=== PATIENT | male | born 1935 | race Caucasian/White ===

== ENCOUNTER 2017-04-15 12:46 | Inpatient (IN) | payer MEDICARE ==
--- NOTE | 2017-04-15 13:19 | RAD ---
CHEST ONE VIEW: History: Sepsis alert. Comparison: 04-15-17 FINDINGS: Portable upright chest demonstrates atherosclerosis of the aortic knob. Heart is enlarged. Pulmonary vessels and hilum are normal. Costophrenic angles are clear. No mass. No consolidation. No pneumothor ax or osseous abnormality. IMPRESSION: No acute cardiopulmonary process. POS: [facility]
[2017-04-15 13:28] LABS: #Lymphocytes 0.8 thou/uL (1.20-3.40); #Monocytes 0.4 thou/uL (0.11-0.59); #Neutrophils 8.8 thou/uL (1.40-6.50); %Basophils 0.1 % (0.0-1.0); %Eosinophils 0.1 % (0.0-10.0); %Lymphocytes 8.2 % (21.0-51.0); %Monocytes 3.5 % (0.0-10.0); %Neutrophils 88.1 % (42.0-75.0); Hemoglobin 9.3 g/dL (14.0-18.0); Mean Corpuscular HGB CONC 33.7 g/dL (32.0-36.0); Mean Corpuscular Hemoglobin 32.3 pg (27.0-31.0); Mean Corpuscular Volume 95.7 fl (80.0-94.0); Mean Platelet Volume 6.8 fL (7.4-10.4); Platelet Count 403 thou/uL (130-400); Red Blood Cell (RBC) Count 2.87 mill/uL (4.70-6.10); White Blood Cell (WBC) Count 9.9 thou/uL (4.8-10.8)
[2017-04-15 13:53] LABS: ALT (SGPT) 10 U/L (8-55); AST (SGOT) 20 U/L (5-34); Albumin 2.9 g/dL (3.4-4.8); Alkaline Phosphatase 105 U/L (40-150); Anion Gap 20 mmol/L (10-20); BUN (Urea Nitrogen) 67 mg/dL (8.4-25.7); Bilirubin, Total 0.3 mg/dL (0.2-1.2); Calc. Creatinine Clearance 0 mL/min (70-130); Calcium 9.1 mg/dL (7.8-10.44); Carbon Dioxide 19 mmol/L (23-31); Chloride 101 mmol/L (98-107); Estimated GFR-MDRD 6; Globulin 3.4 g/dL (2.4-3.5); Glucose 151 mg/dL (83-110); Potassium 4.2 mmol/L (3.5-5.1); Protein, Total 6.3 g/dL (5.8-8.1); Sodium 136 mmol/L (136-145)
[2017-04-15] MEDS ORDERED: Piperacillin/Tazobactam 4.5 GM in Sodium Chloride 0.9% 100 ML IVPB SCH (14:15)
[2017-04-15 14:41] LABS: Bilirubin Negative (Negative); Blood, Urine Large (Negative); Clarity CLOUDY (Clear); Glucose, Urine (Dipstick) Negative (Negative); Leukocyte Negative (Negative); Nitrite Negative (Negative); Protein, Urine (Dipstick) 300 mg/dL (Neg-Trace); Specific Gravity, Urine 1.016 (1.002-1.036); Urobilinogen 0.2 mg/dL (0.2-1.0); pH, Urine 6.5 (5.0-9.0)
[2017-04-15 14:44] LABS: Bacteria/HPF None Seen HPF (None Seen); Hyaline Casts/LPF 0-3 HYALINE CAST LPF (0-3 Hyaline); Pathc Cast-AUWi Flag 0.13 (0-2.49); RBC/HPF GREATER THAN 50-TNTC HPF (0-3); Squamous Epithelial 0-3 HPF (0-3)
[2017-04-15] MEDS ORDERED: Azithromycin 500 MG in Sodium Chloride 0.9% 250 ML 250 ML IVPB SCH (14:45)
[2017-04-15] MEDS ORDERED: cefTRIAXone\\ROCEPHIN 2 GM in Sodium Chloride 0.9% 100 ML IVPB SCH (16:00)
[2017-04-15] MEDS ORDERED: Acetaminophen 325 MG TAB PO PRN (17:03)
[2017-04-15] MEDS ORDERED: Ondansetron HCl/PF 4 MG/2 ML Vial IVP PRN (17:03)
[2017-04-15] MEDS ORDERED: Ondansetron ODT 4 MG TAB SL PRN (17:03)
[2017-04-15] MEDS ORDERED: Sodium Chloride 0.9% 1,000 ML IV SCH (17:03)
[2017-04-15 17:38] LABS: Lactic Acid 1.4 mmol/L (0.5-2.2)
[2017-04-15] MEDS: Sodium Chloride 0.9% 1,000 ML IV SCH (18:14)
--- NOTE | 2017-04-15 20:04 | HP ---
DATE: 04/15/2017, 05:44 p.m. HISTORY OF PRESENT ILLNESS: This is an 81-year-old white male with a long tobacco history, who prese nts with weakness. Patient has a 50-year tobacco history. He has done well throughout his life. 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 He w as doing well until approximately 3 weeks ago when he developed cough and congestion. This has becom e progressively worse daily. It got to the point to where he was having no energy and no appetite. He was having chills at home and was turning the heat up in the house, but could still not stay warm. He was having nausea and dry heaves. He then presented to Dr. Burt on 04/14/2016 and was given Le vaquin and prednisone, and albuterol for bronchitis. He was also diagnosed with fatigue. Labs were obtained and his creatinine was noted to be 9. Dr. Burt today called him at home and instructed him to go straight to the emergency room. Patient has continued to work outside. He complains of persi stent cough and congestion, having difficulty catching his breath. He was seen in the emergency room and is presently admitted for further workup. 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 PAST SURGICAL HISTORY: None. FAMILY HISTORY: Parents are . Mother had a history of hypertension and arthritis. SOCIAL HISTORY: He is a former/rancher. He has been twice. He has 5, four living. He pre sently lives alone. He does have a 50-year tobacco history, smoking approximately half a pack per da y. MEDICATIONS: Aspirin 81 mg daily, lisinopril 20, albuterol p.r.n., Flomax 0.4 mg daily. ALLERGIES: None. REVIEW OF SYSTEMS: As above. PHYSICAL EXAMINATION: VITAL SIGNS: Temperature 98.4, pulse 84, respirations 18, pulse ox 96, blood pressure 154/89. GENERAL: The patient appears mild to moderately ill; however, conversing without difficulty. HEENT: Clear. Mucous membranes dry. NECK: Supple. HEART: Regular rate and rhythm. LUNGS: With bilateral expiratory rhonchi, otherwise relatively clear. He is presently receiving joan athing treatments. ABDOMEN: Soft with diffuse tenderness. EXTREMITIES: With no edema. LABORATORY AND X-RAY FINDINGS: White count 9.9, H&H 9.3 and 27.4, platelets 403. Electrolytes davis l. Creatinine 9.15, BUN 67, potassium 4.2, glucose 151, lactic acid 2.4. Urine specific gravity 1.0 13 with large blood, TNTC RBCs, but 7-10 WBCs, 0-3 squamous cells, no ketones. Chest x-ray no acute disease. ASSESSMENT: 1. Pneumonia. 2. Chronic obstructive pulmonary disease exacerbation. 3. Acute kidney injury on chronic kidney disease stage 5. 4. Dehydration present x3 weeks. 5. Hematuria secondary to dehydration. 6. Tobacco abuse. 7. Benign prostatic hypertrophy. 8. Status post spider bite hospitalized in 09/2016. It appears that the patient may have had a pneumonia/COPD exacerbation, which has been progressing ov er the past 3 weeks. The patient just simply became progressively dehydrated, leading to prerenal az otemia progressing to azotemia. He has been hydrated in the emergency room. He will need hydration over several days and his creatinine will have to be monitored daily. Hopefully, it will improve sig nificantly. PLAN: 1. IV Zithromax and Rocephin. 2. Protonix 40 daily. 3. Hydrate with normal saline at 100 mL per hour. 4. CBC, comprehensive in a.m. as well as blood culture and urine culture. 5. Chest x-ray PA and lateral in a.m. 6. Solu-Medrol 20 q.8 hours. 7. DuoNebs q.6 hours. 8. Abdominal ultrasound.
[2017-04-15] MEDS: HYDROcodone/Acetaminophen 5/325 mg Tablet PO PRN (21:30)
[2017-04-15] MEDS: Pantoprazole 40 MG VIAL IVP SCH (21:31)
--- NOTE | 2017-04-15 22:07 | ULT ---
RENAL ULTRASOUND 04/15/17 PROVIDED CLINICAL HISTORY: Acute kidney injury and chronic kidney disease. FINDINGS: Right kidney measures about 11.3 x 5.2 x 5.3 cm and demonstrates no evidence for hydronephrosis or so lid mass. Simple appearing cysts are seen involving the right kidney. Left kidney measures about 9.9 x 5.3 x 4.8 cm and demonstrates no evidence for hydronephrosis. The urinary bladder is decompressed by Conrad catheter and not evaluated. IMPRESSION: No evidence for hydronephrosis. POS: [facility]
[2017-04-16] MEDS: Sodium Chloride 0.9% 1,000 ML IV SCH ×3 (01:55→20:50)
[2017-04-16] MEDS: HYDROcodone/Acetaminophen 5/325 mg Tablet PO PRN ×3 (01:55→20:50)
--- NOTE | 2017-04-16 08:14 | PRG ---
DATE OF SERVICE: 04/16/2017 SUBJECTIVE: The patient is feeling much better this morning. He had difficulty sleeping last night. He did not want any sleep medications. However, tonight he might need some. He lives in the [facility] and is very quiet and peaceful. He stated that the hospital is very noisy, making it very difficu lt to sleep. OBJECTIVE: VITAL SIGNS: Temperature 98, pulse 105, respirations 18, pulse ox 97, blood pressure 129/78. HEART: Regular rate and rhythm. LUNGS: Clear. ABDOMEN: Soft. LABORATORY DATA: CBC and comprehensive pending. Renal ultrasound negative. ASSESSMENT: 1. Pneumonia. 2. Chronic obstructive pulmonary disease exacerbation. 3. Acute kidney injury on chronic kidney disease stage 5. 4. Dehydration, present x3 weeks. 5. Hematuria secondary to dehydration. 6. Tobacco abuse. 7. Benign prostatic hypertrophy. 8. Status post spider bite hospitalized in 09/2016. The patient's cough and congestion has improved dramatically. His main issue right now is his kidney s. His labs are pending this morning. Nephrology has been consulted. He did have a brief episode o f atrial fibrillation last night. We will continue to observe. May need to consult Cardiology if it returns. We will need to recheck his electrolytes. Hopefully, his creatinine has improved. PLAN: 1. Continue IV Rocephin, Zithromax, Protonix, and Solu-Medrol. 2. Check CBC, comprehensive. 3. Continue hydration, normal saline at 100 mL per hour. 4. Consult Nephrology. 5. Chest x-ray PA and lateral. 6. Consider Cardiology if atrial fibrillation returns.
[2017-04-16 08:41] LABS: #Lymphocytes 0.5 thou/uL (1.20-3.40); #Monocytes 0.1 thou/uL (0.11-0.59); #Neutrophils 9.6 thou/uL (1.40-6.50); %Eosinophils 0.2 % (0.0-10.0); %Lymphocytes 4.6 % (21.0-51.0); %Monocytes 1.2 % (0.0-10.0); Mean Corpuscular HGB CONC 31.7 g/dL (32.0-36.0); Mean Corpuscular Volume 97.9 fl (80.0-94.0); Platelet Count 366 thou/uL (130-400); RBC Distribution Width 13.1 % (11.5-14.5); Red Blood Cell (RBC) Count 2.58 mill/uL (4.70-6.10); White Blood Cell (WBC) Count 10.2 thou/uL (4.8-10.8)
[2017-04-16 09:09] LABS: ALT (SGPT) 10 U/L (8-55); AST (SGOT) 19 U/L (5-34); Albumin 2.6 g/dL (3.4-4.8); Alkaline Phosphatase 78 U/L (40-150); Anion Gap 13 mmol/L (10-20); BUN (Urea Nitrogen) 65 mg/dL (8.4-25.7); Bilirubin, Total Less than 0.2 mg/dL (0.2-1.2); Calc. Creatinine Clearance 7 mL/min (70-130); Calcium 8.5 mg/dL (7.8-10.44); Carbon Dioxide 22 mmol/L (23-31); Chloride 106 mmol/L (98-107); Estimated GFR-MDRD 6; Globulin 2.8 g/dL (2.4-3.5); Glucose 162 mg/dL (83-110); Protein, Total 5.4 g/dL (5.8-8.1); Sodium 136 mmol/L (136-145)
--- NOTE | 2017-04-16 09:43 | RAD ---
CHEST 2 VIEWS: HISTORY: Pneumonia. COMPARISON: Chest 1 view 04/15/17. FINDINGS: Heart size is enlarged. There are air-fluid loops of small and large bowel in the upper abdomen. There is a left lower lobe airspace opacity. The heart size is mildly enlarged. Dense calcifications transverse aorta. IMPRESSION: Left lower lobe airspace opacity concerning for infection. POS: [facility]
--- NOTE | 2017-04-16 10:53 | CON ---
DATE OF CONSULTATION: 04/16/2017 CONSULTING PHYSICIAN: Dr. Serrano from ER. REASON FOR CONSULTATION: Acute kidney injury. REASON FOR ADMISSION: Weakness. HISTORY OF PRESENT ILLNESS: This is an 81-year-old male with history of stroke and arthritis, who ca me to the hospital with the above complaints and found to have acute kidney injury with a creatinine of around 9. Nephrology is consulted for further evaluation. Patient denies any nausea, vomiting, b ut he has been not eating well and dry heaves. No fever or chills. No chest pain, palpitations. PAST MEDICAL HISTORY: Positive for CVA, arthritis. PAST SURGICAL HISTORY: None. HOME MEDICATIONS: Aspirin, lisinopril, Flomax. ALLERGIES: None. SOCIAL HISTORY: No smoking, alcohol or illicit drug abuse and history of former smoking. FAMILY HISTORY: Positive for hypertension. REVIEW OF SYSTEMS: The following complete review of systems was negative, unless otherwise mentioned in the HPI or below: Constitutional: Weight loss or gain, ability to conduct usual activities. Skin: Rash, itching. Eyes: Double vision, pain. ENT/Mouth: Nose bleeding, neck stiffness, pain, tenderness. Cardiovascular: Palpitations, dyspnea on exertion, orthopnea. Respiratory: Shortness of breath, wheezing, cough, hemoptysis, fever or night sweats. Gastrointestinal: Poor appetite, abdominal pain, heartburn, nausea, vomiting, constipation, or diarr hea. Genitourinary: Urgency, frequency, dysuria, nocturia. Musculoskeletal: Pain, swelling. Neurologic/Psychiatric: Anxiety, depression. Allergy/Immunologic: Skin rash, bleeding tendency. PHYSICAL EXAMINATION: GENERAL: This is a well-built male, in no apparent distress. VITAL SIGNS: Temperature 98.4, pulse 84, respiratory 18, blood pressure 154/89. HEENT: Atraumatic, normocephalic. Oral mucosa is moist. NECK: Supple. CARDIOVASCULAR: S1, S2 heard. Rate and rhythm regular. RESPIRATORY: Clear. GASTROINTESTINAL: Abdomen is soft. MUSCULOSKELETAL: No tenderness. No edema. DERMATOLOGIC: No skin rash. NEUROLOGIC: Alert, awake. PSYCHIATRIC: Mood and affect normal. LABORATORY DATA: Hemoglobin is 9.3, potassium is 4.2, BUN 67, creatinine is 9.1. ASSESSMENT AND PLAN: 1. Acute kidney injury most likely from volume depletion. Check renal ultrasound and continue hydra tion and monitor renal function closely, avoid nephrotoxins. Renally dose all the medications. 2. Hypoalbuminemia. We will check urine protein to creatinine ratio. 3. Pyuria, rule out any infection. 4. Edema, controlled. 5. Hypertension. 6. Anemia, chronic, rule out any bleed. Plan is to check renal ultrasound and will check immunological workup and urine protein to creatinine ratio. We will follow. Thank you for the consultation.
--- NOTE | 2017-04-16 11:50 | PRG ---
DATE OF SERVICE: 04/16/2017 SUBJECTIVE: Patient was seen and examined at bedside and overnight events noted. Patient denies any shortness of breath or chest pain or palpitation. No history of nausea or vomitin g or diarrhea or fever or chills or cramps. OBJECTIVE: GENERAL: This is an elderly male, in no apparent distress. VITAL SIGNS: Temperature 99.0, pulse 105, respiratory rate 18, blood pressure 129/78. HEENT: Atraumatic, normocephalic. Oral mucosa is moist NECK: Supple. CARDIOVASCULAR: S1 and S2 heard. Rate and rhythm regular. RESPIRATORY: Clear to auscultation. GASTROINTESTINAL: Abdomen is soft. MUSCULOSKELETAL: No tenderness. No edema. DERMATOLOGIC: No skin rash. NEUROLOGIC: Alert and awake and oriented X3, No focal neurologic deficits. Moving all the extremitie s. PSYCHIATRIC: Mood and affect normal. LABORATORY DATA: Potassium is 5.0, BUN is 65, creatinine is 8.5. ASSESSMENT AND PLAN: 1. Acute kidney injury, most likely from volume depletion. We will check immunological workup and r enal ultrasound was unremarkable. 2. Hypoalbuminemia. We will check for urine protein to creatinine ratio. 3. Proteinuria. 4. Pyuria. 5. Hypertension. 6. Anemia. We will check ANCA and anti-GBM with SPEP, and we will monitor renal function. Continue hydration as tolerated. Avoid nephrotoxins.
--- NOTE | 2017-04-16 13:57 | PQF ---
CLINICAL DOCUMENTATION IMPROVEMENT CLARIFICATION FORM: ICD-10 Updated PLEASE DO AN ADDENDUM TO THE PROGRESS NOTE WITH ANY DOCUMENTATION UPDATES OR ADDITIONS AND CARRY THROUGH TO DC SUMMARY. THANK YOU. DATE: 04/16, 04/20, 04/23 ATTN: DR. ANDRE WHITTAKER/ DR. SONIA BUNCH Please exercise your independent, professional judgment in responding to the clarification form. Clinical indicators are provided on the bottom of this form for your review Please check appropriate box(s): [ ] Pneumonia secondary to (specify organism / underlying disease) [ ] Simple Pneumonia (community acquired - nosocomial) [ ] Bronchopneumonia [ ] Pneumonia of unknown etiology [ ] Other diagnosis [ ] Unable to determine For continuity of documentation, please document condition throughout progress notes and discharge summary. Thank You. CLINICAL INDICATORS - SIGNS / SYMPTOMS / LABS ER PHYSICIAN DOCUMENTATION FINAL DIAGNOSIS 04/15: PNEUMONIA ATTENDING PHYSICIAN H&P DOCUMENTATION 04/15: ASSESSMENT: 1. PNEUMONIA ATTENDING PHYSICIAN PN 04/16: ASSESSMENT: 1. PNEUMONIA RISK FACTORS PNEUMONIA TOBACCO ABUSE COPD EXACERBATION TREATMENTS: IV ANTIBIOTICS (AZITHROMYCIN & ROCEPHIN 04/15 - PRESENT) IVF (NS 04/15 - PRESENT) THANK YOU! Ceci (This form is maintained as a part of the permanent medical record) 2015 [employer]. All Rights Reserved Ceci Gonzalez RN, BSN [email or web address] Office: [phone] [facility]
[2017-04-16 14:45] LABS: Creatinine, Urine 131.48 mg/dL (63-166)
[2017-04-16] MEDS: Azithromycin 500 MG in Sodium Chloride 0.9% 250 ML 250 ML IVPB SCH (14:57)
[2017-04-16] MEDS ORDERED: cefTRIAXone\\ROCEPHIN 1 GM in Sodium Chloride 0.9% 100 ML IVPB SCH (17:00)
[2017-04-16] MEDS: cloNIDine 0.2mg/24 Hour PATCH TD SCH (17:51)
[2017-04-16] MEDS: Amlodipine 5 MG TAB PO SCH (20:51)
[2017-04-16] MEDS: Pantoprazole 40 MG VIAL IVP SCH (20:51)
[2017-04-16] MEDS: Phenergan/Codeine 10-6.25mg/5ml UDCUP PO PRN (20:52)
[2017-04-16] MEDS: cefTRIAXone\\ROCEPHIN 1 GM in Syringe 10 ML SLOW IVP SCH (20:56)
[2017-04-17] MEDS ORDERED: cloNIDine 0.1 MG TAB PO PRN (00:01)
[2017-04-17] MEDS ORDERED: Metoprolol Tartrate 25 MG TAB PO SCH (00:01)
[2017-04-17] MEDS: Sodium Chloride 0.9% 1,000 ML IV SCH ×2 (05:41→17:07)
[2017-04-17 06:11] LABS: HBSAB Concentration 0.27 mIU/mL; HBSAg Index 0.15 S/CO (0-0.99); Hep B Core Total Ab Non-Reactive (NonReactive); Hep B Core Total Index 0.06 S/CO (0-0.79); Hep B Surf AB Non-Reactive (NonReactive); Hep B Surf Ag Non-Reactive S/CO (NonReactive); Hep C IgG Ab Non-Reactive (NonReactive); Hep C Index 0.27 S/CO (0-0.79)
--- NOTE | 2017-04-17 07:36 | PRG ---
DATE OF SERVICE: 04/17/2017 Mr. Jean seems to be feeling better. He was recently hospitalized due to acute renal failure of unknown etiology. PHYSICAL EXAMINATION: VITAL SIGNS: Temperature is 143/93, temperature 98.5. LUNGS: Reveal bilateral breath sounds. HEART: Reveals no murmur. Urine culture is negative. Blood cultures are negative. IMPRESSION: 1. Acute renal failure of unknown etiology, due to possible sepsis. 2. Possible urinary tract infection. PLAN: We will continue cautious IV fluids. We will check basic metabolic panel in a.m. The patient will probably be hospitalized through the weekend. We will await further Nephrology input.
[2017-04-17] MEDS: Metoprolol Tartrate 25 MG TAB PO SCH ×2 (08:47→22:15)
[2017-04-17] MEDS: Latanoprost 0.005% Ophth Soln 2.5 ml Bottle EA EYE SCH (08:47)
[2017-04-17] MEDS: HYDROcodone/Acetaminophen 5/325 mg Tablet PO PRN ×2 (10:05→19:38)
--- NOTE | 2017-04-17 11:45 | PRG ---
DATE OF SERVICE: 04/17/2017 SUBJECTIVE: Patient was seen and examined at bedside and overnight events noted. Patient denies any shortness of breath or chest pain or palpitation. No history of nausea or vomiting or diarrhea or f ever or chills or cramps. OBJECTIVE: GENERAL: This is a well-built male in no apparent distress. VITAL SIGNS: Temperature 98.1, pulse 83, respiratory 18, blood pressure 133/71. HEENT: Atraumatic, normocephalic. Oral mucosa is moist. NECK: Supple. CARDIOVASCULAR: S1, S2 heard. Rate and rhythm regular. RESPIRATORY: Clear to auscultation. GASTROINTESTINAL: Abdomen is soft. MUSCULOSKELETAL: No tenderness, no edema. DERMATOLOGIC: No skin rash. NEUROLOGIC: Alert and awake and oriented x3. No focal neurologic deficits. Moving all the extremit ies. PSYCHIATRIC: Mood and affect normal. LABORATORY DATA: Potassium is 5.0, BUN 65, creatinine 8.0. ASSESSMENT AND PLAN: 1. Acute kidney injury most likely from volume depletion. Renal function is slowly getting better. We will check labs in the morning. No labs done today. 2. Hypoalbuminemia. 2. Proteinuria. 3. Pyuria. 4. Hypertension. 5. Anemia. 6. Serological workup pending. Hepatitis workup negative. The patient had 3+ urine and almost 3 gr ams of protein in the urine and needs to repeat it as an outpatient. Renal ultrasound was unremarkab le. Follow up with immunological workup and we will continue on intravenous fluids as tolerated. Ur ine culture remains negative. We will follow.
[2017-04-17] MEDS: Azithromycin 500 MG in Sodium Chloride 0.9% 250 ML 250 ML IVPB SCH (14:06)
[2017-04-17] MEDS: cefTRIAXone\\ROCEPHIN 1 GM in Syringe 10 ML SLOW IVP SCH (17:07)
[2017-04-17] MEDS: Amlodipine 5 MG TAB PO SCH (22:16)
[2017-04-18] MEDS: Sodium Chloride 0.9% 1,000 ML IV SCH ×2 (02:59→11:20)
[2017-04-18] MEDS: HYDROcodone/Acetaminophen 5/325 mg Tablet PO PRN ×4 (02:59→17:14)
[2017-04-18 05:31] LABS: #Eosinphils 0.1 thou/uL (0.0-0.7); #Lymphocytes 0.4 thou/uL (1.20-3.40); #Monocytes 0.3 thou/uL (0.11-0.59); #Neutrophils 12.8 thou/uL (1.40-6.50); %Basophils 0.1 % (0.0-1.0); %Eosinophils 0.4 % (0.0-10.0); %Lymphocytes 3.1 % (21.0-51.0); %Monocytes 2.5 % (0.0-10.0); Hemoglobin 7.8 g/dL (14.0-18.0); Mean Corpuscular HGB CONC 32.2 g/dL (32.0-36.0); Mean Corpuscular Hemoglobin 31.9 pg (27.0-31.0); Mean Corpuscular Volume 99.1 fl (80.0-94.0); Mean Platelet Volume 6.9 fL (7.4-10.4); Platelet Count 379 thou/uL (130-400); RBC Distribution Width 13.5 % (11.5-14.5); Red Blood Cell (RBC) Count 2.46 mill/uL (4.70-6.10); White Blood Cell (WBC) Count 13.7 thou/uL (4.8-10.8)
[2017-04-18 05:50] LABS: Anion Gap 14 mmol/L (10-20); BUN (Urea Nitrogen) 72 mg/dL (8.4-25.7); Calc. Creatinine Clearance 8 mL/min (70-130); Calcium 8.2 mg/dL (7.8-10.44); Carbon Dioxide 19 mmol/L (23-31); Chloride 108 mmol/L (98-107); Estimated GFR-MDRD 7; Glucose 133 mg/dL (83-110); Potassium 5.5 mmol/L (3.5-5.1); Sodium 135 mmol/L (136-145)
[2017-04-18] MEDS: Latanoprost 0.005% Ophth Soln 2.5 ml Bottle EA EYE SCH (08:06)
[2017-04-18] MEDS: Metoprolol Tartrate 25 MG TAB PO SCH ×2 (08:07→21:10)
[2017-04-18 11:13] LABS: Antinuclear AB Negative (Negative)
[2017-04-18] MEDS ORDERED: Sodium Bicarbonate 150 MEQ, Admixture Fee 1 EACH in Dextrose 5% in Water 1,000 ML IV SCH ×3 (12:45)
[2017-04-18 13:29] LABS: Bilirubin Negative (Negative); Blood, Urine Large (Negative); Clarity CLOUDY (Clear); Glucose, Urine (Dipstick) Negative (Negative); Leukocyte Small (Negative); Nitrite Negative (Negative); Protein, Urine (Dipstick) 300 mg/dL (Neg-Trace); Specific Gravity, Urine 1.019 (1.002-1.036); Urobilinogen 0.2 mg/dL (0.2-1.0); pH, Urine 5.5 (5.0-9.0)
[2017-04-18 13:31] LABS: Bacteria/HPF None Seen HPF (None Seen); Pathc Cast-AUWi Flag 1.35 (0-2.49); Yeast-AUWi Flag 104.7 (0-25.0)
[2017-04-18 13:39] LABS: RBC/HPF GREATER THAN 50-TNTC HPF (0-3); Transitional Epithelial 0-3 HPF (0-3)
[2017-04-18 13:40] LABS: Hyaline Casts/LPF 0-3 HYALINE CAST LPF (0-3 Hyaline); Yeast-All Forms None Seen HPF (None Seen)
[2017-04-18] MEDS: Azithromycin 500 MG in Sodium Chloride 0.9% 250 ML 250 ML IVPB SCH (14:05)
--- NOTE | 2017-04-18 15:29 | PRG ---
DATE OF SERVICE: 04/18/2017 HISTORY OF PRESENT ILLNESS: The patient states he is in no acute distress, has been doing well with breathing treatments, although he has not been ambulatory with physical therapy at the time of exam, it is not sure how tired or winded he would be. I spoke with son at bedside. He verbalized understa nding about the slow improvement in kidneys and fluid dilution showing anemia. Patient's son denies any reports of blood other than found hematuria on laboratory results. The patient does complain of constipation and overt abdominal pain; however, does feel full in the stomach. PHYSICAL EXAMINATION: VITAL SIGNS: This morning temperature of 98.2, pulse of 79, respiratory rate 16, oxygen saturation 9 6%, and blood pressure 150/71. GENERAL: The patient is alert, in no acute distress. HEENT: Normocephalic, atraumatic. Extraocular movements are intact. Sclerae are clear. Oral mucos a is moist currently. NECK: Supple. HEART: Regular rate and rhythm. LUNGS: With expiratory wheezes bilaterally. ABDOMEN: Distended, but not taut, no pain throughout, positive bowel sounds throughout. EXTREMITIES: With no cyanosis or edema. Left upper extremity with a prior IV site with erythema and some induration, erythema is rather being ecchymoses. NEUROLOGIC: The patient is alert and oriented x2. Speech is normal. LABORATORY DATA: White blood cell count 13.7, hemoglobin 7.8, MCV of 99.1, platelet count of 379, so dium 135, potassium of 5.5, CO2 of 19, BUN of 72, creatinine of 7.9, glucose of 133. GWYN was negativ e. Acute hepatitis panel negative. ASSESSMENT AND PLAN: Pneumonia and urinary tract infection, continued on azithromycin and Rocephin. Acute on chronic renal insufficiency, following up Nephrology's recommendations. Patient on 100 mL per hour IV fluids. Anemia of chronic disease, I have ordered stool guaiac for differential. The pa phil does have some element of hematuria, may simply be a slow loss from renal causes with insuffici ent stimulation of long bone production, may consider retic count on morning labs. Dehydration, much improved. The patient is tolerating oral intake at this point in time. Deconditioning, physical th erapy pending. Depending on if patient is able to ambulate or not without significant shortness of b reath, may consider transfusion; however, at this point, we will continue monitoring blood levels. C hronic obstructive pulmonary disease exacerbation, continued on breathing treatments and steroids. W e will likely deescalate to orals soon. The patient still with full phase wheezes on exam today. Co nstipation, started glycerin suppositories and Senokot S. We will check guaiacs as above.
[2017-04-18] MEDS: cefTRIAXone\\ROCEPHIN 1 GM in Syringe 10 ML SLOW IVP SCH (17:13)
--- NOTE | 2017-04-18 19:52 | PRG ---
DATE OF SERVICE: 04/18/2017 SUBJECTIVE: Patient was seen and examined at bedside and overnight events noted. Patient denies any shortness of breath or chest pain or palpitation. No history of nausea or vomiting or diarrhea or f ever or chills or cramps. OBJECTIVE: GENERAL: This is a well-built male in no apparent distress. VITAL SIGNS: Temperature 97.7, pulse 82, respiratory rate 14 and blood pressure 119/63. HEENT: Atraumatic and normocephalic. Oral mucosa is moist. NECK: Supple. CARDIOVASCULAR: S1 and S2 heard. Rate and rhythm regular. RESPIRATORY: Clear to auscultation. GASTROINTESTINAL: Abdomen is soft. MUSCULOSKELETAL: No tenderness. No edema. DERMATOLOGIC: No skin rash. NEUROLOGIC: Alert, awake and oriented x3. No focal neurologic deficits. Moving all the extremities . PSYCHIATRIC: Mood and affect normal. LABORATORY DATA: Potassium is 5.5, BUN is 72 and creatinine is 7.9. GWYN is negative. Hepatitis B p alejandra negative. Urine protein almost 3 grams. Repeat urine suggests hematuria and coarse granular ca sts suggesting UTI. ASSESSMENT AND PLAN: 1. Acute kidney injury, most likely from acute tubular necrosis, suggested by the repeat urine studi es. End-stage renal disease is also a possibility given the hematuria. An immunological workup is p ending. If renal function is not significantly better, might need a renal biopsy. We would avoid as pirin at this point. Follow up serological workup. 2. Hypoalbuminemia. 3. Proteinuria. Need to repeat after acute tubular necrosis. 4. Pyuria. 5. Hypertension. 6. Anemia. 7. Renal function with slow improvement with IV hydration. Continue IV hydration, supportive care, avoid nephrotoxins and we will follow up the immunological tests. Might need a renal biopsy if no si gnificant improvement. Repeat urinalysis suggests acute tubular necrosis.
[2017-04-18] MEDS: Senokot S 8.6-50 MG TAB PO SCH (21:10)
[2017-04-18] MEDS: Amlodipine 5 MG TAB PO SCH (21:10)
[2017-04-19 05:15] LABS: #Eosinphils 0.1 thou/uL (0.0-0.7); #Lymphocytes 0.5 thou/uL (1.20-3.40); #Monocytes 0.4 thou/uL (0.11-0.59); #Neutrophils 11.5 thou/uL (1.40-6.50); %Basophils 0.1 % (0.0-1.0); %Eosinophils 0.4 % (0.0-10.0); %Lymphocytes 3.6 % (21.0-51.0); %Monocytes 3.2 % (0.0-10.0); %Neutrophils 92.6 % (42.0-75.0); Hemoglobin 7.7 g/dL (14.0-18.0); Mean Corpuscular HGB CONC 32.3 g/dL (32.0-36.0); Mean Corpuscular Hemoglobin 31.4 pg (27.0-31.0); Mean Corpuscular Volume 97.1 fl (80.0-94.0); Mean Platelet Volume 6.6 fL (7.4-10.4); Platelet Count 374 thou/uL (130-400); RBC Distribution Width 12.9 % (11.5-14.5); Red Blood Cell (RBC) Count 2.45 mill/uL (4.70-6.10); White Blood Cell (WBC) Count 12.4 thou/uL (4.8-10.8)
[2017-04-19 05:16] LABS: Reticulocyte Count 1.6 % (0.5-1.5)
[2017-04-19 05:24] LABS: Hemoglobin A1c 4.8 % (4.0-6.0)
[2017-04-19 05:31] LABS: Anion Gap 13 mmol/L (10-20); BUN (Urea Nitrogen) 76 mg/dL (8.4-25.7); Calc. Creatinine Clearance 9 mL/min (70-130); Calcium 8.2 mg/dL (7.8-10.44); Carbon Dioxide 21 mmol/L (23-31); Chloride 103 mmol/L (98-107); Estimated GFR-MDRD 7; Glucose 156 mg/dL (83-110); Potassium 5.1 mmol/L (3.5-5.1); Sodium 132 mmol/L (136-145)
[2017-04-19] MEDS: Latanoprost 0.005% Ophth Soln 2.5 ml Bottle EA EYE SCH (08:52)
[2017-04-19] MEDS: Metoprolol Tartrate 25 MG TAB PO SCH ×2 (08:54→21:45)
[2017-04-19] MEDS: Senokot S 8.6-50 MG TAB PO SCH ×2 (08:54→21:45)
[2017-04-19] MEDS: HYDROcodone/Acetaminophen 5/325 mg Tablet PO PRN ×3 (10:19→21:46)
[2017-04-19] MEDS ORDERED: Magnesium Citrate 300 ML BOT PO SCH (10:45)
[2017-04-19 11:10] LABS: Kappa Lambda Light Chain Ratio 1.15 (0.26-1.65); Kappa Light Chains 85.7 mg/L (3.3-19.4); Lambda Light Chain 74.5 mg/L (5.7-26.3)
--- NOTE | 2017-04-19 12:15 | PRG ---
DATE OF SERVICE: 04/19/2017 HISTORY OF PRESENT ILLNESS: The patient still has not had a bowel movement following glycerin suppos itory and Senokot S tablets x2 doses. He reports positive flatus now, but no abdomen pain, formally does have abdomen bloating. He reports his left blown IV site with much improved edema. No warmth o r exudates reported. The patient still producing phlegm, still receiving breathing treatments regard ing COPD history and pneumonia, walked with physical therapy over 200 feet yesterday, feels he could walk again and requesting a walking program for additional ambulation. Family members reported that he is slightly more agitated. He has been unable to receive consistent sleep during his hospital sta y here, requesting something for sleeping. PHYSICAL EXAMINATION: VITAL SIGNS: Temperature 97.7, pulse of 81, respiratory rate of 18, oxygen saturation 97% on room ai r, and blood pressure 140/84. GENERAL: The patient is alert and oriented, in no acute distress. HEENT: Head is normocephalic, atraumatic. Extraocular movements are intact. Sclerae are clear. Or al mucosa is moist. NECK: Supple. HEART: Regular rate and rhythm at the time of exam. LUNGS: Clear to auscultation bilaterally. No rubs or wheezes. ABDOMEN: Distended, but soft, positive bowel sounds throughout, nontender. EXTREMITIES: Lower extremities without cyanosis or edema. Left brachial to AC fossa with ecchymoses , improved swelling compared to yesterday's exam. NEUROLOGIC: The patient is alert and oriented x3, no focal deficits. Speech is normal. LABORATORY DATA: White blood cell count of 12.4, red blood cell count of 2.45, hemoglobin of 7.7, re ticulocyte count of 1.6. Sodium of 132, potassium of 5.1, BUN of 77, creatinine of 7.2, glucose of 1 56, A1c of 4.8, CO2 of 21. Partial autoimmune panel back normal complement, elevated free kappa and lambda, protein profile. GWYN is negative. ASSESSMENT AND PLAN: 1. Pneumonia and chronic obstructive pulmonary disease exacerbation, much improved. The patient is on room air, transitioning IV steroids to p.o., continuing breathing treatments. 2. Acute on chronic renal insufficiency, following up Nephrology's workup depending on autoimmune pa marivel profile and the patient's recovery speed. They may possibly recommend a renal biopsy. IV fluids , we will default to Nephrology's recommendations for continuation of IV fluids regarding elevated cr eatinine, currently slow trend down. 3. Dehydration, appears resolved. 4. Deconditioning, consulting walking program over the weekend for additional ambulation. The patie nt will need a home health PT upon discharge. 5. Anemia of chronic disease, currently stabilized, still would like to check stool for any blood wi th bowel movements produce constipation, ordering magnesium citrate x1 for additional oral relief. I f not improved, we will consider KUB and Fleet Enema versus soapsuds enema. We will continue Senokot S at this point in time. Deescalated azithromycin to oral. Continuing Rocephin at this point in ti me IV for possible urinary tract infection on admission. We will likely see him back after Dr. Burt in a.m.
[2017-04-19] MEDS ORDERED: Azithromycin 250 MG TAB PO SCH (15:00)
[2017-04-19] MEDS: cefTRIAXone\\ROCEPHIN 1 GM in Syringe 10 ML SLOW IVP SCH (16:26)
--- NOTE | 2017-04-19 17:15 | PRG ---
DATE OF SERVICE: 04/19/2017 SUBJECTIVE: Patient was seen and examined at bedside and overnight events noted. Patient denies any shortness of breath or chest pain or palpitation. No history of nausea or vomitin g or diarrhea or fever or chills or cramps. OBJECTIVE: GENERAL: This is an elderly male in no acute distress. VITAL SIGNS: Temperature 97.5, pulse 78, respiratory rate 18, blood pressure 119/58. HEENT: Atraumatic, normocephalic, Oral mucosa is moist. NECK: Supple. CARDIOVASCULAR: S1, S2 heard. Rate and rhythm regular. RESPIRATORY: Clear to auscultation. GASTROINTESTINAL: Abdomen is soft. MUSCULOSKELETAL: No tenderness, no edema. DERMATOLOGIC: No skin rash. NEUROLOGIC: Alert, awake, and oriented x3. No focal neurologic deficits. Moving all the extremitie s. PSYCHIATRIC: Mood and affect normal. LABORATORY DATA: Potassium is 5.1, BUN 76, creatinine 7.2. ASSESSMENT AND PLAN: 1. Acute kidney injury seems to be most likely from acute tubular necrosis. Immunological workups a re pending. GWYN is negative, ANCA is pending, and SPEP is pending. 2. Hypoalbuminemia, most likely from proteinuria. 3. Proteinuria, could be from acute tubular necrosis, but immunological workup is pending. Hemoglob in A1c is normal. 4. Pyuria. Culture remains negative. 5. Hypertension. 6. Anemia, most likely from chronic disease, rule out any bleed. The patient seems to have ATN. Renal function had no significant improvement with IV fluids. We john l continue to monitor. Might need [employer] if no significant improvement of renal function. Plan discuss ed with the son and the patient at the bedside.
[2017-04-19] MEDS ORDERED: Lorazepam 0.5 MG TAB PO PRN (20:00)
[2017-04-19] MEDS: Amlodipine 5 MG TAB PO SCH (21:50)
[2017-04-19] MEDS: Phenergan/Codeine 10-6.25mg/5ml UDCUP PO PRN (22:00)
[2017-04-20 05:48] LABS: #Eosinphils 0.1 thou/uL (0.0-0.7); #Lymphocytes 1.2 thou/uL (1.20-3.40); #Monocytes 0.7 thou/uL (0.11-0.59); #Neutrophils 10.1 thou/uL (1.40-6.50); %Basophils 0.1 % (0.0-1.0); %Eosinophils 0.4 % (0.0-10.0); %Lymphocytes 9.6 % (21.0-51.0); %Monocytes 5.4 % (0.0-10.0); %Neutrophils 84.4 % (42.0-75.0); Hemoglobin 8.2 g/dL (14.0-18.0); Mean Corpuscular HGB CONC 33.2 g/dL (32.0-36.0); Mean Corpuscular Hemoglobin 32.2 pg (27.0-31.0); Mean Corpuscular Volume 96.9 fl (80.0-94.0); Mean Platelet Volume 6.8 fL (7.4-10.4); Platelet Count 397 thou/uL (130-400); Red Blood Cell (RBC) Count 2.55 mill/uL (4.70-6.10)
[2017-04-20 05:59] LABS: Anion Gap 14 mmol/L (10-20); BUN (Urea Nitrogen) 79 mg/dL (8.4-25.7); Calc. Creatinine Clearance 10 mL/min (70-130); Calcium 8.2 mg/dL (7.8-10.44); Carbon Dioxide 22 mmol/L (23-31); Chloride 102 mmol/L (98-107); Estimated GFR-MDRD 8; Glucose 91 mg/dL (83-110); Potassium 5.6 mmol/L (3.5-5.1); Sodium 132 mmol/L (136-145)
--- NOTE | 2017-04-20 08:14 | PRG ---
DATE OF SERVICE: 04/20/2017 Mr. Jean is resting comfortably. He is still complaining of constipation. PHYSICAL EXAMINATION: VITAL SIGNS: Temperature 96.3, BP 120/71. LUNGS: Clear. HEART: Reveals no murmurs. ABDOMEN: Soft, nontender. Bowel sounds are active. No hepatosplenomegaly is noted. LABORATORY DATA: White blood count is 12.0, hemoglobin 8.2, hematocrit 44.7, sodium 132, potassium 5 .6, chloride 102, CO2 22, creatinine 6.92. It is noted, his free kappa lambda light chains are eleva nano. IMPRESSION: Acute renal failure possibly could represent a multiple myeloma with elevated kappa so bda light chain. PLAN: The patient is complaining of constipation. We will give him some Dulcolax tablets and suppos itories to use as directed. We will discuss findings with the patient later.
[2017-04-20] MEDS: predniSONE 20 MG TAB PO SCH (08:47)
[2017-04-20] MEDS: Latanoprost 0.005% Ophth Soln 2.5 ml Bottle EA EYE SCH (08:48)
[2017-04-20] MEDS: Senokot S 8.6-50 MG TAB PO SCH ×2 (08:48→21:53)
[2017-04-20] MEDS: Metoprolol Tartrate 25 MG TAB PO SCH ×2 (08:48→21:54)
[2017-04-20] MEDS: Sodium Chloride 0.9% 1,000 ML IV SCH (10:07)
--- NOTE | 2017-04-20 10:13 | PRG ---
DATE OF SERVICE: 04/20/2017 SUBJECTIVE: This is an 81-year-old gentleman being seen for acute kidney injury. The patient denies any nausea, vomiting or chest pain. PHYSICAL EXAMINATION: GENERAL: Patient is awake, alert. VITAL SIGNS: Afebrile, pulse 77, breathing at 16, blood pressure 121/77. GENERAL APPEARANCE AND MENTAL STATUS: Fair. HEAD/NECK: Normocephalic, atraumatic. EYES: EOMI. No deformity. EARS: Clear. No ulcers. NOSE: Intact. No lesions. MOUTH: Clear. No discharge. THROAT: Clear. No exudate. LUNGS: Clear. No crackles. CARDIAC: S1, S2. No rub. ABDOMEN: Benign. BS+. GENITALIA/RECTUM: Conrad absent. BACK/EXTREMITIES: Edema 0+ Ulcer-. NEUROLOGICAL: Alert and motor intact. SKIN: Rash- Bruise- LYMPHATICS: Edema- Ulcer-. LABORATORY DATA: Show creatinine is 6.9, potassium is 5.6. ASSESSMENT AND RECOMMENDATIONS: 1. Acute kidney injury with chronic kidney disease, appears to be some sort of hematologic disorder causing proteinuria. I will order gentle hydration. 2. Hyperkalemia. We will give Kayexalate and hydration and recheck potassium. If does not improve, we will consider renal replacement therapy. 3. Anemia, appears to be some sort of hematologic disorder. We would recommend consultation. 4. Hypertension, stable. 5. Medication based on glomerular filtration rate are appropriate.
[2017-04-20 13:14] LABS: A/G Ratio 0.8 (0.7-1.7); Albumin 2.1 g/dL (2.9-4.4); Alpha 1 0.3 g/dL (0.0-0.4); Alpha 2 0.9 g/dL (0.4-1.0); Beta 0.6 g/dL (0.7-1.3); Gamma 0.8 g/dL (0.4-1.8); Globulin, Total 2.6 g/dL (2.2-3.9); M-Spike Not Observed g/dL (Not Observed)
[2017-04-20 13:50] LABS: Anion Gap 17 mmol/L (10-20); BUN (Urea Nitrogen) 78 mg/dL (8.4-25.7); Calc. Creatinine Clearance 10 mL/min (70-130); Calcium 8.1 mg/dL (7.8-10.44); Carbon Dioxide 16 mmol/L (23-31); Chloride 102 mmol/L (98-107); Estimated GFR-MDRD 8; Glucose 103 mg/dL (83-110); Potassium 5.8 mmol/L (3.5-5.1); Sodium 129 mmol/L (136-145)
--- NOTE | 2017-04-20 14:47 | CON ---
DATE OF CONSULTATION: 04/20/2017 DATE OF ADMISSION: 04/15/2017 REASON FOR CONSULTATION: Possible plasma cell disorder. HISTORY OF PRESENT ILLNESS: The patient is an 81-year-old man with a long history of tobacco use, wh o presents with a several-month history of progressive weakness and some confusion/cognitive decline. This is associated with upper respiratory complaints including cough without fever or hemoptysis. He was seen in the outpatient setting and routine laboratory studies were obtained revealing a creati nine of 9. He was subsequently admitted emergently, and subsequent studies have confirmed acute paige l failure. A creatinine in 10/2016 was normal. Initial electrolytes were abnormal, manifested by, s odium 136, potassium 4.2, chloride 101, carbon dioxide 19. Creatinine was 9.1 and BUN 67, and total protein 6.4 with an albumin of 3.4. A urinalysis did reveal too numerous to count red blood cells an d 7-10 white cells with some evidence of proteinuria. A culture was negative. The patient has had a serum protein electrophoresis, which is normal with no M-spike. [place] and lambda light chains in th e serum are elevated at 85.7 and 74.5, respectively. However, the free kappa/lambda ratio was normal at 1.15. An ultrasound has shown no evidence of obstruction. At this time, I am asked to see the p atient to provide further management recommendations. ALLERGIES: None. MEDICATIONS: Aspirin, lisinopril, and Flomax. MEDICAL ILLNESS: There is a history of COPD. He reportedly had a mini stroke affecting eyesight in the left eye a few years ago, for which aspirin was prescribed. PAST SURGICAL HISTORY: He has never undergone a serious surgical procedure. SOCIAL HISTORY: Patient has been twice and has 4 living children. 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 A son is quite involved in his care. He has a 50 -pack-year history of smoking and continues to smoke currently 1/2 pack per day. REVIEW OF SYSTEMS: Except as mentioned in the history of present illness, he denies significant card iopulmonary, GI, , musculoskeletal, or neurological complaints. PHYSICAL EXAMINATION: VITAL SIGNS: Temperature 97.8, pulse 77, respirations 17, blood pressure 142/70. GENERAL: The patient is a well-developed, well-nourished man, in no acute distress. He is alert, or iented, and cooperative. HEENT: The extraocular movements are intact. Pupils are equal, round, and reactive to light. NECK: Supple. LUNGS: Clear. CARDIOVASCULAR: Regular rate and rhythm without murmur, rub, gallop, or click. ABDOMEN: No tenderness, organomegaly, masses, bruits, or ascites. EXTREMITIES: No clubbing, cyanosis, or edema. SKIN: Normal. LYMPH: No adenopathy. MUSCULOSKELETAL: No active arthritis. NEUROLOGIC: No focal findings and the cranial nerves II-XII are grossly intact. LABORATORY DATA: See history of present illness. IMAGING: See history of present illness. IMPRESSION: Acute renal failure, etiology unclear. RECOMMENDATIONS: At this point, there is no evidence of a primary hematologic or plasma cell disorde r. The CBC shows a normochromic/normocytic anemia as one might expect in the setting of renal failur e with no other significant findings. There is no evidence of an M-spike, and although the kappa and lambda free light chains are elevated, the ratio is normal, indicating no evidence of a clonal popul ation of plasma cells. There is no 24-hour urine. If a 24-hour urine specimen did show light chain proteinuria, a bone marrow would be the diagnostic procedure of choice in my opinion. Otherwise, pro ceeding with renal biopsy as is being considered by Nephrology would be quite reasonable. Thanks very much for allowing me to provide my recommendations.
[2017-04-20 14:56] LABS: CO2 Tension 33.2 mmHg (35.0-45.0); pH, Arterial 7.41 (7.35-7.45)
[2017-04-20 14:57] LABS: Actual Bicarbonate (HCO3a) 20.6 mEq/L (22-26); Base Excess (BEa) -3.5 mEq/L (0 (+/-) 2.5); Calcium, Ionized 1.2 mmol/L (1.12-1.30); Hematocrit-ABG 28.6 % (42.0-52.0); Hemoglobin (Hb) 8.4 g/dL (14.0-18.0); O2 Tension (PaO2) 76.6 mmHg (80.0-100.0); Puncture Site RR
[2017-04-20] MEDS ORDERED: Bisacodyl 10 MG SUPP PR SCH (15:45)
--- NOTE | 2017-04-20 17:01 | ULT ---
VEIN MAPPING OF UPPER EXTREMITIES FOR DIALYSIS ACCESS: Clinical history: Dialysis access. FINDINGS: Incidental note of enlarged rounded vascular structure of the region of the right brachial artery. Th is may relate to aneurysm versus pseudo-aneurysm. RIGHT UPPER EXTREMITY BRACHIAL ARTERY: 2.9 mm RADIAL ARTERY: 2.3 mm ULNAR ARTERY: 1.1 mm CEPHALIC VEIN Proximal Arm: Not seen Mid Arm: Not seen Distal Arm: Non compressible Antecubital Fossa: Non compressible Proximal Forearm: 1.5 mm Mid Forearm: 1.6 mm Distal Forearm: 1.4 mm BASILIC VEIN Proximal Arm: 3.1 mm Mid Arm: 3.3 mm Distal Arm: 3.2 mm Antecubital Fossa: 3.2 mm Proximal Forearm: 0.7 mm Mid Forearm: 1.3 mm Distal Forearm: 1.1 mm LEFT UPPER EXTREMITY BRACHIAL ARTERY: 3.9 mm RADIAL ARTERY: 2.1 mm ULNAR ARTERY: 1.6 mm CEPHALIC VEIN Proximal Arm: 1.2 mm Mid Arm: 1.3 mm Distal Arm: 1.3 mm Antecubital Fossa: 1.4 mm Proximal Forearm: 0.8 mm Mid Forearm: 1.4 mm Distal Forearm: 1.3 mm BASILIC VEIN Proximal Arm: 2.3 mm Mid Arm: 1.7 mm Distal Arm: 1.4 mm Antecubital Fossa: 2.0 mm Proximal Forearm: 1.1 mm Mid Forearm: Non compressible Distal Forearm: Non compressible IMPRESSION: 1. 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 Recommend clinical correlation and appropriate follow up. 2. Upper extremity vein mapping as above. POS: SHAD
[2017-04-20] MEDS: cefTRIAXone\\ROCEPHIN 1 GM in Syringe 10 ML SLOW IVP SCH (17:37)
--- NOTE | 2017-04-20 20:17 | OP ---
PREOPERATIVE DIAGNOSIS: Acute renal failure. POSTOPERATIVE DIAGNOSIS: Acute renal failure. PROCEDURE: Right femoral vein Trialysis catheter. SURGEON: Dr. Benjamín Jj ANESTHESIA: 1% Xylocaine. PROCEDURE: The patient is at the bedside, right groin was clipped of hair, prepared with chloraprep, draped in routine fashion. Seldinger technique used to place a Trialysis catheter utilizing smaller and medium sized dilators placed over the J-wire in the femoral vein and removed and J-wire removed from the Trialysis catheter once placed, catheter secured with 2 interrupted sutures of 3-0 nylon and sterile dressings applied. Each port aspirated blood and flushed with heparinized saline solution. Patient tolerated the procedure well.
--- NOTE | 2017-04-20 20:22 | HP ---
HISTORY OF PRESENT ILLNESS: Mr. Jean is an 81-year-old male patient who lives in [place], works il [employer], has a history of hypertension and recent bout with flu, admitted to this hospitalization 0 04/15/2017, Dr. Leyva, followed by Dr. Benjamín Burt, with weakness. The patient has developed acute renal failure. I have been asked by Dr. Pastor to place hemodialysis temporary catheter. Despite opt imal medical treatment, his renal function has deteriorated. Prior to this hospitalization, renal fu nction was normal. 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 Maximiliano Persaud. PAST SURGICAL HISTORY: Noncontributory. SOCIAL HISTORY: The patient's son is with him. The patient is a castaneda/rancher. He has passed the worst. 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 Tobacco abuse in the past. MEDICATIONS: Aspirin, lisinopril, Flomax. REVIEW OF SYSTEMS: Noncontributory. PHYSICAL EXAMINATION: VITAL SIGNS: 5 feet 7 pounds, 183 pounds, 28 BMI, 97.8, 77, 142/70. LUNGS: Clear to auscultation. CARDIAC: Regular rate and rhythm without murmur or gallop. ABDOMEN: Soft, nontender. EXTREMITIES: Unremarkable. LABORATORY DATA: White count 12, hemoglobin 8.2. Sodium 129, potassium 5.8, BUN 78, creatinine 7.07 , GFR 8. IMAGING: We will obtain ultrasound vein mapping both arms, which we have obtained in case long-term dialysis access is necessary. Cephalic vein on the right in his upper arm is thrombosed and small, b asilic vein 3.1, 3.3, 3.2 mm; antecubital fossa 3.2 mm; left cephalic vein 1.2, 1.3, 1.3 mm; basilic vein 2.3, 1.7, 1.4; antecubital fossa 2 mm. The suggestion of a possible aneurysm versus pseudoaneur ysm is the reason of the right brachial artery based on ultrasound. ASSESSMENT AND PLAN: Acute renal failure. Plan placement of hemodialysis catheter, Trialysis, right groin, avoid IV acces s above his wrist. I will be available if more permanent dialysis access is necessary. Hopefully, r enal function will recover.
[2017-04-20] MEDS: Amlodipine 5 MG TAB PO SCH (21:53)
[2017-04-20] MEDS: Phenergan/Codeine 10-6.25mg/5ml UDCUP PO PRN (21:54)
[2017-04-20] MEDS: HYDROcodone/Acetaminophen 5/325 mg Tablet PO PRN (21:54)
[2017-04-21] MEDS: Sodium Chloride 0.9% 1,000 ML IV SCH (07:28)
[2017-04-21 08:19] LABS: Albumin-Ur 72.3 % (.); Alpha 2 - Ur 6.1 % (.); Gamma-Ur 9.5 % (.); M-Spike,% Not Observed % (Not Observed); Protein, Urine 262.2 mg/dL (Not Estab.)
[2017-04-21 10:37] LABS: Anion Gap 6 mmol/L (10-20); Calc. Creatinine Clearance 26 mL/min (70-130); Calcium 7.6 mg/dL (7.8-10.44); Carbon Dioxide 32 mmol/L (23-31); Chloride 104 mmol/L (98-107); Estimated GFR-MDRD 23; Glucose 96 mg/dL (83-110); Potassium 3.5 mmol/L (3.5-5.1); Sodium 138 mmol/L (136-145)
--- NOTE | 2017-04-21 11:11 | PRG ---
DATE OF SERVICE: 04/21/2017 SUBJECTIVE: An 81-year-old gentleman being seen for acute kidney injury and hyperkalemia. The patie nt states he feels better, denies any nausea, vomiting or chest pain. PHYSICAL EXAMINATION: GENERAL: Patient is awake, alert. VITAL SIGNS: Afebrile, pulse 70, breathing at 16, blood pressure 114/58. OBJECTIVE: See above. Awake, alert, in no acute distress. GENERAL APPEARANCE AND MENTAL STATUS: Fair. HEAD/NECK: Normocephalic. Atraumatic. EYES: EOMI. No deformity. EARS: Clear. No ulcers. NOSE: Intact. No lesions. MOUTH: Clear. No discharge. THROAT: Clear. No exudate. LUNGS: Clear. No crackles. CARDIAC: S1, S2. No rub. ABDOMEN: Benign. BS+. GENITALIA/RECTUM: Conrad absent. BACK/EXTREMITIES: Edema 0+ Ulcer- NEUROLOGICAL: Alert and motor intact. SKIN: Rash- Bruise- LYMPHATICS: Edema- Ulcer- LABORATORY: Hemoglobin 8.2. ASSESSMENT AND RECOMMENDATIONS: 1. Stage 6 chronic kidney disease and hyperkalemia. We will plan dialysis again. 2. Uremia plan dialysis. 3. Hypertension, stable. 4. Medications based on glomerular filtration rate are appropriate. Risks versus benefits of dialysis were discussed and continue dialysis. Monoclonal gammopathy of unk nown significance. Hematology consult appreciated.
[2017-04-21] MEDS: predniSONE 20 MG TAB PO SCH (11:23)
[2017-04-21 11:40] LABS: BUN (Urea Nitrogen) 29 mg/dL (8.4-25.7)
[2017-04-21] MEDS: Metoprolol Tartrate 25 MG TAB PO SCH ×2 (11:46→21:06)
[2017-04-21] MEDS: Senokot S 8.6-50 MG TAB PO SCH ×2 (11:46→21:07)
[2017-04-21] MEDS: Latanoprost 0.005% Ophth Soln 2.5 ml Bottle EA EYE SCH (11:47)
[2017-04-21] MEDS: cefTRIAXone\\ROCEPHIN 1 GM in Syringe 10 ML SLOW IVP SCH (16:48)
--- NOTE | 2017-04-21 19:01 | PRG ---
DATE OF SERVICE: 04/21/2017 SUBJECTIVE: Mr. Jean is undergoing dialysis today and he is feeling a little bit better. He has no other complaints thus far . As far as workup has shown only elevated lambda change otherwise wor kup is negative thus far. He is undergoing dialysis. OBJECTIVE: VITAL SIGNS: Temperature 98.7, pulse 126/65. LUNGS: Clear. HEART: Reveals no murmur. IMPRESSION: 1. Acute renal failure, etiology still undetermined. 2. He does have a reported pneumonia by chest x-ray. We will repeat chest x-ray tomorrow. He did s tart some form of discharge planning.
[2017-04-21] MEDS: HYDROcodone/Acetaminophen 5/325 mg Tablet PO PRN (21:05)
[2017-04-21] MEDS: Amlodipine 5 MG TAB PO SCH (21:06)
[2017-04-22] MEDS: predniSONE 20 MG TAB PO SCH (09:15)
[2017-04-22] MEDS: Latanoprost 0.005% Ophth Soln 2.5 ml Bottle EA EYE SCH (09:16)
[2017-04-22] MEDS: Metoprolol Tartrate 25 MG TAB PO SCH ×2 (09:16→20:17)
[2017-04-22] MEDS: Senokot S 8.6-50 MG TAB PO SCH ×2 (09:17→20:17)
[2017-04-22] MEDS: Bisacodyl 5 MG TAB PO PRN (09:19)
--- NOTE | 2017-04-22 09:24 | RAD ---
TWO VIEWS CHEST: Comparison: 04-16-17 History: Pneumonia. FINDINGS: Two views of the chest shows normal sized cardiomediastinal silhouette. There are small bilateral ple ural effusions with adjacent atelectasis. No consolidation or mass are seen. IMPRESSION: Small bilateral pleural effusions. POS: H
[2017-04-22 09:32] LABS: Hemoglobin 7.3 g/dL (14.0-18.0)
[2017-04-22 09:45] LABS: Anion Gap 9 mmol/L (10-20); BUN (Urea Nitrogen) 36 mg/dL (8.4-25.7); Calc. Creatinine Clearance 18 mL/min (70-130); Calcium 7.7 mg/dL (7.8-10.44); Carbon Dioxide 31 mmol/L (23-31); Chloride 101 mmol/L (98-107); Estimated GFR-MDRD 16; Glucose 90 mg/dL (83-110); Potassium 3.8 mmol/L (3.5-5.1); Sodium 137 mmol/L (136-145)
--- NOTE | 2017-04-22 09:57 | PRG ---
DATE OF SERVICE: 04/22/2017 SUBJECTIVE: Mr. Jean is arousable. He feels like he is a little bit confused. He does not know what date it is, although he appears to be more alert to me. He verbalizes no complaints. PHYSICAL EXAMINATION: VITAL SIGNS: Temperature is 98.4, pulse 79, O2 sats 94%, blood pressure 106/55. LUNGS: Reveals raspy breath sounds without evidence of wheezes. HEART: Reveals no murmur. ABDOMEN: Soft, nontender, bowel sounds are present and active. GENITOURINARY: Reveals some scrotal edema. EXTREMITIES: No clubbing, edema or cyanosis. LABORATORY DATA: Sodium 138, potassium 3.5, chloride 104, CO2 32, creatinine 2.72. Urine protein, s tudies showed no evidence of any M-spike. IMPRESSION: 1. Acute renal failure. 2. Pneumonia. PLAN: 1. We will check chest x-ray today. 2. We will engage physical therapy. 3. We will engage social services designee to be in discussing the future living arrangement of the patient a t this time, he states he will not live in a retirement at first with his house. I am beginning to wonder how feasible this is.
--- NOTE | 2017-04-22 10:12 | PRG ---
DATE OF SERVICE: 04/22/2017 SUBJECTIVE: An 81-year-old gentleman being seen for acute kidney injury. The patient denies any abner sea, vomiting, or chest pain. PHYSICAL EXAMINATION: GENERAL: Patient is awake, alert. VITAL SIGNS: Afebrile, pulse 85, breathing at 16, blood pressure 106/55. OBJECTIVE: See above. Awake, alert, in no acute distress. GENERAL APPEARANCE AND MENTAL STATUS: Fair. HEAD/NECK: Normocephalic. Atraumatic. EYES: EOMI. No deformity. EARS: Clear. No ulcers. NOSE: Intact. No lesions. MOUTH: Clear. No discharge. THROAT: Clear. No exudate. LUNGS: Clear. No crackles. CARDIAC: S1, S2. No rub. ABDOMEN: Benign. BS+. GENITALIA/RECTUM: Conrad absent. BACK/EXTREMITIES: Edema 0+ Ulcer- NEUROLOGICAL: Alert and motor intact. SKIN: Rash- Bruise- LYMPHATICS: Edema- Ulcer- LABORATORY: Hemoglobin is 7.3, creatinine is 3.72. ASSESSMENT AND RECOMMENDATIONS: 1. Acute kidney injury with chronic kidney disease, stage 5, continue hemodialysis. 2. Hyperkalemia, stable. 3. Anemia, would recommend transfusion. 4. Medications based on GFR are appropriate.
[2017-04-22] MEDS ORDERED: Bisacodyl 10 MG SUPP PR SCH (11:15)
[2017-04-22] MEDS: Epoetin (ESRD) 10,000 UNITS/ML VIAL SC SCH (11:25)
[2017-04-22 17:13] LABS: ANCA Total <1:20 titer (Neg:<1:20); Atypical pANCA <1:20 titer (Neg:<1:20); Myeloperoxidase AutoAbs 30.2 U/mL (0.0-9.0); Proteinase-3 AutoAbs Less than 3.5 U/mL (0.0-3.5)
[2017-04-22] MEDS: cefTRIAXone\\ROCEPHIN 1 GM in Syringe 10 ML SLOW IVP SCH (17:22)
[2017-04-22] MEDS: HYDROcodone/Acetaminophen 5/325 mg Tablet PO PRN (20:26)
[2017-04-23] MEDS: Amlodipine 5 MG TAB PO SCH ×2 (00:43→20:24)
[2017-04-23] MEDS: Latanoprost 0.005% Ophth Soln 2.5 ml Bottle EA EYE SCH (08:46)
[2017-04-23] MEDS: predniSONE 20 MG TAB PO SCH (08:46)
[2017-04-23] MEDS: Metoprolol Tartrate 25 MG TAB PO SCH ×2 (08:47→20:24)
[2017-04-23] MEDS: Senokot S 8.6-50 MG TAB PO SCH ×2 (08:47→20:24)
[2017-04-23] MEDS ORDERED: CEFAZOLIN/Water 2 GM/20 ML SYRINGE SLOW IVP SCH (11:15)
--- NOTE | 2017-04-23 11:28 | PRG ---
DATE OF SERVICE: 04/23/2017 SUBJECTIVE: Mr. Jean is an 81-year-old gentleman being seen for acute kidney injury requiring hemodialysis. The patient has generalized edema. PHYSICAL EXAMINATION: GENERAL: Patient is awake, alert. VITAL SIGNS: Afebrile, pulse 77, breathing 16, blood pressure 131/65. HEAD/NECK: Normocephalic. Atraumatic. EYES: EOMI. No deformity. EARS: Clear. No ulcers. NOSE: Intact. No lesions. MOUTH: Clear. No discharge. THROAT: Clear. No exudate. LUNGS: Clear. No crackles. CARDIAC: S1, S2. No rub. ABDOMEN: Benign. BS+. GENITALIA/RECTUM: Conrad absent. BACK/EXTREMITIES: Edema 4+ Ulcer- NEUROLOGICAL: Alert and motor intact. SKIN: Rash- Bruise- LYMPHATICS: Edema- Ulcer- LABORATORY DATA: Hemoglobin is pending. ASSESSMENT AND PLAN: 1. Stage 6 chronic kidney disease. Continue hemodialysis. 2. Hypertension, stable. 3. Anemia. We will recheck hemoglobin. If hemoglobin less than 8, we will give transfusion. Continue Epogen. 4. Medications based on glomerular filtration rate are appropriate. Discharge planning is in progress. The patient will have a tunneled catheter. We will consult Dr. Jj. JULIÁN
[2017-04-23 11:31] LABS: Hemoglobin 7.4 g/dL (14.0-18.0)
[2017-04-23 11:59] LABS: Anion Gap 14 mmol/L (10-20); BUN (Urea Nitrogen) 42 mg/dL (8.4-25.7); Calc. Creatinine Clearance 15 mL/min (70-130); Calcium 8.1 mg/dL (7.8-10.44); Carbon Dioxide 28 mmol/L (23-31); Chloride 100 mmol/L (98-107); Estimated GFR-MDRD 13; Glucose 84 mg/dL (83-110); Potassium 3.6 mmol/L (3.5-5.1); Sodium 138 mmol/L (136-145)
--- NOTE | 2017-04-23 13:32 | PRG ---
DATE OF SERVICE: 04/23/2017 Mr. Jean is having dialysis now. He is still reporting some edema to his scrotum and his legs. Otherwise he states he is actually feeling okay. He reports to me he did do some walking. PHYSICAL EXAMINATION: VITAL SIGNS: Temperature is 97.9, BP 120/64. O2 sat 95%. LUNGS: Reveal bilateral breath sounds without rales or rhonchi. HEART: Reveals no murmur. ABDOMEN: Soft, nontender. : Scrotum does show a significant edema. EXTREMITIES: There is 1-2+ edema lower extremities. LABORATORY: Hemoglobin 7.4, hematocrit 23.5, creatinine 4.51. Chest x-ray from yesterday shows exce llent resolution of previously noted infiltrates with bilateral pleural effusions that are small. IMPRESSION: 1. Acute renal failure. 2. Apparently resolved pneumonia. 3. Scrotal edema. 4. Anemia. PLAN: I will discuss with the family the need for disposition and what those needs will be. I have consulted case management. Hopefully he can be placed in rehab for a short term. We will review his medications, I feel like he could stop some of his antibiotics at this time. He is currently mainta ined on Cefazolin and ceftriaxone. Probably needs to be on ceftriaxone 1 more day. Possibly can red uce his prednisone down as well too.
--- NOTE | 2017-04-23 14:24 | PRG ---
DATE OF SERVICE: 04/23/2017 Jaya Jean is doing well today. His renal function has not recovered as hoped. I have been asked by Dr. Pastor to see him regarding placement of hemodialysis catheter. His veins are poor by vei n mapping and thus we will hold off any fissures graft open. He will still enjoy renal recovery. We will also plan placement of a central line tomorrow. His procedures were discussed with the patient and the family, who are all agreeable.
[2017-04-23] MEDS ORDERED: Tuberculin PPD 0.1 ML VIAL I-DERMAL SCH (15:30)
[2017-04-23] MEDS: cloNIDine 0.2mg/24 Hour PATCH TD SCH (16:55)
[2017-04-23] MEDS: cefTRIAXone\\ROCEPHIN 1 GM in Syringe 10 ML SLOW IVP SCH (16:57)
[2017-04-23] MEDS: HYDROcodone/Acetaminophen 5/325 mg Tablet PO PRN (20:25)
[2017-04-24] MEDS: Metoprolol Tartrate 25 MG TAB PO SCH ×2 (06:15→20:56)
[2017-04-24] MEDS ORDERED: Sodium Chloride 0.9% 10 ML ONE (06:44)
[2017-04-24] MEDS ORDERED: Heparin 10,000 UNITS/1 ML VIAL ONE (06:44)
[2017-04-24] MEDS ORDERED: Bupivacaine PF 0.5% 30 ML VIAL ONE (06:44)
[2017-04-24] MEDS ORDERED: Propofol 500 MG/50 ML VIAL ONE (06:52)
[2017-04-24] MEDS ORDERED: Fentanyl 100 MCG/2 ML VIAL ONE (06:52)
[2017-04-24] MEDS ORDERED: CEFAZOLIN/Water 2 GM/20 ML SYRINGE ONE (07:14)
[2017-04-24] MEDS ORDERED: Midazolam HCl 2 mg/2 ml Vial ONE (07:25)
[2017-04-24] MEDS ORDERED: Ondansetron HCl/PF 4 MG/2 ML Vial IVP PRN (08:06)
[2017-04-24] MEDS ORDERED: Lidocaine 2% w/Epinephrine 1:200K 20 ML VIAL ONE (08:49)
--- NOTE | 2017-04-24 09:17 | RAD ---
PORTABLE CHEST 1 VIEW: DATE: 04/24/17. TIME: 8:59 a.m. HISTORY: End-stage renal disease. FINDINGS: Comparison is made with the exam of 04/16/17. There has been interval placement of a right internal jugular dialysis catheter with tips in the proj ection of the SVC. A left internal jugular central line has also been placed with tip in the project ion of the SVC. No pneumothoraces are seen. The heart size is prominent. Bilateral pleural effusio ns are present. POS: JOIE
[2017-04-24] MEDS: predniSONE 20 MG TAB PO SCH (10:12)
[2017-04-24] MEDS: Senokot S 8.6-50 MG TAB PO SCH ×2 (10:12→20:56)
[2017-04-24] MEDS: Latanoprost 0.005% Ophth Soln 2.5 ml Bottle EA EYE SCH (10:14)
--- NOTE | 2017-04-24 10:40 | PRG ---
DATE OF SERVICE: 04/24/2017 SUBJECTIVE: An 81-year-old gentleman being seen for acute kidney injury. The patient denies any abner sea, vomiting or chest pain. PHYSICAL EXAMINATION: GENERAL: Patient is awake, alert. VITAL SIGNS: Afebrile, pulse 75, breathing at 16, blood pressure 132/67. GENERAL APPEARANCE AND MENTAL STATUS: Fair. HEAD/NECK: Normocephalic. Atraumatic. EYES: EOMI. No deformity. EARS: Clear. No ulcers. NOSE: Intact. No lesions. MOUTH: Clear. No discharge. THROAT: Clear. No exudate. LUNGS: Clear. No crackles. CARDIAC: S1, S2. No rub. ABDOMEN: Benign. BS+. GENITALIA/RECTUM: Conrad absent. BACK/EXTREMITIES: He has 4+ edema. Ulcer-. NEUROLOGICAL: Alert and motor intact. SKIN: Rash- Bruise- LYMPHATICS: Edema- Ulcer-. LABORATORY DATA: Show hemoglobin is pending. ASSESSMENT AND RECOMMENDATIONS: 1. Stage 6 chronic kidney disease. We will plan dialysis. The patient's creatinine does increase a fter dialysis stopped. 2. Hyperkalemia, stable. 3. Metabolic acidosis, stable. 4. Edema. 5. ANCA antibody is within normal limits.
--- NOTE | 2017-04-24 10:53 | OP ---
DATE OF PROCEDURE: 04/24/2017 PREOPERATIVE DIAGNOSES: Acute renal failure, poor intravenous access. POSTOPERATIVE DIAGNOSES: Acute renal failure, poor intravenous access. PROCEDURE: Right IJ cuffed tunnel hemodialysis catheter, angiodynamics precurved. Left IJ triple vinay men catheter, ultrasound fluoroscopy used. SURGEON: Dr. Benjamín Jj ANESTHESIA: 2% Xylocaine with epinephrine mixed with 0.5% Marcaine with epinephrine. IV sedation. PROCEDURE IN DETAIL: The patient was taken to the operating room where under intravenous sedation in the supine position, neck and chest were prepared with ChloraPrep, draped in routine fashion. Local anesthetic mixture infiltrated into skin and subcutaneous tissue about the operative site. Ultrasou nd guidance was used to cannulate the right and left internal jugular veins with trocar catheters thr eading the J-wire and removing trocar catheter. Skin entrance site was bilaterally enlarged sharply and stab incision made over the right chest. Using the Seldinger technique, triple lumen catheter pl aced in the left internal jugular vein and removed the J wire, securing it with 3-0 nylon suture each port aspirated blood and flushed with saline solution. Sterile dressings applied including a Biopat ch. On the right side, tunneling device was used to tunnel a precurved angiodynamics cuffed tunnel hemodi alysis catheter between the two incisions, placing the fabric cuff beneath the skin and catheter secu red with 2 interrupted sutures of 3-0 nylon. Smaller and medium sized dilators placed over the J-wir e in the internal jugular vein and removed. Dilator and pull-away sheath placed over the J-wire in s uperior vena cava and dilator and J-wire were removed. Catheter placed with pull-away sheath and maddie tysma and pull-away sheath was removed. Platysma approximated with 4-0 Monocryl, skin with subdermal 4-0 Monocryl and DermaGlue applied. Each port aspirated blood and flushed with saline solution and heparinized saline solution 1000 units heparin per mL indicated volume of the port. Sterile dressing s applied. The patient tolerated the procedure well. Fluoroscopic images revealed good line placeme nts.
[2017-04-24 11:32] LABS: #Eosinphils 0.2 thou/uL (0.0-0.7); #Lymphocytes 0.7 thou/uL (1.20-3.40); #Monocytes 0.7 thou/uL (0.11-0.59); #Neutrophils 9.2 thou/uL (1.40-6.50); %Eosinophils 2.1 % (0.0-10.0); %Lymphocytes 6.7 % (21.0-51.0); %Monocytes 6.1 % (0.0-10.0); %Neutrophils 85.1 % (42.0-75.0); Hemoglobin 8.9 g/dL (14.0-18.0); Mean Corpuscular Hemoglobin 31.8 pg (27.0-31.0); Mean Corpuscular Volume 96.3 fl (80.0-94.0); Mean Platelet Volume 6.7 fL (7.4-10.4); Platelet Count 308 thou/uL (130-400); RBC Distribution Width 14.4 % (11.5-14.5); White Blood Cell (WBC) Count 10.8 thou/uL (4.8-10.8)
[2017-04-24 11:43] LABS: Anion Gap 12 mmol/L (10-20); BUN (Urea Nitrogen) 29 mg/dL (8.4-25.7); Calc. Creatinine Clearance 18 mL/min (70-130); Carbon Dioxide 28 mmol/L (23-31); Chloride 102 mmol/L (98-107); Estimated GFR-MDRD 16; Glucose 70 mg/dL (83-110); Potassium 3.3 mmol/L (3.5-5.1); Sodium 139 mmol/L (136-145)
--- NOTE | 2017-04-24 12:51 | PRG ---
DATE OF SERVICE: 04/24/2017 Mr. Jean is awake and alert. His family is at his bedside. He is doing well. PHYSICAL EXAMINATION: VITAL SIGNS: Temperature 98.1, BP 130/67. LUNGS: Clear. HEART: Reveals no murmur. ABDOMEN: Soft, nontender, bowel sounds are active. No hepatosplenomegaly. No evidence of rebound o r guarding. EXTREMITIES: Show 1+ edema. LABORATORY: Hemoglobin 8.9, hematocrit 27.0. Potassium 3.3, creatinine 3.66. IMPRESSION: 1. Acute renal failure requiring hemodialysis. 2. Deconditioning. 3. Resolving pneumonia. PLAN: His antibiotics probably could be stopped by this Thursday. We are trying to set up further dis charge planning. The patient possibly could be a candidate for rehab, swing bed, placement in a [facility] nursing facility for short term placement until he goes home.
[2017-04-24] MEDS ORDERED: Lidocaine 1% PF 5 ML VIAL ONE (14:28)
[2017-04-24] MEDS ORDERED: Propofol 200 MG/20 ML VIAL ONE (14:28)
[2017-04-24] MEDS: cefTRIAXone\\ROCEPHIN 1 GM in Syringe 10 ML SLOW IVP SCH (18:02)
[2017-04-24] MEDS: Amlodipine 5 MG TAB PO SCH (20:54)
[2017-04-25] MEDS: Metoprolol Tartrate 25 MG TAB PO SCH ×2 (08:08→19:29)
[2017-04-25] MEDS: predniSONE 20 MG TAB PO SCH (08:08)
[2017-04-25] MEDS: Senokot S 8.6-50 MG TAB PO SCH ×2 (08:08→19:26)
[2017-04-25] MEDS ORDERED: Heparin 10,000 UNITS/ 10 ML VIAL ONE (10:00)
[2017-04-25] MEDS ORDERED: Furosemide 20 MG TAB PO SCH (10:15)
[2017-04-25] MEDS: Latanoprost 0.005% Ophth Soln 2.5 ml Bottle EA EYE SCH (11:19)
--- NOTE | 2017-04-25 12:14 | PRG ---
DATE OF SERVICE: 04/25/2017 SUBJECTIVE: An 81-year-old gentleman being seen for acute kidney injury with possible vasculitis. T he patient does complain of edema. The patient denies any nausea or vomiting. PHYSICAL EXAMINATION: GENERAL: The patient is awake, alert. VITAL SIGNS: Afebrile, pulse 74, breathing 16, blood pressure 125/60. HEAD/NECK: Normocephalic. Atraumatic. EYES: EOMI. No deformity. EARS: Clear. No ulcers. NOSE: Intact. No lesions. MOUTH: Clear. No discharge. THROAT: Clear. No exudate. LUNGS: Clear. No crackles. CARDIAC: S1, S2. No rub. ABDOMEN: Benign. BS+. GENITALIA/RECTUM: Conrad absent. BACK/EXTREMITIES: Lower extremities have 4+ edema. NEUROLOGICAL: Alert and motor intact. SKIN: Rash- Bruise- LYMPHATICS: Edema- Ulcer- LABORATORY DATA: Hemoglobin 8.9, potassium 3.8. ASSESSMENT AND RECOMMENDATIONS: 1. Stage 5 chronic kidney disease. We will plan dialysis. 2. Hypokalemia and give high potassium diet. 3. Bilateral pleural effusions as well as possible vasculitis. We will consult Pulmonary for possib le Porfirio's; otherwise, labs for vasculitis appear to be pretty inconclusive. Overall, prognosis is poor and a renal biopsy will be performed after the patient's edema gets improved.
[2017-04-25] MEDS ORDERED: READ PPD TEST SITE TOP SCH (15:00)
[2017-04-25] MEDS: Bisacodyl 5 MG TAB PO PRN (17:55)
[2017-04-25] MEDS: cefTRIAXone\\ROCEPHIN 1 GM in Syringe 10 ML SLOW IVP SCH (17:56)
[2017-04-25] MEDS: Amlodipine 5 MG TAB PO SCH (19:28)
[2017-04-26 06:27] LABS: #Eosinphils 0.1 thou/uL (0.0-0.7); #Lymphocytes 1.1 thou/uL (1.20-3.40); #Monocytes 0.7 thou/uL (0.11-0.59); %Basophils 0.2 % (0.0-1.0); %Eosinophils 1.3 % (0.0-10.0); %Lymphocytes 11.2 % (21.0-51.0); %Monocytes 7.1 % (0.0-10.0); %Neutrophils 80.2 % (42.0-75.0); Hemoglobin 8.4 g/dL (14.0-18.0); Mean Corpuscular HGB CONC 32.1 g/dL (32.0-36.0); Mean Corpuscular Hemoglobin 31.2 pg (27.0-31.0); Mean Corpuscular Volume 97.2 fl (80.0-94.0); Mean Platelet Volume 6.9 fL (7.4-10.4); Platelet Count 256 thou/uL (130-400); RBC Distribution Width 13.9 % (11.5-14.5); Red Blood Cell (RBC) Count 2.71 mill/uL (4.70-6.10); White Blood Cell (WBC) Count 9.9 thou/uL (4.8-10.8)
[2017-04-26 07:04] LABS: Anion Gap 9 mmol/L (10-20); BUN (Urea Nitrogen) 18 mg/dL (8.4-25.7); Calc. Creatinine Clearance 20 mL/min (70-130); Calcium 7.6 mg/dL (7.8-10.44); Carbon Dioxide 32 mmol/L (23-31); Chloride 105 mmol/L (98-107); Estimated GFR-MDRD 18; Glucose 92 mg/dL (83-110); Potassium 3.5 mmol/L (3.5-5.1); Sodium 142 mmol/L (136-145)
[2017-04-26] MEDS: Senokot S 8.6-50 MG TAB PO SCH ×2 (08:19→20:55)
[2017-04-26] MEDS: Furosemide 20 MG TAB PO SCH (08:19)
[2017-04-26] MEDS: predniSONE 20 MG TAB PO SCH (08:19)
[2017-04-26] MEDS: Metoprolol Tartrate 25 MG TAB PO SCH ×2 (08:20→20:55)
[2017-04-26] MEDS: Latanoprost 0.005% Ophth Soln 2.5 ml Bottle EA EYE SCH (08:20)
--- NOTE | 2017-04-26 11:16 | RAD ---
CHEST PA AND LATERAL: HISTORY: An 81-year-old male with a history of followup pneumonia. COMPARISON: 04/22/17 and 04/24/17. FINDINGS: Right venous access catheter and left jugulovenous catheter is in place. Bilateral pleural effusions . Heart size is within upper range of normal. The mid and upper lung zones appear clear. IMPRESSION: Bilateral pleural effusions slightly more prominent than on prior studies. No confluent process in t he mid and upper lung zones. Artifact overlies the left upper chest. Continued short-term followup. POS: [facility]
--- NOTE | 2017-04-26 11:40 | PRG ---
DATE OF SERVICE: 04/26/2017 SUBJECTIVE: This 81-year-old gentleman being seen for acute kidney injury which is dialysis dependen t. The patient denies any nausea, vomiting or chest pain. PHYSICAL EXAMINATION: GENERAL: Patient is awake, alert. VITAL SIGNS: Afebrile, pulse 77, breathing at 16, blood pressure 127/76. HEAD/NECK: Normocephalic. Atraumatic. EYES: EOMI. No deformity. EARS: Clear. No ulcers. NOSE: Intact. No lesions. MOUTH: Clear. No discharge. THROAT: Clear. No exudate. LUNGS: Clear. No crackles. CARDIAC: S1, S2. No rub. ABDOMEN: Benign. BS+. GENITALIA/RECTUM: Conrad absent. BACK/EXTREMITIES: Edema 0+ Ulcer- NEUROLOGICAL: Alert and motor intact. SKIN: Rash- Bruise- LYMPHATICS: Edema- Ulcer- LABORATORY DATA: Show hemoglobin 8.4, potassium 3.5. ASSESSMENT AND PLAN: 1. Stage 6 chronic kidney disease. Continue hemodialysis to reduce edema. 2. Hypertension, stable. 3. Anemia, stable. 4. Medications based on glomerular filtration rate are appropriate. Vasculitic workup is in progres s.
[2017-04-26] MEDS ORDERED: Acetaminophen 500 MG TAB PO PRN (12:52)
[2017-04-26] MEDS: cefTRIAXone\\ROCEPHIN 1 GM in Syringe 10 ML SLOW IVP SCH (16:49)
[2017-04-26] MEDS: Amlodipine 5 MG TAB PO SCH (20:55)
[2017-04-26] MEDS ORDERED: HYDROcodone/Acetaminophen 5/325 mg Tablet PO PRN (22:56)
[2017-04-26] MEDS: Zolpidem Tartrate 5 MG TAB PO PRN (23:04)
[2017-04-26] MEDS: HYDROcodone/Acetaminophen 5/325 mg Tablet PO PRN (23:04)
[2017-04-27] MEDS ORDERED: Heparin 10,000 UNITS/ 10 ML VIAL ONE (09:00)
--- NOTE | 2017-04-27 10:09 | PRG ---
Patient Name: TEE HANNAH Date of service: 04/27/2017 Subjective: Patient was seen and examined at bedside and overnight events noted. Patient denies any shortness of breath or chest pain or palpitation. No history of nausea or vomiting or diarrhea or fever or chills or cramps. Objective: General: This is an elderly male I am seeing during dialysis and tolerating well. Vital signs: Temperature 97.5, pulse 62, respiratory rate 16, blood pressure 131/74. HEENT: Atraumatic, normocephalic. Oral mucosa is moist. Neck: Supple. Cardiovascular: S1 S2 heard. Rate and rhythm regular. Respiratory: Clear to auscultation. Gastrointestinal: Abdomen is soft. Musculoskeletal: No tenderness. No edema. Dermatologic: No skin rash. Neurologic: Alert and awake and oriented X3. No focal neurologic deficits. Moving all the extremit ies. Psychiatric: Mood and affect normal. LABORATORY DATA: Potassium is 3.5, BUN 80, creatinine is 3.24. ASSESSMENT AND PLAN: 1. End-stage renal disease. We will continue on dialysis. 2. Hypertension. 3. Anemia. 4. Proteinuria, workup with SPEP is negative and ANCA was positive, but indeterminate. Plan is to continue dialysis for now. Might need a renal biopsy down the road if patient is stable. We will follow.
[2017-04-27] MEDS: Bisacodyl 5 MG TAB PO PRN (11:08)
[2017-04-27] MEDS: Senokot S 8.6-50 MG TAB PO SCH ×2 (11:09→19:46)
[2017-04-27] MEDS: predniSONE 20 MG TAB PO SCH (11:09)
[2017-04-27] MEDS: Furosemide 20 MG TAB PO SCH (11:09)
[2017-04-27] MEDS: Metoprolol Tartrate 25 MG TAB PO SCH ×2 (11:09→19:46)
[2017-04-27] MEDS: Latanoprost 0.005% Ophth Soln 2.5 ml Bottle EA EYE SCH (11:11)
[2017-04-27] MEDS ORDERED: Bisacodyl 10 MG SUPP PR PRN (12:36)
--- NOTE | 2017-04-27 12:52 | PRG ---
DATE OF SERVICE: 04/27/2017 Mr. Jean is sitting in a chair, he is feeling well, he is still complaining of constipation. Oth erwise, no other medical complaints are noted. PHYSICAL EXAMINATION: VITAL SIGNS: His weight is 170 pounds 14 ounces, BP 102/57, pulse ox 95% on room air. GENERAL: He is alert, active. LUNGS: Clear. HEART: Reveals no murmur. EXTREMITIES: Showed trace edema bilaterally. LABORATORY: There are no new labs reports noted. IMPRESSION: Acute renal failure, improving. PLAN: I have spoken with his insurance carrier [employer], they have denied him rehab placement. I have spoken with case management. We will start working for [facility]. With regards to his constipation, we will address those needs with medications.
[2017-04-27 13:51] LABS: Prothrombin Time 13.6 SEC (12.0-14.7)
--- NOTE | 2017-04-27 15:00 | CON ---
DATE OF CONSULTATION: 04/27/2017 SERVICE: Pulmonary Medicine. 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 HISTORY OF PRESENT ILLNESS: The patient is an 81-year-old white male. He is in his usual state of health when he started having increasing lower extremity swelling. He presented to the Emergency Department and was ultimately discovered to be in acute kidney injury with a creatinine of 9. Hemodialysis was initiated. He underwent a thorough diagnostic and laboratory evaluation. ANCA were positive. The patient denies having any hemoptysis, recent nosebleeds. He does have hematuria. Otherwise, there has been no interval change to his condition. After I started hemodialysis, his shortness of breath went away. He came in with anasarca and massive volume overload. This is slowly improving. He has no fevers, chills, nausea, vomiting or chest discomfort that precipitated this event. PAST MEDICAL HISTORY: 1. Osteoarthritis. 2. Lumbar lipoma. 3. History of small stroke affecting left eye. PAST SURGICAL HISTORY: None. FAMILY HISTORY: Noncontributory. 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 He denies any significant alcohol or illicit drug use. He has a [id number] history of smoking and continues to smoke one half pack per day. He has no exposure to chemicals, dusts, asbestos or tuberculosis. ALLERGIES: No known drug allergies. MEDICATIONS: A list of his inpatient medications were reviewed. I have discontinued his scheduled DuoNeb as they have not been providing him with significant relief. REVIEW OF SYSTEMS: General, head, ears, eyes, nose, throat, cardiovascular, respiratory, GI, , musculoskeletal, neurologic and skin is negative except as mentioned in the HPI. PHYSICAL EXAMINATION: VITAL SIGNS: Afebrile with a T-max of 100.4. Pulse 79, blood pressure 102/57, respirations 18, saturation 95% on room air. GENERAL: Patient is awake, alert, in no apparent distress. LUNGS: Excellent air entry on the right. There is slightly reduced air entry on the left. No crackles or wheezing appreciated. HEART: Normal rate, regular. ABDOMEN: Soft, nontender, nondistended, bowel sounds positive. MUSCULOSKELETAL: No cyanosis or clubbing. There is 2-3+ pitting in the bilateral lower extremities. NEUROLOGIC: Grossly nonfocal. LABORATORY DATA: WBC 9.9, hemoglobin 8.4 and roughly stable for the duration of the hospital stay. He is well below his baseline of 11-12. Platelets 256, 000. PH 7.41, pCO2 of 33, pO2 76. Creatinine 3.24 has improved from 9.15. This is above his baseline of 0.8, which occurred in 10/2016. There were greater than 50 red blood cells. Otherwise urinalysis is unremarkable. He has persistent proteinuria. Vancomycin trough is 7.4. ANCA studies were significant for 1:160 titer. MPO is positive at 30.2. Otherwise, hepatitis serologies and hepatitis C are unremarkable. Influenza A and B, blood cultures x2 and urine culture are negative. IMAGIN. Chest x-ray demonstrates a paucity of any type of infiltrating lesion. Small pleural effusions are present. These things have improved dramatically. 2. Ultrasound of bilateral kidneys demonstrates no postobstructive nephropathy. 3. Ultrasound of bilateral lower extremities demonstrates no evidence of DVT. 4. Ultrasound of the left lower extremity demonstrates findings consistent with cellulitis of the lateral aspect of the left leg. No abscess. Atherosclerosis is identified. ASSESSMENT: 1. Acute kidney injury. 2. Abnormal ANCA and MPO. 3. Possible vasculitis. PLAN: There is very low utility in doing a bronchoscopy. The patient does not have any infiltrates. Furthermore, it is very unlikely to yield granulomas on biopsy of the lung even if infiltrates were present. Because the patient does not have any new symptoms, I think the best course of action is a renal biopsy. If the patient proves to have vasculitis, he should not be discharged home and should be transitioned to a tertiary care center for immediate treatment of the underlying inflammatory process. He will need to remain in the hospital until the results of this biopsy are available. Pulmonary and Critical Care will continue to follow while the patient remains in house, intermittently. 70 minutes have been devoted to this patient in various activities. I personally reviewed all imaging studies and laboratory data noted within this document. For at least half of this time, I was interacting with the patient at the bedside or coordinating care with the care team. For the remainder of the time I was immediately available to the patient in the hospital unit. JULIÁN
[2017-04-27] MEDS ORDERED: Ondansetron HCl/PF 4 MG/2 ML Vial SLOW IVP PRN (17:32)
[2017-04-27] MEDS: Amlodipine 5 MG TAB PO SCH (19:46)
[2017-04-28] MEDS ORDERED: DULoxetine 60 MG CAP PO SCH (09:00)
--- NOTE | 2017-04-28 12:51 | PRG ---
DATE OF SERVICE: 04/28/2017 SUBJECTIVE: Mr. Jean is feeling well. He is sitting up in bed, reading the paper. He has no me dical complaints. PHYSICAL EXAMINATION LUNGS: Clear bilaterally. HEART: Reveals no murmur. IMPRESSION: Acute renal failure. PLAN: Continue current medication. Awaiting for final placement.
[2017-04-28] MEDS: Furosemide 20 MG TAB PO SCH (14:22)
[2017-04-28] MEDS: Latanoprost 0.005% Ophth Soln 2.5 ml Bottle EA EYE SCH (14:23)
[2017-04-28] MEDS: predniSONE 20 MG TAB PO SCH (14:23)
[2017-04-28] MEDS: Metoprolol Tartrate 25 MG TAB PO SCH ×2 (14:23→19:43)
[2017-04-28] MEDS: Senokot S 8.6-50 MG TAB PO SCH ×2 (14:23→19:42)
--- NOTE | 2017-04-28 14:44 | CT ---
CT GUIDED RANDOM RENAL BIOPSY: Date: 04/28/17 HISTORY: Renal insufficiency. FINDINGS: After explaining the procedure and answering all questions, limited CT imaging of the kidneys was per formed. Sterile technique, local anesthesia, posterior approach, and CT guidance were used to careful ly advance the tip of a 17 gauge trocar needle to the lateral cortex of the inferior pole of the righ t kidney at the hypovascular junction. Two 18 gauge core biopsy specimens were obtained without diffi culty and submitted to pathology for evaluation. Dr. Chow from pathology confirmed specimen adequa cy. Needle was removed. Postprocedural imaging showed no evidence of complication. The patient tolera nano the procedure well and was returned in unchanged condition. IMPRESSION: Technically successful CT guided renal biopsy. Pathology is pending. POS: [facility]
--- NOTE | 2017-04-28 18:24 | PRG ---
DATE OF SERVICE: 04/28/2017 SUBJECTIVE: Patient was seen and examined at bedside and overnight events noted. Patient denies any shortness of breath or chest pain or palpitation. No history of nausea or vomiting or diarrhea or f ever or chills or cramps. OBJECTIVE: GENERAL: This is a well-built male in no apparent distress. VITAL SIGNS: Temperature 97.5, pulse 69, respiratory rate 18, blood pressure 110/67. HEENT: Atraumatic, normocephalic, oral mucosa is moist. NECK: Supple. CARDIOVASCULAR: S1, S2 heard, rate and rhythm regular. RESPIRATORY: Clear to auscultation. GASTROINTESTINAL: Abdomen is soft. MUSCULOSKELETAL: No tenderness. 1+ edema. DERMATOLOGIC: No skin rash. NEUROLOGIC: Alert and awake and oriented x3. No focal neurologic deficits. Moving all the extremit ies. PSYCHIATRIC: Mood and affect normal LABORATORY DATA: Potassium was 3.5, BUN is 18, creatinine is 3.2. ASSESSMENT AND PLAN: 1. End-stage renal disease, on hemodialysis, tolerating well. 2. Hypertension. 3. Proteinuria. 4. Anemia. 5. Edema. We will remove fluid with dialysis. Neurological workup was inconclusive and plan is to continue on dialysis as tolerated for now.
[2017-04-28] MEDS: Amlodipine 5 MG TAB PO SCH (19:43)
[2017-04-28] MEDS: HYDROcodone/Acetaminophen 5/325 mg Tablet PO PRN (22:32)
[2017-04-29] MEDS: Senokot S 8.6-50 MG TAB PO SCH ×2 (11:17→20:09)
[2017-04-29] MEDS: Metoprolol Tartrate 25 MG TAB PO SCH ×2 (11:17→20:10)
[2017-04-29] MEDS: Furosemide 20 MG TAB PO SCH (11:17)
[2017-04-29] MEDS: predniSONE 20 MG TAB PO SCH (11:19)
[2017-04-29] MEDS: Latanoprost 0.005% Ophth Soln 2.5 ml Bottle EA EYE SCH (11:21)
[2017-04-29 11:42] VITALS: BMI 26.7
--- NOTE | 2017-04-29 11:44 | PRG ---
DATE OF SERVICE: 04/29/2017 SUBJECTIVE: Patient was seen and examined at bedside and overnight events noted. Patient denies any shortness of breath or chest pain or palpitation. No history of nausea or vomiting or diarrhea or f ever or chills or cramps. OBJECTIVE: GENERAL: This is a well-built male, in no apparent distress. VITAL SIGNS: Temperature 99.3, pulse 64, respiratory rate 24, blood pressure 124/64. HEENT: Atraumatic, normocephalic. Oral mucosa is moist. NECK: Supple. CARDIOVASCULAR: S1, S2 heard. Rate and rhythm regular. RESPIRATORY: Clear to auscultation. GASTROINTESTINAL: Abdomen is soft. MUSCULOSKELETAL: 1+ edema. DERMATOLOGIC: No skin rash. NEUROLOGIC: Alert and awake and oriented x3. No focal neurologic deficits. Moving all the extremit ies. PSYCHIATRIC: Mood and affect normal. LABORATORY DATA: Potassium is 3.5, BUN 18, creatinine 3.2. ASSESSMENT AND PLAN: 1. End-stage renal disease on hemodialysis. We will check labs in the morning. Patient had dialysi s today. 2. The patient also had a renal biopsy to rule out vasculitis. Biopsy results to get back today. H old discharge until the biopsy results are back. 3. Hypertension. 4. Proteinuria. We will check the renal biopsy results. 5. Anemia. 6. Edema. Plan is to continue MAGAN with dialysis. We will follow.
--- NOTE | 2017-04-29 13:55 | PRG ---
DATE OF SERVICE: 04/29/2017 Mr. Jean is doing well. He is feeling better, reports no medical complaints. PHYSICAL EXAMINATION: VITAL SIGNS: Temperature 97.8, BP 132/75. LUNGS: Clear. HEART: Reveals no murmur. IMPRESSION: Acute renal failure. PLAN: The patient possibly could be discharged today if he can get a swing bed in dialysis unit done .
[2017-04-29] MEDS: Epoetin (ESRD) 10,000 UNITS/ML VIAL SC SCH (15:58)
[2017-04-29] MEDS: Amlodipine 5 MG TAB PO SCH ×2 (20:10→20:11)
[2017-04-29] MEDS: Zolpidem Tartrate 5 MG TAB PO PRN (20:12)
[2017-04-30 05:42] LABS: Anion Gap 12 mmol/L (10-20); BUN (Urea Nitrogen) 17 mg/dL (8.4-25.7); Calc. Creatinine Clearance 19 mL/min (70-130); Calcium 7.8 mg/dL (7.8-10.44); Carbon Dioxide 30 mmol/L (23-31); Chloride 101 mmol/L (98-107); Estimated GFR-MDRD 18; Glucose 88 mg/dL (83-110); Potassium 3.9 mmol/L (3.5-5.1); Sodium 139 mmol/L (136-145)
--- NOTE | 2017-04-30 08:13 | PRG ---
DATE OF SERVICE: 04/30/2017 SUBJECTIVE: Mr. Jean is awake and alert, has no complaints. He was ready to be discharged. I w as notified very late yesterday by the specialist, Dr. Estrada, that they felt like he needed special ized therapy which I understand to be plasmapheresis and he needs to have this done at a tertiary car e center. PHYSICAL EXAMINATION: VITAL SIGNS: BP 133/62, pulse 75. LUNGS: Clear. HEART: Reveals no murmur. LABORATORY: Sodium 139, potassium 3.9, chloride 101, CO2 30, BUN 17, creatinine 3.28. IMPRESSION: Acute renal failure, seems represents a possible vasculitis. PLAN: The patient had been informed of the need for tertiary transfer. He wishes to go to some [facility] in [place] at this time. We will talk to case management about this.
[2017-04-30] MEDS: Furosemide 20 MG TAB PO SCH (08:26)
[2017-04-30] MEDS: Senokot S 8.6-50 MG TAB PO SCH (08:26)
[2017-04-30] MEDS: Metoprolol Tartrate 25 MG TAB PO SCH (08:26)
[2017-04-30] MEDS: predniSONE 20 MG TAB PO SCH (08:26)
[2017-04-30] MEDS: Latanoprost 0.005% Ophth Soln 2.5 ml Bottle EA EYE SCH (08:30)
[2017-04-30 12:44] VITALS: BP 141/74; TEMP 98.1
--- NOTE | 2017-04-30 15:33 | PRG ---
DATE OF SERVICE: 04/30/2017 SUBJECTIVE: Patient was seen and examined at bedside and overnight events noted. Patient denies any shortness of breath or chest pain or palpitation. No history of nausea or vomiting or diarrhea or f ever or chills or cramps. OBJECTIVE: GENERAL: This is an elderly male in no apparent distress. VITAL SIGNS: Temperature 98.1, pulse 65, respiratory rate 18, blood pressure 134/74. HEENT: Atraumatic, normocephalic. Oral mucosa is moist. NECK: Supple. CARDIOVASCULAR: S1, S2 heard. Rate and rhythm regular. RESPIRATORY: Clear to auscultation. GASTROINTESTINAL: Abdomen is soft. MUSCULOSKELETAL: No tenderness. No edema. DERMATOLOGIC: No skin rash. NEUROLOGIC: Alert and awake and oriented x3. No focal neurologic deficits. Moving all the extremiti es. PSYCHIATRIC: Mood and affect normal. LABORATORY DATA: Potassium is 3.9, BUN is 78, creatinine 3.2. Hemoglobin is 8.4. Renal biopsy with ANCA vasculitis. ASSESSMENT AND PLAN: 1. 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 The patient would benefit from tertiary care center. I did talk with the hospitalist at [facility] and he was accepted. He probably needs plasmapheresis given his creatinine is more than 4 and is needing dialysis for his ac [place] kidney injury. The renal biopsy did show a lot of chronicity and possibly he might have end-stag e renal disease only time will tell, patient and family is willing to be transferred to [facility] for possible plasmapheresis and Cytoxan and other therapy and is as indicated. 2. Hypertension. 3. Proteinuria. 4. Anemia, most likely secondary to chronic diseases. 5. Edema removal. The patient is feeling much better with dialysis, but might benefit from therapy for UNCA. We will d efer to tertiary care center. Thank you for the consult and was happy to participate in the care of this patient.
--- NOTE | 2017-05-02 17:35 | EKG ---
Test Reason : Blood Pressure : / mmHG Vent. Rate : 074 BPM Atrial Rate : 074 BPM P-R Int : 158 ms QRS Dur : 088 ms QT Int : 410 ms P-R-T Axes : 043 -27 024 degrees QTc Int : 455 ms Normal sinus rhythm Septal infarct , age undetermined Abnormal ECG Confirmed by ROMY WAYNE ([id number]), slot editor HARDY MCCARTY ([id number]) on 05/02/2017 5:33:56 PM Referred By: Confirmed By:ROMY WAYNE
--- NOTE | 2017-05-07 15:05 | PQF ---
TEE HANNAH RICHARD A MD [id number] CLINICAL DOCUMENTATION CLARIFICATION FORM: POST DISCHARGE Addendum to original discharge summary date: ____ Late entry note date: __ TEE HANNAH [id number] ANDRE WHITTAKER JR, MD PLEASE DOCUMENT YOUR RESPONSE BELOW PLEASE FAX RESPONSE BACK TO YOUR INPUT IS NEEDED TO CORRECTLY CODE A DIAGNOSIS FOR YOUR PATIENT. DATE: 05/07/2017 ATTN: DR. BUNCH Please exercise your independent, professional judgment in responding to the clarification form. Clinical indicators are provided on the bottom of this form for your review Please check appropriate box(s) to clarify if the following diagnosis has been ruled in our ruled out: SEPSIS (CDI/Coding list diagnosis here) [ ] Ruled in diagnosis [ ] Continue to treat [ ] Resolved [ ] Ruled out diagnosis [ ] Cannot rule out diagnosis [ ] Other diagnosis [ ] Unable to determine In addition, please specify: Present on Admission (POA): [ ] Yes [ ] No [ ] Unable to determine For continuity of documentation, please document condition throughout progress notes and discharge summary. Thank You. CLINICAL INDICATORS - SIGNS / SYMPTOMS / LABS: VITALS: BP: 176/86, PULSE: 79, RESP: 18, TEMP: 97.9, O2 SAT: 95 ON ROOM AIR ER: SEPSIS COUGH, RESP LESS THAN 12 OR GREATER THAN 22/MIN H&P: WBC: 9.9, LACTIC ACID: 2.4 PNEUMONIA, ARF, COPD EXACERBATION 04/17 PN: ACUTE RENAL FAILURE OF UNKNOWN ETIOLOGY, DUE TO POSSIBLE SEPSIS RISK FACTORS: PNEUMONIA DEHYDRATION ARF TREATMENTS: IV ZITHROMAX AND ROCEPHIN IV FLUIDS (This form is maintained as a part of the permanent medical record) 2014 [employer]. All Rights Reserved Sera Jimenez, MARCIN, [facility] [email or web address] [phone] MTDD
== END 2017-04-30 15:18 | disposition short-term general hospital (02) | DRG 193 ==
LOC: ERS 12:46 → 2NO 14:34 → ONC 04-24 07:32
PROVIDERS: ADMIT Family Medicine; ATTEND Family Medicine
PROC: 5A1D70Z Performance of Urinary Filtration, Intermittent, Less than 6 Hours Per Day (ICD-10-PCS; principal; 2017-04-20)
PROC: 02HV33Z Insertion of Infusion Device into Superior Vena Cava, Percutaneous Approach (ICD-10-PCS; 2017-04-20)
PROC: 0JH63XZ Insertion of Tunneled Vascular Access Device into Chest Subcutaneous Tissue and Fascia, Percutaneous Approach (ICD-10-PCS; 2017-04-24)
PROC: 02HV33Z Insertion of Infusion Device into Superior Vena Cava, Percutaneous Approach (ICD-10-PCS; 2017-04-24)
PROC: 02HV33Z Insertion of Infusion Device into Superior Vena Cava, Percutaneous Approach (ICD-10-PCS; 2017-04-24)
PROC: 0TB03ZX Excision of Right Kidney, Percutaneous Approach, Diagnostic (ICD-10-PCS; 2017-04-28)
DX: J18.9 Pneumonia, unspecified organism (principal); N17.0 Acute kidney failure with tubular necrosis; E87.2 Acidosis; J90 Pleural effusion, not elsewhere classified; I12.0 Hypertensive chronic kidney disease with stage 5 chronic kidney disease or end stage renal disease; J44.0 Chronic obstructive pulmonary disease with (acute) lower respiratory infection; J44.1 Chronic obstructive pulmonary disease with (acute) exacerbation; N39.0 Urinary tract infection, site not specified; N18.5 Chronic kidney disease, stage 5; E87.5 Hyperkalemia; E88.09 Other disorders of plasma-protein metabolism, not elsewhere classified; D63.1 Anemia in chronic kidney disease; E86.0 Dehydration; I69.398 Other sequelae of cerebral infarction; R31.9 Hematuria, unspecified; H53.9 Unspecified visual disturbance; M19.90 Unspecified osteoarthritis, unspecified site; N40.0 Benign prostatic hyperplasia without lower urinary tract symptoms; F17.210 Nicotine dependence, cigarettes, uncomplicated; E87.6 Hypokalemia; N50.89 Other specified disorders of the male genital organs; K59.00 Constipation, unspecified; N26.9 Renal sclerosis, unspecified
CPT/HCPCS: 36415; 36416; 36430; 50200; 51702; 71045; 71046; 76770; 77012; 80048; 80053; 81003; 81015; 82274; 82570; 82805; 83036; 83516; 83605; 83883; 84156; 84165; 84166; 85014; 85018; 85025; 85046; 85610; 85730; 86021; 86038; 86160; 86580; 86704; 86706; 86803; 86850; 86900; 86901; 87040; 87086; 87340; 88305; 88313; 88329; 88346; 88348; 88350; 90935; 93005; 93970; 94640; 94760; 96361; 96365; 96374; A4216; C1752; C1769; C9113; G0257; G0365; G8978-GP-CJ; G8979-GP-CI; G8987-GO-CJ; G8988-GO-CH; J0456; J0696; J1642; J1644; J2001; J2250; J2405; J2543; J2704; J2920; J3010; J7050; J7070; J7506; J7620; P9016; Q4081; S0020

== ENCOUNTER 2017-05-30 19:30 | Inpatient (IN) | payer MEDICARE ==
[2017-05-30] MEDS ORDERED: Morphine 4 MG/ML VIAL ONE (20:45)
[2017-05-30] MEDS ORDERED: Nitroglycerin 2% Ointment 1 INCH/1 GM Packet ONE (21:26)
[2017-05-30 21:51] LABS: #Lymphocytes 0.3 thou/uL (1.20-3.40); #Monocytes 0.1 thou/uL (0.11-0.59); %Basophils 0.3 % (0.0-1.0); %Eosinophils 0.1 % (0.0-10.0); %Lymphocytes 2.8 % (21.0-51.0); %Monocytes 0.7 % (0.0-10.0); %Neutrophils 96.1 % (42.0-75.0); Hemoglobin 10.1 g/dL (14.0-18.0); Mean Corpuscular HGB CONC 32.2 g/dL (32.0-36.0); Mean Corpuscular Hemoglobin 33.4 pg (27.0-31.0); Mean Platelet Volume 6.6 fL (7.4-10.4); Platelet Count 275 thou/uL (130-400); RBC Distribution Width 16.6 % (11.5-14.5); Red Blood Cell (RBC) Count 3.03 mill/uL (4.70-6.10); White Blood Cell (WBC) Count 11.5 thou/uL (4.8-10.8)
[2017-05-30 22:17] LABS: Troponin I 0.237 ng/mL (< 0.028)
[2017-05-30] MEDS ORDERED: Labetalol HCl 100 MG/20 ML VIAL ONE (22:19)
[2017-05-30 23:45] VITALS: BMI 25.7
[2017-05-31 00:21] LABS: Troponin I 0.265 ng/mL (< 0.028)
[2017-05-31] MEDS ORDERED: Zolpidem Tartrate 5 MG TAB PO PRN (00:21)
[2017-05-31] MEDS ORDERED: Bisacodyl 10 MG SUPP PR PRN (00:21)
[2017-05-31] MEDS ORDERED: Ondansetron HCl/PF 4 MG/2 ML Vial SLOW IVP PRN (00:21)
[2017-05-31] MEDS ORDERED: Acetaminophen 500 MG TAB PO PRN (00:21)
[2017-05-31] MEDS ORDERED: Bisacodyl 5 MG TAB PO PRN (00:21)
[2017-05-31] MEDS ORDERED: hydrALAZINE 20 MG/ML VIAL SLOW IVP PRN (00:24)
[2017-05-31 05:47] LABS: #Lymphocytes 0.3 thou/uL (1.20-3.40); #Monocytes 0.1 thou/uL (0.11-0.59); #Neutrophils 6.8 thou/uL (1.40-6.50); %Eosinophils 0.3 % (0.0-10.0); %Lymphocytes 4.1 % (21.0-51.0); %Monocytes 1.8 % (0.0-10.0); %Neutrophils 93.8 % (42.0-75.0); Hemoglobin 9.2 g/dL (14.0-18.0); Mean Corpuscular HGB CONC 32.4 g/dL (32.0-36.0); Mean Corpuscular Hemoglobin 34.6 pg (27.0-31.0); Mean Platelet Volume 7.2 fL (7.4-10.4); Platelet Count 228 thou/uL (130-400); RBC Distribution Width 16.8 % (11.5-14.5); Red Blood Cell (RBC) Count 2.65 mill/uL (4.70-6.10); White Blood Cell (WBC) Count 7.3 thou/uL (4.8-10.8)
[2017-05-31] MEDS: HYDROcodone/Acetaminophen 5/325 mg Tablet PO PRN (05:47)
[2017-05-31 05:59] LABS: Troponin I 0.244 ng/mL (< 0.028)
[2017-05-31 06:00] LABS: ALT (SGPT) 20 U/L (8-55); AST (SGOT) 20 U/L (5-34); Albumin 3.1 g/dL (3.4-4.8); Alkaline Phosphatase 68 U/L (40-150); Anion Gap 18 mmol/L (10-20); BUN (Urea Nitrogen) 29 mg/dL (8.4-25.7); Bilirubin, Total 0.5 mg/dL (0.2-1.2); Calc. Creatinine Clearance 15 mL/min (70-130); Calcium 8.4 mg/dL (7.8-10.44); Carbon Dioxide 25 mmol/L (23-31); Chloride 96 mmol/L (98-107); Estimated GFR-MDRD 15; Globulin 1.8 g/dL (2.4-3.5); Glucose 97 mg/dL (83-110); Magnesium 2.4 mg/dL (1.6-2.6); Phosphorus 4.6 mg/dL (2.3-4.7); Potassium 4.6 mmol/L (3.5-5.1); Protein, Total 4.9 g/dL (5.8-8.1); Sodium 134 mmol/L (136-145)
[2017-05-31] MEDS ORDERED: predniSONE 20 MG TAB PO SCH (08:00)
[2017-05-31] MEDS ORDERED: Lorazepam 2 MG/ML VIAL SLOW IVP PRN (08:57)
[2017-05-31] MEDS ORDERED: Morphine 2 MG/ML SYRINGE SLOW IVP PRN (08:57)
[2017-05-31] MEDS ORDERED: DISCONTINUE PREVIOUS NARCOTIC PAIN MEDICATIONS AND BENZODIAZEPINES FS SCH (08:57)
[2017-05-31] MEDS ORDERED: Propofol 1,000 MG/100 ML VIAL IV PRN (08:57)
[2017-05-31] MEDS ORDERED: Enoxaparin Sodium 30 MG/0.3 ML SYRINGE SC SCH (09:00)
[2017-05-31] MEDS ORDERED: Metoprolol Tartrate 25 MG TAB PO SCH (09:00)
[2017-05-31] MEDS: Calcium Carbonate + Vit D 1 TAB PO SCH (09:00)
[2017-05-31] MEDS ORDERED: Tamsulosin HCl 0.4 MG CAP PO SCH (09:00)
[2017-05-31] MEDS ORDERED: [UNRECOGNIZED DRUG - OTHER] PO SCH (09:00)
[2017-05-31] MEDS ORDERED: CALCIUM CARB PO SCH (09:00)
[2017-05-31] MEDS: Latanoprost 0.005% Ophth Soln 2.5 ml Bottle EA EYE SCH (09:00)
[2017-05-31] MEDS ORDERED: MAGNESIUM OXID PO SCH (09:00)
[2017-05-31] MEDS: Aspirin 81 mg Enteric Coated Tablet PO SCH (09:00)
[2017-05-31] MEDS: Senokot S 8.6-50 MG TAB PO SCH ×2 (09:00→21:00)
[2017-05-31] MEDS ORDERED: D3 PO SCH (09:00)
[2017-05-31 09:49] LABS: pH, Arterial 7.36 (7.35-7.45)
[2017-05-31] MEDS: Furosemide 100 MG/10 ML VIAL SLOW IVP SCH (09:49)
[2017-05-31 09:50] LABS: Actual Bicarbonate (HCO3a) 26.2 mEq/L (22-26); Base Excess (BEa) 0.5 mEq/L (0 (+/-) 2.5); Hemoglobin (Hb) 9.8 g/dL (14.0-18.0); O2 Tension (PaO2) 66.7 mmHg (80.0-100.0)
[2017-05-31 09:51] LABS: Puncture Site L.B.
--- NOTE | 2017-05-31 10:50 | RAD ---
PORTABLE SUPINE CHEST: Date: 05/31/17 PROVIDED CLINICAL HISTORY: Intubation. FINDINGS: Comparison with 05/30/17. Interval placement of endotracheal tube, the tip of which projects in the region of the thoracic inle t. Cardiac silhouette remains enlarged. Prominence of the pulmonary interstitium and pulmonary vascul ature persists. There is bilateral parahilar air space disease suggesting alveolar edema. The supine nature of the study is not sensitive for detection of pleural fluid or pneumothorax. Right IJ dialysi s catheter remains in similar position. IMPRESSION: 1. Interval intubation. 2. Findings suggesting congestive failure with alveolar edema. POS: [facility]
[2017-05-31] MEDS ORDERED: Heparin 1,000 UNITS/ML VIAL ONE (11:11)
[2017-05-31 11:29] LABS: INR-International Normal Ratio 1.2; Prothrombin Time 15.7 SEC (12.0-14.7)
[2017-05-31 11:59] LABS: HBSAg Index 1.36 S/CO (0-0.99)
[2017-05-31 12:01] LABS: Hep B Surf Ag Reactive S/CO (NonReactive)
--- NOTE | 2017-05-31 12:01 | CON ---
DATE OF CONSULTATION: 05/31/2017 REASON FOR CONSULTATION: Status post cardiopulmonary arrest. HISTORY OF PRESENT ILLNESS: Mr. Jean is an 81-year-old gentleman who was seen and evaluated wiley leon in the hospital in 04/2017. He was diagnosed with Porfirio's granulomatosis. He was transferred to [facility]. The history is obtained from the daughter and from the notes. He is currently intubate d. The daughter is unsure what the final diagnosis was, but states he was on chemotherapy for severa l weeks. He has been in home for the last 3 weeks. He recently was admitted for bronchitis. He was seen about in [place] and transferred to [facility]. While on the floor, he continued to have increased respiratory depression and required intubat ion. PAST MEDICAL HISTORY: COPD and TIA. SOCIAL HISTORY: He is currently . Previous tobacco history. REVIEW OF SYSTEMS: Unobtainable. HOME MEDICATIONS: Albuterol, Protonix, Eliquis, Adalat, prednisone, clonidine, Bactrim, carvedilol, Lasix. PHYSICAL EXAMINATION: GENERAL: He is currently intubated and appears to open his eyes to command. VITAL SIGNS: Blood pressure 130/82, pulse 111, respirations 20. NEUROLOGIC: The patient is alert and oriented times 3 with no focal neurologic deficits. HEENT: Sclerae without icterus. Mouth has moist mucous membranes with normal pallor. NECK: No JVD. Carotid upstroke brisk. No bruits bilaterally. LUNGS: Clear to auscultation with unlabored respirations. BACK: No scoliosis or kyphosis. CARDIAC: Regular rate and rhythm with normal S1 and S2. No S3 or S4 noted. No significant rubs, murmurs, thrills, or gallops noted throughout the precordium. PMI is not displaced. There is no parasternal heave. ABDOMEN: Soft, nontender, nondistended. No peritoneal signs present. No hepatosplenomegaly. No abnormal striae. EXTREMITIES: 2+ femoral and 2+ dorsalis pedis pulses. No cyanosis, clubbing, or edema. SKIN: No gross abnormalities. PERTINENT LABORATORY DATA: White blood cell count 7.3, hemoglobin 9.2, platelet count 228, creatinin e 3.99, sodium 134. Peak troponin 0.244. IMPRESSION: 1. Respiratory failure, status post arrest. 2. Porfirio's granulomatosis. 3. End-stage renal disease. 4. Elevated troponin. RECOMMENDATIONS: I do not see where Mr. Jean had a previous cardiac workup. I am unsure whether he had a cardiac workup while at [facility]. At this point, would recommend continued ICU care. Ec ho has been performed and we will review the findings. His chest x-ray did suggest alveolar edema an d CHF.
--- NOTE | 2017-05-31 13:30 | HP ---
PRIMARY CARE PHYSICIAN: Benjamín Burt M.D. CHIEF COMPLAINT: Shortness of breath. 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 Returned to home on dialysis, Thursday, Thursday , and Thursday, followed by Dr. Estrada on outpatient basis. Given his current diagnosis, he was set up in [place] with Rheumatology and rituximab infusion plan, unclear if the patient received first dose yet or not. The patient had presented to the [facility] last night for the shortness of breath. Blood cultures were drawn there and no growth to date. The patient had reported positive sputum production with vascular congestion noted in perihilar regions on presenting x-ray. Around shift change this morning, RT was notified the patient was having some difficulty breathing on 4 liters nasal cannula, desaturating into the 80s. Vance Flores was called. The patient was unable to maintain satisfactory on mask, decision to intubate, the patient was successfully intubated, transitioned to the ICU. Blood pressures and heart rate were maintained throughout. Overnight, the patient was maintaining at 3 liters nasal cannula at 92%-93%. Currently, the patient is intubated and sedated, unavailable for interview. The patient's son is inbound, but not currently at bedside for additional questioning. Formal review of systems unable to be completed. PAST MEDICAL HISTORY: Includes hypertension, benign prostatic hyperplasia, gastroesophageal reflux disease, prior CVA, osteoarthritis including the lumbar spine, chronic constipation, and pauci-immune necrotizing glomerulonephritis. PAST SURGICAL HISTORY: Renal biopsy, 03/2017. SOCIAL HISTORY: The patient is a former smoker, approximately 50 years. FAMILY HISTORY: Noncontributory. ALLERGIES: No known drug allergies. HOME MEDICATIONS: Include clonidine 0.2 mg patch weekly, metoprolol ER 50 mg, Eliquis 2.5 mg, pantoprazole 40 mg, nifedipine ER 60 mg, albuterol sulfate p.r.n. 90 mcg 2 puffs, prednisone 20 mg daily, baby aspirin 81 mg, and MiraLax p.r.n. constipation one capsule. PHYSICAL EXAMINATION: VITAL SIGNS: In ICU, temperature of 97.4, pulse of 107, respiratory rate of 26 , oxygen saturation of 88%, and blood pressure 178/106. GENERAL: The patient is intubated and sedated. HEENT: Head is normocephalic, atraumatic. Pupils are equal, round, OG tube and ET tube in place. HEART: Tachycardic. No murmurs auscultated. LUNGS: With coarse breath sounds bilaterally. Crackles possibly in bases. ABDOMEN: Protuberant, positive bowel sounds. EXTREMITIES: Lower extremities with 1-2+ pitting edema towards the pedal surfaces bilaterally. No current skin breakdowns noted. LABORATORY WORK: White blood cell count trended down to 7.3, hemoglobin 9.2, platelet count of 228. INR of 1.1, blood gas pH of 7.36, pCO2 of 47, paO2 of 66. A-A gradient 444. Troponins remained indeterminate, 0.23, 0.26, 0.24. BNP elevated at 29 36, albumin of 3.1, glucose 97, creatinine of 3.99. Estimated GFR of 15. Sodium of 134, potassium of 4.6, chloride of 96, CO2 of 25 , calcium of 8.4, phosphorus of 4.6, magnesium of 2.4, total bilirubin of 0.5, AST of 20, ALT of 20. Repeat chest x-ray showing intubation continued perihilar congestion. ASSESSMENT AND PLAN: Acute respiratory failure, congestive heart failure exacerbation, pauci-immune glomerulonephritis, hypertension, gastroesophageal reflux disease, consulting Pulmonology and Cardiology since the patient has had status change. Echo was ordered as no recent echo has been able to be found in the outpatient clinic records or last hospitalization. The patient does make some urine. IV Lasix given at bedside in ICU, 80 mg x1. Conrad catheter has been placed. We will monitor output. Consider IV fluids soon. Patient with dialysis initiation at bedside in ICU with attempts to withdraw fluid if blood pressure allowing per review of Nephrology, ventilator management per Pulmonology and Critical Care, attempting a steroid burst and differential includes possible flareup of the patient's autoimmune disorder. We will attempt to clarify with son if he received rituximab, will likely continue patient's Thursday, Thursday, Thursday dialysis schedule otherwise. We will transition a number of medications to IV including Protonix for intubation prophylaxis and the patient's GERD, Levaquin was started in the emergency department with given current history of phlegm production. Differential includes chronic obstructive pulmonary disease exacerbation, steroid already been given, antibiotic ordered, breathing treatments p.r.n. At this stage, we will default to any scheduling per Pulmonology's recommendations. At this point , the patient is still having difficulty saturating on ventilator support. Given AA gradient, will continue to monitor for any signs of flash pulmonary edema or acute respiratory distress syndrome which will continue to require ventilator support. Greater than 30min of Critical care time spent. MTDD
--- NOTE | 2017-05-31 14:05 | CON ---
DATE OF CONSULTATION: 05/31/2017 CONSULTING PHYSICIAN: Rickey Ruiz MD REASON FOR CONSULTATION: End-stage renal disease evaluation and care. REASON FOR ADMISSION: Shortness of breath. HISTORY OF PRESENT ILLNESS: This is an 81-year-old male with history of end-stage renal disease on h emodialysis Thursday, Thursday, and Thursday, who was recently diagnosed with ANCA vasculitis on Rituxan , came into the hospital with shortness of breath and was on CPAP and had a code this morning for res piratory distress and intubated currently seen in ICU. The patient was started on dialysis immediate ly. I was consulted this morning and the patient is not able to give good history. PAST MEDICAL HISTORY: 1. Positive for end-stage renal disease. 2. ANCA vasculitis, on Rituxan. 3. Hypertension. 4. Osteoarthritis. 5. BPH. PAST SURGICAL HISTORY: Dialysis access placement. HOME MEDICATIONS: Prednisone, , aspirin, tamsulosin, and lisinopril. ALLERGIES: No known drug allergies. SOCIAL HISTORY: No smoking, alcohol or illicit drug abuse. FAMILY HISTORY: No history of kidney disease. REVIEW OF SYSTEMS: Could not be obtained. PHYSICAL EXAMINATION: GENERAL: Elderly male, intubated, seen in ICU. VITAL SIGNS: Temperature 96.4, pulse 118, respiratory rate 20, blood pressure 140/89. HEENT: Intubated. CARDIOVASCULAR: S1, S2 heard. RESPIRATORY: Clear. GASTROINTESTINAL: Abdomen is soft. MUSCULOSKELETAL: 1+ edema. DERMATOLOGIC: No skin rash. NEUROLOGIC: Intubated. LABORATORY DATA: Hemoglobin is 9.2. Potassium is 4.6, BUN is 29, and creatinine is 3.9. ASSESSMENT AND PLAN: 1. End-stage renal disease, on hemodialysis. We will continue on dialysis for fluid overload. 2. Respiratory distress. 3. Acute hypoxic respiratory failure. We will have dialysis. 4. Fluid overload. Remove fluid with dialysis. 5. Anemia. 6. History of ANCA vasculitis. Continue Rituxan. Follow up with Rheumatology at [facility]. 7. Plan is to continue on dialysis as tolerated. 8. Hypertension, stable.
[2017-05-31 15:04] LABS: Lactic Acid 1.3 mmol/L (0.5-2.2)
--- NOTE | 2017-05-31 16:51 | CON ---
DATE OF CONSULTATION: 05/31/2017 HISTORY OF PRESENT ILLNESS: Mr. Jean is a 57-year-old male admitted yesterday. Apparently coded this morning, was transferred to the Critical Care Unit. I was consulted to assist in his management. His chest radiograph reviewed by me shows significant v olume overload. Chest x-ray radiograph reviewed by me shows a significant right upper lobe and possi ble right middle and lower lobe pneumonia. He is mechanically ventilated, but his chest radiograph reviewed by me shows evidence of significant volume overload. I was consulted because of his presence in the Critical Care Unit. He has also been followed by Dr. Castillo and Dr. Estrada. PAST MEDICAL HISTORY: Remarkable for, 1. Renal failure. 2. He had a renal biopsy in the past. He is felt to have an ANCA positive vasculitis. 3. History of hypertension. 4. Degenerative arthritis. 5. History of BPH. 6. Vascular access procedures. SOCIAL HISTORY: He is a nonsmoker, nondrinker, does not use drugs. ALLERGIES: He has no drug allergies. FAMILY HISTORY: Negative for lung disease in early age. MEDICATIONS: Prior to admission he was on aspirin, prednisone, tamsulosin, lisinopril, and Rituxan r eportedly. REVIEW OF SYSTEMS: Not obtainable. PHYSICAL EXAMINATION: VITAL SIGNS: He is afebrile, heart rate 70, blood pressure 120/69. HEENT: His pupils are equal. His sclerae is anicteric. Extraocular movements appear to be full. NECK: Supple, no lymphadenopathy. LUNGS: Remarkable for coarse equal breath sounds. HEART: Regular rhythm, no S3. ABDOMEN: Soft and nontender. EXTREMITIES: Without clubbing, cyanosis, or edema. He has been dialyzed. When I examined him, he was moving all of his extremities. He would not make eye contact. LABORATORY DATA: Sodium 134, potassium 4.6, chloride 96, bicarbonate 25, BUN 29, creatinine 3.99. W brooks count 7.3, hemoglobin 9.2, platelets 228,000. MCV is 107. PH 7.36, CO2 47, pO2 66. IMPRESSION: 1. Status post intubation for volume overload. 2. Currently undergoing emergent dialysis with end-stage renal disease, felt to be secondary to an A NCA positive vasculitis. PLAN: Mechanical ventilation sedation, repeat his radiograph in the morning, if his radiograph is si gnificantly improved, he will be a candidate for weaning and extubation. Critical care time was 30 minutes.
[2017-05-31] MEDS ORDERED: cloNIDine 0.2mg/24 Hour PATCH TD SCH (17:00)
[2017-05-31] MEDS: Apixaban 5 MG TAB PO SCH (20:58)
[2017-05-31] MEDS: Carvedilol 6.25 MG TAB PO SCH (20:59)
[2017-05-31] MEDS ORDERED: Amlodipine 5 MG TAB PO SCH (21:00)
[2017-05-31] MEDS ORDERED: Heparin 5,000 UNITS/ML VIAL SC SCH (21:00)
[2017-06-01 05:12] LABS: ALT (SGPT) 26 U/L (8-55); AST (SGOT) 26 U/L (5-34); Albumin 2.9 g/dL (3.4-4.8); Alkaline Phosphatase 60 U/L (40-150); Anion Gap 14 mmol/L (10-20); BUN (Urea Nitrogen) 26 mg/dL (8.4-25.7); Bilirubin, Total 0.6 mg/dL (0.2-1.2); Calc. Creatinine Clearance 19 mL/min (70-130); Calcium 8.2 mg/dL (7.8-10.44); Carbon Dioxide 29 mmol/L (23-31); Chloride 98 mmol/L (98-107); Estimated GFR-MDRD 19; Globulin 1.4 g/dL (2.4-3.5); Glucose 90 mg/dL (83-110); Potassium 4.1 mmol/L (3.5-5.1); Protein, Total 4.3 g/dL (5.8-8.1); Sodium 137 mmol/L (136-145)
[2017-06-01 05:13] LABS: #Lymphocytes 0.8 thou/uL (1.20-3.40); #Monocytes 0.7 thou/uL (0.11-0.59); #Neutrophils 7.6 thou/uL (1.40-6.50); %Basophils 0.2 % (0.0-1.0); %Eosinophils 0.1 % (0.0-10.0); %Lymphocytes 8.3 % (21.0-51.0); %Monocytes 7.8 % (0.0-10.0); %Neutrophils 83.6 % (42.0-75.0); Hemoglobin 8.8 g/dL (14.0-18.0); Mean Corpuscular Hemoglobin 33.7 pg (27.0-31.0); Platelet Count 219 thou/uL (130-400); RBC Distribution Width 16.8 % (11.5-14.5); Red Blood Cell (RBC) Count 2.62 mill/uL (4.70-6.10); White Blood Cell (WBC) Count 9.1 thou/uL (4.8-10.8)
[2017-06-01 07:15] LABS: CO2 Tension 27.5 mmHg (35.0-45.0); pH, Arterial 7.59 (7.35-7.45)
[2017-06-01 07:19] LABS: Actual Bicarbonate (HCO3a) 25.6 mEq/L (22-26); Base Excess (BEa) 3.9 mEq/L (0 (+/-) 2.5); Hematocrit-ABG 27.1 % (42.0-52.0); Hemoglobin (Hb) 8.2 g/dL (14.0-18.0); O2 Tension (PaO2) 114.6 mmHg (80.0-100.0)
[2017-06-01 07:20] LABS: ALV-art Gradient 136.225 (0-20); Calcium, Ionized 1.1 mmol/L (1.12-1.30); Puncture Site RBA
--- NOTE | 2017-06-01 07:46 | PRG ---
DATE OF SERVICE: 06/01/2017 Mr. Jean is arousable. He is currently intubated. PHYSICAL EXAMINATION: VITAL SIGNS: BP 147/57, pulse 66, temperature afebrile. LUNGS: Reveal bilateral breath sounds without rhonchi, wheezes or rales. HEART: Reveals no murmur. LABORATORY: His hemoglobin is 8.8, hematocrit 26.7, white blood count 9.1. Arterial blood gases mildred w pH of 7.59, pCO2 of 114. Chemistry: Sodium 137, potassium 4.1, chloride 98, CO2 29, creatinine 3. 19. IMPRESSION: He appears to be improving from a volume overload situation of unknown etiology. PLAN: The patient appears to be extubated well at this time. We will await input from Pulmonary, Ca rdiology, and Nephrology.
[2017-06-01] MEDS ORDERED: Midazolam HCl 2 mg/2 ml Vial ONE (08:23)
--- NOTE | 2017-06-01 08:28 | RAD ---
CHEST 1 VIEW: Date: 06/01/17 HISTORY: Intubated. Follow-up. COMPARISON: 05/31/17. FINDINGS: Cardiac silhouette remains magnified and enlarged. Pulmonary vasculature is less engorged than on the prior study. Patchy bilateral air space disease has improved. Mediastinum is midline. Endotracheal c atheter and internal jugular dialysis catheter remain in place. Nasogastric tube now descends to the stomach. Calcifications apparent within the aorta. gear machine operator leads overlie the chest. IMPRESSION: 1. Improvement in radiographic appearance of pulmonary edema. 2. Interval placement of nasogastric tube. POS: [facility]
[2017-06-01] MEDS ORDERED: Pantoprazole 40 MG VIAL IVP SCH (09:00)
[2017-06-01] MEDS ORDERED: Epoetin (ESRD) 10,000 UNITS/ML VIAL SC SCH (09:00)
[2017-06-01] MEDS ORDERED: cloNIDine 0.2mg/24 Hour PATCH TD SCH (09:00)
[2017-06-01] MEDS ORDERED: methylPREDNISolone Sod Succ/PF 125 MG/2 ML VIAL IVP ONE (09:01)
[2017-06-01] MEDS: Furosemide 100 MG/10 ML VIAL SLOW IVP SCH (10:33)
[2017-06-01] MEDS: Apixaban 5 MG TAB PO SCH ×2 (10:34→20:10)
[2017-06-01] MEDS: Aspirin 81 mg Enteric Coated Tablet PO SCH (10:35)
[2017-06-01] MEDS: Carvedilol 6.25 MG TAB PO SCH ×2 (10:36→20:09)
[2017-06-01] MEDS: Calcium Carbonate + Vit D 1 TAB PO SCH (10:37)
[2017-06-01] MEDS: Senokot S 8.6-50 MG TAB PO SCH ×2 (10:38→20:10)
--- NOTE | 2017-06-01 10:55 | PRG ---
DATE OF SERVICE: 06/01/2017 SUBJECTIVE: Mr. Jean is much more alert and awake today. He is moving all extremities on comman d. No current complaints. PHYSICAL EXAMINATION: VITAL SIGNS: Blood pressure 134/79, pulse 64, respirations 20. LUNGS: Mild crackles noted bilaterally. HEART: Regular rate and rhythm. ABDOMEN: Soft, nontender, nondistended. EXTREMITIES: No edema. PERTINENT LABORATORY DATA: Hemoglobin 8.8, creatinine 3.19, which is down from 3.99. Peak troponin is 0.244. IMPRESSION: 1. Acute systolic heart failure. 2. Vasculitis. 3. Renal failure. 4. Respiratory failure. RECOMMENDATIONS: It was difficult to assess whether Mr. Jean had a cardiac workup while at [facility]. May try and assess whether he has had a heart workup when transferred to months ago at [facility]. This may be better when he has been extubated. If he has not had any heart workup, may consid er a noninvasive stress study versus coronary angiography to assess the anatomy. Patient has met ext ubation criteria and will be extubated shortly. Patient is currently on aspirin in addition to Coreg . We may need to discuss with Nephrology on whether this is truly end-stage renal disease or if he m ay regain function. If so, we will avoid WOODY inhibitor therapy and ARB. I will be available out of the office next week and one of my colleagues will take over in my absence .
--- NOTE | 2017-06-01 11:21 | PRG ---
DATE OF SERVICE: 06/01/2017 SUBJECTIVE: This is an 81-year-old gentleman being seen for end-stage renal disease. The patient de nies any nausea, vomiting or chest pain. PHYSICAL EXAMINATION: GENERAL: Patient is awake, alert. VITAL SIGNS: Afebrile, pulse 61, breathing 16, blood pressure 134/79. HEAD/NECK: Normocephalic. Atraumatic. EYES: EOMI. No deformity. EARS: Clear. No ulcers. NOSE: Intact. No lesions. MOUTH: Clear. No discharge. THROAT: Clear. No exudate. LUNGS: Clear. No crackles. CARDIAC: S1, S2. No rub. ABDOMEN: Benign. BS+. GENITALIA/RECTUM: Conrad absent. BACK/EXTREMITIES: Edema 0+ Ulcer- NEUROLOGICAL: Alert and motor intact. SKIN: Rash- Bruise- LYMPHATICS: Edema- Ulcer- LABORATORY DATA: Show hemoglobin 8.8, creatinine 3.1. ASSESSMENT AND RECOMMENDATIONS: 1. Stage 6 chronic kidney disease. We will plan dialysis today. 2. Congestive heart failure, plan dialysis. 3. Hypertension, stable. 4. Anemia, stable. 5. Medications based on glomerular filtration rate are appropriate.
[2017-06-01] MEDS: NIFEdipine XL 60 MG TAB PO SCH (12:10)
[2017-06-01] MEDS ORDERED: Digoxin 0.5 MG/2 ML AMP ONE (15:59)
[2017-06-01] MEDS: Latanoprost 0.005% Ophth Soln 2.5 ml Bottle EA EYE SCH (16:02)
--- NOTE | 2017-06-01 16:14 | PRG ---
DATE OF SERVICE: 06/01/2017 SERVICE: Pulmonary Medicine. INTERVAL HISTORY: Overnight, patient's oxygen requirements have dramatically improved. He is breathi ng comfortably without sedation. I will put him on a spontaneous breathing trial to see whether or n ot he tolerates this thing. He currently denies any shortness of breath or chest discomfort. I find him awake and alert. He is cooperative. He is CAM negative. He went into fibrillation later on in the day. I do not see a history of this on the admission H&P. Cardiology is currently following. PHYSICAL EXAMINATION: VITAL SIGNS: Afebrile, pulse 136, blood pressure 110/65, respirations 22, saturation 93% on 21% FiO2 on a PEEP of 5. HEENT: Normocephalic, atraumatic. Sclerae are white, conjunctivae pink. Oral mucosa is moist witho ut lesions. LUNGS: Excellent air entry. There is depending crackles, which are minimal. There is no prolonged expiratory phase on the ventilator. HEART: Normal rate, regular. ABDOMEN: Soft, nontender, nondistended. Bowel sounds are positive. MUSCULOSKELETAL: No cyanosis or clubbing. There is no pitting in the bilateral lower extremities. NEUROLOGIC: Grossly nonfocal. LABORATORY DATA: WBC 9.1, hemoglobin 8.8, and platelets 219,000. PH 7.59, pCO2 27, pO2 114. INR 1. 2. Creatinine 3.19. Basic metabolic profile is otherwise unremarkable. Lactate is cleared. The co rtisol level is 4.1. Hepatitis B surface antigen is reactive. IMAGING: Chest x-ray demonstrates improvement in the radiographic appearance of pulmonary edema. Th ere is a NG tube in place. ASSESSMENT: 1. Acute hypoxic respiratory failure. 2. Atrial fibrillation with rapid ventricular response. 3. Acute systolic heart failure. 4. Vasculitis. 5. Acute kidney injury. PLAN: We will give the patient a spontaneous breathing trial. If he meets criteria, extubation will be considered. Started him up on amiodarone for atrial fibrillation with RVR. Dr. Castillo is napoleon wilcox. He will be notified of the change. Pulmonary and Pulmonary Critical Care will continue to nimisha meredith while the patient remains in this location. CRITICAL CARE TIME: 30 minutes.
[2017-06-01] MEDS ORDERED: Digoxin 0.5 MG/2 ML AMP SLOW IVP SCH (16:30)
[2017-06-01] MEDS: Amiodarone HCl 450 MG, Admixture Fee 1 EACH in Dextrose 5% in Water 250 ML IVPB SCH ×3 (18:53)
[2017-06-01] MEDS: HYDROcodone/Acetaminophen 5/325 mg Tablet PO PRN (20:09)
[2017-06-02] MEDS: Amiodarone HCl 450 MG, Admixture Fee 1 EACH in Dextrose 5% in Water 250 ML IVPB SCH ×3 (04:07)
[2017-06-02] MEDS ORDERED: Docusate 100 MG CAP PO PRN (07:41)
--- NOTE | 2017-06-02 07:59 | PRG ---
DATE OF SERVICE: 06/02/2017 Mr. Jean is doing well. He is extubated, talking. He reports no complaints. PHYSICAL EXAMINATION: VITAL SIGNS: Temperature 97.8, BP 129/80, pulse is 70, regular pulse. It is noted he went into atri al fibrillation yesterday, now on an amiodarone drip. LUNGS: Reveal bilateral breath sounds. HEART: Reveals a regular rate and rhythm without murmurs, gallops, no rubs. LABORATORY: No new labs notes are noted. IMPRESSION: 1. An 81-year-old male with renal failure who evidently went into a fluid overload situation, now im proved. 2. Atrial fibrillation. 3. History of Porfirio's granulomatosis. PLAN: 1. Continue current therapy. 2. Possibly could be discharged as early as tomorrow depending on Cardiology, Pulmonology and Nephro logy.
[2017-06-02 08:18] LABS: Hep B Surface AG-Rflx Sendout Negative (Negative)
[2017-06-02] MEDS: Apixaban 5 MG TAB PO SCH ×2 (08:26→21:02)
[2017-06-02] MEDS: Furosemide 100 MG/10 ML VIAL SLOW IVP SCH (08:26)
[2017-06-02] MEDS: Calcium Carbonate + Vit D 1 TAB PO SCH (08:26)
[2017-06-02] MEDS: Aspirin 81 mg Enteric Coated Tablet PO SCH (08:26)
[2017-06-02] MEDS: Carvedilol 6.25 MG TAB PO SCH ×2 (08:26→21:03)
[2017-06-02] MEDS: NIFEdipine XL 60 MG TAB PO SCH (08:27)
[2017-06-02] MEDS: Senokot S 8.6-50 MG TAB PO SCH ×2 (08:36→21:03)
[2017-06-02] MEDS: Latanoprost 0.005% Ophth Soln 2.5 ml Bottle EA EYE SCH (08:37)
--- NOTE | 2017-06-02 09:49 | PRG ---
DATE OF SERVICE: 06/02/2017 SUBJECTIVE: An [id number] being seen for end-stage renal disease. The patient denies any abner sea, vomiting or chest pain. PHYSICAL EXAMINATION: GENERAL: Patient is awake, alert. VITAL SIGNS: Afebrile, pulse 81, breathing at 16, blood pressure was 152/81. HEAD/NECK: Normocephalic. Atraumatic. EYES: EOMI. No deformity. EARS: Clear. No ulcers. NOSE: Intact. No lesions. MOUTH: Clear. No discharge. THROAT: Clear. No exudate. LUNGS: Clear. No crackles. CARDIAC: S1, S2. No rub. ABDOMEN: Benign. BS+. GENITALIA/RECTUM: Conrad absent. BACK/EXTREMITIES: Edema 0+ Ulcer- NEUROLOGICAL: Alert and motor intact. SKIN: Rash- Bruise- LYMPHATICS: Edema- Ulcer- LABORATORY DATA: Show hemoglobin 8.8, potassium 4.5. ASSESSMENT AND RECOMMENDATIONS: 1. Stage 6 chronic kidney disease, plan dialysis tomorrow. 3. Hypertension, stable. 4. Anemia, stable. 5. Medications based on glomerular filtration rate are appropriate.
--- NOTE | 2017-06-02 10:35 | PRG ---
DATE OF SERVICE: 06/02/2017 SERVICE: Pulmonary Medicine. INTERVAL HISTORY: The patient is doing outstanding from a respiratory standpoint. He got put on oxy gen last night at 1-2 liters nasal cannula because he had intermittent desaturations in the evening. Outside of this, he had no complaints of fevers, chills, nausea, vomiting or shortness of breath. Y esterday, he went into atrial fibrillation. He was given a dose of digoxin and an amiodarone drip. At roughly midnight, he currently converted back into sinus rhythm which he maintained since then. O therwise there were no overnight events. PHYSICAL EXAMINATION: VITAL SIGNS: Afebrile, pulse 65, blood pressure 152/81, respirations 14, saturations 92% on room air . GENERAL: The patient is awake and alert, in no apparent distress. LUNGS: Decent air entry. Dependent crackles are evident. No prolonged expiratory phase or wheezing is appreciated. HEART: Normal rate, regular. ABDOMEN: Soft, nontender, and nondistended. Bowel sounds are positive. MUSCULOSKELETAL: No cyanosis or clubbing. No pitting in the bilateral lower extremities. NEUROLOGIC: Grossly nonfocal. ASSESSMENT: 1. Acute hypoxic respiratory failure. 2. Atrial fibrillation with rapid ventricular rhythm, returned to normal sinus rhythm. 3. Acute systolic heart failure. 4. Vasculitis. 5. Acute kidney injury, possibly progressing to end-stage renal disease. PLAN: The patient is doing really well from a cardiovascular and respiratory standpoint. As such, tim leon will transition back out of the ICU to the regular floor. We will maintain on fluid restriction. He will dialyze in order to maintain euvolemia. Pulmonary or Critical Care will continue to follow f or the time being. He will need to follow up with Rheumatology in the outpatient setting as previous ly directed.
[2017-06-02] MEDS ORDERED: Amiodarone 200 MG TAB PO SCH (14:00)
[2017-06-02] MEDS: Amiodarone 200 MG TAB PO SCH (21:02)
[2017-06-02] MEDS: HYDROcodone/Acetaminophen 5/325 mg Tablet PO PRN (23:54)
[2017-06-03 05:59] LABS: Anion Gap 14 mmol/L (10-20); BUN (Urea Nitrogen) 48 mg/dL (8.4-25.7); Calc. Creatinine Clearance 11 mL/min (70-130); Calcium 7.7 mg/dL (7.8-10.44); Carbon Dioxide 27 mmol/L (23-31); Chloride 98 mmol/L (98-107); Estimated GFR-MDRD 10; Glucose 91 mg/dL (83-110); Magnesium 2.2 mg/dL (1.6-2.6); Potassium 3.6 mmol/L (3.5-5.1); Sodium 135 mmol/L (136-145)
--- NOTE | 2017-06-03 08:00 | PRG ---
DATE OF SERVICE: 06/03/2017 Mr. Jean is doing well. He is awake, alert, and voices no complaints. PHYSICAL EXAMINATION: VITAL SIGNS: BP is 154/71, temperature 99.4, O2 sats 92% on 1 liter. LUNGS: Bilateral breath sounds. HEART: Reveals no murmur. ABDOMEN: Soft, nontender, bowel sounds active. No hepatosplenomegaly noted. LABORATORY: Chemistry: Sodium 135, potassium 3.6, creatinine 5.43, BUN 48. IMPRESSION: 1. Volume overload, unknown etiology. 2. End-stage renal disease. PLAN: The patient will dialyze today. If he is stable we will plan on discharging him later today.
--- NOTE | 2017-06-03 08:28 | PRG ---
DATE OF SERVICE: 06/03/2017 SUBJECTIVE: This 81-year-old gentleman being seen for end-stage renal disease. Patient denies any nausea, vomiting, chest pain. PHYSICAL EXAMINATION: GENERAL: Patient is awake, alert. VITAL SIGNS: Afebrile, pulse 67, breathing 16, blood pressure 137/62. HEAD/NECK: Normocephalic. Atraumatic. EYES: EOMI. No deformity. EARS: Clear. No ulcers. NOSE: Intact. No lesions. MOUTH: Clear. No discharge. THROAT: Clear. No exudate. LUNGS: Clear. No crackles. CARDIAC: S1, S2. No rub. ABDOMEN: Benign. BS+. GENITALIA/RECTUM: Conrad absent. BACK/EXTREMITIES: Edema 0+ Ulcer- NEUROLOGICAL: Alert and motor intact. SKIN: Rash- Bruise- LYMPHATICS: Edema- Ulcer- LABORATORY DATA: Show hemoglobin 8.8, potassium 3.6. ASSESSMENT AND RECOMMENDATIONS: 1. Stage 6 chronic kidney dialysis, plan dialysis. 2. Hypertension, stable. 3. Anemia, stable. 4. Medications based on glomerular filtration rate are appropriate. MTDD
--- NOTE | 2017-06-03 08:48 | PRG ---
DATE OF SERVICE: 06/03/2017 SERVICE: Pulmonary Medicine. INTERVAL HISTORY: The patient is doing outstanding from a respiratory standpoint. He is on room air . He denies any shortness of breath or chest discomfort. Otherwise, there has been no interval john ge to his condition. PHYSICAL EXAMINATION: VITAL SIGNS: Afebrile, pulse 58, blood pressure 127/62, respirations 19, saturation 93% on room air. GENERAL: The patient is awake and alert, in no apparent distress. LUNGS: Excellent air entry. Minimal crackles are present. There is no prolonged expiratory phase o r wheezing. HEART: Normal rate and regular. ABDOMEN: Soft, nontender, nondistended. Bowel sounds are positive. MUSCULOSKELETAL: No cyanosis or clubbing. He maintains 1+ pitting in the bilateral lower extremitie s, but it is greatly improved. GENITOURINARY: No Ocnrad. NEUROLOGIC: Grossly nonfocal. LABORATORY DATA: Creatinine 5.43, BUN 48. Basic metabolic profile is otherwise unremarkable. Magne sium 2.2. Prior cortisol level was only 4.1. ASSESSMENT: 1. Acute hypoxic respiratory failure. 2. Atrial fibrillation with rapid ventricular response, returned to sinus rhythm. 3. Acute systolic heart failure. 4. Vasculitis. 5. Acute kidney injury, possibly progressing to end-stage renal disease. PLAN: The patient is doing fantastic from a respiratory standpoint. At this point, he has no furthe r requirements for inpatient Pulmonary or Critical Care opinion. As such, I will sign off. He will return to his Thursday, Thursday, and Thursday after dialysis. I believe he will need dialysis today pr ior to discharge. Once that occurs, if he is doing well, certainly from my perspective, he can be tr ansitioned out of the hospital.
[2017-06-03] MEDS: Carvedilol 6.25 MG TAB PO SCH (09:59)
[2017-06-03] MEDS: Senokot S 8.6-50 MG TAB PO SCH (09:59)
[2017-06-03] MEDS: Aspirin 81 mg Enteric Coated Tablet PO SCH (10:00)
[2017-06-03] MEDS: Calcium Carbonate + Vit D 1 TAB PO SCH (10:00)
[2017-06-03] MEDS: Apixaban 5 MG TAB PO SCH (10:00)
[2017-06-03] MEDS: Amiodarone 200 MG TAB PO SCH (10:00)
[2017-06-03] MEDS: NIFEdipine XL 60 MG TAB PO SCH (10:00)
[2017-06-03] MEDS: Furosemide 100 MG/10 ML VIAL SLOW IVP SCH (10:01)
[2017-06-03] MEDS: Latanoprost 0.005% Ophth Soln 2.5 ml Bottle EA EYE SCH (10:04)
[2017-06-03 11:56] VITALS: TEMP 98.6
--- NOTE | 2017-06-03 13:01 | DIS ---
DATE OF ADMISSION: 05/31/2017 DATE OF DISCHARGE: 06/03/2017 DISCHARGE DIAGNOSES: 1. Volume overload of unknown etiology. 2. New onset atrial fibrillation. 3. Previous history of renal failure, on renal dialysis. 4. Porfirio's granulomatosis. MAIN PHYSICIAN: Dr. Benjamín Burt. CONSULTING PHYSICIAN: Dr. Castillo, Dr. Mckeon, Dr. Gallagher, and Dr. Pastor. HOSPITAL SUMMARY: An 81-year-old male, who was admitted on 05/31/2017. He was seen in [facility], diagnosed with bronchitis. He was brought over here for further treatment and hospitalization. He was noted to be considerably short of breath. He, unfortunately, had a code green event called an d was transferred to ICU with pulmonary edema, which required intubation. Dr. Mckeon and Dr. Hyacinth lujan were consulted. The patient had diuresis performed with IV medications as well as dialysis. He pr ogressed well. He is able to be extubated within 36 hours. All other evaluation proved to be fairly normal. No evidence of any further problems could be identified. He did undergo echocardiogram, wh ich did reveal an ejection fraction of 25%-30%. During his hospitalization, he went into atrial fibr illation. He was placed on an amiodarone drip and did have conversion after amiodarone. He was main tained on oral amiodarone thereafter. He was discharged on 06/03/2017 in good condition, tolerating all oral intake. He will have dialysis prior to discharge. DISCHARGE MEDICATIONS: Included amiodarone 400 mg b.i.d., Eliquis 2.5 mg b.i.d., Dulcolax as needed. He was continued on carvedilol 12.5 mg b.i.d. as well as clonidine TTS patch 0.2 mg every other wee k as well as prednisone 20 mg daily and pantoprazole 40 mg p.o. daily. DISCHARGE PLAN: He will be seen in followup in my office in 2 weeks.
[2017-06-03 19:25] VITALS: BP 127/57
[2017-06-04] MEDS ORDERED: Heparin 10,000 UNITS/ 10 ML VIAL ONE (13:45)
== END 2017-06-03 19:25 | disposition home health service (06) | DRG 291 ==
LOC: ERS 19:30 → 2NO 23:09 → CCU 05-31 08:45 → 2NO 06-02 14:51
PROVIDERS: ADMIT Family Medicine; ATTEND Family Medicine
PROC: 0BH17EZ Insertion of Endotracheal Airway into Trachea, Via Natural or Artificial Opening (ICD-10-PCS; principal; 2017-05-31)
PROC: 5A1945Z Respiratory Ventilation, 24-96 Consecutive Hours (ICD-10-PCS; 2017-05-31)
PROC: 5A1D70Z Performance of Urinary Filtration, Intermittent, Less than 6 Hours Per Day (ICD-10-PCS; 2017-06-02)
DX: I13.2 Hypertensive heart and chronic kidney disease with heart failure and with stage 5 chronic kidney disease, or end stage renal disease (principal); I50.21 Acute systolic (congestive) heart failure; J96.01 Acute respiratory failure with hypoxia; N17.9 Acute kidney failure, unspecified; M31.31 Wegener's granulomatosis with renal involvement; N18.6 End stage renal disease; I46.8 Cardiac arrest due to other underlying condition; Z99.2 Dependence on renal dialysis; Z87.891 Personal history of nicotine dependence; N40.0 Benign prostatic hyperplasia without lower urinary tract symptoms; K21.9 Gastro-esophageal reflux disease without esophagitis; Z86.73 Personal history of transient ischemic attack (TIA), and cerebral infarction without residual deficits; K59.09 Other constipation; J40 Bronchitis, not specified as acute or chronic; D63.1 Anemia in chronic kidney disease; I48.91 Unspecified atrial fibrillation; J44.9 Chronic obstructive pulmonary disease, unspecified; I77.6 Arteritis, unspecified
CPT/HCPCS: 36415; 71045; 80048; 80053; 82533; 82805; 83605; 83735; 84100; 84484; 85025; 85379; 85610; 87340; 90935; 93306; 94002; 94003; 94640; 96365; 96366; 96375; 99406; A4216; C9113; G0257; J0282; J0360; J1160; J1644; J1940; J1956; J2060; J2250; J2270; J2704; J2930; J7070; J7620; Q4081

== ENCOUNTER 2017-09-07 11:56 | Inpatient (IN) | payer MEDICARE ==
[2017-09-07 12:41] LABS: Hemoglobin 12.3 g/dL (14.0-18.0); Mean Corpuscular HGB CONC 30.1 g/dL (32.0-36.0); Mean Corpuscular Hemoglobin 31.7 pg (27.0-31.0); Mean Platelet Volume 8.7 fL (7.4-10.4); Platelet Count 159 thou/uL (130-400); RBC Distribution Width 17.7 % (11.5-14.5); Red Blood Cell (RBC) Count 3.89 mill/uL (4.70-6.10); White Blood Cell (WBC) Count 20.2 thou/uL (4.8-10.8)
[2017-09-07 13:01] LABS: ALT (SGPT) 39 U/L (8-55); AST (SGOT) 31 U/L (5-34); Albumin 2.5 g/dL (3.4-4.8); Alkaline Phosphatase 125 U/L (40-150); Anion Gap 22 mmol/L (10-20); Anisocytosis SLIGHT = 6-15 cells (100X) (0-5/hpf); BUN (Urea Nitrogen) 70 mg/dL (8.4-25.7); Band 5 % (5-11); Bilirubin, Total 0.9 mg/dL (0.2-1.2); CK (CPK) 61 U/L (30-200); Calc. Creatinine Clearance 0 mL/min (70-130); Carbon Dioxide 26 mmol/L (23-31); Chloride 91 mmol/L (98-107); Estimated GFR-MDRD 7; Globulin 2.6 g/dL (2.4-3.5); Glucose 152 mg/dL (83-110); Hypochromia SLIGHT = 6-15 cells (100X) (0-5/hpf); Lymphocytes 1 % (21-51); MDiff Complete? YES; Monocytes 4 % (0-10); Neutrophil 90 % (42-75); PLT Morphology Comment Appears Adequate; Potassium 5.9 mmol/L (3.5-5.1); Protein, Total 5.1 g/dL (5.8-8.1); Sodium 133 mmol/L (136-145); Toxic Granulation SLIGHT
[2017-09-07 13:05] LABS: CKMB 3.3 ng/mL (0-6.6); Troponin I 0.098 ng/mL (< 0.028)
--- NOTE | 2017-09-07 13:28 | RAD ---
AP CHEST: Indication: Fall with chest pain. FINDINGS: There is mild cardiomegaly. There is a right IJ dialysis catheter. Lungs are clear. No pleural effusi on. No definite acute osseous abnormality is evident. IMPRESSION: 1. Stable cardiomegaly. 2. Right IJ dialysis catheter. POS: [facility]
[2017-09-07] MEDS ORDERED: Fentanyl 100 MCG/2 ML VIAL ONE (14:30)
[2017-09-07] MEDS ORDERED: Ketorolac Tromethamine 30 MG/ML VIAL ONE (15:47)
[2017-09-07 15:52] LABS: HBSAB Concentration 1.35 mIU/mL; HBSAg Index 0.28 S/CO (0-0.99); Hep B Surf AB Non-Reactive (NonReactive); Hep B Surf Ag Non-Reactive S/CO (NonReactive)
[2017-09-07 15:57] LABS: Troponin I 0.102 ng/mL (< 0.028)
[2017-09-07 16:08] VITALS: BMI 19.5
[2017-09-07] MEDS ORDERED: Acetaminophen 325 MG TAB PO PRN (16:55)
[2017-09-07] MEDS ORDERED: Ondansetron ODT 4 MG TAB PO PRN (16:58)
[2017-09-07] MEDS ORDERED: Activase 2 MG VIAL CATH SCH (17:15)
[2017-09-07] MEDS ORDERED: Sterile Water 10 ML VIAL IVP SCH (17:15)
[2017-09-07] MEDS ORDERED: Albumin 25% 25 GM/100 ML BOT IVPB SCH (19:00)
[2017-09-07 19:49] LABS: Troponin I 0.088 ng/mL (< 0.028)
[2017-09-07] MEDS: Megestrol Acetate 40 MG TAB PO SCH (20:39)
[2017-09-07] MEDS: Zolpidem Tartrate 5 MG TAB PO SCH (20:39)
[2017-09-07] MEDS: Carvedilol 6.25 MG TAB PO SCH (20:40)
[2017-09-07] MEDS: Apixaban 2.5 MG TAB PO SCH (20:40)
--- NOTE | 2017-09-07 23:30 | HP ---
DATE OF ADMISSION: 09/07/2017 ADMITTING PHYSICIAN: Dr. Benjamín Burt. HISTORY OF PRESENT ILLNESS: Patient is an 81-year-old male with known history of end-stage renal dis ease currently on dialysis. States that yesterday, he was trying to walk, bear weight. He fell. He was not able to get up on his own. He felt like he was laid on the ground for several hours. He wa s observed yesterday. Today, he was brought to the emergency room due to evidently patient felt like he was doing worse, having some pain. There has been no nausea, vomiting, diarrhea, no fever report ed. No chest pain or shortness of breath. He just aches all over. He was supposed to have dialysis today, did not make it to dialysis. Otherwise, he notes various aches and pains, abrasions to his b trent. He knows he did not lose consciousness. He simply fell, became unsteady and went down. 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 He was supposed to be under therapy for this, apparently has not been receiving any therapy other than his prednisone at this time. Otherwise, there are no other medical history noted. ALLERGIES: He has no known allergies. CURRENT MEDICATIONS: Noted in the chart and have been reviewed and reconciled. PAST MEDICAL HISTORY: Positive for the above noted vasculitis, end-stage renal disease, vascular acc ess grafting. PAST SURGICAL HISTORY: Positive for the above noted renal biopsy. SOCIAL/PERSONAL HISTORY: He is a . He does pass extensive smoking history. He does not smok e at this time. He lives at [place], although his son is nearby to help care for him. PHYSICAL EXAMINATION: VITAL SIGNS: Temperature 98.2, pulse 61, respirations 18. GENERAL: He is alert, active, does not appear in any significant distress otherwise. HEENT: Normocephalic, atraumatic. Sclerae and conjunctivae are clear. NECK: Supple. Full range of motion, no masses. LUNGS: Reveal bilateral breath sounds. HEART: Regular rate and rhythm without murmur, gallops, or rubs. ABDOMEN: Soft, nontender, bowel sounds are present and active. EXTREMITIES: Reveal no clubbing, edema, or cyanosis. There are multiple abrasions about the lower e xtremities with few abrasions at the upper extremities. There is no evidence of any redness, erythem a, otherwise noted. NEUROLOGICAL: He is alert and oriented x3. He is able to move all extremities. Follows commands. Chest x-ray is otherwise clear with cardiomegaly noted. LABORATORY DATA AND X-RAY FINDINGS: His white blood count is 20.2, hemoglobin 12.3, hematocrit 41.0. Sodium 133, potassium 5.9, chloride 91, CO2 of 26, BUN 70, creatinine 7.11. Troponin is mildly teo vated at 0.98. Follow up troponin 0.1. IMPRESSION: This is an 81-year-old male with end-stage renal disease, sustained a fall. He is most likely clinically dehydrated, which may explain some of his abnormal functions and most likely needs to have dialysis with a name toward fluid rehydration. He has been placed in observation tonight. N ephrology has been consulted. It is matter of fact, he is pending dialysis. It is noted his graft i s clotted, they were unclot the graft. PLAN: We will continue to monitor the patient. We will follow his white count. I believe, his whit e count most likely is related to hemoconcentration as well. See no evidence of any active infection otherwise.
--- NOTE | 2017-09-08 05:09 | CON ---
DATE OF CONSULTATION: 09/07/2017 NEPHROLOGY CONSULT CONSULTING PHYSICIAN: Dr. Murphy. REASON FOR CONSULTATION: End-stage renal disease evaluation and care. REASON FOR ADMISSION: Fall. HISTORY OF PRESENT ILLNESS: This is an 81-year-old white male with history of end-stage renal diseas e on hemodialysis Thursday, Thursday, Thursday, ANCA vasculitis, BPH, hypertension, osteoarthritis came to the hospital after a fall. Patient was walking from his truck to the porch with a walker and got unsteady and went down. He is also having low back pain. No fever or chills. No nausea, vomiting, no chest pain. PAST MEDICAL HISTORY: Positive for end-stage renal disease, BPH, hypertension, GERD, and ANCA vascu litis. PAST SURGICAL HISTORY: Dialysis shunt placement. HOME MEDICATIONS: Include prednisone, tamsulosin, carvedilol, Eliquis, pantoprazole zolpidem, amioda radha, megestrol, nifedipine, hydrocodone. ALLERGIES: No known drug allergies. SOCIAL HISTORY: Patient drinks every day. No drug abuse and smokes half pack per day now. FAMILY HISTORY: No history of kidney disease. REVIEW OF SYSTEMS: The following complete review of systems was negative, unless otherwise mentioned in the HPI or below: Constitutional: Weight loss or gain, ability to conduct usual activities. Sk in: Rash, itching. Eyes: Double vision, pain. ENT/Mouth: Nose bleeding, neck stiffness, pain, te nderness. Cardiovascular: Palpitations, dyspnea on exertion, orthopnea. Respiratory: Shortness of breath, wheezing, cough, hemoptysis, fever, or night sweats. Gastrointestinal: Poor appetite, abdo chelly pain, heartburn, nausea, vomiting, constipation, or diarrhea. Genitourinary: Urgency, frequen cy, dysuria, nocturia. Musculoskeletal: Pain, swelling. Neurologic/Psychiatric: Anxiety, depressi on. Allergy/Immunologic: Skin rash, bleeding tendency. PHYSICAL EXAMINATION: GENERAL: This is a well-built elderly male, in no apparent distress. VITAL SIGNS: Temperature 98.2, pulse 61, respiratory rate 18, blood pressure 110/59. HEENT: Atraumatic, normocephalic. Oral mucosa is moist. NECK: Supple, no masses. HEART: S1, S2 heard. Rate and rhythm regular. RESPIRATORY: Clear. GI: Abdomen is soft. MUSCULOSKELETAL: No tenderness. No edema. DERMATOLOGIC: No skin rash. NEUROLOGIC: Alert, awake. PSYCHIATRIC: Mood and affect normal. LABORATORY DATA: Hemoglobin is 12.3, WBC is 20.2. Potassium 5.9, BUN is 70, creatinine is 7.1. ASSESSMENT AND PLAN: 1. End-stage renal disease. Plan is to have dialysis given hyperkalemia. 2. Edema. We will remove fluid with dialysis as tolerated. 3. Hypertension, stable. 4. Hypoalbuminemia. 5. Anemia, better. 6. Leukocytosis most likely secondary to hyponatremia. Plan is to continue on dialysis as tolerated. History of ANCA vasculitis, advised to follow with [facility] umatology. Thank you for the consult. We will follow.
[2017-09-08 05:40] LABS: Anion Gap 11 mmol/L (10-20); BUN (Urea Nitrogen) 40 mg/dL (8.4-25.7); Calc. Creatinine Clearance 10 mL/min (70-130); Calcium 8.2 mg/dL (7.8-10.44); Carbon Dioxide 32 mmol/L (23-31); Chloride 98 mmol/L (98-107); Estimated GFR-MDRD 12; Glucose 156 mg/dL (83-110); Potassium 5.1 mmol/L (3.5-5.1); Sodium 136 mmol/L (136-145)
[2017-09-08 05:45] LABS: Band 10 % (5-11); Eosinophils 1 % (0-10); Hemoglobin 10.1 g/dL (14.0-18.0); Lymphocytes 2 % (21-51); MDiff Complete? YES; Mean Corpuscular HGB CONC 30.7 g/dL (32.0-36.0); Mean Corpuscular Hemoglobin 31.8 pg (27.0-31.0); Mean Platelet Volume 8.6 fL (7.4-10.4); Monocytes 4 % (0-10); Neutrophil 83 % (42-75); PLT Morphology Comment Appears Adequate; Platelet Count 140 thou/uL (130-400); RBC Distribution Width 17.5 % (11.5-14.5); Red Blood Cell (RBC) Count 3.18 mill/uL (4.70-6.10); White Blood Cell (WBC) Count 16.4 thou/uL (4.8-10.8)
[2017-09-08] MEDS: Megestrol Acetate 40 MG TAB PO SCH ×2 (10:33→20:31)
[2017-09-08] MEDS: NIFEdipine XL 30 MG TAB PO SCH (10:33)
[2017-09-08] MEDS: Carvedilol 6.25 MG TAB PO SCH ×2 (10:33→20:31)
[2017-09-08] MEDS: Amiodarone 200 MG TAB PO SCH (10:33)
[2017-09-08] MEDS: Apixaban 2.5 MG TAB PO SCH ×2 (10:33→20:32)
[2017-09-08] MEDS: Tamsulosin HCl 0.4 MG CAP PO SCH (10:34)
[2017-09-08] MEDS: predniSONE 20 MG TAB PO SCH (10:34)
[2017-09-08] MEDS: cefTRIAXone\\ROCEPHIN 2 GM in Sodium Chloride 0.9% 100 ML IVPB SCH (11:33)
--- NOTE | 2017-09-08 13:12 | PRG ---
DATE OF SERVICE: 09/08/2017 Mr. Jean is still feeling a little bit fatigued and tired. He has undergone dialysis today. He only underwent partial dialysis yesterday due to graft problems. Otherwise, he is feeling a little b it better. PHYSICAL EXAMINATION: VITAL SIGNS: Temperature 98.5, blood pressure 170/70, O2 sats 92%. LUNGS: Reveal bilateral breath sounds. HEART: Reveals no murmur. ABDOMEN: Soft, nontender, bowel sounds are present and active. LABORATORY: His white count is 16.4, hemoglobin 10.1, hematocrit 33.0. Electrolyte panel is otherwi se unremarkable. Blood cultures are positive x2. One has been preliminary type as Pseudomonas aerug inosa. We will wait for further typing as well as sensitivities. He has been placed on Rocephin 2 g guerrero IV piggyback for now. This may have to change obviously waiting for further typing. IMPRESSION: 1. End-stage renal disease. 2. Recent fall with prolonged exposure to heat. 3. Positive blood cultures, possible sepsis. PLAN: 1. Continue Rocephin for now. 2. Will make the patient a full admit.
--- NOTE | 2017-09-08 19:27 | PRG ---
DATE OF SERVICE: 09/08/2017 SUBJECTIVE: Patient was seen and examined at bedside and overnight events noted. Patient denies any shortness of breath or chest pain or palpitation. No history of nausea or vomiting or diarrhea or fever or chills or cramps. OBJECTIVE: GENERAL: This is a well-built male, in no apparent distress VITAL SIGNS: Temperature 99.1, pulse 83, respiratory rate 18, blood pressure 116/65. HEENT: Atraumatic, normocephalic. Oral mucosa is moist NECK: Supple CARDIOVASCULAR: S1S2 heard, Rate and rhythm regular. RESPIRATORY: Clear to auscultation. GASTROINTESTINAL: Abdomen is soft. MUSCULOSKELETAL: No tenderness. No edema. DERMATOLOGIC: No skin rash. NEUROLOGIC: Alert and awake and oriented x3. No focal neurologic deficits. Moving all the extremit ies. PSYCHIATRIC: Mood and affect normal. LABORATORY DATA: Potassium 5.1, BUN 40, creatinine is 4.0. ASSESSMENT AND PLAN: 1. End-stage renal disease. Continue hemodialysis as tolerated. 2. Edema, controlled. 3. ANCA vasculitis, Rituxan as outpatient. 4. Edema, controlled. 5. Hypertension, stable. Plan is to continue on dialysis as tolerated Thursday, Thursday, and Thursday.
[2017-09-08] MEDS: Zolpidem Tartrate 5 MG TAB PO SCH (20:30)
--- NOTE | 2017-09-09 08:15 | PRG ---
DATE OF SERVICE: 09/09/2017 Mr. Jean is doing well at this time. He has noticed a little bit of blood in his urine. Otherwi se, no other medical complaints. Blood cultures are noted to be positive, one has grown Pseudomonas, the other has ID still pending. PHYSICAL EXAMINATION: VITAL SIGNS: Temperature 98.3, BP 125/70. LUNGS: Clear. HEART: Reveals no murmur. IMPRESSION: 1. Possible sepsis. 2. End-stage renal disease. PLAN: 1. Wait for final ID of the blood culture to determine antibiotic coverage. 2. We will get urinalysis on the hematuria.
[2017-09-09] MEDS: Megestrol Acetate 40 MG TAB PO SCH ×2 (08:28→20:12)
[2017-09-09] MEDS: predniSONE 20 MG TAB PO SCH (08:28)
[2017-09-09] MEDS: Apixaban 2.5 MG TAB PO SCH ×2 (08:29→20:12)
[2017-09-09] MEDS: Amiodarone 200 MG TAB PO SCH (08:29)
[2017-09-09] MEDS: Carvedilol 6.25 MG TAB PO SCH ×2 (08:29→20:12)
[2017-09-09] MEDS: Tamsulosin HCl 0.4 MG CAP PO SCH (08:29)
[2017-09-09] MEDS: NIFEdipine XL 30 MG TAB PO SCH (08:29)
[2017-09-09 08:31] LABS: Bilirubin Small (Negative); Blood, Urine Large (Negative); Glucose, Urine (Dipstick) Negative (Negative); Leukocyte Large (Negative); Nitrite Positive (Negative); Protein, Urine (Dipstick) 100 mg/dL (Neg-Trace); Specific Gravity, Urine 1.025 (1.005-1.030)
[2017-09-09 08:32] LABS: Clarity Turbid (Clear)
[2017-09-09 08:43] LABS: Bacteria/HPF 2+ HPF (None Seen); Hyaline Casts/LPF 0-3 HYALINE CAST LPF (0-3 Hyaline); RBC/HPF GREATER THAN 50-TNTC HPF (0-3)
[2017-09-09] MEDS: cefTRIAXone\\ROCEPHIN 2 GM in Sodium Chloride 0.9% 100 ML IVPB SCH (10:28)
[2017-09-09 13:20] LABS: Hep B Surface AG-Rflx Sendout Negative (Negative); Hepatitis B Core IgM AB Negative (Negative); Hepatitis B Core Total Negative (Negative); Hepatitis B Surface AB-Sendout Non Reactive (.)
[2017-09-09] MEDS: HYDROcodone/Acetaminophen 5/325 mg Tablet PO PRN ×2 (16:56→23:32)
--- NOTE | 2017-09-09 19:13 | PRG ---
DATE OF SERVICE: 09/09/2017 SUBJECTIVE: Patient was seen and examined at bedside and overnight events noted. Patient denies any shortness of breath or chest pain or palpitation. No history of nausea or vomitin g or diarrhea or fever or chills or cramps. OBJECTIVE: GENERAL: This is an elderly male, in no acute distress VITAL SIGNS: Temperature 98.2, pulse 69, respiratory rate 18, blood pressure 139/64. HEENT: Atraumatic, normocephalic. Oral mucosa is moist. NECK: Supple. CARDIOVASCULAR: S1S2 heard, Rate and rhythm regular RESPIRATORY: Clear to auscultation. GASTROINTESTINAL: Abdomen is soft. MUSCULOSKELETAL: No tenderness. No edema. DERMATOLOGIC: No skin rash. NEUROLOGIC: Alert and awake and oriented X3. No focal neurologic deficits. Moving all the extremiti es. PSYCHIATRIC: Mood and affect normal. LABORATORY DATA: No labs done today. ASSESSMENT AND PLAN: 1. End-stage renal disease. Continue on hemodialysis Thursday, Thursday, and Thursday. 2. ANCA vasculitis. The patient is to follow up with Rheumatology as an outpatient. 3. Edema, controlled. 4. Hypertension, stable. 5. Sepsis. Follow up cultures and antibiotics and continue antibiotic, supportive care will follow.
[2017-09-09] MEDS: Zolpidem Tartrate 5 MG TAB PO SCH (20:12)
[2017-09-09] MEDS: Piperacillin/Tazobactam 4.5 GM in Sodium Chloride 0.9% 100 ML IVPB SCH (22:24)
[2017-09-10] MEDS: Piperacillin/Tazobactam 4.5 GM in Sodium Chloride 0.9% 100 ML IVPB SCH ×3 (05:55→21:47)
--- NOTE | 2017-09-10 07:57 | PRG ---
DATE OF SERVICE: 09/10/2017 SUBJECTIVE: Mr. Jean was up and awake, doing well. He has no complaints. PHYSICAL EXAMINATION: VITAL SIGNS: Blood pressure 153/80, temperature 97.6. LUNGS: Clear. HEART: Reveals no murmur. LABORATORY DATA: Microbiology does confirm two blood cultures positive for Pseudomonas. No other in formation I has been able to do, sensitivities are back. It is sensitive to multiple antibiotics abel n Levaquin. IMPRESSION: Dehydration fall with a Pseudomonas sepsis sensitive to Levaquin. PLAN: He will be continued on IV antibiotics a day and possibly can be discharged home tomorrow on L evaquin.
--- NOTE | 2017-09-10 08:35 | PRG ---
DATE OF SERVICE: 09/10/2017 SUBJECTIVE: Patient was seen and examined at bedside and overnight events noted. Patient denies any shortness of breath or chest pain or palpitation. No history of nausea or vomiting or diarrhea or fever or chills or cramps. OBJECTIVE: GENERAL: This is an elderly white male, in no apparent distress VITAL SIGNS: Temperature 98.7, pulse 74, respiratory rate 18, blood pressure 153/80. HEENT: Atraumatic, normocephalic. Oral mucosa is moist NECK: Supple CARDIOVASCULAR: S1S2 heard, Rate and rhythm regular. RESPIRATORY: Clear to auscultation. GASTROINTESTINAL: Abdomen is soft. MUSCULOSKELETAL: No tenderness. No edema. DERMATOLOGIC: No skin rash. NEUROLOGIC: Alert and awake and oriented x3. No focal neurologic deficits. Moving all the extremit ies. PSYCHIATRIC: Mood and affect normal. LABORATORY DATA: No labs done today. I will check labs in the morning. ASSESSMENT AND PLAN: 1. End-stage renal disease. Continue dialysis Thursday, Thursday, and Thursday. We will check BMP in the morning. 2. ANCA vasculitis, need followup with Rheumatology and needs Rituxan as outpatient if tolerated 3. Edema, controlled. 4. Hypertension, stable. 5. Pseudomonas sepsis. Continue on antibiotics. Plan discussed with Dr. Burt. Possible discharge tomorrow. Plan is to have dialysis early. Dialys is nurse notified. We will follow.
[2017-09-10] MEDS: Amiodarone 200 MG TAB PO SCH (09:01)
[2017-09-10] MEDS: Carvedilol 6.25 MG TAB PO SCH ×2 (09:01→21:46)
[2017-09-10] MEDS: NIFEdipine XL 30 MG TAB PO SCH (09:01)
[2017-09-10] MEDS: predniSONE 20 MG TAB PO SCH (09:01)
[2017-09-10] MEDS: Tamsulosin HCl 0.4 MG CAP PO SCH (09:02)
[2017-09-10] MEDS: Megestrol Acetate 40 MG TAB PO SCH ×2 (09:02→21:47)
[2017-09-10] MEDS: HYDROcodone/Acetaminophen 5/325 mg Tablet PO PRN ×3 (09:07→23:45)
[2017-09-10] MEDS: Apixaban 2.5 MG TAB PO SCH ×2 (10:12→21:46)
[2017-09-10] MEDS: Zolpidem Tartrate 5 MG TAB PO SCH (21:47)
[2017-09-11 05:09] LABS: Anion Gap 17 mmol/L (10-20); BUN (Urea Nitrogen) 48 mg/dL (8.4-25.7); Calc. Creatinine Clearance 9 mL/min (70-130); Calcium 7.6 mg/dL (7.8-10.44); Carbon Dioxide 23 mmol/L (23-31); Chloride 97 mmol/L (98-107); Estimated GFR-MDRD 11; Glucose 87 mg/dL (83-110); Potassium 4.2 mmol/L (3.5-5.1); Sodium 133 mmol/L (136-145)
[2017-09-11] MEDS: Piperacillin/Tazobactam 4.5 GM in Sodium Chloride 0.9% 100 ML IVPB SCH ×2 (05:24→15:54)
[2017-09-11] MEDS: HYDROcodone/Acetaminophen 5/325 mg Tablet PO PRN (05:29)
[2017-09-11 06:22] LABS: Anisocytosis SLIGHT = 6-15 cells (100X) (0-5/hpf); Band 8 % (5-11); Hemoglobin 10.9 g/dL (14.0-18.0); Lymphocytes 12 % (21-51); MDiff Complete? YES; Macrocytosis SLIGHT = 6-15 cells (100X) (0-5/hpf); Mean Corpuscular HGB CONC 30.9 g/dL (32.0-36.0); Mean Corpuscular Hemoglobin 31.5 pg (27.0-31.0); Mean Platelet Volume 8.2 fL (7.4-10.4); Monocytes 1 % (0-10); Neutrophil 79 % (42-75); Platelet Count 195 thou/uL (130-400); RBC Distribution Width 17.8 % (11.5-14.5); Red Blood Cell (RBC) Count 3.46 mill/uL (4.70-6.10); White Blood Cell (WBC) Count 10.4 thou/uL (4.8-10.8)
[2017-09-11] MEDS: predniSONE 20 MG TAB PO SCH (08:27)
[2017-09-11] MEDS: NIFEdipine XL 30 MG TAB PO SCH (08:30)
[2017-09-11] MEDS: Amiodarone 200 MG TAB PO SCH (08:30)
[2017-09-11] MEDS: Carvedilol 6.25 MG TAB PO SCH (08:30)
[2017-09-11] MEDS: Tamsulosin HCl 0.4 MG CAP PO SCH (08:30)
[2017-09-11] MEDS: Megestrol Acetate 40 MG TAB PO SCH (08:30)
[2017-09-11] MEDS: Apixaban 2.5 MG TAB PO SCH (09:56)
--- NOTE | 2017-09-11 10:57 | PRG ---
DATE OF SERVICE: 09/11/2017 SUBJECTIVE: Patient was seen and examined at bedside and overnight events noted. Patient denies any shortness of breath or chest pain or palpitation. No history of nausea or vomitin g or diarrhea or fever or chills or cramps. OBJECTIVE: GENERAL: This is a well-built male, in no apparent distress VITAL SIGNS: Temperature 97.7, pulse 65, respiratory rate 18, blood pressure 169/99. HEENT: Atraumatic, normocephalic. Oral mucosa is moist NECK: Supple CARDIOVASCULAR: S1S2 heard, Rate and rhythm regular. RESPIRATORY: Clear to auscultation. GASTROINTESTINAL: Abdomen is soft. MUSCULOSKELETAL: No tenderness. No edema. DERMATOLOGIC: No skin rash. NEUROLOGIC: Alert and awake and oriented x3. No focal neurologic deficits. Moving all the extremit ies. PSYCHIATRIC: Mood and affect normal. LABORATORY DATA: Potassium is 4.2, BUN 48, creatinine 4.9. ASSESSMENT AND PLAN: 1. End-stage renal disease. We will continue on dialysis Thursday, Thursday, and Thursday. Plan is to have dialysis today. Dialysis nurse notified. 2. ANCA vasculitis, need follow up with Rheumatology as outpatient. The patient was advised to foll ow with Rheumatology before Rituxan given for sepsis. 3. Pseudomonas sepsis, on antibiotics, sensitive to Levaquin. 4. Edema, controlled. 5. Hypertension, stable. Overall, the patient is clinically stable and tolerated dialysis well. 6. Leukocytosis, better. Electrolytes are stable. We will have dialysis today and Okay to discharg e from Nephrology standpoint. Follow with Rheumatology for outpatient Rituxan.
[2017-09-11] MEDS ORDERED: Heparin 1,000 UNITS/ML VIAL ONE (11:11)
[2017-09-11 16:05] VITALS: BP 148/83; TEMP 97.9
--- NOTE | 2017-09-12 05:55 | DIS ---
DATE OF ADMISSION: 09/07/2017 DATE OF DISCHARGE: 09/11/2017 PRIMARY CARE PHYSICIAN: Benjamín Burt M.D. CHIEF COMPLAINT: Weakness and fall. HISTORY OF PRESENT ILLNESS: The patient states that he utilizes a walker and compliant with hemodial ysis every Thursday, Thursday, and Thursday, still make some urine being followed by Dr. Estrada's offic e. He states he became increasingly weak to the point where he fell trying to getting his truck with out significant injury, presented to the emergency department for evaluation and found to be sepsis. Cultures grew out Pseudomonas sensitive to Levaquin. The patient was treated with Zosyn while inpat ient, was followed by Dr. Estrada who was consulted, underwent hemodialysis on Thursday, was no longer febrile for greater than 24 hours, vital signs stable and was discharged home with Levaquin and home medications otherwise. HOME MEDICATIONS: Include amiodarone 200 mg daily, Eliquis 2.5 mg p.o. b.i.d., carvedilol 12.5 mg b. i.d., Levaquin 500 mg q.48 hours, megestrol also known as Megace 20 mg twice daily, nifedipine 30 mg daily, Zofran oral dissolving tablet 4 mg p.r.n., Protonix 40 mg, prednisone 30 mg, tamsulosin 0.4 mg , Ambien 5 mg. DISCHARGE DIET: Renal. DISCHARGE ACTIVITY: Up with assistance. The patient has home health. We will continue physical the rapy on an outpatient basis. DISCHARGE CONDITION: Fair. DISCHARGE FOLLOWUP: Follow up with Dr. Burt in the next 7-10 days. Nephrology in the next 3-4 week s and was seen at hemodialysis center. Continue hemodialysis every Thursday, Thursday, and Thursday. T he patient saw his triple lumen to right subclavian tunneled catheter. Routine wound care. No signi ficant procedures were performed other than hemodialysis. DISCHARGE DIAGNOSES: Include, patient on end-stage renal disease on hemodialysis, fall with gait ins tability, deconditioning, urosepsis found to be secondary to Pseudomonas. The patient with hypertens ion, anemia of chronic disease.
== END 2017-09-11 16:46 | disposition home or self-care (01) | DRG 871 ==
LOC: ERS 11:56 → OBSVTOIN 16:00 → 2SE 16:00 → T4-A 09-08 14:20
PROVIDERS: ADMIT Family Medicine; ATTEND Family Medicine
DX: A41.52 Sepsis due to Pseudomonas (principal); N18.6 End stage renal disease; E87.1 Hypo-osmolality and hyponatremia; I12.0 Hypertensive chronic kidney disease with stage 5 chronic kidney disease or end stage renal disease; N40.0 Benign prostatic hyperplasia without lower urinary tract symptoms; Z99.2 Dependence on renal dialysis; Z87.891 Personal history of nicotine dependence; E87.6 Hypokalemia; I77.6 Arteritis, unspecified; Z79.899 Other long term (current) drug therapy; Z79.01 Long term (current) use of anticoagulants; Z79.2 Long term (current) use of antibiotics; Z79.52 Long term (current) use of systemic steroids; D63.8 Anemia in other chronic diseases classified elsewhere; M19.90 Unspecified osteoarthritis, unspecified site; K21.9 Gastro-esophageal reflux disease without esophagitis; Z79.891 Long term (current) use of opiate analgesic; E88.09 Other disorders of plasma-protein metabolism, not elsewhere classified
CPT/HCPCS: 36415; 71045; 80048; 80053; 81001; 82550; 82553; 84484; 85025; 86704; 86705; 86706; 86707; 87040; 87077; 87149; 87186; 87340; 87350; 90935; 93005; 96374; A4216; G0257; G8978-GP-CI; G8979-GP-CI; G8980-GP-CI; J0696; J1644; J1885; J2543; J2997; J3010; J7050; J7506; P9047; Q0162; S0179

== ENCOUNTER 2017-10-29 09:23 | Outpatient (CLI) | payer MEDICARE ==
--- NOTE | 2017-10-29 11:10 | ULT ---
VENOUS DUPLEX SONOGRAM BILATERAL UPPER EXTREMITIES WITH VEIN MAPPING: HISTORY: Renal failure. Need for long-term hemodialysis access. FINDINGS: Good color and spectral Doppler flow are present within the internal jugular and subclavian veins and each brachial vein. Measurements are as follows: RIGHT BRACHIAL ARTERY: 5 mm RIGHT RADIAL ARTERY: 2 mm RIGHT ULNAR ARTERY: 2 mm RIGHT CEPHALIC VEIN PROXIMAL HUMERUS: Not visualized. MID HUMERUS: Not visualized. DISTAL HUMERUS: Not visualized. ANTECUBITAL FOSSA: 1 mm PROXIMAL FOREARM: 1 mm MID FOREARM: 1 mm DISTAL FOREARM: 1 mm RIGHT BASILIC VEIN PROXIMAL HUMERUS: 4 mm MID HUMERUS: 3 mm DISTAL HUMERUS: 3 mm ANTECUBITAL FOSSA: 3 mm PROXIMAL FOREARM: 1 mm MID FOREARM: 1 mm DISTAL FOREARM: 1 mm Of incidental note is fusiform dilatation of the brachial artery at the level of the upper arm. LEFT BRACHIAL ARTERY: 4 mm LEFT RADIAL ARTERY: 2 mm LEFT ULNAR ARTERY: 2 mm CEPHALIC VEIN PROXIMAL HUMERUS: 1 mm MID HUMERUS: 1 mm DISTAL HUMERUS: 1 mm ANTECUBITAL FOSSA: 1 mm PROXIMAL FOREARM: 1 mm MID FOREARM: 1 mm DISTAL FOREARM: 1 mm BASILIC VEIN PROXIMAL HUMERUS: 2 mm MID HUMERUS: 2 mm DISTAL HUMERUS: 1 mm ANTECUBITAL FOSSA: 1 mm PROXIMAL FOREARM: 1 mm MID FOREARM: 1 mm DISTAL FOREARM: 1 mm IMPRESSION: 1. Patient vascular structures within each upper extremity, with measurements as detailed above. 2. Fusiform aneurysmal dilatation, right brachial artery, at the level of the upper arm, 1.9 cm. POS: [facility]
== END 2017-10-29 09:24 | disposition home or self-care (01) ==
LOC: ULT 09:23
PROVIDERS: ATTEND Internal Medicine Nephrology
DX: Z01.818 Encounter for other preprocedural examination (principal); N18.6 End stage renal disease; I72.8 Aneurysm of other specified arteries
CPT/HCPCS: 93970; G0365

== ENCOUNTER 2017-11-30 17:02 | Inpatient (IN) | payer MEDICARE ==
--- NOTE | 2017-11-30 18:18 | RAD ---
PORTABLE AP CHEST: Date: 11/30/17 HISTORY: Fever. COMPARISON: 09/07/17. FINDINGS: Tunneled right internal jugular vein hemodialysis catheter remains in place and in unchanged position with tip overlying the right atrium. Cardiac silhouette is magnified by projection. Pulmonary vascul ature is borderline increased. No consolidation or pleural fluid is seen. Vascular calcifications see n in thoracic aorta. IMPRESSION: Borderline pulmonary vascular congestion. POS: [id number]
[2017-11-30 18:29] LABS: Mean Corpuscular HGB CONC 31.6 g/dL (32.0-36.0); Mean Corpuscular Hemoglobin 30.5 pg (27.0-31.0); Mean Corpuscular Volume 96.5 fL (78.0-98.0); Platelet Count 477 thou/uL (130-400); RBC Distribution Width 16.9 % (11.5-14.5); Red Blood Cell (RBC) Count 3.27 mill/uL (4.70-6.10); White Blood Cell (WBC) Count 7.8 thou/uL (4.8-10.8)
[2017-11-30 18:38] LABS: ALT (SGPT) 15 U/L (8-55); AST (SGOT) 23 U/L (5-34); Albumin 2.9 g/dL (3.4-4.8); Alkaline Phosphatase 123 U/L (40-150); Anion Gap 17 mmol/L (10-20); BUN (Urea Nitrogen) 23 mg/dL (8.4-25.7); Bilirubin, Total 0.3 mg/dL (0.2-1.2); Calc. Creatinine Clearance 0 mL/min (70-130); Calcium 8.7 mg/dL (7.8-10.44); Carbon Dioxide 29 mmol/L (23-31); Chloride 95 mmol/L (98-107); Estimated GFR-MDRD 17; Globulin 2.7 g/dL (2.4-3.5); Glucose 112 mg/dL (83-110); Potassium 3.7 mmol/L (3.5-5.1); Protein, Total 5.6 g/dL (5.8-8.1); Sodium 137 mmol/L (136-145)
[2017-11-30 18:43] LABS: CKMB 1.6 ng/mL (0-6.6); Troponin I 0.011 ng/mL (< 0.028)
[2017-11-30 18:49] LABS: Anisocytosis SLIGHT = 6-15 cells (100X) (0-5/hpf); Band 5 % (5-11); Elliptocytes SLIGHT = 2-5 cells (100X) (0-1/hpf); Lymphocytes 4 % (21-51); MDiff Complete? YES; Monocytes 2 % (0-10); Neutrophil 86 % (42-75); Ovalocytes SLIGHT = 2-5 cells (100X) (0-1/hpf); PLT Morphology Comment Appears Increased; Polychromasia MODERATE = 3-4 cells (100X) (0-2/hpf); Target Cells SLIGHT = 2-5 cells (100X) (0-1/hpf); Tear Drops SLIGHT = 2-5 cells (100X) (0-1/hpf)
[2017-11-30] MEDS ORDERED: cefTRIAXone\\ROCEPHIN 1 GM VIAL ONE (19:29)
[2017-11-30] MEDS ORDERED: Azithromycin 500 MG VIAL ONE (19:29)
[2017-11-30] MEDS ORDERED: traMADol HCl 50 MG TAB ONE (22:00)
[2017-11-30 22:54] VITALS: BMI 24.4
[2017-12-01] MEDS ORDERED: Guaifenesin DM 100-10/5 ML UDCUP PO PRN (12:05)
[2017-12-01] MEDS ORDERED: Acetaminophen 325 MG TAB PO PRN (12:05)
--- NOTE | 2017-12-01 13:33 | HP ---
ADMITTING PHYSICIAN: Benjamín Burt M.D. HISTORY OF PRESENT ILLNESS: The patient is an 81-year-old male with known history of end-stage renal disease who presented himself to the emergency room after developing fever while he was on dialysis. There has been no reported nausea, vomiting, diarrhea. He apparently had some shortness of breath, no reports of any productive coughing, no nausea, vomiting, diarrhea. He was seen and evaluated in the emergency room. Chest x-ray there showed borderline vascular congestion. Supposedly he had a fe marshal while in the emergency room of 101.6 Otherwise, no other medical complaints were noted. He was s een this morning by me. He stated he was feeling poorly, noted some body ache. Otherwise, felt bett er this morning. He has a known history of end-stage renal disease. He is currently maintained on dialysis. Most rec ently admitted to the hospital due to heat exhaustion. ALLERGIES: He has no known allergies. CURRENT MEDICATIONS: Amiodarone 200 mg daily, Eliquis 2.5 mg b.i.d., carvedilol 12.5 mg b.i.d., pant oprazole 40 mg daily, tamsulosin 0.4 mg daily. PAST MEDICAL HISTORY: Significant for the above noted dialysis. He also has a history of hypertensi on and COPD. PAST SURGICAL HISTORY: Positive for a tonsillectomy, dialysis shunt. SOCIAL/PERSONAL HISTORY: Lives alone most of the time. He does have a son nearby. He does not drin k. He does not smoke at this time. PHYSICAL EXAMINATION: VITAL SIGNS: Temperature 98.7, pulse 79, BP 161/84. GENERAL: He is alert, active, in no acute distress. HEENT: Normocephalic, atraumatic. Sclerae and conjunctivae are clear. Throat clear. NECK: Supple, full range of motion, no masses. LUNGS: Reveal scattered wheezes, rhonchi, no rales are appreciated. ABDOMEN: Soft, nontender, bowel sounds are present and active. There is no hepatosplenomegaly noted . There is no evidence of rebound or guarding. EXTREMITIES: No clubbing, edema or cyanosis. NEUROLOGIC: He is awake and oriented x3. LABORATORY: White blood count 7.8. Hemoglobin 10.0, hematocrit 31.6, sodium 137, potassium 3.7, chl oride 95, CO2 29, BUN 23, creatinine 3.49. Chest x-ray showed borderline vascular congestion, pressure. IMPRESSION: This is an 81-year-old male with known history of end-stage renal disease on dialysis, c paulo to the emergency room complaining of fever. He may have a viral syndrome versus a possible lower grade pneumonia. Due to his rales or rhonchi it is possible pneumonic exists. PLAN: 1. Begin on Ceftriaxone and Zithromax. 2. Continue dialysis with a Renal consult. 3. We will follow progress. 4. Consider Pulmonary consult is necessary.
[2017-12-01] MEDS: cefTRIAXone\\ROCEPHIN 1 GM in Sodium Chloride 0.9% 100 ML IVPB SCH (17:09)
[2017-12-01] MEDS: Azithromycin 500 MG in Sodium Chloride 0.9% 250 ML 250 ML IVPB SCH (17:51)
[2017-12-01] MEDS: Tamsulosin HCl 0.4 MG CAP PO SCH (20:04)
[2017-12-01] MEDS: Carvedilol 6.25 MG TAB PO SCH (20:04)
[2017-12-01] MEDS: Megestrol Acetate 40 MG TAB PO SCH (20:05)
[2017-12-01] MEDS: Zolpidem Tartrate 5 MG TAB PO PRN (20:08)
--- NOTE | 2017-12-01 22:37 | CON ---
DATE OF CONSULTATION: 12/01/2017 NEPHROLOGY CONSULTATION REASON FOR CONSULTATION: End-stage renal disease, on maintenance hemodialysis. HISTORY OF PRESENT ILLNESS: This is a very pleasant 81-year-old gentleman who presented to the [facility] after having fevers while he was . The patient denied nausea, vomiting or chest pain. The patient has a temperature of 101.6. The patient denies any nausea, vomiting or chest pain. PAST MEDICAL HISTORY: Ankle vasculitis, BPH, hypertension, end-stage renal disease, hypertension, an emia, dialysis and placement. The patient had failed immunosuppressive therapy. HOME MEDICATIONS: Reviewed. HOSPITAL MEDICATIONS: List reviewed. ALLERGIES: Reviewed. PAST SURGICAL HISTORY: History of kidney biopsy. REVIEW OF SYSTEMS: A 15-point review of systems was performed and negative except for positives note d above. GENERAL: Weakness- HEAD: Headache- NECK: No swelling or lumps. NOSE: No epistaxis or discharge. EYES: No diplopia or pain. RESPIRATORY: Dyspnea- CARDIOVASCULAR: Chest pain- GASTROINTESTINAL: Nausea- /CORRECTIONS SERGEANT: Hematuria- MUSCULOSKELETAL: No joint pain. NEUROPSYCHIATIC SYSTEMS: No suicidal ideation. No ideation. SKIN: Denies any rash or ulcer. CONSTITUTIONAL: No fever or chills. PHYSICAL EXAMINATION: The patient is awake, alert, in no acute distress.. VITAL SIGNS: Afebrile, pulse 87, breathing 16, blood pressure 144/77. GENERAL APPEARANCE AND MENTAL STATUS: Fair. HEAD/NECK: Normocephalic. Atraumatic. EYES: EOMI. No deformity. EARS: Clear. No ulcers. NOSE: Intact. No lesions. MOUTH: Clear. No discharge. THROAT: Clear. No exudate. LUNGS: Clear. No crackles. CARDIAC: S1, S2. No rub. ABDOMEN: Benign. BS+. GENITALIA/RECTUM: Conrad absent. BACK/EXTREMITIES: Edema 0+ Ulcer- NEUROLOGICAL: Alert and motor intact. SKIN: Rash- Bruise- LYMPHATICS: Edema- Ulcer- LABORATORY: Creatinine 3.4. ASSESSMENT AND RECOMMENDATIONS: 1. End stage chronic kidney disease. No indication for dialysis. 2. Hypertension, stable. 3. Anemia, stable. 4. Medications based on glomerular filtration rate are appropriate. 5. Fever, sepsis versus immunological process. I will recommend Pulmonary and ID consultation.
[2017-12-02] MEDS: Megestrol Acetate 40 MG TAB PO SCH ×2 (08:25→20:25)
[2017-12-02] MEDS: Amiodarone 200 MG TAB PO SCH (08:25)
[2017-12-02] MEDS: Carvedilol 6.25 MG TAB PO SCH ×2 (08:26→20:26)
[2017-12-02] MEDS: Tamsulosin HCl 0.4 MG CAP PO SCH ×2 (08:26→20:25)
[2017-12-02] MEDS: predniSONE 20 MG TAB PO SCH (08:26)
[2017-12-02] MEDS: Apixaban 2.5 MG TAB PO SCH (08:29)
--- NOTE | 2017-12-02 09:43 | PRG ---
DATE OF SERVICE: 12/02/2017 Mr. Jean is feeling better, less pain and discomfort are noted. He has no cough, no chest pain. OBJECTIVE: VITAL SIGNS: He is afebrile. O2 sat is 92% on 1.5 liters, temperature 98.6, blood pressure 144/77. LUNGS: Clear. HEART: Reveals no murmur. ABDOMEN: Soft, nontender. LABORATORY: New results; there is a coagulase negative Staphylococcus and one blood culture and a gr am positive cocci in another blood culture. ID at this time is still pending. He is currently maint ained on ceftriaxone and Zithromax. IMPRESSION: 1. Positive blood cultures. 2. Possible low grade pneumonia. 3. Renal failure. PLAN: 1. He will continue on his current antibiotics. 2. ID and susceptibility testing have been done. 3. He should be on dialysis today.
[2017-12-02 10:12] LABS: HBSAg Index 0.66 S/CO (0-0.99); Hep B Surf Ag Non-Reactive S/CO (NonReactive)
[2017-12-02] MEDS ORDERED: Heparin 10,000 UNITS/ 10 ML VIAL ONE (12:00)
--- NOTE | 2017-12-02 12:22 | PRG ---
DATE OF SERVICE: 12/02/2017 SUBJECTIVE: An 81-year-old gentleman, being seen for end-stage renal disease. The patient denies an y nausea, vomiting, or chest pain. PHYSICAL EXAMINATION: GENERAL: Patient is awake, alert. VITAL SIGNS: Afebrile, pulse 92, breathing 16, blood pressure was 167/87. GENERAL APPEARANCE AND MENTAL STATUS: Fair. HEAD/NECK: Normocephalic. Atraumatic. EYES: EOMI. No deformity. EARS: Clear. No ulcers. NOSE: Intact. No lesions. MOUTH: Clear. No discharge. THROAT: Clear. No exudate. LUNGS: Clear. No crackles. CARDIAC: S1, S2. No rub. ABDOMEN: Benign. BS+. GENITALIA/RECTUM: Conrad absent. BACK/EXTREMITIES: Edema 0+ Ulcer- NEUROLOGICAL: Alert and motor intact. SKIN: Rash- Bruise- LYMPHATICS: Edema- Ulcer- LABORATORY: Hemoglobin 10, creatinine 3.4. ASSESSMENT AND RECOMMENDATIONS: 1. Stage 6 chronic kidney disease. Continue hemodialysis. 2. Hypertension, stable. 3. Anemia, stable. 4. Medication based on glomerular filtration rate are appropriate.
[2017-12-02] MEDS: cefTRIAXone\\ROCEPHIN 1 GM in Sodium Chloride 0.9% 100 ML IVPB SCH (15:58)
[2017-12-02] MEDS: Azithromycin 500 MG in Sodium Chloride 0.9% 250 ML 250 ML IVPB SCH (17:47)
[2017-12-02] MEDS: Zolpidem Tartrate 5 MG TAB PO PRN (20:25)
[2017-12-03] MEDS: HYDROcodone/Acetaminophen 10/325 mg Tablet PO PRN ×2 (00:26→20:04)
--- NOTE | 2017-12-03 07:43 | PRG ---
DATE OF SERVICE: 12/03/2017 SUBJECTIVE: Mr. Jean is feeling better. He reports no cough, less shortness of breath. He is f eeling like he can walk around without having any issues. He had dialysis yesterday. PHYSICAL EXAMINATION: VITAL SIGNS: Temperature 98.2, BP 177/89. LUNGS: Clear. HEART: Reveals no murmur. ABDOMEN: Soft, nontender, bowel sounds are active. No hepatosplenomegaly is noted. LABORATORY: Blood culture shows a positive Staphylococcus coagulase negative, consistent with Staph epidermidis methicillin resistant. IMPRESSION: The patient is stable at this time. PLAN: We will continue current treatment regimen. He is possibly able to be discharged tomorrow.
[2017-12-03] MEDS: Apixaban 2.5 MG TAB PO SCH (08:31)
[2017-12-03] MEDS: Megestrol Acetate 40 MG TAB PO SCH ×2 (08:31→20:04)
[2017-12-03] MEDS: Carvedilol 6.25 MG TAB PO SCH ×2 (08:31→20:02)
[2017-12-03] MEDS: predniSONE 20 MG TAB PO SCH (08:31)
[2017-12-03] MEDS: Amiodarone 200 MG TAB PO SCH (08:31)
[2017-12-03] MEDS: Tamsulosin HCl 0.4 MG CAP PO SCH ×2 (08:32→20:04)
--- NOTE | 2017-12-03 11:35 | PRG ---
DATE OF SERVICE: 12/03/2017 SUBJECTIVE: This is an 81-year-old male being seen for end-stage renal disease. The patient denies any nausea, vomiting, or chest pain. PHYSICAL EXAMINATION: GENERAL: The patient is awake and alert. VITAL SIGNS: Afebrile, pulse 84, breathing at 16, blood pressure 151/70. OBJECTIVE: See above. Awake, alert, in no acute distress. GENERAL APPEARANCE AND MENTAL STATUS: Fair. HEAD/NECK: Normocephalic. Atraumatic. EYES: EOMI. No deformity. EARS: Clear. No ulcers. NOSE: Intact. No lesions. MOUTH: Clear. No discharge. THROAT: Clear. No exudate. LUNGS: Clear. No crackles. CARDIAC: S1, S2. No rub. ABDOMEN: Benign. BS+. GENITALIA/RECTUM: Conrad absent. BACK/EXTREMITIES: Edema 0+ Ulcer- NEUROLOGICAL: Alert and motor intact. SKIN: Rash- Bruise- LYMPHATICS: Edema- Ulcer- LABORATORY: Hemoglobin 10, creatinine 3.4. ASSESSMENT AND RECOMMENDATIONS: 1. 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 2. Hypertension, stable. 3. Anemia, stable. 4. Medications glomerular filtration rates are appropriate.
[2017-12-03] MEDS: cefTRIAXone\\ROCEPHIN 1 GM in Sodium Chloride 0.9% 100 ML IVPB SCH (16:15)
[2017-12-03] MEDS: Azithromycin 500 MG in Sodium Chloride 0.9% 250 ML 250 ML IVPB SCH (17:56)
[2017-12-03] MEDS: Zolpidem Tartrate 5 MG TAB PO PRN (20:02)
[2017-12-04 07:41] VITALS: BP 191/90; TEMP 97.7
--- NOTE | 2017-12-04 07:50 | PRG ---
DATE OF SERVICE: 12/04/2017 SUBJECTIVE: Mr. Jean is doing well. He has no medical complaints. OBJECTIVE: VITAL SIGNS: Respirations 16, pulse 80, temperature 98.0, BP 158/89. LUNGS: Clear. HEART: Reveals no murmur. ABDOMEN: Soft, nontender, bowel sounds present and active. Blood culture does reveal Staph epidermidis sensitive to Bactrim. IMPRESSION: 1. Septicemia. 2. End-stage renal failure. PLAN: 1. The patient will be discharged home on Bactrim-DS. 2. Continue hemodialysis through his dialysis center. 3. Follow up with me in 2 weeks.
--- NOTE | 2017-12-04 07:55 | DIS ---
DISCHARGE DIAGNOSES: 1. Septicemia. 2. End-stage renal disease. ADMITTING PHYSICIAN: Dr. Benjamín Burt. HOSPITAL SUMMARY: This is an 81-year-old male with a known history of end-stage renal disease from [facility] emergency room complaining of fatigue, shortness of breath associated with possible fever. He wa s seen and evaluated in the emergency room, initially was thought to be suffering from possible low g rade pneumonia. Blood cultures were taken which were eventually proved to be positive Staph epidermi dis sensitive to Bactrim-DS. During the hospital, he was placed on IV ceftriaxone and IV Zithromax. The patient improved significantly while in the hospital. He is able to be discharged home on his home medications as well as Bactrim-DS 1 tablet p.o. b.i.d. DISCHARGE PLAN: He will follow up with me in approximately 2-3 weeks. Continue dialysis at home.
[2017-12-04] MEDS ORDERED: Heparin 1,000 UNITS/ML VIAL ONE (11:11)
--- NOTE | 2017-12-04 11:24 | PRG ---
DATE OF SERVICE: 12/04/2017 SUBJECTIVE: An 81-year-old gentleman, being seen for end-stage renal disease. The patient denies any nausea, vomiting or chest pain. PHYSICAL EXAMINATION: GENERAL: The patient is awake and alert, in no acute distress. VITAL SIGNS: Afebrile, pulse 82, breathing at 16, blood pressure was 158/89. GENERAL APPEARANCE AND MENTAL STATUS: Fair. HEAD/NECK: Normocephalic. Atraumatic. EYES: EOMI. No deformity. EARS: Clear. No ulcers. NOSE: Intact. No lesions. MOUTH: Clear. No discharge. THROAT: Clear. No exudate. LUNGS: Clear. No crackles. CARDIAC: S1, S2. No rub. ABDOMEN: Benign. BS+. GENITALIA/RECTUM: Conrad absent. BACK/EXTREMITIES: Edema 0+. Ulcer-. NEUROLOGICAL: Alert and motor intact. SKIN: Rash-. Bruise-. LYMPHATICS: Edema-. Ulcer-. LABORATORY DATA: Hemoglobin 10. ASSESSMENT AND RECOMMENDATIONS: 1. Stage 6 chronic kidney disease. Continue hemodialysis. 2. Hypertension, stable. 3. Anemia, stable. 4. Medications based on glomerular filtration rate are appropriate. MTDD
--- NOTE | 2017-12-07 14:51 | PQF ---
TEE HANNAH RICHARD A MD [id number] CLINICAL DOCUMENTATION CLARIFICATION FORM: POST DISCHARGE Addendum to original discharge summary date: ____ Late entry note date: __ DATE: 12/07/2017 ATTN: DR. BUNCH Please exercise your independent, professional judgment in responding to the clarification form. Clinical indicators are provided on the bottom of this form for your review Please check appropriate box(es): [ ] Sepsis due to: (Pna, UTI, gangrenous gall bladder, etc.) Due to: [ ] Device (please specify) [ ] Implant [ ] Graft [ ] Infusion [ ] SIRS due to non-infectious process (please specify etiology) [ ] with organ dysfunction [ ] without organ dysfunction [ ] Severe sepsis with acute organ dysfunction of: (Examples: respiratory failure, encephalopathy, acute kidney failure, other) [ ] Septic Shock [ ] Localized infection without sepsis [ ] Other diagnosis [ ] Unable to determine In addition, please specify: Present on Admission (POA): [ ] Yes [ ] No [ ] Unable to determine For continuity of documentation, please document condition throughout progress notes and discharge summary. Thank You. CLINICAL INDICATORS - SIGNS / SYMPTOMS / LABS: Altered mental status Fever or hypothermia (<96.8 F/36 C or > 100.4 F/38C) Positive blood cultures - [facility] EPIDERMIDIS H&P - May have a viral syndrome versus a possible lower grade pneumonia 12/04 PN - Septicemia 12/01 Nephrology consult - Fever, Sepsis versus immunological process DS - Septicemia RISK FACTORS: Advancing Age ESRD, HTN TREATMENTS: Initiation Sepsis Protocol IV Antibiotics - Ceftriaxone, Zithromax (This form is maintained as a part of the permanent medical record) 2014 [employer]. All Rights Reserved Sera Jimenez, [facility], [facility]-H [email or web address] [phone] MTDD
--- NOTE | 2017-12-07 15:01 | PQF ---
TEE HANNAH RICHARD A MD [id number] CLINICAL DOCUMENTATION CLARIFICATION FORM: POST DISCHARGE Addendum to original discharge summary date: ____ Late entry note date: __ DATE: 12/07/2017 ATTN: DR. BUNCH Please exercise your independent, professional judgment in responding to the clarification form. Clinical indicators are provided on the bottom of this form for your review Please check appropriate box(s): [ ] Anemia: Due to: [ ] ESRD [ ] Anemia [ ] Chronic Anemia: [ ] Blood loss [ ] Hemolytic [ ] Simple [ ] Due to Vitamin B12 Deficiency [ ] Other [ ] Anemia of Chronic Disease (please specify) [ ] Other diagnosis [ ] Unable to determine In addition, please specify: Present on Admission (POA): [ ] Yes [ ] No [ ] Unable to determine For continuity of documentation, please document condition throughout progress notes and discharge summary. Thank You. CLINICAL INDICATORS - SIGNS / SYMPTOMS / LABS: Anemia, stable RISK FACTORS: End stage renal disease HTN Septicemia TREATMENTS: (This form is maintained as a part of the permanent medical record) 2014 [employer] All Rights Reserved Sera Jimenez, CCS, BLANKING MACHINE OPERATOR-H [email or web address] [phone] MTDD
== END 2017-12-04 15:20 | disposition home health service (06) | DRG 871 ==
LOC: ERS 17:02 → T4-B 18:00
PROVIDERS: ADMIT Family Medicine; ATTEND Family Medicine
PROC: 5A1D70Z Performance of Urinary Filtration, Intermittent, Less than 6 Hours Per Day (ICD-10-PCS; principal; 2017-12-04)
DX: A41.1 Sepsis due to other specified staphylococcus (principal); N18.6 End stage renal disease; I12.0 Hypertensive chronic kidney disease with stage 5 chronic kidney disease or end stage renal disease; Z99.2 Dependence on renal dialysis; J44.9 Chronic obstructive pulmonary disease, unspecified; N40.0 Benign prostatic hyperplasia without lower urinary tract symptoms; D64.9 Anemia, unspecified
CPT/HCPCS: 36415; 71045; 80053; 82553; 83605; 84484; 85025; 87040; 87077; 87149; 87186; 87340; 90935; 94640; 96365; 96367; A4216; G0257; J0456; J0696; J1644; J7050; J7506; J7620; S0179

== ENCOUNTER 2017-12-15 13:38 | Day surgery (SDC) | payer MEDICARE ==
--- NOTE | 2017-11-26 20:01 | HP ---
HISTORY OF PRESENT ILLNESS: Jaya Jean dialyzes Thursday, Thursday and Thursday at [facility]. He lives in [place], [place] with his son. He was hospitalized in March. He had ultrasound v ein mapping both arms revealing the cephalic vein on the right to be 1.2, 1.3, 1.3 and 1.4 mm and bas ilic vein on the left 2.3, 1.7 and 1.4 mm. On the right, the cephalic vein proximally was not seen a nd the mid portion of the upper arm is noncompressible due to thrombus from IV access. Basilic vein is 3.1, 3.3 and 3.2 mm. The patient has been increasingly dyspneic the last few weeks. His son is c oncerned they have not been able to refill his amiodarone. The patient has been requiring oxygen at the end of the dialysis. He dialyzed yesterday with quite a bit of fluid removed. He presents to my office today in a wheelchair with dyspnea, 87/50, sats are 92%, heart rate 76. I have talked to Dr. Castillo who has agreed to see him in the office today. Plan is for a left arm fistula, most likel y prosthetic graft, left arm in the next few weeks. The patient had repeat vein mapping 10/29/2017 revealing essentially the same findings. On 8, echocardiogram performed revealed 25%-30% EF, hypokinetic anterior septal and anterior lateral wal l, [id number] MR, moderate AR, [id number] TR. SOCIAL HISTORY: The patient is retired, farm and ranching. MEDICATIONS: Family did not bring his medications with him, but he was discharged home in 05/2017 [facility] prednisone 30 mg a day, Ambien 5 mg at bedtime, Flomax 0.4 mg daily, Protonix 40 mg a day, Zofran p.r.n., nifedipine ER 30 mg daily, carvedilol 12.5 b.i.d., Eliquis 2.5 b.i.d., amiodarone 200 mg keeley y, [facility] in [place]. PAST SURGICAL HISTORY: 04/20/2017 right femoral vein Trialysis catheter. On 04/24/2017, right IJ cu ffed tunnel hemodialysis catheter, left internal jugular vein central line. Otherwise, surgeries are noncontributory. 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 PHYSICAL EXAMINATION: VITAL SIGNS: 87/50, 76, 92% on room air. HEENT: Unremarkable. LUNGS: Clear to auscultation. CARDIAC: No rhonchi, no rales, no wheezing. ABDOMEN: Soft, nontender. EXTREMITIES: Palpable radial pulses. Fragile skin. No visibly demonstrable vein acceptable for naima lysis access in either arm. ASSESSMENT AND PLAN: 1. End-stage renal disease. We will plan left arm primary fistula, most likely prosthetic graft und er IV sedation and regional anesthesia. Risks of infection, bleeding, reoperation, dialysis fistula or graft malfunction and necessity of a possible second operation discussed. 2. On Eliquis for atrial fibrillation and cardiomyopathy. Hold Eliquis 2-1/2 days prior to surgery, resume 1-1/2 to 2 days postoperatively. 3. Cardiomyopathy, valvular dysfunction. 4. Dyspneic in my office, progressive over the last few weeks. Dr. Castillo was called and Dr. Winter malik was kind enough to see him in his office today. 5. The patient lives at home and was followed by Dr. Benjamín Burt in the past.
[2017-12-15] MEDS ORDERED: Ropivacaine 0.2% HCl/PF (40 MG/20 ML VIAL) ONE (13:41)
[2017-12-15] MEDS ORDERED: Bupivacaine HCl 0.5%/Epinephrine 1:200,000/PF 30 ml Vial ONE ×2 (13:41→15:18)
[2017-12-15] MEDS ORDERED: CEFAZOLIN/Water 2 GM/20 ML SYRINGE ONE (14:50)
[2017-12-15] MEDS ORDERED: Heparin 10,000 UNITS/ 10 ML VIAL ONE (15:03)
[2017-12-15] MEDS ORDERED: PROPOFOL 200 MG/20 ML VIAL ONE (15:03)
[2017-12-15] MEDS ORDERED: Fentanyl 100 MCG/2 ML VIAL ONE ×3 (15:08→16:05)
[2017-12-15] MEDS ORDERED: Protamine Sulfate 250 MG/25 ML VIAL ONE (15:18)
[2017-12-15] MEDS ORDERED: Heparin 10,000 UNITS/1 ML VIAL ONE (15:18)
[2017-12-15] MEDS ORDERED: Lidocaine 2% PF Inj 2 ML VIAL ONE (15:18)
[2017-12-15] MEDS ORDERED: Protamine Sulfate 50 MG/5 ML VIAL ONE (15:18)
[2017-12-15] MEDS ORDERED: Sodium Chloride 0.9% 20 ML ONE (15:18)
[2017-12-15] MEDS ORDERED: Heparin 5,000 UNITS/ML VIAL ONE (15:18)
[2017-12-15] MEDS ORDERED: Phenylephrine HCL 10 MG/ML VIAL ONE (15:23)
[2017-12-15] MEDS ORDERED: Propofol 500 MG/50 ML VIAL ONE (15:25)
[2017-12-15] MEDS ORDERED: Midazolam HCl 2 mg/2 ml Vial ONE (16:05)
[2017-12-15] MEDS ORDERED: Ketamine 50 MG/ML VIAL ONE (16:05)
--- NOTE | 2017-12-15 18:32 | RAD ---
CHEST ONE VIEW: 12/15/17 COMPARISON: 11/30/17 HISTORY: Status post dialysis catheter placement. FINDINGS: Right sided hemosplit dialysis catheter with the distal tip terminating over the SVC and right atriu m. There is no pneumothorax. Stable configuration of the cardiac silhouette. Stable arthrosclerosis. IMPRESSION: 1. No evidence of pneumothorax. Right sided hemosplit dialysis catheter as above. 2. Atherosclerosis. POS: PPP
--- NOTE | 2017-12-15 22:49 | OP ---
DATE OF PROCEDURE: 12/15/2017 PREOPERATIVE DIAGNOSIS: End-stage renal disease, dysfunctional right IJ hemodialysis catheter, inade quate veins. POSTOPERATIVE DIAGNOSIS: End-stage renal disease, dysfunctional right internal jugular hemodialysis catheter, inadequate veins. PROCEDURE: Removal of right IJ cuffed tunnel hemodialysis catheter, placement of new right IJ cuffed tunneled hemodialysis catheter, angiodynamics precurved, ultrasound fluoroscopy used. Exploration o f left forearm finding antecubital veins to be inadequate. Thus, left upper arm dialysis graft prost hetic PTFE tapered 4T07 graft from the brachial artery above the antecubital fossa and axillary vein which was of excellent caliber. SURGEON: Benjamín Jj M.D. ANESTHESIA: Regional TIVA, local 0.5% Marcaine with epinephrine 30 mL mixed with Xylocaine 10 mL. F luoroscopy and ultrasound used for placement of hemodialysis catheter. PROCEDURE IN DETAIL: The patient was taken to the operating room where under intravenous sedation, l eft upper extremity regional block, the neck and chest and upper arm were prepared with ChloraPrep, d raped in routine fashion. Local anesthetic infiltrated in the skin and subcutaneous tissue about the operative site for removal and placement of hemodialysis catheter. Right IJ cuffed tunneled hemodia lysis catheter cuff removed from its tunnel freed and then area prepared with ChloraPrep, draped in r outine fashion as described. Local anesthetic infiltrated into skin and subcutaneous tissues. Incis ion was made over the supraclavicular area right, identifying the previously placed catheter dissecte d free, controlled with a hemostat, transected and removing this portion over the chest, repair open area with ChloraPrep. J wire placed through the catheter and the old catheter removed and a stab inc ision made over the right side of the chest and location and using the cuffed hemodialysis catheter t unneling device, the new catheter tunneled between the two incisions, placing the fabric cuff beneath the catheter exit site. Catheter secured with 2 interrupted sutures of 3-0 nylon and sterile dressi ngs applied and Dermabond. Biopatch used. Dilator and pull-away sheath placed over the J-wire into the internal jugular vein. J wire and dilator removed. Catheter placed through pull-away sheath. P ull-away sheath removed. Fluoroscopic images revealed good line placement. Each port aspirated bloo d and flushed with saline solution and heparinized saline solution 1000 units heparin per mL gave shayy ng the port. Platysma approximated with 4-0 Monocryl, skin with subdermal 4-0 Monocryl and DermaGlue applied. Attention then turned to the left arm. Incision made in the proximal volar forearm below the antecub ital fossa, carried down the skin and subcutaneous tissue, antecubital vein was inadequate. Subcutan eous tissues approximated with 3-0 Monocryl, skin with subdermal 4-0 Monocryl, another incision made above the antecubital fossa over the brachial artery dissected free the brachial artery from the deep fascia, artery was of excellent caliber without significant arteriosclerotic disease, it was probed with a Silastic loop. Incision made in the left axilla, carried down the skin and subcutaneous tissu e and deep fascia and axillary vein was of excellent caliber, controlled proximally and distally with Silastic Cohn loops. The patient was given 6000 units heparin intravenously after tunneling device Neisha-Wick tunneler used to tunnel the tapered graft between the two incisions, placing the 4 mm end of the tapered graft near the brachial artery. After adequate circulation time, the brachial artery was controlled proximally and distally with vascular clamps. Longitudinal arteriotomy made sharply and elongated with Cohn scissors and end 4 mm of the graft tailored accordingly for an end graft to side brachial artery anastomosis using continuous suture of 6-0 Prolene. Once this was completed, [place] rgiSeal was applied. Vascular clamps were released and excellent flow in the graft, clamp applied ac ross the graft. Attention then turned to the axilla. Axillary vein controlled proximally and distally with Silastic vessel loops. Longitudinal venotomy m patricia sharply and elongated with the Cohn scissors for a 3 cm venotomy with stay sutures of 6-0 Prolen e placed to hold it open. Vein was of excellent caliber and good condition. A 7 mm graft tailored t o configuration for a Cobra head anastomosis and end graft to side axillary vein anastomosis created with continuous suture of 6-0 Prolene and completing the anastomosis, arterial inflow was released an d the graft filled with blood and there is good hemostasis as the Silastic vessel loops released veno us control and there is good flow in the fistula or in the graft. Good hemostasis was noted. Surgic el was used. The patient was given 50 mg of protamine by Anesthesia intravenously. All wounds close d by approximately subcutaneous tissues with 3-0 Monocryl, skin with subdermal 4-0 Monocryl and [place] Glue applied. The patient tolerated the procedure well.
== END 2017-12-15 18:50 | disposition home or self-care (01) ==
LOC: SDC 13:38
PROVIDERS: ATTEND Specialist
PROC: 05HM33Z Insertion of Infusion Device into Right Internal Jugular Vein, Percutaneous Approach (ICD-10-PCS; principal; 2017-12-15)
PROC: 03180JD Bypass Left Brachial Artery to Upper Arm Vein with Synthetic Substitute, Open Approach (ICD-10-PCS; 2017-12-15)
DX: N18.6 End stage renal disease (principal); I48.91 Unspecified atrial fibrillation; Z79.52 Long term (current) use of systemic steroids; Z79.01 Long term (current) use of anticoagulants; Z79.899 Other long term (current) drug therapy; Z99.2 Dependence on renal dialysis
CPT/HCPCS: 71045; A4216; C1752; C1769; J0670; J1644; J2250; J2370; J2704; J2720; J2795; J3010; L8670

== ENCOUNTER 2018-01-15 10:40 | Inpatient (IN) | payer MEDICARE ==
[2018-01-15 12:46] LABS: Hemoglobin 5.1 g/dL (14.0-18.0); Mean Corpuscular HGB CONC 30.1 g/dL (32.0-36.0); Mean Corpuscular Hemoglobin 30.6 pg (27.0-31.0); Mean Platelet Volume 6.7 fL (7.4-10.4); Platelet Count 434 thou/uL (130-400); RBC Distribution Width 18.3 % (11.5-14.5); Red Blood Cell (RBC) Count 1.65 mill/uL (4.70-6.10); White Blood Cell (WBC) Count 15.4 thou/uL (4.8-10.8)
[2018-01-15 12:49] LABS: INR-International Normal Ratio 1.6; PTT 47.8 SEC (22.9-36.1); Prothrombin Time 18.6 SEC (12.0-14.7)
[2018-01-15 13:01] LABS: Anisocytosis MODERATE=16-30 cells (100X) (0-5/hpf); Band 5 % (5-11); Elliptocytes SLIGHT = 2-5 cells (100X) (0-1/hpf); Lymphocytes 2 % (21-51); MDiff Complete? YES; Macrocytosis SLIGHT = 6-15 cells (100X) (0-5/hpf); Monocytes 2 % (0-10); Neutrophil 89 % (42-75); Ovalocytes SLIGHT = 2-5 cells (100X) (0-1/hpf); PLT Morphology Comment Appears Increased; Poikilocytosis SLIGHT = 6-15 cells (100X) (0-5/hpf); Polychromasia MODERATE = 3-4 cells (100X) (0-2/hpf); Target Cells SLIGHT = 2-5 cells (100X) (0-1/hpf)
[2018-01-15 13:07] LABS: ALT (SGPT) 16 U/L (8-55); AST (SGOT) 29 U/L (5-34); Albumin 2.9 g/dL (3.4-4.8); Alkaline Phosphatase 98 U/L (40-150); Anion Gap 20 mmol/L (10-20); BUN (Urea Nitrogen) 48 mg/dL (8.4-25.7); Bilirubin, Total 0.3 mg/dL (0.2-1.2); CK (CPK) 21 U/L (30-200); Calc. Creatinine Clearance 0 mL/min (70-130); Calcium 8.4 mg/dL (7.8-10.44); Carbon Dioxide 29 mmol/L (23-31); Chloride 92 mmol/L (98-107); Estimated GFR-MDRD 9; Globulin 2.8 g/dL (2.4-3.5); Glucose 113 mg/dL (83-110); Magnesium 2.4 mg/dL (1.6-2.6); Phosphorus 6.9 mg/dL (2.3-4.7); Potassium 4.1 mmol/L (3.5-5.1); Protein, Total 5.7 g/dL (5.8-8.1); Sodium 137 mmol/L (136-145)
[2018-01-15 13:09] LABS: CKMB 0.9 ng/mL (0-6.6); Troponin I 0.109 ng/mL (< 0.028)
--- NOTE | 2018-01-15 13:28 | RAD ---
SINGLE VIEW OF THE CHEST: Comparison: 12-15-17 History: Altered mental status. FINDINGS: Single view of the chest shows an enlarged but stable cardiomediastinal silhouette with atherosclerot ic calcifications in the aorta. A dialysis catheter is unchanged in position. There is no evidence of consolidation, mass, or pleural effusion. IMPRESSION: Stable cardiomegaly. POS: JOIE
[2018-01-15] MEDS ORDERED: Ondansetron PF 4 MG/2 ML Vial IVP PRN (17:45)
[2018-01-15] MEDS ORDERED: Ondansetron ODT 4 MG TAB SL PRN (17:45)
[2018-01-15 17:54] LABS: Lactic Acid 1.4 mmol/L (0.5-2.2)
[2018-01-15] MEDS ORDERED: HYDROcodone/Acetaminophen 7.5/325 mg Tablet PO PRN (18:57)
[2018-01-15] MEDS ORDERED: PROVENTIL INHALER 6.7 G (200 INHALATIONS) INH PRN ×2 (18:58→22:24)
[2018-01-15] MEDS: diphenhydrAMINE 50 MG CAP PO SCH (20:17)
[2018-01-15] MEDS ORDERED: Prevnar 13-Val Conj/PF 0.5 ML SYRINGE IM ONE (21:00)
[2018-01-15] MEDS ORDERED: Acetaminophen 500 MG TAB PO SCH (21:00)
[2018-01-15] MEDS ORDERED: Tamsulosin HCl 0.4 MG CAP PO SCH (21:00)
[2018-01-15] MEDS ORDERED: Carvedilol 25 MG TAB PO SCH (21:00)
--- NOTE | 2018-01-15 22:33 | CON ---
DATE OF CONSULTATION: 01/15/2018 REASON FOR CONSULTATION: End-stage renal disease. HISTORY OF PRESENT ILLNESS: This is a very pleasant 82-year-old gentleman who presented to the [facility] after he was noted to have a low hemoglobin. The patient dialyzes Thursday, Thursday, and Thursday. PAST MEDICAL HISTORY: Significant for renal failure, history of hypertension, history of BPH, histor y of kidney biopsy, history of cataract surgery, history of proteinuria, history of tunneled dialysis catheter, history of AV fistula, history of ankle vasculitis. ALLERGIES: Reviewed. HOME MEDICATIONS: Reviewed. SOCIAL HISTORY: No alcohol or drug use. FAMILY HISTORY: Negative for ESRD. REVIEW OF SYSTEMS: A 15-point review of systems was performed and negative except positives noted ab ove. General: Weakness. Head: Headache. Neck: No swelling or lumps. Nose: No epistaxis or dis charge. Eyes: No diplopia or pain. Respiratory: Dyspnea. Cardiovascular: Chest pain. Gastroint estinal: Nausea. /COMMAND AND CONTROL SPECIALIST: Hematuria. Musculoskeletal: No joint pain. Neuropsychiatric Systems: No suicidal ideation. No ideation. Skin: Denies any rash or ulcer. Constitutional: No fever or chills. PHYSICAL EXAMINATION: GENERAL: The patient is awake, alert. VITAL SIGNS: Afebrile, pulse 75, breathing at 16, blood pressure 130/79. GENERAL APPEARANCE AND MENTAL STATUS: Fair. HEAD/NECK: Normocephalic. Atraumatic. EYES: EOMI. No deformity. EARS: Clear. No ulcers. NOSE: Intact. No lesions. MOUTH: Clear. No discharge. THROAT: Clear. No exudate. LUNGS: Clear. No crackles. CARDIAC: S1, S2. No rub. ABDOMEN: Benign. BS+. GENITALIA/RECTUM: Conrad absent. BACK/EXTREMITIES: Edema 0+ Ulcer-. NEUROLOGICAL: Alert and motor intact. SKIN: Rash- Bruise-. LYMPHATICS: Edema- Ulcer-. LABORATORY DATA: Hemoglobin 5.1, creatinine 6.1. ASSESSMENT AND RECOMMENDATIONS: 1. Stage 6 chronic kidney disease. We will plan dialysis. 2. Hypertension, stable. 3. Anemia, plan transfusion of 3-4 units. 4. Medications based on glomerular filtration rate are appropriate.
[2018-01-15 22:59] LABS: Hemoglobin 8.5 g/dL (14.0-18.0)
--- NOTE | 2018-01-16 02:15 | HP ---
DATE OF ADMISSION: 01/15/2018 PRIMARY CARE PHYSICIAN: Dr. Benjamín Burt. CHIEF COMPLAINT: Weakness. HISTORY OF PRESENT ILLNESS: This is an 82-year-old gentleman with a history of end-stage renal disea se, history of CVA in the past, hypertension, BPH, gastroesophageal reflux disease presents to the em ergency department at the request of his parachute taper. Apparently, he had labs done with Nephrology, which revealed elevated white blood cell count and very very low hemoglobin and hematocrit. He pres ented to the emergency department and was found to have a low hemoglobin of 5.1 and was given 1 unit of transfusion in the ER and then Dr. Estrada took the patient to dialysis to transfuse 3 units of pa cked red blood cells as well as a dialysis at that time. The patient states that he has been weak af ter dialysis on Thursday. He had a hard time getting out of bed. His son reports that usually he g ets out of bed later in the afternoon after dialysis and this time, he stayed in bed for a full 24 ho urs due to decreased energy and weakness. In the emergency department, he was found to be pale and w eak, which improves some after the dialysis. PAST MEDICAL HISTORY: Include end-stage chronic kidney disease, history of CVA in the past, arthriti s, gastroesophageal reflux disease, BPH, hypertension, blindness, impaired mobility. MEDICATIONS: Hydrocodone/acetaminophen 7.5/125 q.8 p.r.n., nifedipine ER 60 mg daily, metoprolol 50 mg ER daily, clonidine patch 0.2 mg, aspirin 81 mg daily, albuterol HFA p.r.n., Eliquis 2.5 mg, Ambie n 5 mg at bedtime, tramadol 50 mg, tamsulosin 0.4 mg b.i.d., Protonix 40 mg daily, latanoprost eyedro ps, Megace p.r.n. ALLERGIES: None known. PAST SURGICAL HISTORY: Hemodialysis catheter placement in 03/2017 with recent revision. FAMILY HISTORY: Father , unknown reason. Mother , high blood pressure, and arthriti s. SOCIAL HISTORY: Continues to smoke one pack a day for over 50 years, not interested in quitting. No alcohol, no drugs. He is retired from farming and ranching. REVIEW OF SYSTEMS: As per the history of present illness. General: He denies any recent fevers, ch ills, or recent illness. Admits to generalized weakness. HEENT: Positive blindness in one eye, dec reased hearing. Denies congestion, recent upper respiratory infection. Cardiac: Denies chest pain, shortness of breath, or palpitations. Pulmonary: Denies cough, hemoptysis. Gastrointestinal: Den ies nausea, vomiting, abdominal pain, melena or hematochezia. Genitourinary: Denies dysuria, hematu subha. Neurologic: Positive weakness. No seizures or syncope. Musculoskeletal: Positive chronic ba ck pain, chronic joint pain. He states he hurts all over. PHYSICAL EXAMINATION: VITAL SIGNS: In the emergency department, temperature 97.7, pulse of 63, respirations 14, blood pres sure 110/49. GENERAL: He is awake and alert, slightly disheveled, poor hygiene. Mucosa is moist. NECK: Supple. HEART: Regular rate and rhythm. LUNGS: Clear anteriorly. ABDOMEN: Positive bowel sounds, soft, nontender, nondistended. EXTREMITIES: No clubbing, cyanosis, or edema. He has decreased sensation in both lower extremities. Painful range of motion of his hips and knees. LABORATORY DATA AND X-RAY FINDINGS: White blood cell count 15,400, hemoglobin and hematocrit 5.1 and 16.8 in the emergency department, MCV is elevated at 102, platelets elevated at 434, slight left senait ft with 89% neutrophils, 5% bands, 2% lymphocytes. PT, PTT were elevated at 18.6 and 47.8. Sodium 1 37, potassium 4.1, chloride 92, CO2 of 29, BUN and creatinine 48 and 6.1 with a GFR of 9. Serum gluc ose of 113. Lactic acid 1.4, calcium 8.4, phosphorus 6.9, magnesium 2.4, bilirubin of 0.3, AST of 29 , ALT of 16, troponin I indeterminate at 0.109, which appears to be at his baseline. Albumin of 2.9. Blood and urine cultures are pending. Chest x-ray showed cardiomegaly, no overt CHF, no pneumonia. Urinalysis is pending. Blood cultures are pending. ASSESSMENT AND PLAN: This is an 82-year-old gentleman with end-stage renal disease on dialysis, now with severe anemia and symptomatic anemia. PLAN: 1. Admit to observation. He is status post transfusion and is feeling some better. We will continu e to monitor and make sure his hemoglobin stays in normal range. 2. Rule out gastrointestinal bleed. I will check guaiac of the stool. Consider GI evaluation, posi tive. 3. End stage renal disease. Continue dialysis per Nephrology likely a component of anemia due to re nal disease and chronic disease. 4. Hypertension. We will hold his antihypertensives until his blood pressure remained stable.
[2018-01-16 05:00] LABS: ALT (SGPT) 22 U/L (8-55); AST (SGOT) 40 U/L (5-34); Albumin 2.8 g/dL (3.4-4.8); Alkaline Phosphatase 137 U/L (40-150); Anion Gap 17 mmol/L (10-20); BUN (Urea Nitrogen) 27 mg/dL (8.4-25.7); Bilirubin, Total 0.3 mg/dL (0.2-1.2); Calc. Creatinine Clearance 14 mL/min (70-130); Calcium 8.2 mg/dL (7.8-10.44); Carbon Dioxide 27 mmol/L (23-31); Chloride 95 mmol/L (98-107); Estimated GFR-MDRD 14; Globulin 2.7 g/dL (2.4-3.5); Glucose 102 mg/dL (83-110); Protein, Total 5.5 g/dL (5.8-8.1); Sodium 135 mmol/L (136-145)
[2018-01-16 05:52] LABS: Band 12 % (5-11); Hemoglobin 8.5 g/dL (14.0-18.0); Lymphocytes 11 % (21-51); MDiff Complete? YES; Mean Corpuscular HGB CONC 31.3 g/dL (32.0-36.0); Mean Corpuscular Hemoglobin 29.9 pg (27.0-31.0); Mean Corpuscular Volume 95.6 fL (78.0-98.0); Mean Platelet Volume 6.8 fL (7.4-10.4); Monocytes 8 % (0-10); Neutrophil 69 % (42-75); Nucleated RBC 1 % (0); Platelet Count 336 thou/uL (130-400); RBC Distribution Width 16.7 % (11.5-14.5); Red Blood Cell (RBC) Count 2.85 mill/uL (4.70-6.10); White Blood Cell (WBC) Count 15.9 thou/uL (4.8-10.8)
[2018-01-16] MEDS: HYDROcodone/Acetaminophen 7.5/325 mg Tablet PO PRN (06:07)
[2018-01-16] MEDS ORDERED: Heparin 10,000 UNITS/ 10 ML VIAL ONE (08:47)
[2018-01-16] MEDS ORDERED: predniSONE 20 MG TAB PO SCH (09:00)
[2018-01-16] MEDS ORDERED: Docusate 100 MG CAP PO SCH (11:00)
[2018-01-16] MEDS ORDERED: Heparin 1,000 UNITS/ML VIAL ONE (11:11)
[2018-01-16] MEDS: Tamsulosin HCl 0.4 MG CAP PO SCH ×2 (11:33→20:50)
[2018-01-16] MEDS: predniSONE 20 MG TAB PO SCH (11:33)
[2018-01-16] MEDS: Pantoprazole 40 MG VIAL IVP SCH (11:33)
[2018-01-16] MEDS: Carvedilol 25 MG TAB PO SCH ×2 (11:33→20:50)
--- NOTE | 2018-01-16 11:58 | PRG ---
DATE OF SERVICE: 01/16/2018 SUBJECTIVE: This is an 82-year-old gentleman being seen for end-stage renal disease. Patient denies any nausea, vomiting or chest pain. PHYSICAL EXAMINATION: GENERAL: Patient is awake and alert. VITAL SIGNS: Afebrile, pulse 63, breathing at 16, blood pressure 123/60. GENERAL APPEARANCE AND MENTAL STATUS: Fair. HEAD/NECK: Normocephalic. Atraumatic. EYES: EOMI. No deformity. EARS: Clear. No ulcers. NOSE: Intact. No lesions. MOUTH: Clear. No discharge. THROAT: Clear. No exudate. LUNGS: Clear. No crackles. CARDIAC: S1, S2. No rub. ABDOMEN: Benign. BS+. GENITALIA/RECTUM: Conrad absent. BACK/EXTREMITIES: Edema 0+ Ulcer-. NEUROLOGICAL: Alert and motor intact. SKIN: Rash- Bruise- LYMPHATICS: Edema- Ulcer-. LABORATORY DATA: Show hemoglobin 8.5. ASSESSMENT AND PLAN: 1. Stage 6 chronic kidney disease, continue hemodialysis. 2. Hypertension, stable. 3. Anemia, stable. 4. Medication based on glomerular filtration rate are appropriate.
[2018-01-16] MEDS ORDERED: VANCOMYCIN IVPB PRN (20:03)
[2018-01-16] MEDS ORDERED: Vancomycin HCl 500 MG in Sodium Chloride 0.9% 100 ML IVPB SCH (20:15)
[2018-01-16] MEDS ORDERED: Vancomycin HCl 1 GM in Premix Bag 1 BAG IVPB SCH (20:15)
[2018-01-16] MEDS ORDERED: HOLD VANCOMYCIN FOR LEVEL >20 FS SCH (20:15)
[2018-01-16] MEDS ORDERED: Vancomycin HCl 1.25 GM in Sodium Chloride 0.9% 250 ML 250 ML IVPB SCH (20:15)
[2018-01-16] MEDS ORDERED: Vancomycin HCl 750 MG in Sodium Chloride 0.9% 250 ML 250 ML IVPB SCH (20:15)
[2018-01-16] MEDS ORDERED: Vancomycin HCl 1.5 GM in Sodium Chloride 0.9% 250 ML 300 ML IVPB SCH (20:15)
[2018-01-16] MEDS: Acetaminophen 500 MG TAB PO SCH (20:49)
[2018-01-16] MEDS: Docusate 100 MG CAP PO SCH (20:49)
[2018-01-16] MEDS: diphenhydrAMINE 50 MG CAP PO SCH (20:50)
[2018-01-16] MEDS ORDERED: diphenhydrAMINE 25 MG CAP PO SCH (21:00)
[2018-01-17 05:19] LABS: Clarity Turbid (Clear)
[2018-01-17 05:20] LABS: Bilirubin Negative (Negative); Blood, Urine Large (Negative); Glucose, Urine (Dipstick) Negative (Negative); Leukocyte Large (Negative); Nitrite Negative (Negative); Protein, Urine (Dipstick) 300 mg/dL (Neg-Trace); Urobilinogen 0.2 mg/dL (0.2-1.0)
[2018-01-17 05:24] LABS: Bacteria/HPF 1+ HPF (None Seen); Renal Epithelial 0-3 HPF (0-3); Squamous Epithelial None Seen HPF (0-3)
[2018-01-17 05:25] LABS: Crystals/HPF 1+ AMORPH PHOS HPF (Negative)
[2018-01-17 08:10] LABS: Band 8 % (5-11); Hemoglobin 8.9 g/dL (14.0-18.0); Hypersemented Neutrophil SLIGHT; Lymphocytes 17 % (21-51); MDiff Complete? YES; Mean Corpuscular Hemoglobin 30.4 pg (27.0-31.0); Mean Corpuscular Volume 98.2 fL (78.0-98.0); Mean Platelet Volume 7.1 fL (7.4-10.4); Metamyelocyte 1 % (0-0); Neutrophil 74 % (42-75); Platelet Count 346 thou/uL (130-400); Poikilocytosis SLIGHT = 6-15 cells (100X) (0-5/hpf); RBC Distribution Width 17.6 % (11.5-14.5); Red Blood Cell (RBC) Count 2.92 mill/uL (4.70-6.10); White Blood Cell (WBC) Count 11.8 thou/uL (4.8-10.8)
[2018-01-17] MEDS: Docusate 100 MG CAP PO SCH ×2 (08:59→21:25)
[2018-01-17] MEDS: Pantoprazole 40 MG VIAL IVP SCH (08:59)
[2018-01-17] MEDS: predniSONE 20 MG TAB PO SCH (09:00)
--- NOTE | 2018-01-17 09:00 | PRG ---
DATE OF SERVICE: 01/16/2018 SUBJECTIVE: The patient has some improvement. He is more lucid, less confused, less combative. Den ies chest pain, shortness of breath, or palpitations. Tolerating dialysis today, but feels much bett er after receiving the blood yesterday. Denies fevers or chills. Denies nausea and vomiting. PHYSICAL EXAMINATION: VITAL SIGNS: Temperature 97.5, pulse is 63, respirations 20, blood pressure 123/60. GENERAL: He is awake and alert, in no acute distress. Speech is clear. NECK: Supple. HEART: Regular rate and rhythm with 2/6 systolic ejection murmur. LUNGS: Clear. ABDOMEN: Soft. EXTREMITIES: With trace edema. SKIN: With no redness, no open wounds, no signs of erythema or infection around his port sites on hi s right chest wall or his left arm. LABORATORY DATA: White blood cell count 15,900, hemoglobin and hematocrit 8.5 and 27.3, platelets of 336. Hemoccult of stool was pending. Blood cultures are pending. ASSESSMENT AND PLAN: This is an 82-year-old gentleman with end-stage renal disease, admitted for sev ere anemia. 1. Anemia, likely secondary to chronic disease and kidney failure. Awaiting stool Hemoccult to rule out evidence of gastrointestinal bleed. Clinically, he is improved and seems to be stable. We will continue to monitor his hemoglobin and hematocrit. 2. Elevated white blood cell count. No signs of infection right now. We will hold off on starting antibiotics until we have evidence of a source. Awaiting blood cultures, urine cultures. Chest x-ra y has been negative, possibly secondary to his kidney disease. 3. Hypertension. We will continue his medications and monitor closely.
[2018-01-17] MEDS: Tamsulosin HCl 0.4 MG CAP PO SCH ×2 (09:01→21:25)
[2018-01-17] MEDS: Apixaban 2.5 MG TAB PO SCH ×2 (09:02→21:25)
--- NOTE | 2018-01-17 09:02 | PRG ---
DATE OF SERVICE: 01/17/2018 SUBJECTIVE: Patient continues to improve. He has a good appetite. Denies chest pain, shortness of breath or palpitations. Denies fever. He was tolerating dialysis yesterday. OBJECTIVE: VITAL SIGNS: Temperature 98.2, T-max is 98.3, pulse is 68, respirations 16, blood pressure 108/57, pulse ox is 96% on room air. GENERAL: He is awake and alert, in no acute distress. Speech is clear. SKIN: With no open lesions. Left arm with port intact. Right upper chest wall with port intact with no redness or erythema. HEART: Regular rate and rhythm with 2/6 systolic ejection murmur. LUNGS: Clear. ABDOMEN: Soft. EXTREMITIES: With no edema. LABORATORY DATA: White blood cell count 11,800, hemoglobin and hematocrit are 8.9 and 28.7, yesterday was 8.5 and 27.3, platelets of 346, improved bandemia from yesterday. Sodium 135, potassium 4.0, chloride 95, CO2 27, BUN and creatinine are 27 and 4.14 with a GFR of 14. Serum glucose of 102. Albumin of 2.8. Stool was negative for Hemoccult. Blood cultures 1/2 was positive for Staph epidermidis, methicillin resistant. Urinalysis did reveal 300 protein, large blood, large leukocyte esterase, greater than 50 white blood cells and positive bacteria. ASSESSMENT AND PLAN: This is an 82-year-old gentleman with end-stage chronic kidney disease, on hemodialysis, admitted for severe anemia and symptomatic anemia, now found to have bacteremia. 1. Severe anemia improved after 3 units of blood transfusion. We will continue to observe likely secondary to renal failure and chronic disease, no sign of gastrointestinal bleed. 2. Urinary tract infection, already started on IV vancomycin renally dosed. 3. Bacteremia, possibly secondary to urinary tract infection. I will consult Dr. Barron for evaluation for possible other sources of the bacteremia including his dialysis catheters. 4. End stage renal disease. Continue dialysis per Nephrology. 5. Hypertension. We will decrease his carvedilol as his blood pressure is low at times being compliant with his medications. MTDD
[2018-01-17] MEDS ORDERED: Carvedilol 6.25 MG TAB PO SCH (09:15)
--- NOTE | 2018-01-17 13:20 | PRG ---
DATE OF SERVICE: 01/17/2018 SUBJECTIVE: An 82-year-old gentleman being seen for end-stage renal disease. The patient denies any nausea, vomiting, or chest pain. OBJECTIVE: See above. Patient is awake, alert. VITAL SIGNS: Afebrile, pulse 71, breathing 16, blood pressure 117/60s. GENERAL APPEARANCE AND MENTAL STATUS: Fair. HEAD/NECK: Normocephalic. Atraumatic. EYES: EOMI. No deformity. EARS: Clear. No ulcers. NOSE: Intact. No lesions. MOUTH: Clear. No discharge. THROAT: Clear. No exudate. LUNGS: Clear. No crackles. CARDIAC: S1, S2. No rub. ABDOMEN: Benign. BS+. GENITALIA/RECTUM: Conrad absent. BACK/EXTREMITIES: Edema 0+ Ulcer- NEUROLOGICAL: Alert and motor intact. SKIN: Rash- Bruise- LYMPHATICS: Edema- Ulcer- LABORATORY DATA: Showed hemoglobin of 8.9. ASSESSMENT AND RECOMMENDATIONS: 1. Stage 6 chronic kidney disease. Continue hemodialysis. 2. Hypertension, stable. 3. Anemia, stable. 4. Medication glomerular filtration rate appropriate.
[2018-01-17] MEDS: diphenhydrAMINE 50 MG CAP PO SCH (21:24)
[2018-01-17] MEDS: Carvedilol 6.25 MG TAB PO SCH (21:25)
[2018-01-17] MEDS: Acetaminophen 500 MG TAB PO SCH (21:25)
[2018-01-18 05:46] LABS: Anion Gap 21 mmol/L (10-20); BUN (Urea Nitrogen) 45 mg/dL (8.4-25.7); Calc. Creatinine Clearance 11 mL/min (70-130); Calcium 8.2 mg/dL (7.8-10.44); Carbon Dioxide 23 mmol/L (23-31); Chloride 92 mmol/L (98-107); Estimated GFR-MDRD 10; Glucose 76 mg/dL (83-110); Potassium 4.6 mmol/L (3.5-5.1); Sodium 131 mmol/L (136-145)
[2018-01-18 06:32] LABS: Band 6 % (5-11); Eosinophils 1 % (0-10); Hemoglobin 8.4 g/dL (14.0-18.0); Lymphocytes 7 % (21-51); MDiff Complete? YES; Mean Corpuscular HGB CONC 30.6 g/dL (32.0-36.0); Mean Corpuscular Hemoglobin 29.5 pg (27.0-31.0); Mean Corpuscular Volume 96.2 fL (78.0-98.0); Monocytes 2 % (0-10); Neutrophil 84 % (42-75); Platelet Count 365 thou/uL (130-400); RBC Distribution Width 17.6 % (11.5-14.5); Red Blood Cell (RBC) Count 2.84 mill/uL (4.70-6.10); White Blood Cell (WBC) Count 12.1 thou/uL (4.8-10.8)
[2018-01-18 08:24] LABS: Vancomycin, Random 18.2 ug/mL (See Comment)
--- NOTE | 2018-01-18 09:03 | PRG ---
DATE OF SERVICE: 01/18/2018 Mr. Jean is doing better. He is currently on dialysis right now that I am speaking with him. He has no complaints. He wishes to go home. PHYSICAL EXAMINATION: VITAL SIGNS: Temperature 98.8, BP 144/67. LUNGS: Clear. HEART: Reveals no murmur. LABORATORY: His hemoglobin is 8.4, hematocrit 27.4, white blood count 12.1. One blood culture has r evealed a coagulase negative Staph epidermidis. IMPRESSION: Patient is stable. PLAN: Possible discharge tomorrow.
[2018-01-18] MEDS ORDERED: Epoetin (ESRD) 10,000 UNITS/ML VIAL IVP SCH (11:15)
[2018-01-18] MEDS: Apixaban 2.5 MG TAB PO SCH ×2 (11:58→21:11)
[2018-01-18] MEDS: Docusate 100 MG CAP PO SCH ×2 (11:58→21:10)
[2018-01-18] MEDS: Carvedilol 6.25 MG TAB PO SCH ×2 (11:58→21:11)
[2018-01-18] MEDS: Pantoprazole 40 MG VIAL IVP SCH (11:58)
[2018-01-18] MEDS: predniSONE 20 MG TAB PO SCH (11:59)
[2018-01-18] MEDS: Tamsulosin HCl 0.4 MG CAP PO SCH ×2 (11:59→21:11)
--- NOTE | 2018-01-18 12:33 | PRG ---
Date of service: 01/18/2018 Subjective: Patient was seen and examined at bedside and overnight events noted. Patient denies any shortness of breath or chest pain or palpitation. No history of nausea or vomiting or diarrhea or fever or chills or cramps. Objective: General: This is an elderly male in no apparent distress. Vital Signs : Temperature 98.8. Pulse 64. Respiratory rate 16. Blood pressure 144/67. HEENT: Atraumatic, normocephalic, Oral mucosa is moist Neck: Supple Cardiovascular: S1S2 heard, Rate and rhythm regular Respiratory: Clear to auscultation Gastrointestinal: Abdomen is soft Musculoskeletal : No tenderness, No edema Dermatologic : No skin rash Neurologic: Alert and awake and oriented X3, No focal neurologic deficits. Moving all the extremities. Psychiatric: Mood and affect normal Laboratory data: Potassium is 4.6, BUN is 45, creatinine is 5.3. Assessment and Plan: 1. End-stage renal disease. Continue dialysis Thursday, Thursday, and Thursday. 2. Hypertension- monitor BP. 3. Anemia. 4. Edema - limit salt and fluid intake. Continue dialysis as tolerated. MTDD
[2018-01-18] MEDS ORDERED: Epoetin (ESRD) 10,000 UNITS/ML VIAL SC SCH (13:45)
[2018-01-18] MEDS ORDERED: Sodium Chloride 0.9% 10 ML ONE (20:24)
[2018-01-18] MEDS: Acetaminophen 500 MG TAB PO SCH (21:11)
[2018-01-18] MEDS: diphenhydrAMINE 50 MG CAP PO SCH (21:11)
--- NOTE | 2018-01-19 00:25 | CON ---
DATE OF CONSULTATION: 01/18/2018 REASON FOR CONSULTATION: Bacteremia. HISTORY OF PRESENT ILLNESS: This is an 82-year-old patient, who has a history of end-stage renal disease, possibly is due to hypertension or to, not yet disclosed, chronic renal pathology as well as BPH, who was admitted from Dr. Pastor's office, because of severe anemia and neutrophilia. [place] weakness and difficulty in getting out of bed. He did not have any fever, chills, or headaches. No shortness of breath, no chest pain, no abdominal pain, no diarrhea, no genitourinary symptoms. 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 PAST MEDICAL HISTORY: End-stage renal disease, prior CVA, hypertension, GERD, BPH, blindness or hebert-blindness, impaired mobility. ALLERGIES: None. CURRENT MEDICATIONS: Tylenol, Proventil, DuoNeb, Eliquis, Coreg, Benadryl, Colace, Procrit, Protonix, prednisone, tamsulosin, vancomycin, sliding scale. SURGICAL HISTORY: HD catheter placement in March this year. He also had a transposition, actually had a graft placement in the left upper extremity, which is not functional at this time. The patient has symptoms of steal syndrome in the left upper extremity. FAMILY HISTORY: Noncontributory. SOCIAL HISTORY: Current smoker. PHYSICAL EXAMINATION: VITAL SIGNS: T-max 99.2, blood pressure 118/57, pulse 76, respirations 16, O2 sat 99%. SKIN EXAM: Shows no Conrad catheter. He has a tunneled hemodialysis catheter in the right IJ position. The catheter exit site appears normal without tenderness. No lymphadenopathy. HEENT EXAM: Noncontributory. NECK: Supple. LUNGS: With symmetric clear breath sounds. HEART: S1 and S2, regular rate without murmurs. ABDOMEN: Soft, not distended, or tender. No ascites. No bladder distention. EXTREMITIES: No joint inflammatory activity. Moves extremities equally. NEUROLOGIC: Cognitive function appears to be intact. LABORATORY DATA: White cell count is 12.1 from 15,000 on admission. Hemoglobin at 8.4 after transfusion, platelets 365, 89% neutrophils, 5% bands. Chemistry with a phosphorus 6.9. Transaminases normal. CK 21, albumin 2.9. Urinalysis with greater than 50 wbcs, 1/2 sets of blood cultures with coagulase- negative Staph in November. He had Staph epidermidis 2 out of 2 sets of blood cultures, and in August, he had Pseudomonas aeruginosa in 2 sets of blood cultures. Chest x-ray with cardiomegaly, but no infiltrates. ASSESSMENT: 1. End-stage renal disease, presumably either secondary to hypertension or to chronic glomerulonephritis. 2. History of leukocytosis and severe anemia. 3. Previous episodes of bacteremia one in August due to Pseudomonas and the second in November secondary to Staphylococcus epidermides.4 4. One out of two sets of blood cultures positive for coagulase-negative Staphylococcus. This was a left arm sample. The other sample from the same side did not show any growth thus far. DISCUSSION: The differential diagnosis includes colonization of hemodialysis catheter. For example, the organism identified is the same one that had been retrieved in November, then we would probably recommend decolonization with vancomycin in the lock solution, which can be prepared by pharmacy and given for 2 weeks. The Pseudomonas aeruginosa isolates from August was ascribed to urosepsis; however, I do not see any positive urine cultures at that time, so I think this diagnosis of urosepsis is not documented well. He did have greater than 50 wbc's in August, though. We will follow up the results of the identification of this gram-positive organism and make a determination as to what subsequent intervention will be. JULIÁN
[2018-01-19] MEDS: Guaifenesin DM 100-10/5 ML UDCUP PO PRN (01:08)
[2018-01-19] MEDS: Tamsulosin HCl 0.4 MG CAP PO SCH ×2 (12:08→20:23)
[2018-01-19] MEDS: predniSONE 20 MG TAB PO SCH (12:08)
[2018-01-19] MEDS: Carvedilol 6.25 MG TAB PO SCH ×2 (12:09→20:22)
[2018-01-19] MEDS: Pantoprazole 40 MG VIAL IVP SCH (12:09)
[2018-01-19] MEDS: Docusate 100 MG CAP PO SCH ×2 (12:09→20:22)
[2018-01-19] MEDS: Apixaban 2.5 MG TAB PO SCH (12:10)
[2018-01-19] MEDS: HYDROcodone/Acetaminophen 7.5/325 mg Tablet PO PRN ×2 (12:13→18:17)
[2018-01-19] MEDS ORDERED: Vancomycin HCl 50 MG, Sodium Chloride 0.9% 10 ML in Syringe 1 ML CATH SCH (13:15)
[2018-01-19] MEDS ORDERED: SODIUM CHLORIDE 0.9% CATH SCH (13:30)
[2018-01-19] MEDS ORDERED: PRE FILLED CATH SCH (13:30)
[2018-01-19] MEDS ORDERED: VANCOMYCIN HCL CATH SCH (13:30)
--- NOTE | 2018-01-19 13:45 | PRG ---
DATE OF SERVICE: 01/19/2018 SUBJECTIVE: Mr. Jean is doing well. He is ready to go home. He is feeling better. OBJECTIVE: VITAL SIGNS: Temperature 98.5, BP 108/59. LUNGS: Clear. HEART: Reveals no murmur. IMPRESSION: 1. Anemia, symptomatic. 2. Septicemia. PLAN: He will continue on his current dialysis schedule. I have discussed with Dr. Barron the partic ulars of discharging him. We will make those ready and probably get him discharge ready tomorrow.
--- NOTE | 2018-01-19 17:51 | PRG ---
DATE OF SERVICE: 01/19/2018 SUBJECTIVE: Patient was seen and examined at bedside and overnight events noted. Patient denies any shortness of breath or chest pain or palpitation. No history of nausea or vomiting or diarrhea or f ever or chills or cramps. OBJECTIVE: GENERAL: This is an elderly male in no apparent distress. VITAL SIGNS: Temperature 98.2, pulse 64, respiratory rate 18, blood pressure 114/59. HEENT: Atraumatic, normocephalic. Oral mucosa is moist. NECK: Supple. CARDIOVASCULAR: S1, S2 heard. Rate and rhythm regular. RESPIRATORY: Clear to auscultation. GASTROINTESTINAL: Abdomen is soft. MUSCULOSKELETAL: No tenderness. No edema. DERMATOLOGIC: No skin rash. NEUROLOGIC: Alert and awake and oriented x3. No focal neurologic deficits. Moving all the extremiti es. PSYCHIATRIC: Mood and affect normal. LABORATORY DATA: Potassium is 4.6, BUN 45, creatinine is 5.3. ASSESSMENT AND PLAN: 1. End-stage renal disease. Continue on dialysis Thursday, Thursday, and Thursday. 2. Hypertension. 3. Edema, controlled. 4. Anemia, chronic and will continue Epogen. Plan is to monitor. Continue dialysis as tolerated.
--- NOTE | 2018-01-19 18:51 | HP ---
HISTORY OF PRESENT ILLNESS: Jaya Jean is an 82-year-old male patient, end-stage renal disease on maintenance dialysis without allergies, had poor venous structures; therefore required a dialysis tapered PTFE graft, brachial artery axillary vein performed on 12/15/2017, left upper arm. Hafsa young has not followed up with me but was admitted to the hospital on 01/15/2018, by Dr. Multani. He was feeling weak. He was found to be anemic and transfused blood. During this hospitalization, he has complained of left hand pain. On examination today, I cannot feel radial or ulnar pulses. He has stiff left hand with full range o f motion. It is very pale relative to the right hand. Capillary refill is absent. He has paresthes ias of all fingers and complains of pain in his fingers. 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 I have spoken with Dr. Harris Burt today who will plan arteriography tomorrow. After arteriograp hy, we will plan most likely a DRIL procedure to prioritize blood flow of the hand and maintain blood flow to his dialysis graft. I have explained this to the patient who consents. SOCIAL HISTORY: Patient is retired, farm and ranching. PAST SURGICAL HISTORY: Left arm graft and hemodialysis catheter as noted above. 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 MEDICATIONS AT HOME: Tylenol, prednisone, Ventolin inhalers, Flomax, Protonix, Toradol, Eliquis, and aspirin. We will hold his Eliquis today. We will ask Dr. Harris Burt to perform arteriography in the next 2-3 days and then most likely, the patient will need a DRIL procedure or Thursday. The patient has a good thrill and bruit in h is left arm graft.
--- NOTE | 2018-01-19 20:06 | CON ---
DATE OF CONSULTATION: 01/19/2018 REASON FOR CONSULTATION: Evaluate patient with a left ischemic hand for angiograms. HISTORY OF PRESENT ILLNESS: Mr. Jean is an 82-year-old gentleman who has had about a month history of brachiocephalic fistula. His hand has been ischemic painful and cool. I have been asked to perform angiograms for Dr. Jj's for anatomic delineation for a DRILL procedure. PAST MEDICAL HISTORY: 1. End-stage renal disease. 2. 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 3. Hypertension. 4. Gastroesophageal reflux disease. 5. Benign prostatic hypertrophy. 6. Dialysis treatment. PAST SURGICAL HISTORY: Left upper extremity dialysis graft placement with current ischemic symptoms. ALLERGIES: None. CURRENT MEDICATIONS: Noted in the MAR. His Eliquis has been stopped. PHYSICAL EXAMINATION: GENERAL: This is an elderly gentleman resting comfortably in bed, chewing tobacco. VITAL SIGNS: His height 5 feet 6 inches, weight 161 pounds, BSA is 1.85. Temperature is 98.5, pulse is 61, blood pressure is 110/53. LUNGS: Clear bilaterally. HEART: Rhythm is regular. ABDOMEN: Soft and nontender. EXTREMITIES: His left hand has a glove on it. It is cool to the touch. I have a difficult time palpating a radial pulse. He has a good thrill within the graft. Femoral pulses are palpable bilaterally. ASSESSMENT AND PLAN: I have discussed angiograms of his left arm with him and he is agreeable to proceed for anatomic delineation prior to DRILL procedure. [facility]ANG[facility]OPEDIC HOSPITALGracie
[2018-01-19] MEDS: diphenhydrAMINE 50 MG CAP PO SCH (20:22)
[2018-01-19] MEDS: Acetaminophen 500 MG TAB PO SCH (20:23)
[2018-01-20] MEDS: HYDROcodone/Acetaminophen 7.5/325 mg Tablet PO PRN (03:41)
[2018-01-20] MEDS: Guaifenesin DM 100-10/5 ML UDCUP PO PRN ×2 (03:42→20:57)
[2018-01-20 05:33] LABS: Hemoglobin 6.8 g/dL (14.0-18.0); Platelet Count 440 thou/uL (130-400)
[2018-01-20 08:52] LABS: Vancomycin, Random 12.5 ug/mL (See Comment)
[2018-01-20] MEDS ORDERED: Epoetin (ESRD) 10,000 UNITS/ML VIAL IVP SCH (09:00)
[2018-01-20] MEDS ORDERED: Vancomycin HCl 50 MG, Sodium Chloride 0.9% 10 ML in Syringe 1 ML CATH SCH (09:00)
--- NOTE | 2018-01-20 10:08 | PRG ---
DATE OF SERVICE: 01/20/2018 SUBJECTIVE: Mr. Jean is doing well. He is on dialysis. He has had some problems with this acce ss, fistula on his left arm. He was supposed to have some type of diagnostic procedure done, they lezama ve received Eliquis, so it has been canceled. He is now found to be a little bit more anemic today. Otherwise, he wanted to go home. PHYSICAL EXAMINATION: VITAL SIGNS: His blood pressure is 118/61, temperature 98.0, pulse 59. GENERAL: He is alert, in no distress. LUNGS: Clear. HEART: Reveals no murmur. ABDOMEN: Soft, nontender, bowel sounds are present and active. LABORATORY DATA: Hemoglobin 6.8, hematocrit 22.1. IMPRESSION: An 82-year-old male with a history of septicemia, now appears to have an occluded graft to his left arm. 1. End-stage renal disease. PLAN: 1. The patient will receive 2 units of blood today during dialysis. 2. We will continue his vancomycin during dialysis. 3. Diagnostic procedure for his left arm has to be rescheduled until tomorrow.
[2018-01-20] MEDS: Carvedilol 6.25 MG TAB PO SCH ×2 (13:23→20:57)
[2018-01-20] MEDS: Docusate 100 MG CAP PO SCH ×2 (13:25→20:57)
[2018-01-20] MEDS: predniSONE 20 MG TAB PO SCH (13:26)
[2018-01-20] MEDS: Tamsulosin HCl 0.4 MG CAP PO SCH ×2 (13:27→20:57)
--- NOTE | 2018-01-20 16:35 | PRG ---
DATE OF SERVICE: 01/20/2018 HISTORY: The patient feels well. Some issues with his access. No chest pain, no abdominal pain or diarrhea. The patient continues with chronic symptoms in the left hand which are likely secondary to steal syndrome. OBJECTIVE: VITAL SIGNS: Not remarkable. T-max 98. Other vital signs are normal. LUNGS: Clear. HEART: S1, S2, regular rate. ABDOMEN: Soft, nondistended. EXTREMITIES: Left hand changes about the same. His left hand skin temperature is cooler than the ri ght. LABORATORY DATA: White cell count is 12.1, hemoglobin 8.4, platelets 365. Sodium 131, creatinine 5. 32 and microbiology with Staphylococcus epidermides identified. 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 DISCUSSION: At this point, I would recommend decolonization with vancomycin lock solution for 2 week s, I would also continue with IV vancomycin given dialysis administered sliding scale for 2 weeks as well. Evidently, if there is recrudescence of bacteremia following this treatment, then he would req uire exchange of the catheter.
--- NOTE | 2018-01-20 19:18 | PRG ---
DATE OF SERVICE: 01/20/2018 SUBJECTIVE: Patient was seen and examined at bedside and overnight events noted. Patient denies any shortness of breath or chest pain or palpitation. No history of nausea or vomiting or diarrhea or f ever or chills or cramps. OBJECTIVE: GENERAL: This is a well-built male in no apparent distress. VITAL SIGNS: Temperature 98.0, pulse 69, respiratory rate 16, blood pressure 98/54. HEENT: Atraumatic, normocephalic. Oral mucosa is moist. NECK: Supple CARDIOVASCULAR: S1, S2 heard. Rate and rhythm regular. RESPIRATORY: Clear to auscultation. GASTROINTESTINAL: Abdomen is soft. MUSCULOSKELETAL: No tenderness, no edema. DERMATOLOGIC: No skin rash. NEUROLOGIC: Alert, awake, and oriented x3. No focal neurologic deficits. Moving all the extremitie s. PSYCHIATRIC: Mood and affect normal. LABORATORY DATA: Potassium is 4.6, BUN is 45, creatinine is 5.3. ASSESSMENT AND PLAN: 1. End-stage renal disease. Continue on dialysis dialysis access. Follow up with Surgery. 2. Hypertension. 3. Edema. 4. Anemia, chronic. We will continue on dialysis as tolerated.
[2018-01-20] MEDS: diphenhydrAMINE 50 MG CAP PO SCH (20:57)
[2018-01-20] MEDS: Acetaminophen 500 MG TAB PO SCH (20:57)
[2018-01-21 05:09] LABS: #Eosinphils 0.1 thou/uL (0.0-0.7); #Lymphocytes 1.2 thou/uL (1.20-3.40); #Monocytes 0.6 thou/uL (0.11-0.59); #Neutrophils 8.5 thou/uL (1.40-6.50); %Basophils 0.2 % (0.0-1.0); %Eosinophils 0.7 % (0.0-10.0); %Lymphocytes 11.4 % (21.0-51.0); %Neutrophils 81.7 % (42.0-75.0); Hemoglobin 9.9 g/dL (14.0-18.0); Mean Corpuscular HGB CONC 29.9 g/dL (32.0-36.0); Mean Corpuscular Hemoglobin 28.5 pg (27.0-31.0); Mean Corpuscular Volume 95.2 fL (78.0-98.0); Mean Platelet Volume 6.7 fL (7.4-10.4); Platelet Count 442 thou/uL (130-400); Red Blood Cell (RBC) Count 3.48 mill/uL (4.70-6.10); White Blood Cell (WBC) Count 10.4 thou/uL (4.8-10.8)
[2018-01-21 05:33] LABS: Anion Gap 15 mmol/L (10-20); BUN (Urea Nitrogen) 22 mg/dL (8.4-25.7); Calc. Creatinine Clearance 19 mL/min (70-130); Calcium 7.9 mg/dL (7.8-10.44); Carbon Dioxide 25 mmol/L (23-31); Chloride 96 mmol/L (98-107); Estimated GFR-MDRD 19; Glucose 87 mg/dL (83-110); Sodium 132 mmol/L (136-145)
--- NOTE | 2018-01-21 08:31 | PRG ---
DATE OF SERVICE: 01/21/2018 Mr. Jean is awaiting procedure and apparently has now going to undergo some surgical procedure to revise vascularity to his left hand. He reports no medical complaints. OBJECTIVE: VITAL SIGNS: BP is 147/70, temperature 97.6. LABORATORY: His hemoglobin 9.9, hematocrit 33.1, status post units of blood transfusion during dialy sis. Sodium 132, potassium 4.0, chloride 96, CO2 of 25. IMPRESSION: 1. Septicemia. 2. Vascular issues involving left upper extremity. PLAN: The patient is to proceed with procedure today undergoing angiogram as well as indicated proce dures performed by Dr. Burt and Dr. Jj.
[2018-01-21] MEDS: Docusate 100 MG CAP PO SCH ×2 (09:25→21:48)
[2018-01-21] MEDS: predniSONE 20 MG TAB PO SCH (09:25)
[2018-01-21] MEDS: Tamsulosin HCl 0.4 MG CAP PO SCH ×2 (09:25→21:47)
[2018-01-21] MEDS: Carvedilol 6.25 MG TAB PO SCH ×2 (09:26→21:47)
[2018-01-21 10:08] VITALS: BMI 25.9
[2018-01-21] MEDS ORDERED: Iopamidol 370 76% 50 ML VIAL FS ONE (13:28)
[2018-01-21] MEDS ORDERED: Lidocaine 1% (PF) 30 ML VIAL ONE ×2 (15:26→17:00)
[2018-01-21] MEDS ORDERED: Heparin 0 ML ONE ×2 (15:26→15:27)
[2018-01-21] MEDS: Guaifenesin DM 100-10/5 ML UDCUP PO PRN (15:51)
--- NOTE | 2018-01-21 18:12 | PRG ---
DATE OF SERVICE: 01/21/2018 SUBJECTIVE: Patient was seen and examined at bedside and overnight events noted. Patient denies any shortness of breath or chest pain or palpitation. No history of nausea or vomitin g or diarrhea or fever or chills or cramps. OBJECTIVE: GENERAL: This is an elderly male, in no apparent distress. VITAL SIGNS: Temperature 97.9, pulse 69, respiratory rate , blood pressure 148/62. HEENT: Atraumatic, normocephalic. Oral mucosa is moist. NECK: Supple. CARDIOVASCULAR: S1 and S2 heard. Rate and rhythm regular. RESPIRATORY: Clear to auscultation. GASTROINTESTINAL: Abdomen is soft. MUSCULOSKELETAL: No tenderness. No edema. DERMATOLOGIC: No skin rash. NEUROLOGIC: Alert and awake and oriented x3. No focal neurologic deficits. Moving all the extremit ies. PSYCHIATRIC: Mood and affect normal. LABORATORY DATA: Potassium is 4.0, BUN 22, creatinine is 3.1. ASSESSMENT AND PLAN: 1. End-stage renal disease, on hemodialysis. 2. Hypertension. 3. Edema, controlled. 4. Anemia, which is chronic. 5. Continue Epogen with dialysis, status post transfusion. We will monitor. Continue dialysis as t olerated. Follow up with surgeon for dialysis access and syndrome.
[2018-01-21] MEDS: Acetaminophen 500 MG TAB PO SCH (21:47)
[2018-01-21] MEDS: diphenhydrAMINE 50 MG CAP PO SCH (21:47)
[2018-01-21] MEDS: HYDROcodone/Acetaminophen 7.5/325 mg Tablet PO PRN (22:00)
[2018-01-22 05:08] LABS: Hemoglobin 10.3 g/dL (14.0-18.0); Platelet Count 456 thou/uL (130-400)
[2018-01-22 05:32] LABS: Anion Gap 14 mmol/L (10-20); BUN (Urea Nitrogen) 33 mg/dL (8.4-25.7); Calc. Creatinine Clearance 13 mL/min (70-130); Carbon Dioxide 25 mmol/L (23-31); Chloride 96 mmol/L (98-107); Estimated GFR-MDRD 12; Glucose 67 mg/dL (83-110); Sodium 131 mmol/L (136-145)
[2018-01-22] MEDS: Carvedilol 6.25 MG TAB PO SCH (05:58)
--- NOTE | 2018-01-22 07:40 | OP ---
DATE OF PROCEDURE: 01/21/2018 PREOPERATIVE DIAGNOSIS: Ischemic left hand. POSTOPERATIVE DIAGNOSIS: Brachiocephalic fistula. PROCEDURES: 1. Ultrasound guided access. 2. Arch aortogram. 3. Left subclavian angiogram. 4. Left axillary artery angiogram. 5. Left brachial artery angiogram. SURGEON: Harris Burt M.D. ANESTHESIA: 1% lidocaine for local. TOTAL CONTRAST: 70 mL. TOTAL FLUOROSCOPY TIME: 3.9 minutes. PROCEDURE IN DETAIL: After consent was obtained, the patient was brought to the manager cath lab. Appropria te monitor was placed. Groins were prepped and draped in usual sterile fashion. The left groin was anesthetized with 1% lidocaine using ultrasound guidance. Using a micropuncture needle, the left com mon femoral artery was accessed and a micropuncture wire placed. This was followed with the micropun cture sheath, which was then exchanged for 5-Kiswahili sheath. Angled-glide catheter was passed into th e aortic arch. Hand injected arteriogram was performed illuminating the great vessels. Subclavian a rtery was then accessed and over an angled glide catheter, the catheter was advanced into the subclav shane artery. Hand injected arteriogram was performed, and we were able to guide the catheter and Glid ewire through the subclavian artery into the axillary artery. Hand injected arteriogram was performe d illuminating the axillary and brachial arteries. These showed patent artery with no calcification. The graft origin was noted with a anastomosis and no stenosis within the brachial artery. Ca theter was guided more distally into the brachial artery. The image was centered over the forearm. Brachial artery, hand injected arteriogram was then performed. The brachial artery was patent with t he graft open. There was little to no flow distal to the graft. Graft was then compressed and then 2 more arteriograms were performed. With the graft compressed, there was good flow into the brachial artery distal to the graft. The ulnar and radial arteries were patent, although diseased distally. Sheaths and guidewires were removed. Manual pressure was held for hemostasis. Dr. Jj was prese nt and notified of the results.
--- NOTE | 2018-01-22 07:43 | PRG ---
DATE OF SERVICE: 01/22/2018 Mr. Jean is doing well. He is waiting for his vascular procedure to be performed to his left arm . Otherwise, no other medical complaints are noted other than the fact that he wants to go home. PHYSICAL EXAMINATION: VITAL SIGNS: BP 121/57, temperature 97.6. LUNGS: Clear. HEART: Reveals no murmur. LABORATORY: Hemoglobin to 10.3, hematocrit 32.9. IMPRESSION: 1. Septicemia. 2. End-stage renal disease. 3. Apparent steal syndrome of his left arm, waiting vascular procedure. PLAN: Continue dialysis. Continue vancomycin. Ability to be discharged to be determined by Surgery .
[2018-01-22] MEDS ORDERED: Albuterol Sulfate 2.5 mg/3 ml Neb ONE (09:24)
[2018-01-22] MEDS ORDERED: Ipratropium Bromide 2.5 ml Neb ONE (09:33)
[2018-01-22] MEDS ORDERED: Famotidine/PF 20 mg/2ml Vial ONE (09:49)
[2018-01-22] MEDS ORDERED: Fentanyl 250 MCG/5 ML VIAL ONE (09:49)
[2018-01-22] MEDS ORDERED: Bupivacaine/Epinephrine 0.25% 30 ML VIAL ONE ×2 (09:51→10:27)
[2018-01-22] MEDS ORDERED: Protamine Sulfate 50 MG/5 ML VIAL ONE (09:51)
[2018-01-22] MEDS ORDERED: Lidocaine 2% PF 5 ML VIAL ONE (09:51)
[2018-01-22] MEDS ORDERED: Heparin 5,000 UNITS/ML VIAL ONE (09:51)
[2018-01-22] MEDS ORDERED: Phenylephrine HCL 10 MG/ML VIAL ONE (10:00)
--- NOTE | 2018-01-22 11:54 | PQF ---
CLINICAL DOCUMENTATION IMPROVEMENT CLARIFICATION FORM: ICD-10 Updated PLEASE DO AN ADDENDUM TO THE PROGRESS NOTE WITH ANY DOCUMENTATION UPDATES OR ADDITIONS AND CARRY THROUGH TO DC SUMMARY. THANK YOU. DATE: 01/22/18 ATTN: Dr. Benjamín Burt Please exercise your independent, professional judgment in responding to the clarification form. Clinical indicators are provided on the bottom of this form for your review Please check appropriate box(es): [ ] Sepsis due to dialysis catheter. [ ] Sepsis not due to dialysis catheter. [ ] Sepsis due to: [ ] Other diagnosis [ ] Unable to determine In addition, please specify: Present on Admission (POA): [ ] Yes [ ] No [ ] Unable to determine For continuity of documentation, please document condition throughout progress notes and discharge summary. Thank You. CLINICAL INDICATORS - SIGNS / SYMPTOMS / LABS LAB 01/15: WBC 15.4 LACTIC ACID 2.2 ID 01/20: CHRONIC STAPH EPIDERMIDIS BACTEREMIA LIKELY DUE TO COLONIZATION OF DIALYSIS CATHETER. PN 01/22: SEPTICEMIA APPARENT STEAL SYNDROME OF HIS LEFT ARM, WAITING VASCULAR PROCEDURE. RISKS: H&P 02/15: HEMODIALYSIS CATHETER PLACEMENT IN 03/2017 WITH RECENT REVISION. ESRD ON DIALYSIS, NOW WITH SEVERE AND SYMPTOMATIC ANEMIA. HTN TREATMENT: ID CONSULT PN 01/22: CONTINUE VANCOMYCIN Thank you, Amalia (This form is maintained as a part of the permanent medical record) 2014 [employer]. All Rights Reserved Amalia Barnhart RN, BSN [email or web address] Office: [phone] [facility] HEALTH NETWORKGracie
[2018-01-22] MEDS ORDERED: Promethazine HCl 25 MG/ML VIAL IM PRN (11:57)
[2018-01-22] MEDS ORDERED: Promethazine HCl 25 MG/ML VIAL SLOW IVP PRN (11:57)
[2018-01-22] MEDS ORDERED: Meperidine HCl/PF 25 MG/ML VIAL SLOW IVP PRN (11:57)
[2018-01-22] MEDS ORDERED: HYDROmorphone 2 MG/ML VIAL SLOW IVP PRN (11:57)
[2018-01-22] MEDS ORDERED: Bacitracin Zinc Ointment 30 gm TUBE ONE (12:35)
[2018-01-22] MEDS ORDERED: Acetaminophen 500 MG TAB PO PRN (13:05)
[2018-01-22] MEDS ORDERED: traMADol HCl 50 MG TAB PO PRN ×2 (13:05)
[2018-01-22] MEDS ORDERED: Fentanyl 100 MCG/2 ML VIAL ONE (13:15)
--- NOTE | 2018-01-22 13:20 | OP ---
DATE OF PROCEDURE: 01/22/2018 PREOPERATIVE DIAGNOSES: End-stage renal disease, left upper arm dialysis tapered graft, brachial art ihsan axillary vein with WALTER, dialysis access steal syndrome with ischemic left hand. POSTOPERATIVE DIAGNOSES: End-stage renal disease, left upper arm dialysis tapered graft, brachial art ihsan axillary vein with WALTER, dialysis access steal syndrome with ischemic left hand. PROCEDURE: DRIL procedure (distal revascularization interval ligation) saphenous vein from left angelia h used. SURGEON: Dr. Benjamín Jj INDICATION: The patient had a dialysis tapered graft placed left upper arm due to venous insufficien cy. This graft was placed 3-1/2 to 4 weeks ago. It is ready to access. The patient presented this hospitalization with bacteremia, received vancomycin. During the hospitalization, he was noted to lezama ve complaints related to ischemia left hand undergoing the above procedure after Dr. Harris Burt pe rformed an arteriogram documenting the steal and patent radial and ulnar runoff with arteriosclerotic disease, nonocclusive. ESTIMATED BLOOD LOSS: 50 mL. BLOOD TRANSFUSED: None. PROCEDURE IN DETAIL: The patient was taken to the operating room where under general anesthesia, lef t upper extremity, and left thigh and groin were prepared with ChloraPrep, draped in routine fashion. Local anesthetic infiltrated in the operative sites. Incision was made over the brachial artery ju st above the arterial anastomosis to the brachial artery in the distal upper arm. Incision made over the brachial artery near the antecubital fossa just distal to the graft artery anastomosis, brachial artery dissected free and exposed, controlled over both areas. An incision was made in the left thi gh, carried down skin and subcutaneous tissue. Saphenous vein harvested appropriately for ligating t he femoral vein stump with saphenous vein stump with a 2-0 silk stick tie and distal end of the vein triply clipped with medium clips. Vein excised, flushed with heparinized saline solution, spatulated , reversed and groin harvest incision closed by approximating with 3-0 Monocryl subcutaneous tissue, skin with subdermal 4-0 Monocryl and DermaGlue applied. Reverse vein tunneled between the two incisions left upper arm and the patient was given 6000 units o f heparin intravenously. After adequate circulation time, the brachial artery proximally than distal ly was clamped proximally and distally and the vein had been tunneled, flushed and anastomosis create d on each end and after appropriate tailoring to length, using continuous suture of 6-0 Prolene end v ein to side artery at each end. Once anastomosis completed, the brachial artery had been ligated bet ween the distal saphenous vein graft anastomosis and the arterial inflow for the interval ligation us ing 2-0 silk. There was excellent Doppler signal in the wrist and pink fingers with good capillary r efill at the end of the procedure. Hemostasis noted. Patient given 25 mg of protamine intravenously . Hemostasis obtained with 6-0 Prolene. Surgicel used. Subcutaneous tissues approximated with 3-0 Monocryl, skin with subdermal 4-0 Monocryl and DermaGlue applied.
[2018-01-22] MEDS ORDERED: Lidocaine 1% PF 5 ML VIAL ONE (13:57)
[2018-01-22] MEDS ORDERED: Heparin 10,000 UNITS/ 10 ML VIAL ONE (13:57)
[2018-01-22] MEDS ORDERED: Glycopyrrolate 0.2 MG/ML 5 ML SYRINGE ONE (13:57)
[2018-01-22] MEDS ORDERED: ePHEDrine/0.9% NaCl/PF SYRINGE 50 mg/10 ml ONE (13:57)
[2018-01-22] MEDS ORDERED: PROPOFOL 200 MG/20 ML VIAL ONE (13:57)
[2018-01-22] MEDS ORDERED: Ondansetron PF 4 MG/2 ML Vial ONE (13:57)
[2018-01-22 14:18] VITALS: BP 130/60; TEMP 98.7
[2018-01-22 15:12] LABS: Vancomycin, Random 12.7 ug/mL (See Comment)
[2018-01-22] MEDS: HYDROcodone/Acetaminophen 7.5/325 mg Tablet PO PRN (15:21)
[2018-01-22] MEDS ORDERED: Vancomycin HCl 1 GM in Premix Bag 1 BAG IVPB SCH (16:30)
[2018-01-22] MEDS ORDERED: Vancomycin HCl 1.25 GM in Sodium Chloride 0.9% 250 ML 250 ML IVPB SCH (16:30)
[2018-01-22] MEDS ORDERED: Vancomycin HCl 1.5 GM in Sodium Chloride 0.9% 250 ML 300 ML IVPB SCH (16:30)
[2018-01-22] MEDS ORDERED: Vancomycin HCl 750 MG in Sodium Chloride 0.9% 250 ML 250 ML IVPB SCH (16:30)
[2018-01-22] MEDS ORDERED: HOLD VANCOMYCIN FOR LEVEL >20 FS SCH (16:30)
--- NOTE | 2018-01-22 17:19 | PRG ---
DATE OF SERVICE: 01/22/2018 SUBJECTIVE: Patient was seen and examined at bedside and overnight events noted. Patient denies any shortness of breath or chest pain or palpitation. No history of nausea or vomiting or diarrhea or f ever or chills or cramps. OBJECTIVE: GENERAL: This is an elderly male in no apparent distress. VITAL SIGNS: Temperature 97, pulse 64, respirations 16, blood pressure 130/60. HEENT: Atraumatic, normocephalic. Oral mucosa is moist. NECK: Supple. CARDIOVASCULAR: S1, S2 heard. Rate and rhythm regular. RESPIRATORY: Clear to auscultation. GASTROINTESTINAL: Abdomen is soft. MUSCULOSKELETAL: No tenderness. No edema. DERMATOLOGIC: No skin rash. NEUROLOGIC: Alert and awake and oriented x3. No focal neurologic deficits. Moving all the extremiti es. PSYCHIATRIC: Mood and affect normal. LABORATORY DATA: Potassium is 4.0, BUN 33, creatinine is 4.7. ASSESSMENT AND PLAN: 1. End-stage renal disease. We will continue on hemodialysis as tolerated. 2. Hypertension. 3. Edema. 4. Anemia, stable. 5. We will continue on dialysis as tolerated.
--- NOTE | 2018-01-22 21:00 | OP ---
DATE OF PROCEDURE: 01/22/2018 PREOPERATIVE DIAGNOSES: Line bacteremia, functioning left upper arm dialysis graft, status post ____ _ procedure today. PROCEDURE: Removal of right IJ cuffed tunneled hemodialysis catheter. Note, cuff was not adherent. SURGEON: Dr. Benjamín Jj ANESTHESIA: None. PROCEDURE IN DETAIL: The patient was at bedside in the dialysis unit. The right IJ cuffed tunneled hemodialysis catheter was removed. Pressure held to hemostatic. Patient tolerated the procedure karo cunningham
--- NOTE | 2018-01-25 11:34 | DIS ---
DATE OF ADMISSION: 01/15/2018 DATE OF DISCHARGE: 01/22/2018 DISCHARGE DIAGNOSES: 1. Symptomatic anemia. 2. End-stage renal disease requiring dialysis. 3. Septicemia with catheter dialysis line infection prior to hospitalization. 4. Malfunctioning vascular graft of the left arm. ADMITTING PHYSICIAN: Dr. Benjamín Burt CONSULTS: Dr. Estrada, Dr. Barron and Dr. Jj. HOSPITAL COURSE: The patient is an 82-year-old male who was admitted due to symptomatic anemia. He has been on dialysis and was found to have a hemoglobin of 5.1 and 16.8. He was subsequently admitte d to the hospital. He had a chest x-ray showing some cardiomegaly, but no overt congestive heart carmen lure. He was noted to be weak. Blood cultures were done. He was placed on IV antibiotics, Zosyn an d vancomycin as well as Zosyn. His blood cultures were positive for coagulase negative Staphylococcus thought to represent a contami nation of the catheter line. This was treated with vancomycin during dialysis. The patient responde d well. He was doing very well throughout his hospitalization on medications, improving daily. He l ater developed some left arm pain. He underwent vascular studies which did reveal a malfunctioning A V fistula graft, rule out a steal syndrome which did show some cyanosis of the left arm. This was re paired by Dr. Jj without difficulties or problems. The patient was anxious to be discharged with his steady improvement. He continued to do well during his hospitalization. He eventually was foun d to be dischargeable on 01/22/2018 after repair of his vascular graft and withdrawal of his dialysis catheter. DISCHARGE MEDICATIONS: Tramadol 100 mg every 12 hours p.r.n. pain. Other medications included panto prazole 40 mg daily, Eliquis 2.5 mg b.i.d., hydrocodone as needed for pain 7.5/325, tamsulosin 0.4 mg daily, prednisone 10 mg daily. FOLLOWUP: He will be seen back in follow up with daily dialysis by Dr. Estrada. He will follow up w jace mueller in approximately 4 weeks.
== END 2018-01-22 19:45 | disposition home health service (06) | DRG 252 ==
LOC: ERS 10:40 → 2SW 15:25 → OBSVTOIN 01-16 21:32 → 2NO 01-17 15:34
PROVIDERS: ADMIT Family Medicine; ATTEND Family Medicine
PROC: 30233N1 Transfusion of Nonautologous Red Blood Cells into Peripheral Vein, Percutaneous Approach (ICD-10-PCS; principal; 2018-01-16)
PROC: 5A1D70Z Performance of Urinary Filtration, Intermittent, Less than 6 Hours Per Day (ICD-10-PCS; 2018-01-16)
PROC: B31Q1ZZ Fluoroscopy of Cervico-Cerebral Arch using Low Osmolar Contrast (ICD-10-PCS; 2018-01-21)
PROC: B31J1ZZ Fluoroscopy of Left Upper Extremity Arteries using Low Osmolar Contrast (ICD-10-PCS; 2018-01-21)
PROC: 031809D Bypass Left Brachial Artery to Upper Arm Vein with Autologous Venous Tissue, Open Approach (ICD-10-PCS; 2018-01-22)
PROC: 06BQ0ZZ Excision of Left Saphenous Vein, Open Approach (ICD-10-PCS; 2018-01-22)
PROC: 03L80ZZ Occlusion of Left Brachial Artery, Open Approach (ICD-10-PCS; 2018-01-22)
PROC: 0JPTXXZ Removal of Tunneled Vascular Access Device from Trunk Subcutaneous Tissue and Fascia, External Approach (ICD-10-PCS; 2018-01-22)
DX: T82.7XXA Infection and inflammatory reaction due to other cardiac and vascular devices, implants and grafts, initial encounter (principal); A41.1 Sepsis due to other specified staphylococcus; N18.6 End stage renal disease; I12.0 Hypertensive chronic kidney disease with stage 5 chronic kidney disease or end stage renal disease; N39.0 Urinary tract infection, site not specified; I42.8 Other cardiomyopathies; T82.898A Other specified complication of vascular prosthetic devices, implants and grafts, initial encounter; D63.1 Anemia in chronic kidney disease; Z99.2 Dependence on renal dialysis; N40.0 Benign prostatic hyperplasia without lower urinary tract symptoms; I48.91 Unspecified atrial fibrillation; I69.398 Other sequelae of cerebral infarction; H54.62 Unqualified visual loss, left eye, normal vision right eye; K21.9 Gastro-esophageal reflux disease without esophagitis; F17.210 Nicotine dependence, cigarettes, uncomplicated; Z79.01 Long term (current) use of anticoagulants; Y83.2 Surgical operation with anastomosis, bypass or graft as the cause of abnormal reaction of the patient, or of later complication, without mention of misadventure at the time of the procedure
CPT/HCPCS: 36415; 36430; 71045; 75710; 76942; 80048; 80053; 80202; 81003; 81015; 82550; 82553; 82565; 83605; 83735; 84100; 84484; 85014; 85018; 85025; 85049; 85610; 85730; 86850; 86900; 86901; 87040; 87149; 90471; 90662; 90670; 90935; 93005; 94640; C1769; C1887; C9113; G0008; G0009; G0257; J1644; J2001; J2370; J2405; J2704; J2720; J3010; J3370; J3490; J7050; J7506; J7611; J7620; J7644; P9016; Q4081; S0028

== ENCOUNTER 2018-03-12 11:25 | Emergency (ER) | payer MEDICARE ==
[2018-03-12 12:09] LABS: #Eosinphils 0.1 thou/uL (0.0-0.7); #Lymphocytes 0.9 thou/uL (1.20-3.40); #Monocytes 0.3 thou/uL (0.11-0.59); #Neutrophils 8.3 thou/uL (1.40-6.50); %Basophils 0.4 % (0.0-1.0); %Eosinophils 0.8 % (0.0-10.0); %Lymphocytes 9.2 % (21.0-51.0); %Monocytes 3.1 % (0.0-10.0); %Neutrophils 86.6 % (42.0-75.0); Hemoglobin 7.8 g/dL (14.0-18.0); Mean Corpuscular HGB CONC 31.2 g/dL (32.0-36.0); Mean Corpuscular Hemoglobin 31.3 pg (27.0-31.0); Mean Platelet Volume 6.5 fL (7.4-10.4); Platelet Count 485 thou/uL (130-400); RBC Distribution Width 18.7 % (11.5-14.5); Red Blood Cell (RBC) Count 2.49 mill/uL (4.70-6.10); White Blood Cell (WBC) Count 9.6 thou/uL (4.8-10.8)
--- NOTE | 2018-03-12 12:33 | RAD ---
RADIOGRAPH CHEST 1 VIEW: DATE: 03/12/2018. TIME: 11:46 a.m. HISTORY: An 82-year-old male with cough. FINDINGS: The thoracic aorta is tortuous and ectatic. There is no evidence of air space density, pneumothorax, or pulmonary edema. The lateral costophrenic angles are sharp. IMPRESSION: 1) No acute pulmonary findings. 2) Ectasia of thoracic aorta. leigh ann [] POS: SHAD
[2018-03-12 12:34] LABS: ALT (SGPT) 10 U/L (8-55); AST (SGOT) 23 U/L (5-34); Albumin 3.3 g/dL (3.4-4.8); Alkaline Phosphatase 79 U/L (40-150); Anion Gap 21 mmol/L (10-20); BUN (Urea Nitrogen) 26 mg/dL (8.4-25.7); Bilirubin, Total 0.3 mg/dL (0.2-1.2); CK (CPK) 28 U/L (30-200); Calc. Creatinine Clearance 0 mL/min (70-130); Calcium 8.3 mg/dL (7.8-10.44); Carbon Dioxide 28 mmol/L (23-31); Chloride 92 mmol/L (98-107); Estimated GFR-MDRD 10; Globulin 2.8 g/dL (2.4-3.5); Glucose 85 mg/dL (83-110); Lipase 28 U/L (8-78); Potassium 3.9 mmol/L (3.5-5.1); Protein, Total 6.1 g/dL (5.8-8.1); Sodium 137 mmol/L (136-145)
[2018-03-12] MEDS ORDERED: Bisacodyl 10 MG SUPP ONE (19:49)
[2018-03-12] MEDS ORDERED: Acetaminophen 500 MG TAB ONE (19:50)
== END 2018-03-12 20:51 | disposition home or self-care (01) ==
LOC: ERS 11:25
DX: K59.00 Constipation, unspecified (principal); D64.9 Anemia, unspecified; R50.84 Febrile nonhemolytic transfusion reaction; N40.0 Benign prostatic hyperplasia without lower urinary tract symptoms; F17.220 Nicotine dependence, chewing tobacco, uncomplicated; I10 Essential (primary) hypertension; Z79.891 Long term (current) use of opiate analgesic; Z79.899 Other long term (current) drug therapy; Z86.73 Personal history of transient ischemic attack (TIA), and cerebral infarction without residual deficits
CPT/HCPCS: 36430; 71045; 80053; 82274; 82550; 83690; 83880; 85025; 86850; 86900; 86901; 86920; 93005; P9016

== ENCOUNTER 2018-03-19 02:17 | Inpatient (IN) | payer MEDICARE ==
[2018-03-19] MEDS ORDERED: Norepinephrine 8 MG/0.9% NS 250 ML ONE (02:25)
[2018-03-19] MEDS ORDERED: Midazolam HCl 2 mg/2 ml Vial ONE (02:45)
[2018-03-19 03:05] LABS: INR-International Normal Ratio 1.3; PTT 37.6 SEC (22.9-36.1); Prothrombin Time 16.4 SEC (12.0-14.7)
[2018-03-19 03:06] LABS: Mean Corpuscular HGB CONC 30.7 g/dL (32.0-36.0); Mean Corpuscular Volume 97.9 fL (78.0-98.0); RBC Distribution Width 17.7 % (11.5-14.5); Red Blood Cell (RBC) Count 2.32 mill/uL (4.70-6.10); White Blood Cell (WBC) Count 25.3 thou/uL (4.8-10.8)
[2018-03-19 03:18] LABS: ALT (SGPT) 41 U/L (8-55); AST (SGOT) 63 U/L (5-34); Albumin 2.3 g/dL (3.4-4.8); Alkaline Phosphatase 382 U/L (40-150); Anion Gap 17 mmol/L (10-20); BUN (Urea Nitrogen) 29 mg/dL (8.4-25.7); Bilirubin, Total 0.8 mg/dL (0.2-1.2); Calc. Creatinine Clearance 0 mL/min (70-130); Calcium 7.6 mg/dL (7.8-10.44); Carbon Dioxide 27 mmol/L (23-31); Chloride 99 mmol/L (98-107); Estimated GFR-MDRD 13; Globulin 2.3 g/dL (2.4-3.5); Glucose 84 mg/dL (83-110); Protein, Total 4.6 g/dL (5.8-8.1); Sodium 140 mmol/L (136-145)
[2018-03-19 03:21] LABS: Potassium 2.8 mmol/L (3.5-5.1)
[2018-03-19 03:24] LABS: Band 5 % (5-11); Hypochromia SLIGHT = 6-15 cells (100X) (0-5/hpf); Lymphocytes 3 % (21-51); MDiff Complete? YES; Mean Platelet Volume 9.6 fL (7.4-10.4); Monocytes 4 % (0-10); Neutrophil 88 % (42-75); PLT Morphology Comment Appears Decreased; Platelet Count 86 thou/uL (130-400)
[2018-03-19 03:46] LABS: CKMB 1.3 ng/mL (0-6.6)
[2018-03-19] MEDS ORDERED: methylPREDNISolone Sod Succ/PF 125 MG/2 ML VIAL ONE (05:06)
[2018-03-19 06:43] LABS: Troponin I 0.483 ng/mL (< 0.028)
[2018-03-19 07:15] VITALS: BMI 24.8
[2018-03-19] MEDS ORDERED: Piperacillin/Tazobactam 2.25 GM in Sodium Chloride 0.9% 100 ML IVPB SCH (08:00)
--- NOTE | 2018-03-19 08:29 | CT ---
PRELIMINARY REPORT/[facility]/EMERGENTY AFTER-HOURS PROCEDURE CT Angiography Chest With Contrast EXAM DATE/TIME: 03/19/2018 3:37 AM CLINICAL HISTORY: 82 years old, male; Chest pain; transfer from another facility for sepsis. feeling sick for about 2 d ays reporting bad cough. some dysuria as well. back pain. not sure if he's had a fever. PT on dialysi s and reports he thinks he last went to dialysis on Thursday. TECHNIQUE: Axial computed tomographic angiography images of the chest with intravenous contrast using CT angiogr aphy protocol. MIP reconstructed images were created and reviewed. COMPARISON: No relevant prior studies available. FINDINGS: Tubes, catheters and devices: Tip of right central venous catheter in SVC. Pulmonary arteries: No evidence of pulmonary embolism. Aorta: Normal caliber thoracic aorta without dissection or aneurysm. Lungs: Posterior area of consolidation and/or atelectasis within the posterior right lung base. Pleural space: No pleural fluid collection. No pneumothorax. Heart: Coronary artery and aortic valve annulus calcification. No pericardial effusion. Pancreas: 2.2 x 2.9 cm cyst adjacent to the distal pancreatic tail. Lymph nodes: No pathologically enlarged lymph nodes. Bones/joints: Unremarkable. No acute fracture. Soft tissues: Posterior soft tissue lipoma within the left lower neck / upper left chest region. IMPRESSION: 1. No evidence of pulmonary embolism. 2. Posterior area of consolidation and/or atelectasis within the posterior right lung base. 3. No pleural fluid collection. 4. 2.2 x 2.9 cm cyst adjacent to the distal pancreatic tail. Thank you for allowing us to participate in the care of your patient. Dictated and Authenticated by: Lew Trujillo MD 03/19/2018 5:26 AM Central Time ([place] & [place]) FINAL REPORT CT ARTERIOGRAM CHEST WITH IV CONTRAST AND 3D MIP IMAGING: EXAM PERFORMED ON AN EMERGENCY BASIS 03/19/2018 0339 HOURS HISTORY: Chest pain. Dyspnea. FINDINGS: No CT evidence of pulmonary embolus. Consolidation confirmed at the right posterior lung base. Larg e, cystic lesion noted at the pancreatic tail. I agree with the preliminary report by Dr. Trujillo from [facility]. POS: TPC
--- NOTE | 2018-03-19 08:32 | ULT ---
PRELIMINARY REPORT/[facility]/EMERGENTY AFTER-HOURS PROCEDURE US Abdomen Complete EXAM DATE/TIME: 03/19/2018 4:59 AM CLINICAL HISTORY: 82 years old, male; Abnormal findings; Abnormal lab test; Elevated liver enzymes; Patient HX: Elevate d alk phos, cholangitis TECHNIQUE: Real-time ultrasound of the abdomen with image documentation. COMPARISON: CT Abdomen Pelvis W Con 03/19/2018 3:37 AM FINDINGS: Mild hepatomegaly measuring 18.9 cm. Cholelithiasis, otherwise normal gallbladder. No intrahepatic or extrahepatic biliary dilatation. Normal common bile duct caliber a 3 mm. No hydronephrosis. Right kidney is reduced in size measuring 8.9 cm in length. Right renal cortical cyst measuring 1.9 x 1.4 x 1.5 cm. No ascites. Normal caliber upper IVC. Patent portal vein with hepatopetal flow. Normal pancreatic body and proximal tail, the remainder of the pancreas is never well visualized due to overlying bowel gas. IMPRESSION: 1. Cholelithiasis, otherwise normal gallbladder. 2. No biliary tract dilatation. Thank you for allowing us to participate in the care of your patient. Dictated and Authenticated by: Lew Trujillo MD 03/19/2018 5:51 AM Central Time ([place] & [place]) FINAL REPORT SONOGRAM RIGHT UPPER QUADRANT: Date: 03-19-18 Performed on Emergency Basis at 0500 hours. History: Right upper quadrant pain. FINDINGS: I agree with the preliminary report by Dr. Trujillo from [facility]. Large gallstones confirme d. No evidence of acute biliary obstruction. Common duct is 0.3 cm. Code QA POS: TPC
--- NOTE | 2018-03-19 08:33 | RAD ---
CHEST 1 VIEW: HISTORY: Line placement. COMPARISON: Radiograph of same day. FINDINGS: A subclavian central venous catheter is in place with the tip at the cavoatrial junction. No pneumot horax. IMPRESSION: Uncomplicated placement of central venous catheter. POS: SHAD
--- NOTE | 2018-03-19 09:13 | CT ---
PRELIMINARY REPORT/[facility]/EMERGENTY AFTER-HOURS PROCEDURE CT Abdomen and Pelvis With Contrast EXAM DATE/TIME: 03/19/2018 3:37 AM CLINICAL HISTORY: 82 years old, male; Generalized abdominal pain; transfer from [facility] for sepsis. feeling sick f or about 2 days reporting bad cough. some dysuria as well. back pain. not sure if he's had a fever. O n dialysis and thinks last went to dialysis on Thursday. PT reports his revenue tax specialist is Dr. Estrada TECHNIQUE: Axial computed tomography images of the abdomen and pelvis with intravenous contrast. Coronal reformatted images were created and reviewed. COMPARISON: No relevant prior studies available. FINDINGS: Lower thorax: Posterior area of consolidation and/or atelectasis within the posterior right lung base . ABDOMEN: Liver: Normal. No mass. Gallbladder and bile ducts: Normal. No calcified stones. No ductal dilation. Pancreas: 2.2 x 2.9 cm cyst adjacent to the distal pancreatic tail. Spleen: Normal. No splenomegaly. Adrenals: Normal. No mass. Kidneys and ureters: Renal vascular calcifications. No hydronephrosis. Anterior right renal cortical cyst. Stomach and bowel: A few scattered colon diverticuli without evidence of diverticulitis. Appendix: Normal appendix. PELVIS: Bladder: Decompressed urinary bladder. No calcified bladder stones. Reproductive: Prominent prostate gland measuring 4.5 cm transversely. Prostate gland calcifications. ABDOMEN and PELVIS: Intraperitoneal space: Normal. No free air. No significant fluid collection. Bones/joints: Spinal degenerative changes. Mild dextroscoliosis. Soft tissues: Soft tissue lipoma within the posterolateral lower left pelvic / posterior left hip reg ion. Vasculature: Areas of ectasia of the infrarenal abdominal aorta. Extensive arterial calcification. 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 Lymph nodes: Normal. No enlarged lymph nodes. IMPRESSION: 1. Posterior area of consolidation and/or atelectasis within the posterior right lung base. 2. 2.2 x 2.9 cm cyst adjacent to the distal pancreatic tail. 3. A few scattered colon diverticuli without evidence of diverticulitis. 4. Otherwise, no acute intra-abdominal or pelvic process. Thank you for allowing us to participate in the care of your patient. Dictated and Authenticated by: Lew Trujillo MD 03/19/2018 5:32 AM Central Time ([place] & [place]) FINAL REPORT ABDOMEN AND PELVIC CT SCAN WITH IV CONTRAST: EMERGENCY AFTER HOURS EXAM TIME: 3:40 a.m. DATE: 03/19/2018. COMPARISON: 08/07/2016. FINDINGS: Right lower lobe pleural-based parenchymal changes. Evidence for pneumonia and/or atelectasis. A 2. 2 x 2.9 cm cyst in the tail of the pancreas which has increased in size from prior study. There are a few scattered pancreatic calcifications, evidence for chronic pancreatitis. Somewhat heterogeneous liver attenuation, possibly some fatty change. Small stable right upper pole renal cyst. Bilateral renal vascular calcifications. 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 Stable bilateral gluteus minimus intramuscular lipomas as well as a large somewhat com plicated-appearing lipoma in the upper posterior left thigh posterior to the left femur containing so me minimal septations and some calcific or ossific changes measuring approximately 4.7 x 7.5 cm in AP and transverse dimensions incompletely visualized in the craniocaudal dimension but measuring at ed[address]o st 17 cm but showing no significant change from the prior study. POS: SHAD
[2018-03-19] MEDS ORDERED: Acetaminophen 650 MG Suppository PR PRN (09:17)
[2018-03-19] MEDS ORDERED: Ondansetron ODT 4 MG TAB PO PRN (09:17)
[2018-03-19] MEDS ORDERED: Senokot S 8.6-50 MG TAB PO PRN (09:17)
[2018-03-19] MEDS ORDERED: Ondansetron PF 4 MG/2 ML Vial IVP PRN (09:17)
[2018-03-19] MEDS ORDERED: PROVENTIL INHALER 6.7 G (200 INHALATIONS) INH PRN (09:17)
[2018-03-19] MEDS ORDERED: Potassium Chloride 20 MEQ TAB PO SCH (10:00)
--- NOTE | 2018-03-19 10:44 | CON ---
DATE OF CONSULTATION: 03/19/2018 SERVICE: Pulmonary Medicine. REASON FOR CONSULT: ICU patient. HISTORY OF PRESENT ILLNESS: The patient is an 82-year-old white male with past medical history significant for vasculitis. This was the cause of his end-stage renal disease. Typically, when he has dialysis, he will go home and sleep for a full 24 hours before he feels well enough to get out of bed. From his perspective, nothing really changed, but ultimately, when he started to come around, he was in the emergency department. He really does not remember what the circumstances were surrounding his presentation. As such, I really cannot get any information from him. He denies any current fevers, chills, nausea, or vomiting. He denies any chest discomfort. He is not having any cough or sputum production. That being said, to emergency personnel, he told them that he has had a bad cough for couple of days. PAST MEDICAL HISTORY: 1. End-stage renal disease. 2. Vasculitis (MPO positive). 3. Chronic systolic heart failure. 4. Atrial fibrillation, paroxysmal. 5. Sciatica. PAST SURGICAL HISTORY: 1. Left arm graft. 2. Hemodialysis catheter placement and subsequent removal. SOCIAL HISTORY: Negative for alcohol, tobacco, or illicit drug use. He is quite active in farming and ranching. He has no exposure to chemicals, dust, asbestos , or tuberculosis. FAMILY HISTORY: Noncontributory. ALLERGIES: NO KNOWN DRUG ALLERGIES. MEDICATIONS: List of the patient's inpatient medications was reviewed. No specific updates were made at this time. REVIEW OF SYSTEMS: General; head, ears, eyes, nose, and throat; cardiovascular; respiratory; GI; ; musculoskeletal; neurologic; and skin are negative, except as mentioned in the HPI. PHYSICAL EXAMINATION: VITAL SIGNS: Afebrile currently, pulse 90, blood pressure 91/46, respirations 22, and saturation 100% on room air. GENERAL: The patient is awake and alert, in no apparent distress. LUNGS: Excellent air entry. There is no prolonged expiratory phase or wheezing appreciated. HEART: Normal rate, regular. ABDOMEN: Soft, nontender, and nondistended. Bowel sounds are positive. MUSCULOSKELETAL: No cyanosis or clubbing. There is no pitting in bilateral lower extremities. NEUROLOGIC: Grossly nonfocal. LABORATORY DATA: WBC 25.3, hemoglobin 7.0, and platelets 86,000. Neutrophil count is 88% on top of 5% bands. The band count has dropped precipitously. INR 1.3. Potassium 2.8, creatinine 4.28. Basic metabolic profile is otherwise unremarkable. Cardiac enzymes are up-trending to 0.50. Lactate 1.8. Urinalysis is positive for significant pyuria. Influenza A and B are unremarkable. IMAGING DATA: 1. CTA of the chest demonstrates no evidence of a pulmonary embolism. There is a very small amount of atelectasis in the right base. There is nothing that looks like an overt consolidating lesion. 2. His chest x-ray demonstrates interval placement of a right subclavian central venous catheter. 3. CT of the abdomen and pelvis demonstrates a cystic structure in the pancreatic tail. Few scattered diverticula are present without any inflammatory changes. No acute intraabdominal processes are identified, otherwise. 4. Abdominal ultrasound demonstrates no acute intraabdominal process. Cholelithiasis is noted, but the common bile duct has a normal caliber. ASSESSMENT: 1. Septic shock. 2. Healthcare-associated pneumonia, unlikely. 3. Dehydration. 4. 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 DISCUSSION AND PLAN: Potassium will be replaced as 2.8. It is still a little low for an end-stage renal disease patient. We will continue the pressors and empiric antibiotics. We can limit our antibiotics to a duration of 5 to 7 days if we do not have anything to treat. Stress dose of steroids will be initiated as he is on daily prednisone. He is not currently taking any disease-modifying therapy for his ANCA-associated vasculitis. Pulmonary/Critical Care will continue to follow while he remains in this location. 70 minutes have been devoted to this patient in various activities. I personally reviewed all imaging studies and laboratory data noted within this document. For fifty percent of this time, I was interacting with the patient at the bedside or coordinating care with the care team. For the remainder of the time I was immediately available to the patient in the hospital unit. Job ID: [id number] MTDD
[2018-03-19] MEDS: Norepinephrine 8 MG/0.9% NS 250 ML IVPB SCH ×2 (12:16→23:18)
[2018-03-19] MEDS: methylPREDNISolone Sod Succ/PF 125 MG/2 ML VIAL IVP SCH ×3 (12:22→22:43)
[2018-03-19] MEDS: Piperacillin/Tazobactam 2.25 GM in Sodium Chloride 0.9% 100 ML IVPB SCH ×3 (12:23→22:44)
[2018-03-19] MEDS: Acetaminophen 325 MG TAB PO PRN (12:25)
[2018-03-19] MEDS ORDERED: ISOVUE-370 76%-LOCM 1 ML ONE (13:27)
[2018-03-19] MEDS ORDERED: Guaifenesin DM 100-10/5 ML UDCUP PO PRN (14:23)
[2018-03-19] MEDS ORDERED: Sodium Chloride 0.9% 500 ML IV SCH (14:30)
[2018-03-19] MEDS: traMADol HCl 50 MG TAB PO PRN ×2 (14:33→20:41)
[2018-03-19 15:48] LABS: Anion Gap 18 mmol/L (10-20); BUN (Urea Nitrogen) 38 mg/dL (8.4-25.7); Calc. Creatinine Clearance 12 mL/min (70-130); Calcium 7.6 mg/dL (7.8-10.44); Carbon Dioxide 23 mmol/L (23-31); Chloride 98 mmol/L (98-107); Estimated GFR-MDRD 12; Glucose 214 mg/dL (83-110); Magnesium 1.9 mg/dL (1.6-2.6); Sodium 135 mmol/L (136-145)
[2018-03-19] MEDS: HYDROcodone/Acetaminophen 7.5/325 mg Tablet PO PRN ×2 (17:26→22:51)
--- NOTE | 2018-03-19 21:45 | CON ---
DATE OF CONSULTATION: TYPE OF CONSULTATION: Nephrology REASON FOR CONSULTATION: End-stage renal disease, on maintenance hemodialysis. HISTORY OF PRESENT ILLNESS: This is an 82-year-old gentleman who presented to the hospital after his blood cultures grew Gram-negative rods in 2 bottles. The patient denies fever, chills, or weight loss and can give no history as he is disoriented. PAST MEDICAL HISTORY: History of end-stage renal disease, vasculitis, MPO positive, congestive heart failure, atrial fibrillation. He had a left arm tunneled dialysis catheter, multiple. SOCIAL HISTORY: No alcohol or drug use. FAMILY HISTORY: Negative for ESRD. ALLERGIES: REVIEWED. MEDICATIONS: Home medication list reviewed. REVIEW OF SYSTEMS: 15-point review of system was performed, negative except what is noted above. NECK: No swelling or lumps. NOSE: No epistaxis or discharge. EYES: No diplopia or pain. MUSCULOSKELETAL: No joint pain. NEUROPSYCHIATIC SYSTEMS: No suicidal ideation. No ideation. SKIN: Denies any rash or ulcer. CONSTITUTIONAL: No fever or chills. OBJECTIVE: See above. Awake, alert, in no acute distress. GENERAL APPEARANCE AND MENTAL STATUS: Fair. HEAD/NECK: Normocephalic. Atraumatic. EYES: EOMI. No deformity. EARS: Clear. No ulcers. NOSE: Intact. No lesions. MOUTH: Clear. No discharge. THROAT: Clear. No exudate. LUNGS: Clear. No crackles. CARDIAC: S1, S2. No rub. ABDOMEN: Benign. Bowel sounds positive. GENITALIA/RECTUM: Conrad absent. BACK/EXTREMITIES: Edema 0+. NEUROLOGICAL: Alert and motor intact. LABORATORY DATA: Labs show WBC count 25, hemoglobin 7. Potassium 2.8, creatinine 4.2. ASSESSMENT AND PLAN: 1. Stage 6 chronic kidney disease. No indication for dialysis. 2. Gram-negative rods. The patient is on broad-spectrum antibiotic coverage. We will consult Infectious Disease to see if line change is indicated. 3. Anemia, we would recommend transfusion with dialysis. 4. Hypokalemia. Agree with potassium replacement. We will recheck potassium. Job ID: [id number]
--- NOTE | 2018-03-20 01:51 | HP ---
PRIMARY CARE PHYSICIAN: Benjamín Burt MD CHIEF COMPLAINT: Fever and altered mental status. HISTORY OF PRESENT ILLNESS: This is an 82-year-old white male with end-stage renal disease, on dialysis, who was noted to have some respiratory distress and altered mental status at home along with fever. EMS was called and noted to have a temperature of 101. He was being sent to [facility]; however, they noted that he had persistent low O2 sats even on CPAP and low blood pressure and so they diverted to [place]. There, he was found to be in septic shock. The patient was given a liter of fluid along with vancomycin and Zosyn. He was given Tylenol for the fever. The patient was noted to be crackly yesterday on IV fluids, so no further fluids were given. He was then started on Levophed to maintain his blood pressures. Lactic acid at that time was 2.5. He is actually a patient of Dr. Estrada'kaycee and there was apparently some notification that the patient needed to go to the hospital yesterday and called by Dr. Estrada, who said he had bacteria growing in his blood and needed to come in for antibiotics. Unaware of any further blood cultures were drawn at [facility] or not. The patient has an improved mental status and he was no longer requiring BiPAP or even oxygen, and he was transferred to [facility] for admission. The patient is not able to give any further history. He is oriented, and states that he thinks he is having fever and some cough along with some intermittent colored sputum, but no other specific complaints. He is also not able to give a timetable for how long he has been sick. PAST MEDICAL HISTORY: 1. End-stage renal disease, on dialysis. 2. History of CVA, affecting the left side. 3. Hypertension. 4. COPD. 5. Gastroesophageal reflux disease. 6. Benign prostatic hyperplasia. 7. Left eye blindness. 8. Impaired mobility due to arthritis. 9. 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 PAST SURGICAL HISTORY: 1. Hemodialysis catheter placement in 2018 with revision. 2. Tonsillectomy. SOCIAL HISTORY: The patient lives in 2-level apartment with son. He has not drunk. He quit smoking about a year or 2 ago. ALLERGIES: NO KNOWN DRUG ALLERGIES. MEDICATIONS: The patient is not familiar with his medication list, looking at his previous list in the hospital, he is on; 1. Eliquis 2.5 mg twice a day for unknown reason. 2. Carvedilol 12.5 mg twice a day. 3. Protonix 40 mg daily. 4. Flomax 0.4 mg twice a day. 5. Prednisone 10 mg daily. 6. Tramadol as needed. 7. Aspirin 81 mg daily. 8. Ventolin inhaler as needed. 9. Hydrocodone-acetaminophen as needed. 10. Tylenol PM at night. 11. Tylenol as needed. REVIEW OF SYSTEMS: CONSTITUTIONAL: Fevers as per HPI for uncertain length of time. EYES: He has chronic left eye blindness. No other vision changes. ENT: He has a chronic runny nose and congestion that is unchanged from baseline. No sore throat. CARDIOVASCULAR: No chest pain or palpitations. PULMONARY: The patient has chronic cough, production of sputum and seems to have gotten a lot worse recently, undetermined length of time, and sputum, he thinks may be green sometimes. GASTROINTESTINAL: No abdominal pain. He has some nausea from cough, but no vomiting. He did have some constipation in a week or so ago, but it has resolved since then. GENITOURINARY: He produces very little urine and sometimes early in the morning without any significant pain or blood. MUSCULOSKELETAL: He has chronic sciatic back pain and chronic neck pain. No acute changes. SKIN: He has multiple bruises from his aspirin and Eliquis. No other skin lesions. NEUROLOGIC: No numbness, tingling, or focal weakness. PHYSICAL EXAMINATION: VITAL SIGNS: Blood pressure 91/46 on 15 mcg of Levophed, pulse 90, respirations 22, and O2 sat 100% on room air. GENERAL: This is a well-developed, well-nourished white male who appears uncomfortable from his back pain and just feeling bad overall, but in no respiratory distress. HEENT: Pupils are equal, round, and reactive to light. Oropharynx clear without lesions, erythema, or exudates. Does have very dry mucous membranes. NECK: Supple. No lymphadenopathy. No thyroid nodules or enlargement. No JVD. HEART: Regular rate and rhythm. No murmurs, rubs, or gallops. LUNGS: He has some a lot of upper respiratory congestive sounds. I do not hear any crackles in the bases of lungs at this time ABDOMEN: Soft, mild, he actually has some significant tenderness to palpation with a little bit of guarding in the left lower quadrant. There was some right upper quadrant pain in the ER notes, but I do not detect at this time. He has normoactive bowel sounds. SKIN: Patient has an ulcer in left groin, likely from old line, looks infected EXTREMITIES: No clubbing, cyanosis, or edema. PSYCHIATRIC: He is alert and oriented x3, but a little bit confused, and misspeaks a lot, and has trouble remembering exactly what has happened recently. LABORATORY DATA: White blood cell count 18 in [place]; recheck later in the morning was 25. Hemoglobin 7.0, which is down from I believe in the December or January when he had a transfusion done. Platelet counts 86. INR is 1.3. Complete metabolic panel was notable for a potassium of 2.8, this has not been replaced due to his end-stage renal disease, BUN was 29, creatinine was 4.28, calcium 7.6, AST is 63, and alkaline phosphatase 382. He had an albumin of 2.3. The remainder was within normal limits. He had lactic acid initially 2.5, I am sending a recheck right now. Troponins were initially 0.32 and then 0.48, recheck pending. CK-MB normal. Urinalysis show large leukocytes esterase, greater than 50 to too too numerous to count white blood cells, 1+ bacteria. No culture has been sent as far as I can see. DIAGNOSTIC DATA: Chest x-ray: I did review the chest x-ray done in the emergency room along with a radiologist report. It does show some increased parenchymal changes, especially in the bases, some possible early edema. CTA of the chest done in [place], does show no evidence of pulmonary embolism. He did have some posterior consolidation or atelectasis within the posterior right lung base. No pleural fluid collection. CT of the abdomen and pelvis done here, showed posterior consolidation or atelectasis in the right posterior lung base again, he does have 2.2 x 2.9 cm cyst, adjacent to the distal pancreatic tail, few scattered colonic diverticula without evidence of diverticulitis. No other acute process. Abdominal ultrasound done in the emergency room, showed mild hepatomegaly. Did have some large gallstones, but no evidence of acute biliary obstruction and normal common bile duct as well as no other significant abnormalities and the pancreatic cyst was not visualized on the ultrasound due to bowel gas. ASSESSMENT: 1. Septic shock. The patient is still requiring Levophed. Given his good oxygenation and clear lungs on exam, at this time, I am going to give him a little more fluids to see if we can get his Levophed wean down some. He has already received broad spectrum antibiotics. We will continue vancomycin with dialysis and continue with Zosyn IV. The source of the sepsis is likely pneumonia versus diverticulosis, not visualized well on CT, Given his left lower quadrant tenderness and guarding, or from infected ulcer in left groin. We will have to obtain blood culture results from Dr. Estrada to find out what bacteria we are dealing with. 2. Likely, pneumonia. 3. Possible diverticulitis. 4. End-stage renal disease, on dialysis. We will consult Dr. Estrada for management. 5. Hypokalemia. We will need to replace as per whatever Dr. Estrada's recommendations are. 6. Anemia. The patient has a transfusion ordered to help with his volume. After that, we can give him the IV fluids if he is still requiring Levophed. The patient is on Eliquis for undetermined reason; at this time, I will hold it due to his anemia and shock. It likely will be restarted if we can determine the diagnosis that is on for. We will continue an aspirin at this time. 7. Gastrointestinal prophylaxis. We will continue the patient's Protonix. 8. Code status: I did discuss with the patient. He says he is a full code. His next of kin, son, Giuseppe Jean will be his decision maker should he be incapacitated. Addendum: I spoke with Dr. Danny Rao who is intelligence operations specialist for Dr. Burt and he will take over care in the morning. Job ID: [id number] MTDD
[2018-03-20] MEDS: traMADol HCl 50 MG TAB PO PRN ×3 (03:06→23:57)
[2018-03-20 05:35] LABS: Anion Gap 21 mmol/L (10-20); BUN (Urea Nitrogen) 52 mg/dL (8.4-25.7); Calc. Creatinine Clearance 11 mL/min (70-130); Carbon Dioxide 22 mmol/L (23-31); Chloride 97 mmol/L (98-107); Estimated GFR-MDRD 11; Glucose 172 mg/dL (83-110); Potassium 4.6 mmol/L (3.5-5.1); Sodium 135 mmol/L (136-145)
[2018-03-20] MEDS: HYDROcodone/Acetaminophen 7.5/325 mg Tablet PO PRN (05:39)
[2018-03-20 05:42] LABS: Hemoglobin 8.1 g/dL (14.0-18.0); Mean Corpuscular HGB CONC 31.6 g/dL (32.0-36.0); Mean Corpuscular Hemoglobin 29.8 pg (27.0-31.0); Mean Corpuscular Volume 94.5 fL (78.0-98.0); Mean Platelet Volume 10.9 fL (7.4-10.4); Platelet Count 64 thou/uL (130-400); RBC Distribution Width 18.2 % (11.5-14.5); White Blood Cell (WBC) Count 41.2 thou/uL (4.8-10.8)
[2018-03-20] MEDS: Piperacillin/Tazobactam 2.25 GM in Sodium Chloride 0.9% 100 ML IVPB SCH ×4 (05:42→23:07)
[2018-03-20] MEDS: methylPREDNISolone Sod Succ/PF 125 MG/2 ML VIAL IVP SCH ×2 (05:42→12:32)
[2018-03-20 05:55] LABS: Band 17 % (5-11); Hypochromia MODERATE=16-30 cells (100X) (0-5/hpf); Lymphocytes 1 % (21-51); MDiff Complete? YES; Monocytes 2 % (0-10); Neutrophil 79 % (42-75); Ovalocytes SLIGHT = 2-5 cells (100X) (0-1/hpf); PLT Morphology Comment Appears Decreased; Reactive Lymphocytes 1 % (0-10)
[2018-03-20] MEDS: Aspirin 81 mg Enteric Coated Tablet PO SCH (09:15)
--- NOTE | 2018-03-20 11:25 | PRG ---
DATE OF SERVICE: 03/20/2018 SUBJECTIVE: An 82-year-old gentleman, being seen for end-stage renal disease. The patient denied any nausea, vomiting, or chest pain. OBJECTIVE: CONSTITUTIONAL: On examination, the patient is awake, alert. VITAL SIGNS: Afebrile, pulse 72, breathing is 16, and blood pressure 102/57. GENERAL APPEARANCE AND MENTAL STATUS: Fair. HEAD/NECK: Normocephalic. Atraumatic. EYES: EOMI. No deformity. EARS: Clear. No ulcers. NOSE: Intact. No lesions. MOUTH: Clear. No discharge. THROAT: Clear. No exudate. LUNGS: Clear. No crackles. CARDIAC: S1, S2. No rub. ABDOMEN: Benign. Bowel sounds positive. GENITALIA/RECTUM: Conrad absent. BACK/EXTREMITIES: Edema 0+. NEUROLOGICAL: Alert and motor intact. LABORATORY DATA: Labs show white count is 41,000, hemoglobin 8.1. Potassium 4.6. ASSESSMENT AND PLAN: 1. Chronic kidney disease, stage 6. Plan dialysis. 2. Hypertension, stable. 3. Anemia, stable. We will plan dialysis. Job ID: [id number]
[2018-03-20 13:11] LABS: Hemoglobin 8.9 g/dL (14.0-18.0); Mean Corpuscular HGB CONC 31.6 g/dL (32.0-36.0); Mean Corpuscular Hemoglobin 29.8 pg (27.0-31.0); Mean Corpuscular Volume 94.4 fL (78.0-98.0); Mean Platelet Volume 11.6 fL (7.4-10.4); Platelet Count 72 thou/uL (130-400); Red Blood Cell (RBC) Count 2.97 mill/uL (4.70-6.10); White Blood Cell (WBC) Count 37.1 thou/uL (4.8-10.8)
[2018-03-20 13:28] LABS: Anisocytosis SLIGHT = 6-15 cells (100X) (0-5/hpf); Band 19 % (5-11); Burr Cells SLIGHT = 2-5 cells (100X) (0-1/hpf); Dohle Bodies SLIGHT; Large Platelets SLIGHT; Lymphocytes 2 % (21-51); MDiff Complete? YES; Monocytes 2 % (0-10); Neutrophil 77 % (42-75); Nucleated RBC 1 % (0); Ovalocytes SLIGHT = 2-5 cells (100X) (0-1/hpf); PLT Morphology Comment Appears Decreased; Polychromasia SLIGHT = 2-3 cells (100X) (0-2/hpf); Schistocytes SLIGHT = 2-5 cells (100X) (0-1/hpf); Target Cells SLIGHT = 2-5 cells (100X) (0-1/hpf); Toxic Granulation SLIGHT
[2018-03-20] MEDS ORDERED: Sodium Chloride 0.9% 500 ML IV SCH (13:45)
--- NOTE | 2018-03-20 14:02 | PRG ---
DATE OF SERVICE: 03/20/2018 SERVICE: Pulmonary Medicine. INTERVAL HISTORY: The patient is doing okay from respiratory standpoint. He is out of bed and into a chair today. His Levophed was turned off this morning, but his blood pressure dropped in the 70s. As such, he is back on Levophed at this point. He has not had any urine output in several days. He typically voids at least once and sometimes twice on a daily basis. He denies any current fevers, chills, nausea, or vomiting. Otherwise, there has been no interval change to his condition. PHYSICAL EXAMINATION: VITAL SIGNS: Afebrile. Pulse 72, blood pressure 92/61, respirations 17, and saturation 99% on room air. GENERAL: The patient is awake and alert, in no apparent distress. LUNGS: Decent air entry. There is a slightly prolonged expiratory phase. A little bit of wheezing is present. HEART: Normal rate, regular. ABDOMEN: Soft, nontender, and nondistended. Bowel sounds are positive. MUSCULOSKELETAL: No cyanosis or clubbing. No pitting in the bilateral lower extremities. NEUROLOGIC: Grossly nonfocal. LABORATORY DATA: WBC 37.1, hemoglobin 8.9, and platelets 72,000. Neutrophil count is 77% on top of 19% bands. INR 1.3. Creatinine 5.21 and up-trending, BUN 52. Basic metabolic profile is otherwise unremarkable. TSH falls within normal limits. Coag-negative staph is growing in the wound culture. IMAGING DATA: Echocardiogram demonstrates 40% to 45% ejection fraction. There is some hypokinesis. Left atrium is dilated. [id number] mitral regurgitation is also noted. ASSESSMENT: 1. Septic shock, improving. 2. Healthcare-associated pneumonia, minimal. 3. Dehydration. 4. 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 5. Groin infection. DISCUSSION AND PLAN: We will get an ultrasound of the groin to see whether or not there is a collection of fluid there. Otherwise, pressors and empiric antibiotics will be continued. Pulmonary Critical Care will continue to follow along while the patient remains in this location. He appears to be dry. As such, I will give him a 500 mL bolus of fluid and initiate a little bit of normal saline over the next 24 hours. We will initiate some nebulized medications. He will need to remain in the ICU until he is clearly off Levophed. Job ID: [id number]
[2018-03-20] MEDS: Sodium Chloride 0.9% 1,000 ML IV SCH ×2 (14:04→23:10)
--- NOTE | 2018-03-20 17:21 | ULT ---
LEFT GROIN ULTRASOUND: 03/20/18 HISTORY: Previous surgery removing a vessel from the left groin. Nonhealing wound x6 weeks. Possible infection . COMPARISON: None. TECHNIQUE: Targeted sonographic images of the left groin is performed. Arterial and venous vascular structures c ompatible with artery and vein are identified. There may be mild soft tissue edema. A drainable absce ss is not appreciated. Incidental atherosclerosis in the visualized artery is noted. IMPRESSION: No sonographic evidence of a drainable abscess. POS: [facility]
[2018-03-21] MEDS: Piperacillin/Tazobactam 2.25 GM in Sodium Chloride 0.9% 100 ML IVPB SCH ×4 (05:15→23:59)
[2018-03-21 06:21] LABS: ALT (SGPT) 260 U/L (8-55); AST (SGOT) 158 U/L (5-34); Albumin 2.2 g/dL (3.4-4.8); Alkaline Phosphatase 180 U/L (40-150); Anion Gap 19 mmol/L (10-20); BUN (Urea Nitrogen) 77 mg/dL (8.4-25.7); Bilirubin, Total 0.4 mg/dL (0.2-1.2); Calc. Creatinine Clearance 10 mL/min (70-130); Carbon Dioxide 22 mmol/L (23-31); Chloride 99 mmol/L (98-107); Estimated GFR-MDRD 9; Globulin 2.3 g/dL (2.4-3.5); Glucose 187 mg/dL (83-110); Protein, Total 4.5 g/dL (5.8-8.1); Sodium 135 mmol/L (136-145)
[2018-03-21 06:58] LABS: Band 5 % (5-11); Hemoglobin 7.1 g/dL (14.0-18.0); Hypochromia SLIGHT = 6-15 cells (100X) (0-5/hpf); Lymphocytes 5 % (21-51); MDiff Complete? YES; Mean Corpuscular HGB CONC 31.2 g/dL (32.0-36.0); Mean Corpuscular Hemoglobin 29.5 pg (27.0-31.0); Mean Corpuscular Volume 94.4 fL (78.0-98.0); Mean Platelet Volume 11.2 fL (7.4-10.4); Monocytes 1 % (0-10); Neutrophil 89 % (42-75); PLT Morphology Comment Appears Decreased; Platelet Count 67 thou/uL (130-400); RBC Distribution Width 18.2 % (11.5-14.5); Red Blood Cell (RBC) Count 2.42 mill/uL (4.70-6.10); White Blood Cell (WBC) Count 17.4 thou/uL (4.8-10.8)
[2018-03-21] MEDS: Aspirin 81 mg Enteric Coated Tablet PO SCH (09:07)
--- NOTE | 2018-03-21 10:17 | RAD ---
PORTABLE AP CHEST XRAY: DATE: 03/21/2018. HISTORY: Followup evaluation. COMPARISON: 03/19/2018. FINDINGS: Right subclavian central venous catheter remains in place and unchanged in position. Cardiac silhoue tte is magnified by projection but stable in size. The pulmonary vasculature is within normal limits . Lungs appear clear. Vascular calcifications are seen in tortuous thoracic aorta. There has been no significant interval change from the prior exam. IMPRESSION: Stable chest. POS: [facility]
--- NOTE | 2018-03-21 10:33 | PRG ---
DATE OF SERVICE: 03/21/2018 SERVICE: Pulmonary Medicine. INTERVAL HISTORY: The patient is doing really well from a breathing standpoint. He is on room air. He has been off pressure support for the last 24 hours. He denies any current fevers, chills, nausea, or vomiting. Otherwise, there has been no interval change to his condition. PHYSICAL EXAMINATION: VITAL SIGNS: Afebrile, pulse 69, blood pressure 137/87, respirations 17, and saturation 100% on room air. GENERAL: The patient is awake and alert, in no apparent distress. LUNGS: Excellent air entry. There is no prolonged expiratory phase or wheezing present. HEART: Normal rate and regular. ABDOMEN: Soft, nontender, and nondistended. Bowel sounds are positive. MUSCULOSKELETAL: No cyanosis or clubbing. There is no pitting in the bilateral lower extremities. NEUROLOGIC: Grossly nonfocal. LABORATORY DATA: Creatinine 5.96. Basic metabolic profile is otherwise unremarkable/stable. AST and ALT are both up trending. Alkaline phosphatase is downtrending. Troponin is negative. TSH 0.2. Coag-negative staph is growing from the groin. IMAGING STUDIES: Soft tissue ultrasound demonstrates no evidence of drainable abscess. Chest x-ray demonstrates right subclavian central venous catheter terminates in good position. There is no acute cardiopulmonary abnormality otherwise noted. ASSESSMENT: 1. Septic shock, resolving. 2. Healthcare-associated pneumonia, minimal based on CT scan. 3. Cellulitis, suspected. 4. Dehydration. 5. 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 DISCUSSION AND PLAN: The patient has very poor p.o. intake on a day-by-day basis. As such, we will need to pay particular attention to his dry weight to make certain we do not get him below where he needs to be. At this point, he has stabilized to the point where he can get off the Levophed. We will continue our empiric steroids and antibiotics mostly directed at cellulitis. The IV fluids will be interrupted for now. We will trend the liver function studies through time. If they continue to trend upward, additional investigation may be warranted there. Job ID: [id number]
[2018-03-21 11:09] LABS: HBSAg Index 0.31 S/CO (0-0.99); Hep B Surf Ag Non-Reactive S/CO (NonReactive)
--- NOTE | 2018-03-21 13:10 | PRG ---
DATE OF SERVICE: 03/21/2018 SUBJECTIVE: The patient transitioned from ICU to the regular floor. No new complaints. Breathing easier. OBJECTIVE: VITAL SIGNS: Blood pressure is 137/87, saturating 100%, pulse 68, respirations 17. LUNGS: Showing less rales, but still some bibasilar rales. HEART: S1 and S2. No rubs, murmurs, or gallops. ABDOMEN: Soft, nontender, nondistended. LABORATORY DATA: His white count has improved down to 17.4 from a previous high of 41,000, his hemoglobin has dropped a little bit to 7.1, his platelets dropped a little bit from 72 down to 67. His sodium is stable at 135, sugars 187. His liver function has jumped up, AST up to 158, ALT is at 260. ASSESSMENT: 1. Septic shock. He is recovering from that. Blood pressure is much easier to control. No longer needing pressors. 2. Pneumonia, improving, based on notes from and discussions with shoe shiner, Dr. Gallagher. The pneumonia appears to be minimal. It is more likely fluid shifting. Appearance is on the chest x-rays. 3. He has end-stage renal disease, on hemodialysis. 4. He was severely dehydrated and that is improving, possibly associated to post hemodialysis reactions. 5. He also has cellulitis from his groin from previous dialysis catheter. PLAN: Plan is to continue hospital improvement to try to transition more to p.o. and increase his fluid intake. Job ID: [id number]
[2018-03-21] MEDS: traMADol HCl 50 MG TAB PO PRN (13:14)
[2018-03-21] MEDS: Sodium Chloride 0.9% 1,000 ML IV SCH (13:29)
--- NOTE | 2018-03-21 14:14 | PRG ---
DATE OF SERVICE: 03/21/2018 SUBJECTIVE: An 82-year-old gentleman being seen for end-stage renal disease. The patient denies any nausea, vomiting, or chest pain. OBJECTIVE: CONSTITUTIONAL: The patient is resting. VITAL SIGNS: Afebrile. Pulse 84, breathing 16, blood pressure 137/87. GENERAL APPEARANCE AND MENTAL STATUS: Fair. HEAD/NECK: Normocephalic. Atraumatic. EYES: EOMI. No deformity. EARS: Clear. No ulcers. NOSE: Intact. No lesions. MOUTH: Clear. No discharge. THROAT: Clear. No exudate. LUNGS: Clear. No crackles. CARDIAC: S1, S2. No rub. ABDOMEN: Benign. Bowel sounds positive. GENITALIA/RECTUM: Conrad absent. BACK/EXTREMITIES: Edema 0+. NEUROLOGICAL: Alert and motor intact. LABORATORY DATA: Hemoglobin 7.1 and potassium 5. ASSESSMENT AND PLAN: 1. Stage 6 chronic kidney disease, plan dialysis. 2. Anemia, plan transfusion. 3. Hypertension, stable. 4. Medication based on GFR appropriate. Job ID: [id number]
[2018-03-21] MEDS: Apixaban 2.5 MG TAB PO SCH (20:38)
[2018-03-21] MEDS: HYDROcodone/Acetaminophen 7.5/325 mg Tablet PO PRN (20:38)
[2018-03-21] MEDS: Tamsulosin HCl 0.4 MG CAP PO SCH (20:38)
[2018-03-22] MEDS: HYDROcodone/Acetaminophen 7.5/325 mg Tablet PO PRN ×2 (04:46→20:35)
[2018-03-22] MEDS: Piperacillin/Tazobactam 2.25 GM in Sodium Chloride 0.9% 100 ML IVPB SCH ×3 (05:04→17:30)
[2018-03-22 05:44] LABS: ALT (SGPT) 190 U/L (8-55); AST (SGOT) 68 U/L (5-34); Albumin 2.4 g/dL (3.4-4.8); Alkaline Phosphatase 170 U/L (40-150); Anion Gap 19 mmol/L (10-20); BUN (Urea Nitrogen) 63 mg/dL (8.4-25.7); Bilirubin, Total 0.4 mg/dL (0.2-1.2); Calc. Creatinine Clearance 12 mL/min (70-130); Calcium 7.9 mg/dL (7.8-10.44); Carbon Dioxide 21 mmol/L (23-31); Chloride 97 mmol/L (98-107); Estimated GFR-MDRD 11; Globulin 2.4 g/dL (2.4-3.5); Glucose 235 mg/dL (83-110); Protein, Total 4.8 g/dL (5.8-8.1); Sodium 132 mmol/L (136-145)
[2018-03-22 05:47] LABS: Band 9 % (5-11); Hemoglobin 8.6 g/dL (14.0-18.0); Lymphocytes 4 % (21-51); MDiff Complete? YES; Mean Corpuscular HGB CONC 32.3 g/dL (32.0-36.0); Mean Corpuscular Hemoglobin 29.3 pg (27.0-31.0); Mean Corpuscular Volume 90.8 fL (78.0-98.0); Mean Platelet Volume 11.5 fL (7.4-10.4); Monocytes 2 % (0-10); Neutrophil 85 % (42-75); Nucleated RBC 1 % (0); PLT Morphology Comment Appears Decreased; Platelet Count 75 thou/uL (130-400); RBC Distribution Width 17.8 % (11.5-14.5); Red Blood Cell (RBC) Count 2.92 mill/uL (4.70-6.10); White Blood Cell (WBC) Count 18.9 thou/uL (4.8-10.8)
[2018-03-22] MEDS: Apixaban 2.5 MG TAB PO SCH ×2 (08:04→20:35)
[2018-03-22] MEDS: Aspirin 81 mg Enteric Coated Tablet PO SCH (08:04)
[2018-03-22] MEDS: predniSONE 20 MG TAB PO SCH (08:04)
--- NOTE | 2018-03-22 10:14 | PRG ---
DATE OF SERVICE: SUBJECTIVE: An 82-year-old gentleman, being seen for end-stage renal disease. The patient denies any nausea, vomiting, or chest pain. PHYSICAL EXAMINATION: CONSTITUTIONAL: The patient is awake and alert, in no acute distress. VITAL SIGNS: Afebrile, pulse 77, breathing 16, blood pressure 130/74. GENERAL APPEARANCE AND MENTAL STATUS: Fair. HEAD/NECK: Normocephalic. Atraumatic. EYES: EOMI. No deformity. EARS: Clear. No ulcers. NOSE: Intact. No lesions. MOUTH: Clear. No discharge. THROAT: Clear. No exudate. LUNGS: Clear. No crackles. CARDIAC: S1, S2. No rub. ABDOMEN: Benign. Bowel sounds positive. GENITALIA/RECTUM: Conrad absent. BACK/EXTREMITIES: Edema 0+. NEUROLOGICAL: Alert and motor intact. SKIN: LYMPHATICS: LABORATORY DATA: Labs showed hemoglobin 8.6. Potassium is 5. ASSESSMENT: 1. Stage 6 chronic kidney disease, plan dialysis on Thursday, Thursday, and Thursday. 2. Hypertension, stable. 3. Anemia, stable. 4. Medications based on GFR are appropriate. Job ID: [id number] [facility]
[2018-03-22] MEDS ORDERED: HumaLOG 300 UNITS/3 ML VIAL SC PRN ×2 (10:56→11:07)
[2018-03-22] MEDS ORDERED: Dextrose 5% in Water 1,000 ML IV PRN (11:07)
[2018-03-22] MEDS ORDERED: Dextrose 50% Abboject 50 ML SYRINGE IVP PRN (11:07)
--- NOTE | 2018-03-22 11:24 | PRG ---
DATE OF SERVICE: SUBJECTIVE: The patient states that he is feeling better. Continues to have a cough but not short of breath. Tolerating being at the ICU. He is off Levophed and blood pressure remains stable. He admits to some abdominal pain that comes and goes. No nausea or vomiting. Appetite, he says is better. He had a bowel movement today. OBJECTIVE: VITAL SIGNS: Temperature 97.8, pulse is 77, respirations 18, blood pressure 130/74, pulse ox of 99% on room air. GENERAL: He is awake and alert. No acute distress. Speech is clear. NECK: Supple. HEART: Regular rate and rhythm. LUNGS: With rhonchi, worse on the right. No wheezes. ABDOMEN: Some right-sided tenderness. No rebound. No guarding. No peritoneal signs. Positive bowel sounds. EXTREMITIES: With no edema. Left groin with some redness. SKIN: Right anterior chest wall with some redness and healing area. Left upper arm healing postop surgical site. LABORATORY DATA: Sodium 132, potassium 5.0, chloride 97, CO2 of 21, BUN and creatinine 63 and 4.9 with a GFR of 11, serum glucose of 235, calcium of 7.9. AST and ALT have decreased down to 68 and 190, alkaline phosphatase 170, albumin of 2.4. White blood cell count 18.9 thousand, down from 41,000 two days ago. Hemoglobin and hematocrit 8.6 and 26.5, platelets 75,000. ASSESSMENT/PLAN: 1. This is an 82-year-old gentleman with multiple medical problems, admitted for septic shock, which is resolving. His blood pressure remains under control off Levophed. He is out of the ICU as well. 2. Right-sided pneumonia. Continues to cough with some rhonchorous lung sounds. We will continue antibiotics as per Pulmonary. 3. End-stage renal disease, on hemodialysis. We will continue per Nephrology. 4. Dehydration, appears to be clinically improved. We will continue to monitor on dialysis with this fluid intake. 5. Groin cellulitis, appears to be improving as well, on antibiotics. 6. Cholelithiasis, likely causing his elevated liver function tests. Continue to follow. He is asymptomatic at this time. Consider surgical evaluation if LFTs increase or he becomes more symptomatic. 7. Anemia, likely due to chronic kidney disease and chronic disease. We will continue to follow. No need for transfusion at this time. 8. Thrombocytopenia. We will follow closely. May need to hold anticoagulation if continues to decline. 9. Hyperglycemia, likely worsened due to steroid therapy. We will start Accu-Chek and insulin sliding scale for hyperglycemia. Job ID: [id number]
--- NOTE | 2018-03-22 15:02 | PRG ---
DATE OF SERVICE: 03/22/2018 SUBJECTIVE: The patient remains in the hospital for treatment of sepsis. He is doing relatively well. OBJECTIVE: VITAL SIGNS: Temperature 97.8, pulse 80, respirations 20, O2 saturations 99%, and blood pressure 141/89. HEENT: Unremarkable. LUNGS: Clear. CARDIAC: S1 and S2 regular. ABDOMEN: Soft. EXTREMITIES: No edema. ASSESSMENT: 1. Pneumonia. 2. Pleural effusion. PLAN: The patient's case is basically rehabilitative in nature at this time. I have reviewed his medications and he is continuing [facility] for antibiotic coverage. For the time being, he remains on a daily dose of prednisone. Job ID: [id number]
--- NOTE | 2018-03-22 16:45 | PQF ---
TEE HANNAH AMY CRUZ DO [id number] [id number] CLINICAL DOCUMENTATION IMPROVEMENT CLARIFICATION FORM: ICD-10 Updated PLEASE DO AN ADDENDUM TO THE PROGRESS NOTE WITH ANY DOCUMENTATION UPDATES OR ADDITIONS AND CARRY THROUGH TO DC SUMMARY. THANK YOU. DATE: 03-22-18 ATTN: DR. CRUZ Please exercise your independent, professional judgment in responding to the clarification form. Clinical indicators are provided on the bottom of this form for your review Please check appropriate box(s): [ xx ] Demand Ischemia [ ] AMI Type II [ ] Insignificant lab value [ ] Other diagnosis [ ] Unable to determine In addition, please specify: Present on Admission (POA): [ ] Yes [ ] No [ xx ] Unable to determine CLINICAL INDICATORS - SIGNS / SYMPTOMS / LABS LABS: TROPONIN I 03-19 @ 0247 0.320 03-19 @ 0557 0.483 03-19 @ 0902 0.500 (JOHN): ULCER IN LEFT GROIN, LIKELY FROM OLD LINE, LOOKS INFECTED 03-19 (BRADING): CHOLELITHIASIS NOTED 03-19 (MELY): BLD CULTURE GREW GRAM-NEGATIVE RODS IN 2 BOTTLES; DISORIENTED; 03-20 (JAIME): GROIN INFECTION; HEALTHCARE ASSOCIATED PNA RISKS: H&P (JOHN): * HX: HTN; ESRD; * DX: SEPTIC SHOCK; LIKELY PNA; POSSIBLE DIVERTICULITIS; INFECTED ULCER IN LEFT GROIN TREATMENTS: CPOE: CCU MONITORING MAR: ZOSYN IV 03-19/ 03-20/ 03-21/ 03-22 THANK YOU, SANIYA (This form is maintained as a part of the permanent medical record) 2015 [employer]. All Rights Reserved Saniya Petersen RN, BS [email or web address] Cell [facility]
[2018-03-22] MEDS: Acetaminophen 325 MG TAB PO PRN (17:35)
[2018-03-22] MEDS: Tamsulosin HCl 0.4 MG CAP PO SCH (20:35)
[2018-03-23] MEDS: Piperacillin/Tazobactam 2.25 GM in Sodium Chloride 0.9% 100 ML IVPB SCH ×4 (01:01→17:25)
[2018-03-23] MEDS: HYDROcodone/Acetaminophen 7.5/325 mg Tablet PO PRN ×3 (01:01→12:47)
[2018-03-23] MEDS: traMADol HCl 50 MG TAB PO PRN ×2 (02:25→17:25)
[2018-03-23 07:03] LABS: ALT (SGPT) 145 U/L (8-55); AST (SGOT) 41 U/L (5-34); Albumin 2.5 g/dL (3.4-4.8); Alkaline Phosphatase 143 U/L (40-150); Anion Gap 20 mmol/L (10-20); BUN (Urea Nitrogen) 78 mg/dL (8.4-25.7); Bilirubin, Total 0.5 mg/dL (0.2-1.2); Calc. Creatinine Clearance 10 mL/min (70-130); Calcium 7.9 mg/dL (7.8-10.44); Carbon Dioxide 21 mmol/L (23-31); Chloride 97 mmol/L (98-107); Estimated GFR-MDRD 9; Globulin 2.2 g/dL (2.4-3.5); Glucose 128 mg/dL (83-110); Potassium 5.3 mmol/L (3.5-5.1); Protein, Total 4.7 g/dL (5.8-8.1); Sodium 133 mmol/L (136-145)
[2018-03-23 07:23] LABS: Band 1 % (5-11); Hemoglobin 8.1 g/dL (14.0-18.0); Hypochromia SLIGHT = 6-15 cells (100X) (0-5/hpf); Large Platelets SLIGHT; Lymphocytes 2 % (21-51); MDiff Complete? YES; Mean Corpuscular HGB CONC 32.3 g/dL (32.0-36.0); Mean Corpuscular Hemoglobin 29.1 pg (27.0-31.0); Mean Platelet Volume 11.1 fL (7.4-10.4); Microcytosis SLIGHT = 6-15 cells (100X) (0-5/hpf); Monocytes 5 % (0-10); Neutrophil 89 % (42-75); PLT Morphology Comment Appears Decreased; Platelet Count 75 thou/uL (130-400); Polychromasia SLIGHT = 2-3 cells (100X) (0-2/hpf); RBC Distribution Width 17.5 % (11.5-14.5); Reactive Lymphocytes 3 % (0-10); Red Blood Cell (RBC) Count 2.78 mill/uL (4.70-6.10); White Blood Cell (WBC) Count 25.6 thou/uL (4.8-10.8)
[2018-03-23] MEDS: Carvedilol 6.25 MG TAB PO SCH ×2 (09:21→17:24)
[2018-03-23] MEDS: Apixaban 2.5 MG TAB PO SCH ×2 (09:21→20:15)
--- NOTE | 2018-03-23 11:29 | CON ---
DATE OF CONSULTATION: 03/23/2018 SUBJECTIVE: The patient is feeling much better this morning. He is receiving dialysis at this time. He appears comfortable. No complaints of any chest pain. OBJECTIVE: VITAL SIGNS: Temp 97.4, pulse 77, respirations 16, pulse ox 99, blood pressure 170/79. HEART: Regular rate and rhythm. LUNGS: With occasional bilateral expiratory rhonchi/wheeze, but with good air exchange. ABDOMEN: Soft. EXTREMITIES: No edema. LABS: White count 25.6, H and H 8.1 and 25.0. Sodium 133, potassium 5.3, creatinine 5.86, glucose 128. ASSESSMENT: 1. Septic shock, resolved. 2. Right-sided pneumonia, improving. 3. End-stage renal disease, on hemodialysis. 4. Dehydration, improved. 5. Groin cellulitis, improving. 6. Cholelithiasis. 7. Anemia of chronic disease. 8. Thrombocytopenia. 9. Hyperglycemia secondary to steroids. PLAN: 1. Continue with hemodialysis. 2. Continue with antibiotics. 3. Continue present treatment. We will continue to follow. Job ID: [id number]
--- NOTE | 2018-03-23 12:39 | PRG ---
DATE OF SERVICE: SUBJECTIVE: An 82-year-old gentleman being seen for End-stage renal disease. The patient denies any nausea, vomiting, or chest pain. OBJECTIVE: CONSTITUTIONAL: He is awake, alert. VITAL SIGNS: Afebrile. Pulse 77, breathing 16, blood pressure 170/79. Awake, alert, in no acute distress. GENERAL APPEARANCE AND MENTAL STATUS: Fair. HEAD/NECK: Normocephalic. Atraumatic. EYES: EOMI. No deformity. EARS: Clear. No ulcers. NOSE: Intact. No lesions. MOUTH: Clear. No discharge. THROAT: Clear. No exudate. LUNGS: Clear. No crackles. CARDIAC: S1, S2. No rub. ABDOMEN: Benign. Bowel sounds positive. GENITALIA/RECTUM: Conrad absent. BACK/EXTREMITIES: Edema 0+. NEUROLOGICAL: Alert and motor intact. SKIN: LYMPHATICS: LABS: Show potassium is 5.3, stage 6 chronic kidney disease. PLAN: 1. Dialysis. 2. Hypertension, stable. 3. Anemia, stable. 4. Medication based on GFR are appropriate. Job ID: [id number]
[2018-03-23] MEDS: Aspirin 81 mg Enteric Coated Tablet PO SCH (12:48)
[2018-03-23] MEDS: predniSONE 20 MG TAB PO SCH (12:48)
--- NOTE | 2018-03-23 13:10 | PRG ---
DATE OF SERVICE: 03/23/2018 SUBJECTIVE: An 82-year-old gentleman, who is lying in bed. Denies any pain or discomfort. OBJECTIVE: VITAL SIGNS: Saturations are 99% on room air, temperature 97, pulse 77, and blood pressure 170/79. CHEST: Minimal rhonchi. CARDIAC: Normal S1 and S2. No gallops. ABDOMEN: Soft. LABORATORY DATA: Creatinine is 5.86, BUN is 78. His white count is 25,000, hematocrit 25, platelet count is 75,000. IMPRESSION: Pneumonia, pleural effusion, azotemia, severe deconditioning. Cultures are negative, except for growing culture of Staph. He is on Zosyn for his pneumonia. Continue PT and supportive care. Job ID: [id number]
[2018-03-23] MEDS: Tamsulosin HCl 0.4 MG CAP PO SCH (20:15)
[2018-03-24] MEDS: Piperacillin/Tazobactam 2.25 GM in Sodium Chloride 0.9% 100 ML IVPB SCH ×5 (00:05→23:44)
[2018-03-24] MEDS: Aspirin 81 mg Enteric Coated Tablet PO SCH (08:22)
--- NOTE | 2018-03-24 09:47 | PRG ---
DATE OF SERVICE: 03/24/2018 SUBJECTIVE: Mr. Jean has been doing well. Reviewed his notes from current hospitalization. I am able to resume his care. He admitted to the hospital for sepsis and pneumonia. Today, he is complaining of bleeding from his lower lip. Otherwise, he has been feeling well. OBJECTIVE: VITAL SIGNS: Temperature 98.7 and blood pressure 118/65. LUNGS: Bilateral breath sounds. HEART: Reveals a regular rate and rhythm without murmur, gallops, or rubs. ABDOMEN: Soft and nontender. Bowel sounds present and active. SKIN: There is a bleeding lesion to the lower lip. LABORATORY DATA: His blood sugars are well controlled. IMPRESSION: 1. Stable pneumonia, sepsis. 2. Bleeding from lower lip, possibly secondary to Eliquis and heparinization from dialysis. PLAN: We will hold Eliquis today. Apply pressure to the lip dressing. Job ID: [id number]
[2018-03-24] MEDS: predniSONE 20 MG TAB PO SCH (10:13)
[2018-03-24] MEDS: Carvedilol 6.25 MG TAB PO SCH ×2 (10:13→18:34)
--- NOTE | 2018-03-24 11:29 | PRG ---
DATE OF SERVICE: 03/24/2018 SUBJECTIVE: An 82-year-old gentleman, being seen for end-stage renal disease. The patient denies any nausea, vomiting, or chest pain. OBJECTIVE: GENERAL: The patient is awake and alert. VITAL SIGNS: Afebrile, pulse 84, breathing 16, blood pressure 119/66. GENERAL APPEARANCE AND MENTAL STATUS: Fair. HEAD/NECK: Normocephalic. Atraumatic. EYES: EOMI. No deformity. EARS: Clear. No ulcers. NOSE: Intact. No lesions. MOUTH: Clear. No discharge. THROAT: Clear. No exudate. LUNGS: Clear. No crackles. CARDIAC: S1, S2. No rub. ABDOMEN: Benign. Bowel sounds positive. GENITALIA/RECTUM: Conrad absent. BACK/EXTREMITIES: Edema 0+. NEUROLOGICAL: Alert and motor intact. SKIN: LYMPHATICS: LABORATORY DATA: Hemoglobin 8.1, yesterday platelets were 75,000. Creatinine 5.8. ASSESSMENT AND PLAN: 1. Stage 6 chronic kidney disease. Planned dialysis was scheduled on Thursday, Thursday, and Thursday. 2. Hypertension with anemia, stable. 3. Medications based on GFR appropriate. I will order labs today. Job ID: [id number]
--- NOTE | 2018-03-24 11:58 | PQF ---
TEE HANNAH AMY CURIEL DO [id number] CCU-C05 [id number] CLINICAL DOCUMENTATION IMPROVEMENT CLARIFICATION FORM: ICD-10 Updated PLEASE DO AN ADDENDUM TO THE PROGRESS NOTE WITH ANY DOCUMENTATION UPDATES OR ADDITIONS AND CARRY THROUGH TO DC SUMMARY. THANK YOU. DATE: 03-22-18 ATTN: DR. CRUZ Please exercise your independent, professional judgment in responding to the clarification form. Clinical indicators are provided on the bottom of this form for your review Please check appropriate box(es): [ xx ] Sepsis w/ Septic Shock due Pneumonia [ ] Sepsis w/ Septic Shock due to Left Groin Cellulitis d/t previous dialysis catheter [ ] Sepsis w/ Septic Shock due to Left Groin Cellulitis NOT d/t previous dialysis catheter [ ] Other diagnosis [ ] Unable to determine For continuity of documentation, please document condition throughout progress notes and discharge summary. Thank You. CLINICAL INDICATORS - SIGNS / SYMPTOMS / LABS H&P (JOHN): * ORIENTED; FEVER; SOME COUGH W/ INTERMITTENT COLORED SPUTUM (GREEN SOMETIMES) * ULCER LEFT GROIN, LIKELY FROM OLD LINE, LOOKS INFECTED * SEPTIC SHOCK (REQUIRING LEVOPHED) * LIKELY, PNA; POSSIBLE DIVERTICULITIS 03-19 (MELY): BLD CULTURES GREW GRAM-NEGATIVE RODS IN 2 BOTTLES; WE WILL CONSULT INFECTIOUS DISEASE TO SEE IF LINE CHANGE IS INDICATED; DISORIENTED 03-20 LEFT GROIN US: NO SONOGRAPHIC EVIDENCE OF A DRAINABLE ABSCESS 03-22 (NANCY): GROIN CELLULITIS; CHOLELITHIASIS; RIGHT-SIDED PNA RISK FACTORS 03-19 (JOHN): ESRD; COPD; SEPTIC SHOCK, LIKELY PNA, POSSIBLE DIVERTICULTIS, INFECTED ULCER IN LEFT GROIN 03-19 (JAIME): ESRD D/T VASCULITIS 03-21 (ADAN): * SEPTIC SHOCK * PNEUMONIA * CELLULITIS FROM HIS GROIN FROM PREVIOUS DIALYSIS CATHETER TREATMENTS: COPE: CCU MONITORING MAR: ZOSYN IV 03-19 / 03-20/ 03-21/ 03-22 THANK YOU, SANIYA (This form is maintained as a part of the permanent medical record) 2014 [employer]. All Rights Reserved Saniya Petersen RN, BS [email or web address] [facility]
[2018-03-24 12:32] LABS: Anion Gap 20 mmol/L (10-20); BUN (Urea Nitrogen) 44 mg/dL (8.4-25.7); Calc. Creatinine Clearance 13 mL/min (70-130); Calcium 7.8 mg/dL (7.8-10.44); Carbon Dioxide 24 mmol/L (23-31); Chloride 99 mmol/L (98-107); Estimated GFR-MDRD 13; Glucose 107 mg/dL (83-110); Potassium 4.7 mmol/L (3.5-5.1); Sodium 138 mmol/L (136-145)
[2018-03-24 12:51] LABS: Hemoglobin 8.1 g/dL (14.0-18.0); Mean Corpuscular HGB CONC 32.1 g/dL (32.0-36.0); Mean Corpuscular Hemoglobin 29.2 pg (27.0-31.0); Mean Corpuscular Volume 90.9 fL (78.0-98.0); Mean Platelet Volume 9.7 fL (7.4-10.4); Platelet Count 96 thou/uL (130-400); RBC Distribution Width 17.4 % (11.5-14.5); Red Blood Cell (RBC) Count 2.79 mill/uL (4.70-6.10); White Blood Cell (WBC) Count 24.6 thou/uL (4.8-10.8)
[2018-03-24 12:52] LABS: Band 3 % (5-11); Lymphocytes 2 % (21-51); MDiff Complete? YES; Metamyelocyte 4 % (0-0); Monocytes 4 % (0-10); Myelocyte 1 % (0-0); Neutrophil 86 % (42-75); Ovalocytes SLIGHT = 2-5 cells (100X) (0-1/hpf); PLT Morphology Comment Appears Decreased; Polychromasia MODERATE = 3-4 cells (100X) (0-2/hpf)
--- NOTE | 2018-03-24 16:50 | PRG ---
DATE OF SERVICE: 03/24/2018 SERVICE: Pulmonary Medicine. INTERVAL HISTORY: The patient is started having a lot of coughing up of blood. Otherwise, he is not having any shortness of breath, nausea, vomiting, fevers, or chills. There has been no interval change to his condition. For the duration of this hospital stay, it looks as though his blood counts are roughly stable. PHYSICAL EXAMINATION: VITAL SIGNS: Afebrile, pulse 84, blood pressure 99/57, respirations 20, and saturation 95% on room air. GENERAL: The patient is awake and alert, in no apparent distress. LUNGS: Decent air entry. Crackles are present. There is no prolonged expiratory phase or wheezing appreciated. HEART: Normal rate and regular. ABDOMEN: Soft, nontender, and nondistended. Bowel sounds are positive. MUSCULOSKELETAL: No cyanosis or clubbing. There is no pitting in the bilateral lower extremities. NEUROLOGIC: Grossly nonfocal. LABORATORY DATA: WBC 24.6, hemoglobin 8.1, platelets 96,000. INR 1.3. Creatinine 4.44. Basic metabolic profile is otherwise unremarkable. Blood sugar ranges from 105 to 168. Groin abscess is growing Staph haemolyticus, which is essentially ruvalcaba resistant, but susceptible to doxycycline, and vancomycin. ASSESSMENT: 1. Septic shock, resolved. 2. Healthcare-associated pneumonia, minimal based on CT of the chest. 3. Lip bleed. 4. Cellulitis. 5. 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 DISCUSSION AND PLAN: I will get a chest x-ray to make certain the patient has not fluffed out any significant infiltrates. IV fluids will be interrupted. Pulmonary/Critical Care will continue to follow along while the patient remains inhouse. Of note, if the sepsis profile gets worse, we may need to add appropriate antimicrobial agents for the Staph, which was cultured over the groin. Job ID: [id number] [facility]
[2018-03-24] MEDS: HYDROcodone/Acetaminophen 7.5/325 mg Tablet PO PRN (19:20)
[2018-03-24] MEDS: Tamsulosin HCl 0.4 MG CAP PO SCH (19:21)
[2018-03-24] MEDS: traMADol HCl 50 MG TAB PO PRN (23:44)
[2018-03-25] MEDS: HYDROcodone/Acetaminophen 7.5/325 mg Tablet PO PRN (06:18)
[2018-03-25] MEDS: Piperacillin/Tazobactam 2.25 GM in Sodium Chloride 0.9% 100 ML IVPB SCH ×2 (06:19→11:31)
[2018-03-25 07:38] VITALS: BP 118/68; TEMP 97.8
[2018-03-25] MEDS: predniSONE 20 MG TAB PO SCH (07:38)
[2018-03-25] MEDS: Carvedilol 6.25 MG TAB PO SCH (07:38)
[2018-03-25] MEDS: Aspirin 81 mg Enteric Coated Tablet PO SCH (07:38)
[2018-03-25] MEDS: traMADol HCl 50 MG TAB PO PRN (07:39)
[2018-03-25 08:22] LABS: Hemoglobin 8.5 g/dL (14.0-18.0); Mean Corpuscular HGB CONC 32.2 g/dL (32.0-36.0); Mean Corpuscular Hemoglobin 29.9 pg (27.0-31.0); Mean Corpuscular Volume 92.7 fL (78.0-98.0); Mean Platelet Volume 9.9 fL (7.4-10.4); Platelet Count 95 thou/uL (130-400); RBC Distribution Width 17.9 % (11.5-14.5); Red Blood Cell (RBC) Count 2.85 mill/uL (4.70-6.10); White Blood Cell (WBC) Count 16.4 thou/uL (4.8-10.8)
[2018-03-25 08:36] LABS: Anion Gap 18 mmol/L (10-20); BUN (Urea Nitrogen) 25 mg/dL (8.4-25.7); Calc. Creatinine Clearance 18 mL/min (70-130); Calcium 7.9 mg/dL (7.8-10.44); Carbon Dioxide 26 mmol/L (23-31); Chloride 100 mmol/L (98-107); Estimated GFR-MDRD 19; Glucose 120 mg/dL (83-110); Potassium 3.8 mmol/L (3.5-5.1); Sodium 140 mmol/L (136-145)
[2018-03-25 09:25] LABS: Band 5 % (5-11); Lymphocytes 8 % (21-51); MDiff Complete? YES; Neutrophil 87 % (42-75); Nucleated RBC 1 % (0); PLT Morphology Comment Appears Decreased; Polychromasia MODERATE = 3-4 cells (100X) (0-2/hpf)
--- NOTE | 2018-03-25 10:15 | CON ---
DATE OF CONSULTATION: 03/25/2018 SUBJECTIVE: Mr. Jean is in pain today. Otherwise, no other complaints. His lip has stopped bleeding. OBJECTIVE: VITAL SIGNS: Blood pressure 118/68 and O2 saturation is 96% on room air. LUNGS: Bilateral breath sounds. HEART: Reveals no murmur. ABDOMEN: Soft and nontender. EXTREMITIES: No clubbing, edema, or cyanosis. IMPRESSION: 1. End-stage renal disease. 2. Recent history of pneumonia and sepsis, although blood cultures did not reveal any organisms. His groin culture did reveal a Staphylococcus hemolyticus with sensitivities, doxycycline, and gentamicin. PLAN: 1. We will check lab today for the patient. 2. The patient desires to go home today. He is actually adamant about going home. Discussed with Dr. Gallagher. He is not due for dialysis until tomorrow, so may be an opportunity for him to go home later today. Job ID: [id number]
--- NOTE | 2018-03-25 12:35 | PRG ---
DATE OF SERVICE: 03/25/2018 SUBJECTIVE: An 82-year-old gentleman, being seen for end-stage renal disease. The patient denies any nausea, vomiting, or chest pain. OBJECTIVE: CONSTITUTIONAL: The patient is awake, alert, in no acute distress. VITAL SIGNS: Afebrile. Pulse 90, breathing 16, blood pressure 118/68. GENERAL APPEARANCE AND MENTAL STATUS: Fair. HEAD/NECK: Normocephalic. Atraumatic. EYES: EOMI. No deformity. EARS: Clear. No ulcers. NOSE: Intact. No lesions. MOUTH: Clear. No discharge. THROAT: Clear. No exudate. LUNGS: Clear. No crackles. CARDIAC: S1, S2. No rub. ABDOMEN: Benign. Bowel sounds positive. GENITALIA/RECTUM: Conrad absent. BACK/EXTREMITIES: Edema 0+. NEUROLOGICAL: Alert and motor intact. SKIN: LYMPHATICS: LABORATORY DATA: Labs show hemoglobin 8.5. Creatinine 3.1 ASSESSMENT AND PLAN: 1. Stage 6 chronic kidney disease. Plan dialysis tomorrow. 2. Hypertension, stable. 3. Anemia, stable. 4. Medications based on GFR appropriate. Job ID: [id number]
--- NOTE | 2018-03-26 02:10 | DIS ---
DATE OF ADMISSION: 03/19/2018 DATE OF DISCHARGE: 03/25/2018 DISCHARGE DIAGNOSES: 1. End-stage renal disease requiring dialysis. 2. Hypotensive episode, sepsis ruled out. 3. Hypokalemia. 4. Anemia. ADMITTING PHYSICIAN: Dr. Benjamín Burt. CONSULTING PHYSICIANS: 1. Dr. Pastor. 2. Dr. Gallagher. HOSPITAL SUMMARY: An 82-year-old male, was admitted through the emergency room for hypertensive episode with end-stage renal disease, he was found to have a fever of 101. He did have some decreased O2 sats. He was subsequently admitted to the hospital, been placed in ICU, begun on IV antibiotics. Initial chest x-ray did not show any evidence of pneumonia. Blood cultures remained negative while in the hospital. His hospital course was a slow, steady improvement. He received appropriate blood transfusion and remained on appropriate antibiotics. Source of his fever could not be identified, although he did have a groin infection that did grow out Staphylococcus haemolyticus. Once again, he was appropriately treated with IV antibiotics and remained on his dialysis schedule. He continued to improve. By 03/24/2018, he was doing well although he had problems with recurrent bleeding from his lip. He had been previously on Eliquis. Unfortunately, Eliquis had to be stopped due to recurrent bleeding. By 03/25/2018, he was doing well. He was able to be discharged home. DISCHARGE MEDICATIONS: List was as follows; 1. Tylenol as needed for fever. 2. Hydrocodone 7.5/325 as needed for pain. 3. Albuterol inhaler. 4. Aspirin 81 mg daily. 5. Coreg. 6. Carvedilol 6.25 mg b.i.d. 7. Pantoprazole 40 mg daily. 8. Senokot as needed for constipation. 9. Tamsulosin 0.4 mg daily. 10. Tramadol as needed for pain. 11. Additionally, he was maintained on prednisone 20 mg daily. He will continue his dialysis followup. Job ID: [id number]
== END 2018-03-25 17:35 | disposition home or self-care (01) | DRG 871 ==
LOC: ERS 02:17 → CCU 04:58 → T4-A 03-21 11:03
PROVIDERS: ADMIT Internal Medicine; ATTEND Internal Medicine
PROC: 3E033XZ Introduction of Vasopressor into Peripheral Vein, Percutaneous Approach (ICD-10-PCS; principal; 2018-03-19)
PROC: 30233N1 Transfusion of Nonautologous Red Blood Cells into Peripheral Vein, Percutaneous Approach (ICD-10-PCS; 2018-03-19)
PROC: 5A1D70Z Performance of Urinary Filtration, Intermittent, Less than 6 Hours Per Day (ICD-10-PCS; 2018-03-21)
PROC: 5A1D70Z Performance of Urinary Filtration, Intermittent, Less than 6 Hours Per Day (ICD-10-PCS; 2018-03-23)
PROC: 5A1D70Z Performance of Urinary Filtration, Intermittent, Less than 6 Hours Per Day (ICD-10-PCS; 2018-03-24)
DX: A41.9 Sepsis, unspecified organism (principal); N18.6 End stage renal disease; R65.21 Severe sepsis with septic shock; J18.9 Pneumonia, unspecified organism; K57.92 Diverticulitis of intestine, part unspecified, without perforation or abscess without bleeding; I24.8 Other forms of acute ischemic heart disease; I13.2 Hypertensive heart and chronic kidney disease with heart failure and with stage 5 chronic kidney disease, or end stage renal disease; I50.22 Chronic systolic (congestive) heart failure; L03.314 Cellulitis of groin; J44.9 Chronic obstructive pulmonary disease, unspecified; K21.9 Gastro-esophageal reflux disease without esophagitis; N40.0 Benign prostatic hyperplasia without lower urinary tract symptoms; H54.40 Blindness, one eye, unspecified eye; M54.30 Sciatica, unspecified side; G89.29 Other chronic pain; E87.6 Hypokalemia; I48.0 Paroxysmal atrial fibrillation; E86.0 Dehydration; I77.6 Arteritis, unspecified; D63.8 Anemia in other chronic diseases classified elsewhere; D69.6 Thrombocytopenia, unspecified; Z99.2 Dependence on renal dialysis; Z79.82 Long term (current) use of aspirin; Z87.891 Personal history of nicotine dependence; Z86.73 Personal history of transient ischemic attack (TIA), and cerebral infarction without residual deficits
CPT/HCPCS: 36415; 36416; 36430; 36556; 71045; 71275; 74177; 76705; 76999; 80048; 80053; 82553; 83605; 83735; 84443; 84484; 85025; 85610; 85730; 86850; 86900; 86901; 87070; 87077; 87186; 87205; 87340; 90935; 93306; 94640; 94760; 96365; 96366; 96368; 96375; G0257; G8978-GP-CL; G8979-GP-CI; G8987-GO-CL; G8988-GO-CJ; J1956; J2250; J2405; J2543; J2920; J2930; J7050; J7506; J7620; P9016

== ENCOUNTER 2018-07-26 18:57 | Inpatient (IN) | payer MEDICARE ==
--- NOTE | 2018-07-26 19:23 | RAD ---
XR Chest 1 View Portable History: [Pain. Hypotension.] Comparison: Radiograph on April 17, 2018 Findings: Moderate bilateral pleural effusions. Heart size is enlarged. Aorta is tortuous. Multiple bilateral skin folds are present. Peripheral opacity right lower lobe. No acute osseous abnormality. Impression: 1. Cardiomegaly with bilateral moderate effusions and mild pulmonary venous congestion. 2. Peripheral opacity right lower lobe may reflect underlying superimposed pneumonia. Follow-up recom mended.
[2018-07-26 21:03] LABS: Band 6 % (5-11); Hemoglobin 9.8 g/dL (14.0-18.0); Hypochromia SLIGHT = 6-15 cells (100X) (0-5/hpf); Lymphocytes 1 % (21-51); MDiff Complete? YES; Mean Corpuscular HGB CONC 29.5 g/dL (32.0-36.0); Mean Corpuscular Hemoglobin 28.9 pg (27.0-31.0); Mean Corpuscular Volume 97.9 fL (78.0-98.0); Mean Platelet Volume 9.2 fL (7.4-10.4); Monocytes 4 % (0-10); Neutrophil 89 % (42-75); Platelet Count 121 thou/uL (130-400); Platelet Morphology Comment Appears Decreased; RBC Distribution Width 19.9 % (11.5-14.5); Red Blood Cell (RBC) Count 3.37 mill/uL (4.70-6.10); White Blood Cell (WBC) Count 18.1 thou/uL (4.8-10.8)
[2018-07-26] MEDS ORDERED: Acetaminophen 325 MG TAB ONE (21:11)
[2018-07-26] MEDS ORDERED: Piperacillin/Tazobactam 2.25 GM VIAL ONE (21:11)
[2018-07-26 21:18] LABS: Troponin I 0.036 ng/mL (< 0.028)
[2018-07-26 21:20] LABS: Bilirubin Small (Negative); Blood, Urine Large (Negative); Clarity Cloudy (Clear); Glucose, Urine (Dipstick) Negative (Negative); Leukocyte Large (Negative); Nitrite Positive (Negative); Protein, Urine (Dipstick) > or equal to 300 mg/dL (Neg-Trace); Urobilinogen 0.2 mg/dL (0.2-1.0); pH, Urine 8.5 (5.0-9.0)
[2018-07-26 21:21] LABS: ALT (SGPT) 9 U/L (8-55); AST (SGOT) 26 U/L (5-34); Albumin 1.9 g/dL (3.4-4.8); Alkaline Phosphatase 226 U/L (40-150); Anion Gap 15 mmol/L (10-20); BUN (Urea Nitrogen) 17 mg/dL (8.4-25.7); Bilirubin, Total 1.1 mg/dL (0.2-1.2); Calc. Creatinine Clearance 0 mL/min (70-130); Calcium 7.2 mg/dL (7.8-10.44); Carbon Dioxide 31 mmol/L (23-31); Chloride 94 mmol/L (98-107); Estimated GFR-MDRD 15; Globulin 2.3 g/dL (2.4-3.5); Glucose 82 mg/dL (83-110); Potassium 3.1 mmol/L (3.5-5.1); Protein, Total 4.2 g/dL (5.8-8.1); Sodium 137 mmol/L (136-145)
[2018-07-26 21:22] LABS: Squamous Epithelial None Seen HPF (0-3)
[2018-07-26 21:23] LABS: Bacteria/HPF 2+ HPF (None Seen); Hyaline Casts/LPF NONE SEEN LPF (0-3 Hyaline); Renal Epithelial 0-3 HPF (0-3)
[2018-07-26 21:24] LABS: Other Microscopic Description Less than 2 mL rec'd
[2018-07-26 22:49] LABS: Troponin I 0.053 ng/mL (< 0.028)
[2018-07-26 23:22] VITALS: BMI 23.0
[2018-07-27] MEDS ORDERED: Acetaminophen 500 MG TAB PO PRN (00:24)
[2018-07-27] MEDS ORDERED: Ondansetron PF 4 MG/2 ML Vial IVP PRN (00:29)
[2018-07-27] MEDS: Sodium Chloride 0.9% 1,000 ML IV SCH ×2 (00:37→19:53)
[2018-07-27] MEDS ORDERED: Vancomycin HCl 500 MG in Sodium Chloride 0.9% 100 ML IVPB SCH (00:45)
[2018-07-27] MEDS ORDERED: Vancomycin HCl 1 GM in Premix Bag 1 BAG IVPB SCH (00:45)
[2018-07-27] MEDS ORDERED: Vancomycin HCl 250 MG in Sodium Chloride 0.9% 100 ML IVPB SCH (00:45)
[2018-07-27] MEDS ORDERED: HOLD VANCOMYCIN FOR LEVEL >20 FS SCH (00:45)
[2018-07-27] MEDS ORDERED: Vancomycin Sliding Scale 1 EACH FS ONE (00:45)
[2018-07-27] MEDS ORDERED: Vancomycin HCl 750 MG in Sodium Chloride 0.9% 250 ML 250 ML IVPB SCH (00:45)
[2018-07-27] MEDS: Piperacillin/Tazobactam 2.25 GM in Sodium Chloride 0.9% 100 ML IVPB SCH ×4 (05:41→23:26)
[2018-07-27] MEDS ORDERED: Dexamethasone 4 mg/ml Vial SLOW IVP SCH (10:15)
[2018-07-27 11:01] LABS: Troponin I 0.042 ng/mL (< 0.028)
[2018-07-27] MEDS: Tamsulosin HCl 0.4 MG CAP PO SCH ×2 (11:32→19:54)
[2018-07-27] MEDS: Enoxaparin Sodium 40 MG/0.4 ML SYRINGE SC SCH (11:32)
[2018-07-27] MEDS: Carvedilol 6.25 MG TAB PO SCH ×2 (11:32→17:43)
[2018-07-27] MEDS: Aspirin Chewable 81 MG TAB PO SCH (11:32)
[2018-07-27] MEDS: HYDROcodone/Acetaminophen 5/325 mg Tablet PO PRN ×2 (11:34→19:54)
--- NOTE | 2018-07-27 12:06 | PRG ---
DATE OF SERVICE: 07/27/2018 SUBJECTIVE: Mr. Jean was admitted last night for possible pneumonia and septic shock. The patient was noted to be hypoglycemic, hypotensive during dialysis, was transferred here. The patient is unaware of any medical problems. Upon my interview, his H and P has been dictated, but is not available to me for review. He verbalizes no complaints. OBJECTIVE: VITAL SIGNS: His temperature is 98.6, BP is 127/70. LUNGS: Reveal bilateral breath sounds. HEART: Reveals an irregular rhythm without murmur. No gallops or rubs. ABDOMEN: Soft and nontender. Bowel sounds are active. No hepatosplenomegaly is noted. EXTREMITIES: Show some edema, multiple contusions. There is a wound to the right great toe. LABORATORY DATA: His white blood count is 18.1, hemoglobin is 9.8, hematocrit is 33.0. Sodium 137, potassium 3.1, chloride 94, CO2 of 31, BUN 17, creatinine 3.77. His lactic acid is elevated at 4.3. Urinalysis showed greater than 50 wbc's per high-power field. IMAGING STUDIES: Chest x-ray is suspicious for possible right lower lobe pneumonia. IMPRESSION: This is an 82-year-old male with end-stage renal disease, who presents to the emergency room with hypoglycemia and hypotension during dialysis. He now has slightly abnormal chest x-ray. He does not have any symptoms of cough or congestion otherwise, although I do not see any signs that would point to septic shock, except for an elevated lactic acid. PLAN: The patient has been started on , this will be continued. We will await evaluation from Pulmonology as well as Nephrology. So far, at this time, the patient appears to be currently stable. Job ID: [id number]
[2018-07-27] MEDS: Famotidine/PF 20 mg/2ml Vial SLOW IVP SCH (12:43)
--- NOTE | 2018-07-27 15:38 | CON ---
DATE OF CONSULTATION: 07/27/2018 CONSULTING PHYSICIAN: Dr. Burt. REASON FOR CONSULTATION: IMC placement. HISTORY OF PRESENT ILLNESS: Mr. Jean is an 82-year-old, who came in hypoglycemic with a blood glucose reported at 11. He is confused this morning and I cannot get much from him in the way of history. PAST MEDICAL HISTORY: 1. Some type of vasculitis. 2. Chronic kidney disease, requiring hemodialysis three times weekly. 3. Chronic systolic heart failure. 4. Paroxysmal atrial fibrillation. 5. Sciatica. 6. No history of diabetes mellitus that I can find. PAST SURGICAL HISTORY: 1. Left upper arm AV fistula. 2. Hemodialysis catheter and subsequent removal. SOCIAL HISTORY: Nonsmoker. Does not consume alcohol. Does not use illicit drugs. ALLERGIES: NONE. MEDICATIONS: Prior to admission, hydrocodone, Megace, Ventolin, sertraline, ondansetron, amiodarone, ipratropium, hydrocodone, Protonix, Coreg. Steroids are listed, but appeared to be an inactive medication. REVIEW OF SYSTEMS: Cannot be obtained secondary to the patient's confusion. PHYSICAL EXAMINATION: VITAL SIGNS: Temperature 98.2, pulse 77, blood pressure 127/54, O2 saturation 93%. GENERAL: The patient is lying in bed, does not appear to be in any distress. HEENT: Remarkable for acneiform appearance. NECK: No adenopathy or JVD. CARDIAC: S1 and S2 regular with 2/6 systolic murmur in left sternal border. LUNGS: Clear anteriorly. ABDOMEN: Soft and nontender. EXTREMITIES: No clubbing, cyanosis, or edema. Left upper arm AV fistula is noted. LABORATORY DATA: White blood cell count 18.1, hematocrit 33, platelet count 121. Sodium 137, potassium 3.1, chloride 94, CO2 of 31, BUN 17, creatinine 3.7, glucose 82. Lactate 4.3, albumin 1.9. Troponin 0.053. Urine showed too numerous to count white blood cells. ASSESSMENT: 1. The patient is presenting with profound hypoglycemia of unknown etiology. He also has profound hypoalbuminemia and numerous white blood cells in his urine. 2. Sepsis syndrome is definitely a possibility. The hypoglycemia is puzzling and he may have some component of adrenal insufficiency contributing to this. Either that or he has extensive liver disease. PLAN: 1. Check cortisol level. 2. I agree with empiric antibiotics. 3. Nephrology consultation. 4. Check cortisol and consider empiric steroids. The above encompassed 70 minutes of time. Of that time, greater 50% was spent with the patient and/or the patient's unit in the hospital. Job ID: [id number]
--- NOTE | 2018-07-27 18:01 | CON ---
DATE OF CONSULTATION: REASON FOR CONSULTATION: End-stage renal disease. HISTORY OF PRESENT ILLNESS: This is a very pleasant 82-year-old gentleman, admitted to the hospital for hypoglycemia and back pain. The patient dialyzes Thursday, Thursday, and Thursday. Denies any nausea, vomiting, or chest pain. PAST MEDICAL HISTORY: Significant for hypertension, end-stage renal disease, anemia, history of vasculitis, MPO positive, history of congestive heart failure, atrial fibrillation, chronic reflux, history of tunneled dialysis catheter, history of multiple catheter, and history of AV fistula. SOCIAL HISTORY: No alcohol or drug use. FAMILY HISTORY: Negative for ESRD. ALLERGIES: REVIEWED. HOME MEDICATION: List reviewed. REVIEW OF SYSTEMS: Fifteen-point review of system was performed and negative except for positives noted above. GENERAL: HEAD: NECK: No swelling or lumps. NOSE: No epistaxis or discharge. EYES: No diplopia or pain. RESPIRATORY: CARDIOVASCULAR: GASTROINTESTINAL: /TYPING BOOKKEEPER: MUSCULOSKELETAL: No joint pain. NEUROPSYCHIATIC SYSTEMS: No suicidal ideation. No ideation. SKIN: Denies any rash or ulcer. CONSTITUTIONAL: No fever or chills. PHYSICAL EXAMINATION: CONSTITUTIONAL: On examination, the patient is awake, alert. VITAL SIGNS: Afebrile, pulse 78, breathing 16, and blood pressure 130/70. GENERAL APPEARANCE AND MENTAL STATUS: Fair. HEAD/NECK: Normocephalic. Atraumatic. EYES: EOMI. No deformity. EARS: Clear. No ulcers. NOSE: Intact. No lesions. MOUTH: Clear. No discharge. THROAT: Clear. No exudate. LUNGS: Clear. No crackles. CARDIAC: S1, S2. No rub. ABDOMEN: Benign. Bowel sounds positive. GENITALIA/RECTUM: Conrad absent. BACK/EXTREMITIES: Edema 0+. NEUROLOGICAL: Alert and motor intact. SKIN: LYMPHATICS: LABORATORY DATA: Labs reviewed. ASSESSMENT AND PLAN: Stage 6 chronic kidney disease. No indication for dialysis. Hypertension, stable. Anemia, stable. Medication based on GFR appropriate. Job ID: [id number]
[2018-07-28 04:54] LABS: Hemoglobin 9.1 g/dL (14.0-18.0); Mean Corpuscular HGB CONC 29.3 g/dL (32.0-36.0); Mean Corpuscular Hemoglobin 28.4 pg (27.0-31.0); Mean Platelet Volume 8.5 fL (7.4-10.4); Platelet Count 158 thou/uL (130-400); RBC Distribution Width 19.5 % (11.5-14.5); Red Blood Cell (RBC) Count 3.19 mill/uL (4.70-6.10); White Blood Cell (WBC) Count 11.2 thou/uL (4.8-10.8)
[2018-07-28 05:10] LABS: Anion Gap 14 mmol/L (10-20); BUN (Urea Nitrogen) 23 mg/dL (8.4-25.7); Calc. Creatinine Clearance 12 mL/min (70-130); Calcium 6.9 mg/dL (7.8-10.44); Carbon Dioxide 31 mmol/L (23-31); Chloride 98 mmol/L (98-107); Estimated GFR-MDRD 13; Glucose 75 mg/dL (83-110); Sodium 140 mmol/L (136-145)
[2018-07-28 05:13] LABS: Potassium 2.7 mmol/L (3.5-5.1)
[2018-07-28] MEDS: Potassium Chloride 20 MEQ in Premix Bag 1 BAG IVPB SCH ×2 (05:34→07:43)
[2018-07-28] MEDS: Piperacillin/Tazobactam 2.25 GM in Sodium Chloride 0.9% 100 ML IVPB SCH ×4 (05:34→23:21)
[2018-07-28 05:49] LABS: Hypochromia SLIGHT = 6-15 cells (100X) (0-5/hpf); Lymphocytes 7 % (21-51); MDiff Complete? YES; Monocytes 3 % (0-10); Neutrophil 90 % (42-75); Platelet Morphology Comment Appears Adequate
--- NOTE | 2018-07-28 07:54 | PRG ---
DATE OF SERVICE: 07/28/2018 SUBJECTIVE: An 82-year-old gentleman being seen for end-stage renal disease. The patient denies nausea, vomiting, or chest pain. OBJECTIVE: CONSTITUTIONAL: The patient is awake, alert. VITAL SIGNS: Afebrile, pulse 92, breathing 16, blood pressure 145/64. GENERAL APPEARANCE AND MENTAL STATUS: Fair. HEAD/NECK: Normocephalic. Atraumatic. EYES: EOMI. No deformity. EARS: Clear. No ulcers. NOSE: Intact. No lesions. MOUTH: Clear. No discharge. THROAT: Clear. No exudate. LUNGS: Clear. No crackles. CARDIAC: S1, S2. No rub. ABDOMEN: Benign. Bowel sounds positive. GENITALIA/RECTUM: Conrad absent. BACK/EXTREMITIES: Edema 0+. NEUROLOGICAL: Alert and motor intact. SKIN: LYMPHATICS: LABORATORY DATA: Reviewed. ASSESSMENT: 1. Stage 6 chronic kidney disease. Plan dialysis today. 2. Hypokalemia. Give 40 mEq of K and dialyze with 4K bath. 3. Anemia, stable. 4. Medication based on GFR appropriate. 5. Hypomagnesemia. Recommend 1 g of magnesium sulfate. Job ID: [id number]
[2018-07-28] MEDS ORDERED: Potassium Chloride 20 MEQ TAB PO SCH (08:00)
[2018-07-28 08:52] LABS: Vancomycin, Trough Less than 1.1 ug/mL
[2018-07-28] MEDS: Tamsulosin HCl 0.4 MG CAP PO SCH ×2 (09:25→19:41)
[2018-07-28] MEDS: Aspirin Chewable 81 MG TAB PO SCH (09:25)
[2018-07-28] MEDS: Famotidine/PF 20 mg/2ml Vial SLOW IVP SCH (09:25)
[2018-07-28] MEDS: Carvedilol 6.25 MG TAB PO SCH ×2 (09:26→19:12)
[2018-07-28] MEDS: HYDROcodone/Acetaminophen 7.5/325 mg Tablet PO PRN ×3 (09:26→21:32)
[2018-07-28] MEDS: Enoxaparin Sodium 40 MG/0.4 ML SYRINGE SC SCH (09:27)
--- NOTE | 2018-07-28 10:11 | PRG ---
DATE OF SERVICE: 07/28/2018 SERVICE: Pulmonary Medicine. INTERVAL HISTORY: The patient is doing poorly from respiratory standpoint. He has been coughing up blood. He denies any current fevers or chills. There has been no interval change to his condition otherwise. He is currently not on any disease modifying therapy for his known vasculitis. PHYSICAL EXAMINATION: VITAL SIGNS: Afebrile, pulse 96, blood pressure 145/64, respirations 13, saturation 98% on room air. GENERAL: The patient is awake and alert, in no apparent distress. LUNGS: Excellent air entry. There is no prolonged expiratory phase. Crackles are present. HEART: Normal rate and regular. ABDOMEN: Soft, nontender, nondistended. Bowel sounds are positive. MUSCULOSKELETAL: No cyanosis or clubbing. No pitting in the bilateral lower extremities. NEUROLOGIC: Grossly nonfocal. LABORATORY DATA: WBC 11.2, hemoglobin 9.1 and downtrending, platelets 158,000. Potassium 2.7, creatinine 4.51, magnesium 1.4. Basic metabolic profile is otherwise unremarkable. Cortisol level is 19.6. Nitrites are positive. White blood cells are greater than 50,000. Bacteria is 2+. Blood cultures x2 and urine culture remain negative. IMAGING STUDIES: Chest x-ray demonstrate bilateral pleural effusions, pulmonary vascular congestion. There is a right lower lobe peripherally located opacifications/fluffy alveolar infiltrate. ASSESSMENT: 1. 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 2. Granulomatosis with polyangiitis. 3. Urinary tract infections. 4. Health care associated pneumonia, possible. 5. Hemoptysis. 6. Severe sepsis. 7. Debility, advanced. DISCUSSION AND PLAN: At this point, the patient is suggesting that he no longer wants to pursue aggressive maneuvers moving forward. As such, no additional investigation is warranted into his underlying lung issue. The patient would not want to undergo plasmapheresis if he had an acute exacerbation of his vasculitis. His significant hemoptysis is concerning for an active flare of this disease process. We will continue to try to get him closer to euvolemia. From my perspective, he is stable for transition out of the ICU to the medical unit. Pulmonary will continue to follow for the time being. Job ID: [id number] [facility]
--- NOTE | 2018-07-28 14:18 | PRG ---
DATE OF SERVICE: 07/28/2018 SUBJECTIVE: Mr. Jean is awake. He still complains of pain. He is currently on [place] 7.5 every 6 hours p.r.n. pain. Otherwise, no other medical complaints. OBJECTIVE: VITAL SIGNS: Blood pressure 145/64 and temperature 98.0. LUNGS: Bilateral breath sounds. HEART: Reveals regular rhythm without murmur, gallops, or rubs. LABORATORY DATA: His hemoglobin is 9.1, hematocrit 31.0, white blood count 11.2, 90 segs, 7 lymphs. Sodium 147 and potassium 2.7. Blood cultures are negative x2. Urine cultures negative x1. IMPRESSION: 1. History of hypoglycemia, possible septic shock, although it does not appear to be in my opinion this patient has formed sepsis. 2. End-stage renal disease. 3. Chronic pain. 4. History of atrial fibrillation, not able to tolerate anticoagulation due to multiple falls. PLAN: I spoke with the patient's son yesterday. He wishes for him to be consider some type of hospice care. I have spoken this with the patient, who has agreed to consider this as a possible means for discharge home under hospice care. We will instruct Case Management to consult hospice. The patient is currently cared by [facility]. It is my understanding they are going also try to coordinate with some type of hospice program or case management social worker to do this. We will continue current therapy at this time. Job ID: [id number]
[2018-07-29] MEDS: Acetaminophen 325 MG TAB PO PRN (02:19)
[2018-07-29] MEDS: HYDROcodone/Acetaminophen 7.5/325 mg Tablet PO PRN ×3 (04:16→23:09)
[2018-07-29] MEDS: Piperacillin/Tazobactam 2.25 GM in Sodium Chloride 0.9% 100 ML IVPB SCH ×4 (04:17→23:09)
[2018-07-29 06:02] LABS: Hemoglobin 9.1 g/dL (14.0-18.0)
[2018-07-29 06:22] LABS: Anion Gap 11 mmol/L (10-20); BUN (Urea Nitrogen) 9 mg/dL (8.4-25.7); Calc. Creatinine Clearance 22 mL/min (70-130); Calcium 6.8 mg/dL (7.8-10.44); Carbon Dioxide 30 mmol/L (23-31); Chloride 103 mmol/L (98-107); Estimated GFR-MDRD 25; Magnesium 1.4 mg/dL (1.6-2.6); Potassium 3.6 mmol/L (3.5-5.1); Sodium 140 mmol/L (136-145)
[2018-07-29 06:28] LABS: Glucose 58 mg/dL (83-110)
[2018-07-29] MEDS: Famotidine/PF 20 mg/2ml Vial SLOW IVP SCH (09:16)
[2018-07-29] MEDS: Carvedilol 6.25 MG TAB PO SCH ×2 (09:17→17:03)
[2018-07-29] MEDS: Tamsulosin HCl 0.4 MG CAP PO SCH ×2 (09:17→19:29)
[2018-07-29] MEDS: Enoxaparin Sodium 40 MG/0.4 ML SYRINGE SC SCH (09:18)
[2018-07-29] MEDS: Aspirin Chewable 81 MG TAB PO SCH (09:18)
[2018-07-29] MEDS: Fluconazole 100 MG TAB PO SCH (09:21)
--- NOTE | 2018-07-29 10:19 | PRG ---
DATE OF SERVICE: 07/29/2018 SERVICE: Pulmonary Medicine. INTERVAL HISTORY: The patient is doing great from respiratory standpoint. He denies any current fevers, chills, cough, sputum production, nausea, or vomiting. Otherwise, he is returning to his usual state of health. Ultimately, he is interested in simply going home being kept comfortable. He continues to have a little bit of hemoptysis. That being said, his appetite has picked up a little bit, which he is grateful for. OBJECTIVE: VITAL SIGNS: Afebrile, pulse 72, blood pressure 135/42, respirations 20, and saturation 92% on room air. GENERAL: The patient is awake and alert, in no apparent distress. LUNGS: Decent air entry without any prolonged expiratory phase or wheezing present. HEART: Normal rate and regular. ABDOMEN: Soft, nontender, and nondistended. Bowel sounds are positive. MUSCULOSKELETAL: No cyanosis or clubbing. There is no pitting currently in the bilateral lower extremities. NEUROLOGIC: Grossly nonfocal. LABORATORY DATA: Hemoglobin 9.1 and stable. Glucose is ranging from 51 to 100. Basic metabolic profile is otherwise unremarkable. Magnesium remains low at 1.4. Urine culture is growing yeast species. Blood cultures x2 are otherwise unremarkable. ASSESSMENT: 1. 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 2. Granulomatosis with polyangiitis. 3. Debility, advanced. 4. Severe sepsis. 5. Urinary tract infection, likely secondary to yeast, versus colonization. DISCUSSION AND PLAN: At this point, we will abide by the patient's request and likely transition him home under the care of hospice. At this point, he has no further requirements for inpatient Pulmonary or Critical Care opinion. As such , I will sign off. No workup into the vasculitis process will be entertained as the patient has chosen to transition home under the care of hospice. If he decides to be aggressive moving forward, please give me a phone call. No formal followup with Pulmonary will be arranged. Job ID: [id number] [facility]
--- NOTE | 2018-07-29 11:11 | PRG ---
DATE OF SERVICE: 07/28/2018 SUBJECTIVE: Mr. Jean is asleep. He denies any medical complaints today. He is arousable at this time. He is mildly confused this morning. OBJECTIVE: VITAL SIGNS: Blood pressure is 135/42, temperature is 98.1. LUNGS: Bilateral breath sounds. Some coarse rhonchi. No wheezes. HEART: Reveals a regular rhythm without murmur. ABDOMEN: Soft and nontender. Bowel sounds are present and reactive. LABORATORY DATA: His hemoglobin is 9.1, hematocrit is 31.0. Sodium 140, potassium 3.6. He does have some low glucoses. Urine culture is positive for yeast species. IMPRESSION: 1. End-stage renal disease. 2. Respiratory compromise, possibly of a low-grade pneumonia at this point. 3. Failure to thrive. The patient has poor p.o. intake. He is not wishing to maintain any significant p.o. intake. His overall physical condition is declining. PLAN: 1. I will add Diflucan for the yeast species grown out of his urine. 2. We will await further recommendations, palliative care, human services case manager about admission to hospice and eventual transfer home. Job ID: [id number]
--- NOTE | 2018-07-29 12:33 | PRG ---
DATE OF SERVICE: SUBJECTIVE: An 82-year-old gentleman being seen for end-stage renal disease. The patient denied nausea, vomiting, or chest pain. OBJECTIVE: CONSTITUTIONAL: The patient is awake and alert. VITAL SIGNS: Afebrile. Pulse 74, breathing 16, and blood pressure 135/42. GENERAL APPEARANCE AND MENTAL STATUS: Fair. HEAD/NECK: Normocephalic. Atraumatic. EYES: EOMI. No deformity. EARS: Clear. No ulcers. NOSE: Intact. No lesions. MOUTH: Clear. No discharge. THROAT: Clear. No exudate. LUNGS: Clear. No crackles. CARDIAC: S1, S2. No rub. ABDOMEN: Benign. Bowel sounds positive. GENITALIA/RECTUM: Conrad absent. BACK/EXTREMITIES: Edema 0+. NEUROLOGICAL: Alert and motor intact. SKIN: LYMPHATICS: LABORATORY DATA: Labs showed hemoglobin 9.1. ASSESSMENT AND PLAN: 1. Chronic kidney disease, stage 6. No indication for dialysis today. 2. Hypertension, stable. 3. Anemia, stable. The patient is awaiting evaluation by Palliative Care. Job ID: [id number]
--- NOTE | 2018-07-29 19:51 | PRG ---
DATE OF SERVICE: 07/29/2018 I spoke to palliative care doctor the patient's son has an active DNR and this has been confirmed with his son, [employer]. This will be provided to the patient by me. This order has been placed. hospice care for this patient. Job ID: [id number]
[2018-07-30] MEDS: Acetaminophen 325 MG TAB PO PRN (03:13)
[2018-07-30] MEDS: Piperacillin/Tazobactam 2.25 GM in Sodium Chloride 0.9% 100 ML IVPB SCH ×3 (04:49→17:48)
[2018-07-30] MEDS: HYDROcodone/Acetaminophen 7.5/325 mg Tablet PO PRN ×2 (06:15→11:42)
[2018-07-30] MEDS ORDERED: Lorazepam 0.5 MG TAB PO PRN (07:33)
[2018-07-30 07:38] LABS: Vancomycin, Random 6.8 ug/mL (See Comment)
[2018-07-30 08:37] LABS: Chloride 105 mmol/L (98-107); Magnesium 1.7 mg/dL (1.6-2.6); Potassium 3.7 mmol/L (3.5-5.1); Sodium 143 mmol/L (136-145)
[2018-07-30 08:38] LABS: Calcium 7.2 mg/dL (7.8-10.44); Glucose 82 mg/dL (83-110)
[2018-07-30 08:40] LABS: Anion Gap 13 mmol/L (10-20); Carbon Dioxide 29 mmol/L (23-31)
[2018-07-30 08:41] LABS: Calc. Creatinine Clearance 15 mL/min (70-130); Estimated GFR-MDRD 17
[2018-07-30 08:42] LABS: BUN (Urea Nitrogen) 14 mg/dL (8.4-25.7)
[2018-07-30] MEDS: Fluconazole 100 MG TAB PO SCH (08:44)
[2018-07-30] MEDS: Tamsulosin HCl 0.4 MG CAP PO SCH (08:44)
[2018-07-30] MEDS: Carvedilol 6.25 MG TAB PO SCH ×2 (08:44→17:47)
[2018-07-30] MEDS: Famotidine/PF 20 mg/2ml Vial SLOW IVP SCH (08:45)
[2018-07-30] MEDS: Aspirin Chewable 81 MG TAB PO SCH (08:45)
[2018-07-30] MEDS: Enoxaparin Sodium 40 MG/0.4 ML SYRINGE SC SCH (08:45)
[2018-07-30 08:47] VITALS: TEMP 98.1
[2018-07-30 08:51] VITALS: BP 172/81
--- NOTE | 2018-07-30 10:29 | PRG ---
DATE OF SERVICE: 07/30/2018 SUBJECTIVE: An 82-year-old gentleman being seen for end-stage kidney disease. The patient has not decided about hospice. OBJECTIVE: GENERAL: The patient is resting. VITAL SIGNS: Afebrile, pulse 70, breathing 16, blood pressure 107/59. GENERAL APPEARANCE AND MENTAL STATUS: Fair. HEAD/NECK: Normocephalic. Atraumatic. EYES: EOMI. No deformity. EARS: Clear. No ulcers. NOSE: Intact. No lesions. MOUTH: Clear. No discharge. THROAT: Clear. No exudate. LUNGS: Clear. No crackles. CARDIAC: S1, S2. No rub. ABDOMEN: Benign. Bowel sounds positive. GENITALIA/RECTUM: Conrad absent. BACK/EXTREMITIES: Edema 0+. NEUROLOGICAL: Alert and motor intact. SKIN: LYMPHATICS: LABORATORY DATA: Labs show hemoglobin 9.1. Creatinine 3.5, potassium 3.7. ASSESSMENT AND RECOMMENDATIONS: 1. Chronic kidney disease, stage 6. Plan dialysis tomorrow. 2. Hypertension, stable. 3. Anemia, stable. 4. Medications based on GFR, appropriate. Job ID: [id number]
[2018-07-30] MEDS ORDERED: Dextrose 50% Abboject 50 ML SYRINGE ONE (11:35)
--- NOTE | 2018-07-30 14:22 | PRG ---
DATE OF SERVICE: 07/30/2018 SUBJECTIVE: Mr. Jean is trying to sleep. He feels a little bit confused and agitated. He says they would be calmed down. He is now DNR per family request. We are still working diligently to try to get him enrolled in hospice and discharged to home. Nephrology decided not to dialyze him today. OBJECTIVE: VITAL SIGNS: Blood pressure 107/59, O2 sats 97%. GENERAL: He is somewhat confused upon arising, but he appears to be a little bit agitated and nervous. LUNGS: Clear. HEART: No murmur. LABORATORY DATA: Urine microbiology reveals Heidi albicans. He is currently on Diflucan at this time. IMPRESSION: 1. End-stage renal disease. 2. Failure to thrive. 3. History of vasculitis. 4. Urinary tract infection of yeast infection origin. 5. Presumptive pneumonia. PLAN: The patient is certainly a hospice candidate. Hopefully, we can continue to get this enrollment. He is currently on medications. I will add a little bit of Xanax today for the agitation. Job ID: [id number]
== END 2018-07-30 19:10 | disposition home or self-care (01) | DRG 871 ==
LOC: ERS 18:57 → IMCU/EMU 23:17 → T4-A 07-28 17:26
PROVIDERS: ADMIT Family Medicine; ATTEND Family Medicine
PROC: 5A1D70Z Performance of Urinary Filtration, Intermittent, Less than 6 Hours Per Day (ICD-10-PCS; principal; 2018-07-30)
DX: A41.9 Sepsis, unspecified organism (principal); N18.6 End stage renal disease; J18.9 Pneumonia, unspecified organism; I13.0 Hypertensive heart and chronic kidney disease with heart failure and stage 1 through stage 4 chronic kidney disease, or unspecified chronic kidney disease; I50.22 Chronic systolic (congestive) heart failure; N39.0 Urinary tract infection, site not specified; Z66 Do not resuscitate; R65.20 Severe sepsis without septic shock; I48.0 Paroxysmal atrial fibrillation; M54.30 Sciatica, unspecified side; E16.2 Hypoglycemia, unspecified; D63.1 Anemia in chronic kidney disease; E87.6 Hypokalemia; E83.42 Hypomagnesemia; L92.9 Granulomatous disorder of the skin and subcutaneous tissue, unspecified; Z79.899 Other long term (current) drug therapy; Z99.2 Dependence on renal dialysis; Z79.82 Long term (current) use of aspirin; Z79.52 Long term (current) use of systemic steroids
CPT/HCPCS: 36415; 36416; 51701; 71045; 80048; 80053; 80202; 81003; 81015; 82533; 83605; 83735; 83880; 84484; 85014; 85018; 85025; 87040; 87086; 93005; 94760; 96361; 96365; J1100; J1650; J2405; J2543; J3370; J3480; J3490; J7050; S0028